=== PATIENT | female | born 1935 | race Caucasian/White ===

== ENCOUNTER → 2016-06-12 | Outpatient (CLI) | payer BC ==
[~2016-06-12] MED LIST: ACET-1311 PO; ALBU18002 INH; AMB5 PO; ASCO500T3 PO; ATEN50TA8 PO; CALC150C PO; CALCIUM CITRATE PO; CHOL1TAB46 PO; CLC100 PO; CYAN100020 PO; DLCS PR; DYZ PO; ENOX30IN4 SQ; FRRS300 PO; GABA-113 PO; LACTULOSE PO; MAGNESIUM HYDROXIDE PO; MRLP17 PO; MULT-190 PO; MULT-506 PO; OXYC-57 PO; POTA10CA28 PO; SENN-65 PO; SOD PR; SODIUM PHOS PR; SPIR25TA PO; VANC1INJ10 IV; VENL1CAP92 PO
[2016-06-12 12:25] LABS: BASO % 0.6 %; BASO ABS # 0.04 K/uL (0-0.2); COMPLETE YES; EOS % 4.8 %; HEMATOCRIT 37.2 % (37-47); IG% 0.4 %; LYMPH % 25.2 %; LYMPH ABS # 1.78 K/uL (1.2-3.4); MEAN CELL VOLUME 87.1 fL (80-100); MEAN CORPUSCULAR HEMOGLOBIN 27.2 pg (25-34); MEAN CORPUSCULAR HGB CONC 31.2 g/dl (32-36); MONO % 12.4 %; NEUT % 56.6 %; PLATELET COUNT 306 K/uL (130-400); RED BLOOD COUNT 4.27 M/uL (4.2-5.4); WHITE BLOOD COUNT 7.07 K/uL (4.8-10.8)
[2016-06-12 13:09] LABS: ALB/GLOB RATIO 0.8 (0.9-2); ALKALINE PHOSPHATASE 113 U/L (45-117); ALT/SGPT 18 U/L (12-78); AST/SGOT 20 U/L (15-37); BLOOD UREA NITROGEN 17 mg/dl (7-18); BUN/CREATININE RATIO 19.2 (10-20); CALCIUM 9.1 mg/dl (8.5-10.1); CARBON DIOXIDE 31 mmol/L (21-32); CHLORIDE 105 mmol/L (98-107); CREATININE 0.91 mg/dl (0.60-1.20); GLUCOSE 118 mg/dl (70-99); SODIUM 142 mmol/L (136-145)
== END | disposition home or self-care (01) ==
LOC: C.LABPBG 09:51
PROVIDERS: ATTEND Internal Medicine Geriatric Medicine
DX: M19.90 Unspecified osteoarthritis, unspecified site (principal); M81.0 Age-related osteoporosis without current pathological fracture; R73.9 Hyperglycemia, unspecified

== ENCOUNTER → 2016-07-16 | Outpatient (CLI) | payer BC ==
[2016-07-16 17:28] LABS: BASO % 0.9 %; BASO ABS # 0.07 K/uL (0-0.2); COMPLETE YES; EOS % 4.4 %; HEMATOCRIT 40.4 % (37-47); IG% 0.1 %; LYMPH % 27.7 %; LYMPH ABS # 2.15 K/uL (1.2-3.4); MEAN CELL VOLUME 89.4 fL (80-100); MEAN CORPUSCULAR HEMOGLOBIN 26.3 pg (25-34); MEAN CORPUSCULAR HGB CONC 29.5 g/dl (32-36); MONO % 13.5 %; NEUT % 53.4 %; PLATELET COUNT 326 K/uL (130-400); RED BLOOD COUNT 4.52 M/uL (4.2-5.4); WHITE BLOOD COUNT 7.77 K/uL (4.8-10.8)
[2016-07-16 17:34] LABS: BLOOD UREA NITROGEN 16 mg/dl (7-18); BUN/CREATININE RATIO 17.8 (10-20); CALCIUM 9.3 mg/dl (8.5-10.1); CARBON DIOXIDE 33 mmol/L (21-32); CHLORIDE 105 mmol/L (98-107); CREATININE 0.92 mg/dl (0.60-1.20); GLUCOSE 99 mg/dl (70-99); POTASSIUM 4.3 mmol/L (3.5-5.1); SODIUM 142 mmol/L (136-145)
[2016-07-16 17:39] LABS: TOTAL IRON BINDING CAPACITY 430 mcg/dl (250-450)
--- NOTE | 2016-07-22 11:43 | CODING QUERY MEDICAL NECESSITY ---
SUPPORTING DIAGNOSIS NEEDED Dr. Agustin, A supporting diagnosis is required for the test/procedure performed on this patient in order for us to be reimbursed by the patient's insurance. Please provide a supporting diagnosis for the following test/procedure listed below next to the test name along with your signature. *If there is no additional diagnosis for this patient that would support the following test/procedure please document that below next to the test/procedure. Test(s)/Procedure(s) that require a supporting diagnosis: * ([id number]) B12 VITAMIN LEVEL DIAGNOSIS: DATE OF SERVICE: 07/16/16 Provider Signature: Date: Thank you Parrish Zurita [facility] Information Management Once completed, please kindly fax back to [phone] For questions please call [phone]
== END | disposition home or self-care (01) ==
LOC: C.LABPBG 13:05
PROVIDERS: ATTEND Internal Medicine Geriatric Medicine
DX: I10 Essential (primary) hypertension (principal); D64.9 Anemia, unspecified; E53.8 Deficiency of other specified B group vitamins

== ENCOUNTER → 2016-08-22 | Day surgery (SDC) | payer BC ==
[2016-08-16 14:01] VITALS: BMI 51.0
[~2016-08-22] VITALS: Ht 154.9 cm; Wt 122.7 kg
[~2016-08-22] MED LIST changes: -ACET-1311 PO; -AMB5 PO; -CALCIUM CITRATE PO; -CLC100 PO; -DLCS PR; -DYZ PO; -ENOX30IN4 SQ; +FENTANYL CITRATE INJ 50 MCG/1 ML 2 ML VIAL ONE; -FRRS300 PO; -LACTULOSE PO; +LIDOCAINE HCL 2% 2 ML VIAL (20MG/ML) ONE; -MAGNESIUM HYDROXIDE PO; -MRLP17 PO; -OXYC-57 PO; -POTA10CA28 PO; +PROPOFOL IV EMULSION 10 MG/ML 20 ML VIAL IV ONE; -SENN-65 PO; -SOD PR; +SODIUM CHLORIDE 0.9% 500ML 500 ML IV ONE; -SODIUM PHOS PR; -VANC1INJ10 IV
[2016-08-22 13:28] VITALS: Ht 154.9 cm; Wt 122.7 kg
--- NOTE | 2016-08-22 14:20 | Endo History and Physical ---
History & Physical Date of Service: Aug 22, 2016. Chief Complaint: HEME POSITIVE STOOL Referring Physician: DR Rosa OLIVER History of Present Illness heme positive stool /anemia Past Surgical History Hx Cardiac Surgery: No Hx Internal Defibrillator: No Hx Pacemaker: No Hx Abdominal Surgery: Yes (ALEX, GARRETT, APPY) Hx of Implantable Prosthesis: No Hx Post-Op Nausea and Vomiting: No Hx Cancer Surgery: No Hx Thoracic Surgery: No Hx Orthopedic: Yes (L/RT JALEESA, RT/LEFT TKA (RT KNEE X 2), RT/LEFT RCR, RT CTR) Hx Urinary Tract Surgery: No Family History None Social History Smoking Status: Never Smoker Hx Substance Use: No Hx Alcohol Use: No Allergies Coded Allergies: Promethazine (Verified Allergy, Severe, RESP. ARREST, 08/22/16) Sulfa Antibiotics (Verified Allergy, Intermediate, WELTS, 08/22/16) Propoxyphene (Verified Adverse Reaction, Intermediate, SEVERE HEADACHE, ) SEVERE HEADACHE Aspirin (Verified Adverse Reaction, Mild, headaches, 08/22/16) Current Medications Reported Home Medications Medications Dose Route/Sig Max Daily Dose Days Date Category Effexor Xr (Venlafaxine Hcl) 37.5 Mg Cap 1 Cap PO QAM 30 08/16/16 Reported Aldactone (Spironolactone) 25 Mg Tab 25 Mg PO QAM 08/16/16 Reported Proair Respiclick (Albuterol Sulfate) 108 Mcg/Act Aer 2 Puff INH Q4H PRN 08/16/16 Reported Ocuvite Preservision (Multivitamins/Minerals) 1 Tab Tab 1 Tab PO QAM 08/16/16 Reported Vitamin B12 (Cyanocobalamin) 1,000 Mcg Tab 1 Tab PO QAM 08/16/16 Reported Neurontin (Gabapentin) 300 Mg Cap 4 Cap PO HS 08/16/16 Reported Tenormin (Atenolol) 50 Mg Tab 50 Mg PO QAM 05/30/06 Reported Vital Signs Weight (Kilograms): 122.73 Height (Feet): 5 Height (Inches): 1 Date Time Temp Pulse Resp B/P (MAP) Pulse Ox O2 Delivery O2 Flow Rate FiO2 08/22/16 13:49 37.3 82 20 150/44 (79) 94 Room Air Physical Exam AAOx3 Nl s1s2 Lungs CTA Abd soft NT/ND + BS - CCe Assessment and Plan colonoscopy
--- NOTE | 2016-08-22 15:07 | Discharge Instructions ---
Endoscopy Patient Instructions Date / Procedure(s) Performed Aug 22, 2016. Colonoscopy Allergy Information Coded Allergies: Promethazine (Verified Allergy, Severe, RESP. ARREST, 08/22/16) Sulfa Antibiotics (Verified Allergy, Intermediate, WELTS, 08/22/16) Propoxyphene (Verified Adverse Reaction, Intermediate, SEVERE HEADACHE, ) SEVERE HEADACHE Aspirin (Verified Adverse Reaction, Mild, headaches, 08/22/16) Discharge Date / Findings Aug 22, 2016. polyps removed Medication Instructions Stopped Medication(s): NO FISH OIL OR IRON Restart Stopped Medication(s): Reported Home Medications Medications Dose Route/Sig Max Daily Dose Days Date Category Effexor Xr (Venlafaxine Hcl) 37.5 Mg Cap 1 Cap PO QAM 30 08/16/16 Reported Aldactone (Spironolactone) 25 Mg Tab 25 Mg PO QAM 08/16/16 Reported Proair Respiclick (Albuterol Sulfate) 108 Mcg/Act Aer 2 Puff INH Q4H PRN 08/16/16 Reported Ocuvite Preservision (Multivitamins/Minerals) 1 Tab Tab 1 Tab PO QAM 08/16/16 Reported Vitamin B12 (Cyanocobalamin) 1,000 Mcg Tab 1 Tab PO QAM 08/16/16 Reported Neurontin (Gabapentin) 300 Mg Cap 4 Cap PO HS 08/16/16 Reported Tenormin (Atenolol) 50 Mg Tab 50 Mg PO QAM 05/30/06 Reported Reported Home Medications Medications Dose Route/Sig Max Daily Dose Days Date Category Effexor Xr (Venlafaxine Hcl) 37.5 Mg Cap 1 Cap PO QAM 30 08/16/16 Reported Aldactone (Spironolactone) 25 Mg Tab 25 Mg PO QAM 08/16/16 Reported Proair Respiclick (Albuterol Sulfate) 108 Mcg/Act Aer 2 Puff INH Q4H PRN 08/16/16 Reported Ocuvite Preservision (Multivitamins/Minerals) 1 Tab Tab 1 Tab PO QAM 08/16/16 Reported Vitamin B12 (Cyanocobalamin) 1,000 Mcg Tab 1 Tab PO QAM 08/16/16 Reported Neurontin (Gabapentin) 300 Mg Cap 4 Cap PO HS 08/16/16 Reported Tenormin (Atenolol) 50 Mg Tab 50 Mg PO QAM 05/30/06 Reported Reported Home Medications Medications Dose Route/Sig Max Daily Dose Days Date Category Effexor Xr (Venlafaxine Hcl) 37.5 Mg Cap 1 Cap PO QAM 30 08/16/16 Reported Aldactone (Spironolactone) 25 Mg Tab 25 Mg PO QAM 08/16/16 Reported Proair Respiclick (Albuterol Sulfate) 108 Mcg/Act Aer 2 Puff INH Q4H PRN 08/16/16 Reported Ocuvite Preservision (Multivitamins/Minerals) 1 Tab Tab 1 Tab PO QAM 08/16/16 Reported Vitamin B12 (Cyanocobalamin) 1,000 Mcg Tab 1 Tab PO QAM 08/16/16 Reported Neurontin (Gabapentin) 300 Mg Cap 4 Cap PO HS 08/16/16 Reported Tenormin (Atenolol) 50 Mg Tab 50 Mg PO QAM 05/30/06 Reported Provider Instructions Activity Restrictions - No exercising or heavy lifting for 24 hours. - Do not drink alcohol the day of the procedure. - Do not drive a car or operate machinery until the day after the procedure. - Do not make any important decisions or sign important papers in 24 hours after the procedure. Following Day: - Return to full activity which may include returning to work/school. Diet Start your diet with liquids and light foods (jello, soup, juice, toast). Then eat your usual diet if not nauseated. Treatment For Common After Affects For mild abdominal pain, bloating, or excessive gas: - Rest - Eat lightly - Lie on right side Follow-Up Information Follow-up with DR Rosa OLIVER as scheduled Anesthesia Information What You Should Know You have had a procedure that required some medicine to reduce anxiety and discomfort. This treatment is called moderate sedation. After receiving the treatment, you may be sleepy, but you will be able to breathe on your own. The effects of the treatment may last for several hours. Follow these instructions along with Activity/Diet recommendations noted above: * Do NOT do anything where dizziness or clumsiness would be dangerous. * Rest quietly at home today, then you can be up and about tomorrow. * Have a responsible person stay with you the rest of today. * You may have had an I.V. today. If so, you may take the dressing off later today. Recommendations Call your doctor if: * Trouble breathing * Continuous vomiting for more than 24 hours * Temperature above 101 degrees * Severe abdominal pain or bloating * Pain not relieved by pain medicine ordered * There is increased drainage or redness from any incision * A large amount of rectal bleeding greater than 2-3 tablespoons. (If you had a polyp/s removed or have hemorrhoids, a small amount of blood - from the rectum is to be expected.) * You have any unanswered questions or concerns. IN THE EVENT OF A SERIOUS EMERGENCY, GO TO THE NEAREST EMERGENCY ROOM Your discharge instructions were prepared by provider Christiano Thibodeaux. Patient Instructions Signature Page Tata Lin Patient (or Guardian) Signature/Date: I have read and understand the instructions given to me by my caregivers. Caregiver/RN/Doctor Signature/Date: The above-named patient and/or guardian has received patient instructions on this date. + Original Patient Signature Page (only) stays with chart. Please make copy for patient.
--- NOTE | 2016-08-22 15:12 | Anesthesiology Progress Note ---
Anesthesia Post Op Note Date & Time Aug 22, 2016 at 15:12 Vital Signs Pain Intensity: 0 Vital Signs Past 12 Hours Date Time Temp Pulse Resp B/P (MAP) Pulse Ox O2 Delivery O2 Flow Rate FiO2 08/22/16 13:49 37.3 82 20 150/44 (79) 94 Room Air Notes Mental Status: alert / awake / arousable, participated in evaluation Pt Amnestic to Procedure: Yes Nausea / Vomiting: adequately controlled Pain: adequately controlled Airway Patency, RR, SpO2: stable & adequate BP & HR: stable & adequate Hydration State: stable & adequate Anesthetic Complications: no major complications apparent
--- NOTE | 2016-08-22 15:25 | GI REPORT ---
Procedure Date: 08/22/2016 2:14 PM Procedure: Colonoscopy Indications: Iron deficiency anemia secondary to chronic blood loss, Iron deficiency anemia Medicines: Propofol per Anesthesia Complications: No immediate complications. Estimated blood loss: None. Estimated Blood Loss: Estimated blood loss: none. Procedure: Pre-Anesthesia Assessment: - Prior to the procedure, a History and Physical was performed, and patient medications and allergies were reviewed. The patient's tolerance of previous anesthesia was also reviewed. The risks and benefits of the procedure and the sedation options and risks were discussed with the patient. All questions were answered, and informed consent was obtained. Prior Anticoagulants: The patient has taken no previous anticoagulant or antiplatelet agents. ASA Grade Assessment: III - A patient with severe systemic disease. After reviewing the risks and benefits, the patient was deemed in satisfactory condition to undergo the procedure. After I obtained informed consent, the scope was passed under direct vision. Throughout the procedure, the patient's blood pressure, pulse, and oxygen saturations were monitored continuously. The Scope was introduced through the anus and advanced to the terminal ileum, with identification of the appendiceal orifice and IC valve. The colonoscopy was performed without difficulty. The patient tolerated the procedure well. The quality of the bowel preparation was good. Findings: The perianal and digital rectal examinations were normal. Pertinent negatives include normal sphincter tone, no palpable rectal lesions and no anal lesion or abnormality was detected. Two sessile polyps were found in the cecum. The polyps were 7 to 12 mm in size. These polyps were removed with a hot snare. Resection and retrieval were complete. Fulguration to ablate the lesion remnants by snare was successful. To prevent bleeding after the polypectomy, three hemostatic clips were successfully placed (MR conditional). There was no bleeding during, and at the end, of the procedure. A 6 mm polyp was found in the ascending colon. The polyp was sessile. The polyp was removed with a cold snare. Resection and retrieval were complete. Estimated blood loss was minimal. Verification of patient identification for the specimen was done by the physician and equipment technician using the patient's name and medical record number. A 6 mm polyp was found at 30 cm proximal to the anus. The polyp was sessile. The polyp was removed with a cold snare. Resection and retrieval were complete. Estimated blood loss was minimal. Verification of patient identification for the specimen was done by the physician and equipment technician using the patient's name and medical record number. The retroflexed view of the distal rectum and anal verge was normal and showed no anal or rectal abnormalities. The terminal ileum appeared normal. Impression: - Two 7 to 12 mm polyps in the cecum, removed with a hot snare. Resected and retrieved. Treated with a hot snare. Clips (MR conditional) were placed. - One 6 mm polyp in the ascending colon, removed with a cold snare. Resected and retrieved. - One 6 mm polyp at 30 cm proximal to the anus, removed with a cold snare. Resected and retrieved. - The distal rectum and anal verge are normal on retroflexion view. - The examined portion of the ileum was normal. Recommendation: - Discharge patient to home (ambulatory). - Advance diet as tolerated. - Continue present medications. - Await pathology results. - Return to referring physician as previously scheduled. MD Christiano Birmingham MD 08/22/2016 3:24:52 PM This report has been signed electronically. Note Initiated On: 08/22/2016 2:14 PM I attest to the content of the Intraoperative Record and orders documented therein, exceptions below
[2016-08-22 15:37] VITALS: BP 150/50; PULSE 64; O2SAT 96
== END | disposition home or self-care (01) ==
LOC: C.GI 13:17
PROVIDERS: ATTEND Internal Medicine Gastroenterology
DX: R19.5 Other fecal abnormalities (principal); D50.0 Iron deficiency anemia secondary to blood loss (chronic); D12.0 Benign neoplasm of cecum; D12.2 Benign neoplasm of ascending colon; K63.5 Polyp of colon; I10 Essential (primary) hypertension; Z86.718 Personal history of other venous thrombosis and embolism; M19.90 Unspecified osteoarthritis, unspecified site; Z88.2 Allergy status to sulfonamides; Z90.89 Acquired absence of other organs; Z96.643 Presence of artificial hip joint, bilateral; Z96.653 Presence of artificial knee joint, bilateral; Z98.890 Other specified postprocedural states

== ENCOUNTER → 2016-12-03 | Outpatient (CLI) | payer BC ==
[~2016-12-03] MED LIST changes: -ASCO500T3 PO; -CALC150C PO; -CHOL1TAB46 PO; -FENTANYL CITRATE INJ 50 MCG/1 ML 2 ML VIAL ONE; -LIDOCAINE HCL 2% 2 ML VIAL (20MG/ML) ONE; -MULT-506 PO; -PROPOFOL IV EMULSION 10 MG/ML 20 ML VIAL IV ONE; -SODIUM CHLORIDE 0.9% 500ML 500 ML IV ONE
[2016-12-03 17:44] LABS: BASO % 0.6 %; BASO ABS # 0.05 K/uL (0-0.2); COMPLETE YES; EOS % 4.7 %; HEMATOCRIT 38.9 % (37-47); IG% 0.4 %; LYMPH % 21.8 %; LYMPH ABS # 1.98 K/uL (1.2-3.4); MEAN CELL VOLUME 87.6 fL (80-100); MEAN CORPUSCULAR HEMOGLOBIN 25.9 pg (25-34); MEAN CORPUSCULAR HGB CONC 29.6 g/dl (32-36); MEAN PLATELET VOLUME 9.9 fL (7.4-10.4); MONO % 13.6 %; NEUT % 58.9 %; PLATELET COUNT 362 K/uL (130-400); RED BLOOD COUNT 4.44 M/uL (4.2-5.4); WHITE BLOOD COUNT 9.07 K/uL (4.8-10.8)
[2016-12-03 17:54] LABS: BLOOD UREA NITROGEN 12 mg/dl (7-18); BUN/CREATININE RATIO 13.7 (10-20); CALCIUM 9.3 mg/dl (8.5-10.1); CARBON DIOXIDE 30 mmol/L (21-32); CHLORIDE 102 mmol/L (98-107); CREATININE 0.89 mg/dl (0.60-1.20); GLUCOSE 124 mg/dl (70-99); POTASSIUM 4.2 mmol/L (3.5-5.1); SODIUM 139 mmol/L (136-145)
== END | disposition home or self-care (01) ==
LOC: C.LABPBG 14:02
PROVIDERS: ATTEND Internal Medicine Geriatric Medicine
DX: E53.8 Deficiency of other specified B group vitamins (principal); F32.9 Major depressive disorder, single episode, unspecified; I10 Essential (primary) hypertension; M81.0 Age-related osteoporosis without current pathological fracture; R73.9 Hyperglycemia, unspecified; E78.5 Hyperlipidemia, unspecified; D64.9 Anemia, unspecified

== ENCOUNTER → 2016-12-27 | Day surgery (SDC) | payer BC ==
[2016-12-23 10:50] VITALS: Ht 154.9 cm; Wt 122.7 kg
[~2016-12-27] VITALS: Ht 154.9 cm; Wt 122.7 kg
[~2016-12-27] MED LIST changes: -ALBU18002 INH; +ASCO500T3 PO; +CALC150C PO; +CHOL1TAB46 PO; +LIDOCAINE HCL 2% 2 ML VIAL (20MG/ML) ONE; +MULT-506 PO; +PROPOFOL IV EMULSION 10 MG/ML 20 ML VIAL IV ONE
--- NOTE | 2016-12-27 15:06 | Endo History and Physical ---
History & Physical Date of Service: Dec 27, 2016. Chief Complaint: ANEMIA, HEM POSITIVE STOOL Referring Physician: DR. Francisco Javier OLIVER History of Present Illness For EGD Past Surgical History Hx Cardiac Surgery: No Hx Internal Defibrillator: No Hx Pacemaker: No Hx Abdominal Surgery: Yes (ALEX, GARRETT, APPY) Hx of Implantable Prosthesis: No Hx Post-Op Nausea and Vomiting: No Hx Cancer Surgery: No Hx Thoracic Surgery: No Hx Orthopedic: Yes (L/RT JALEESA, RT/LEFT TKA (RT KNEE X 2), RT/LEFT RCR, RT CTR) Hx Urinary Tract Surgery: No Family History None Social History Smoking Status: Never Smoker Hx Substance Use: No Hx Alcohol Use: No Allergies Coded Allergies: Promethazine (Verified Allergy, Severe, RESP. ARREST, 08/22/16) Sulfa Antibiotics (Verified Allergy, Intermediate, WELTS, 08/22/16) Propoxyphene (Verified Adverse Reaction, Intermediate, SEVERE HEADACHE, ) SEVERE HEADACHE Aspirin (Verified Adverse Reaction, Mild, headaches, 08/22/16) Current Medications Reported Home Medications Medications Dose Route/Sig Max Daily Dose Days Date Category Vitamin D3 (Cholecalciferol) 5,000 Unit Tab 1 Tab PO QAM 12/23/16 Reported Vitamin C (Ascorbic Acid) 500 Mg Tab 1 Tab PO QAM 12/23/16 Reported Multivitamin (Multivitamins) Tab 1 Tab PO QAM 12/23/16 Reported Torsten-Citrate (Calcium Citrate) 150 Mg Cap 1 Cap PO QAM 12/23/16 Reported Effexor Xr (Venlafaxine Hcl) 37.5 Mg Cap 1 Cap PO QAM 30 08/16/16 Reported Aldactone (Spironolactone) 25 Mg Tab 25 Mg PO QAM 08/16/16 Reported Ocuvite Preservision (Multivitamins/Minerals) 1 Tab Tab 1 Tab PO QAM 08/16/16 Reported Vitamin B12 (Cyanocobalamin) 1,000 Mcg Tab 1 Tab PO QAM 08/16/16 Reported Neurontin (Gabapentin) 300 Mg Cap 4 Cap PO HS 08/16/16 Reported Tenormin (Atenolol) 50 Mg Tab 50 Mg PO QAM 05/30/06 Reported Vital Signs Weight (Kilograms): 122.73 Height (Feet): 5 Height (Inches): 1 Date Time Temp Pulse Resp B/P (MAP) Pulse Ox O2 Delivery O2 Flow Rate FiO2 12/27/16 14:47 36.8 73 16 181/69 (106) 94 Room Air Physical Exam General Appearance: + obese Respiratory/Chest: Respiratory effort: no dyspnea Cardiovascular: Heart Auscultation: RRR Abdomen: Inspection & Palpation: soft Assessment and Plan Anemia, heme positive stool for EGD
--- NOTE | 2016-12-27 15:42 | Discharge Instructions ---
Endoscopy Patient Instructions Date / Procedure(s) Performed Dec 27, 2016. EGD Allergy Information Coded Allergies: Promethazine (Verified Allergy, Severe, RESP. ARREST, 08/22/16) Sulfa Antibiotics (Verified Allergy, Intermediate, WELTS, 08/22/16) Propoxyphene (Verified Adverse Reaction, Intermediate, SEVERE HEADACHE, ) SEVERE HEADACHE Aspirin (Verified Adverse Reaction, Mild, headaches, 08/22/16) Discharge Date / Findings Dec 27, 2016. Gastric polyp Medication Instructions Restart Stopped Medication(s): resume meds Reported Home Medications Medications Dose Route/Sig Max Daily Dose Days Date Category Vitamin D3 (Cholecalciferol) 5,000 Unit Tab 1 Tab PO QAM 12/23/16 Reported Vitamin C (Ascorbic Acid) 500 Mg Tab 1 Tab PO QAM 12/23/16 Reported Multivitamin (Multivitamins) Tab 1 Tab PO QAM 12/23/16 Reported Torsten-Citrate (Calcium Citrate) 150 Mg Cap 1 Cap PO QAM 12/23/16 Reported Effexor Xr (Venlafaxine Hcl) 37.5 Mg Cap 1 Cap PO QAM 30 08/16/16 Reported Aldactone (Spironolactone) 25 Mg Tab 25 Mg PO QAM 08/16/16 Reported Ocuvite Preservision (Multivitamins/Minerals) 1 Tab Tab 1 Tab PO QAM 08/16/16 Reported Vitamin B12 (Cyanocobalamin) 1,000 Mcg Tab 1 Tab PO QAM 08/16/16 Reported Neurontin (Gabapentin) 300 Mg Cap 4 Cap PO HS 08/16/16 Reported Tenormin (Atenolol) 50 Mg Tab 50 Mg PO QAM 05/30/06 Reported Provider Instructions Activity Restrictions - No exercising or heavy lifting for 24 hours. - Do not drink alcohol the day of the procedure. - Do not drive a car or operate machinery until the day after the procedure. - Do not make any important decisions or sign important papers in 24 hours after the procedure. Following Day: - Return to full activity which may include returning to work/school. Diet Start your diet with liquids and light foods (jello, soup, juice, toast). Then eat your usual diet if not nauseated. Treatment For Common After Affects For mild abdominal pain, bloating, or excessive gas: - Rest - Eat lightly - Lie on right side Follow-Up Information Follow-up with DR. Francisco Javier OLIVER as scheduled Anesthesia Information What You Should Know You have had a procedure that required some medicine to reduce anxiety and discomfort. This treatment is called moderate sedation. After receiving the treatment, you may be sleepy, but you will be able to breathe on your own. The effects of the treatment may last for several hours. Follow these instructions along with Activity/Diet recommendations noted above: * Do NOT do anything where dizziness or clumsiness would be dangerous. * Rest quietly at home today, then you can be up and about tomorrow. * Have a responsible person stay with you the rest of today. * You may have had an I.V. today. If so, you may take the dressing off later today. Recommendations Call your doctor if: * Trouble breathing * Continuous vomiting for more than 24 hours * Temperature above 101 degrees * Severe abdominal pain or bloating * Pain not relieved by pain medicine ordered * There is increased drainage or redness from any incision * A large amount of rectal bleeding greater than 2-3 tablespoons. (If you had a polyp/s removed or have hemorrhoids, a small amount of blood - from the rectum is to be expected.) * You have any unanswered questions or concerns. IN THE EVENT OF A SERIOUS EMERGENCY, GO TO THE NEAREST EMERGENCY ROOM Your discharge instructions were prepared by provider Doni Cannon. Patient Instructions Signature Page Tata Lin Patient (or Guardian) Signature/Date: I have read and understand the instructions given to me by my caregivers. Caregiver/RN/Doctor Signature/Date: The above-named patient and/or guardian has received patient instructions on this date. + Original Patient Signature Page (only) stays with chart. Please make copy for patient.
--- NOTE | 2016-12-27 15:45 | GI REPORT ---
Procedure Date: 12/27/2016 3:08 PM Procedure: Upper GI endoscopy Indications: Iron deficiency anemia, Heme positive stool Medicines: Propofol total dose 150 mg IV, Lidocaine 60 mg IV Complications: No immediate complications. Estimated Blood Loss: Estimated blood loss was minimal. Procedure: Pre-Anesthesia Assessment: - Prior to the procedure, a History and Physical was performed, and patient medications, allergies and sensitivities were reviewed. The patient's tolerance of previous anesthesia was reviewed. - The risks and benefits of the procedure and the sedation options and risks were discussed with the patient. All questions were answered and informed consent was obtained. After obtaining informed consent, the endoscope was passed under direct vision. Throughout the procedure, the patient's blood pressure, pulse, and oxygen saturations were monitored continuously. The scope was introduced through the mouth, and advanced to the second part of duodenum. The upper GI endoscopy was accomplished without difficulty. The patient tolerated the procedure fairly well. Findings: The examined esophagus was normal. A single 10 mm semi-sessile polyp with no bleeding and no stigmata of recent bleeding was found in the prepyloric region of the stomach. Biopsies were taken with a cold forceps for histology. Estimated blood loss was minimal. The examined duodenum was normal. Impression: - Normal esophagus. - A single gastric polyp. Biopsied. - Normal examined duodenum. Recommendation: - Discharge patient to home (ambulatory). - Continue present medications. - Await pathology results. - Return to primary care physician SOULEYMANEN. Doni Cannon M.D. Doni Cannon MD 12/27/2016 3:45:24 PM This report has been signed electronically. Note Initiated On: 12/27/2016 3:08 PM I attest to the content of the Intraoperative Record and orders documented therein, exceptions below
--- NOTE | 2016-12-27 15:55 | Anesthesiology Progress Note ---
Anesthesia Post Op Note Date & Time Dec 27, 2016 at 15:54 Vital Signs Pain Intensity: 0 Vital Signs Past 12 Hours Date Time Temp Pulse Resp B/P (MAP) Pulse Ox O2 Delivery O2 Flow Rate FiO2 12/27/16 14:47 36.8 73 16 181/69 (106) 94 Room Air Notes Mental Status: alert / awake / arousable, participated in evaluation Pt Amnestic to Procedure: Yes Nausea / Vomiting: adequately controlled Pain: adequately controlled Airway Patency, RR, SpO2: stable & adequate BP & HR: stable & adequate Hydration State: stable & adequate Anesthetic Complications: no major complications apparent
[2016-12-27 16:15] VITALS: BP 154/70; PULSE 78; O2SAT 93
== END | disposition home or self-care (01) ==
LOC: C.GI 14:06
PROVIDERS: ATTEND Internal Medicine Gastroenterology
DX: K31.7 Polyp of stomach and duodenum (principal); D50.9 Iron deficiency anemia, unspecified; K92.1 Melena

== ENCOUNTER → 2017-02-11 | Outpatient (CLI) | payer BC ==
[~2017-02-11] MED LIST changes: -LIDOCAINE HCL 2% 2 ML VIAL (20MG/ML) ONE; -PROPOFOL IV EMULSION 10 MG/ML 20 ML VIAL IV ONE
--- NOTE | 2017-02-12 06:13 | PAP/PSG TECHNICIAN REPORT ---
[facility] Detacker Polysomnogram Report Study name: None Report date: 02/12/2017 Study date: 02/11/2017 Referring Physician: BINDU OLIVER M.D. Name: EPIFANIO RUSSO Interpreting Physician: Demian Tran M.D. Date of : 1935 Detacker: Mary Ann Gonzalez RPSGT. Sex: Female Age: 81 StudyType: PSG Weight: Height: 81 years, Height Neck Circum:17.5inches BMI: Medications: Venlafaxine 37.5 mg, Atenolol 50 mg, Spironolactone 25 mg, Gabapentin 300 mg, Pro Air HFA 108 ( 90 Base), Hydrocodone-Acetaminophen 10-325 mg, Calcium Citrate, Centrum Silver, Vitamin B-12 1000 MCG, Vitamin C 500 mg, Vitamin D-3 5000 units Patient History Study started on room air with no ETCO2 monitoring in room #6. 81 yr old female here tonight for a possible split psg. She has multiple medical problems. She has had 3 recent falls. She feels weak and tired. She has trouble sleeping but falls asleep while sitting in a chair during the day. She has HTN and depression. Her ESS=12/24. neck circ=17.5inches Parameters Monitored NPSG: E1-M2, E2-M1, Fp1-M2, Fp2-M1, F3-M2, F4-M2, F4-M1, C3-M2, C4-M2, C4-M1, O1-M2, O2-M2, O2-M1, T3-M2, T4-M1, P3-M2, P4-M1, CHIN1, CHIN2, HR, EKG, Legs, PFLOW, SNOR, FLOW, CFLOW, Tidal Volume, THOR, ABDO, SpO2, PLTH, CPRESS, ETCO2 Wave, ETCO2, pH Sleep Architecture Sleep Stages Time at Lights Off 10:23:56 PM STAGES Time (min.) TST (%) Time at Lights On 5:26:26 AM Wake 126.0 -- Total Recording Time (TRT) 422.50 min. N1 8.5 3 Total Sleep Period (TSP) 395.5 min. N2 195.5 66 Total Sleep Time (TST) 296.5min. N3 92.5 31 Awake Time 126.0 min. REM 0.0 0 Wake after Sleep Onset 99.0 min. Sleep Efficiency (SE) 70 % Sleep Onset Latency (CORRY) 27.0 min. Number of Stage 1 Shifts None Awakenings 17 Stage Changes 72 Number of REM periods N/A REM 0.0 0 REM Latency NONE min. NREM 296.5 100 Body Position Analysis Supine Right Left Side Prone Vertical Total Sleep Time (min.) 422.5 0.0 0.0 0.00 0.0 0.0 Total Sleep Time (%) 100% 0% 0% 0 0% N/A% Total Sleep Time REM (min.) 0.0 0.0 0.0 None 0.0 0.0 Total Sleep Time NREM (min.) 296.5 0.0 0.0 None 0.0 0.0 Intermittent Wake (min.) 126.0 0.0 0.0 None 0.0 0.0 Total Sleep Period (%) 100% None None None None None Arousals Myoclonus (PLM) * Events Count Index Events Count Index Spontaneous 10 2 Events Awake (PLMW) 152 72.4 Respiratory 1 0.4 Events Asleep w/ Arousal (PLMA) 24 4.9 PLM 23 5 Events Asleep w/o Arousal (PLMS) 610 123.4 Snoring 2 0 Total Asleep 634 128.3 Total 36 7 Total 786 112 Respiratory Analysis * CA OA MA CH H RERA Total Count 0 5 0 0 68 0 73 Index 0.0 1.0 0.0 0 13.8 0 14.8 Mean Duration 0.0 14.2 0.0 0.00 16.4 0.0 16.3 Longest Duration 0.0 14.6 0.0 0.00 0.0 0.0 40.9 Respiratory Event Summary Total Supine ~Supine Right Left Prone REM NREM Apneas Count 5 5 N/A N/A N/A N/A N/A 5 Index 1.0 1 N/A N/A N/A N/A N/A 1 Hypopneas (4% Desat) Count 68 68 N/A N/A N/A N/A N/A 68 Index 13.8 13.8 N/A N/A N/A N/A N/A 13.8 Apneas & All Hypopneas Count 73 73 N/A N/A N/A N/A N/A 73 Index 14.8 15 N/A N/A N/A N/A N/A 14.8 Respiratory Events (Medication Reconciliation Technician+All Hyp+RERA) Count 73 73 N/A N/A N/A N/A N/A 73 Index 14.8 15 N/A N/A N/A N/A N/A 14.8 Respiratory Related Arousal Count 1 73 N/A N/A N/A N/A N/A 2 Index 0.4 0 N/A N/A N/A N/A N/A 0 Snoring Analysis Supine Right Left Prone REM NREM Total Snore duration 1.1 min Snores count 42 N/A N/A N/A N/A 42 42 Snore mean duration 1.6 Sec Snores index 8 N/A N/A N/A N/A 8.5 8.5 TST with snoring (%) 0.4% Desaturation Event Summary: Minimum %SpO2 Event Count Mean/Min/Max Duration(sec.) Desaturation Index % Time In Bed > 90 27 14.3 / 7.8 / 32.3 379.7 1.0 86 - 90 164 13.8 / 5.3 / 49.3 30.4 79.3 81 - 85 21 11.0 / 5.3 / 19.8 15.7 19.6 76 - 80 0 N/A 0.0 0.0 71 - 75 0 N/A 0.0 0.0 66 - 70 0 N/A 0.0 0.0 61 - 65 0 N/A 0.0 0.0 56 - 60 0 N/A 0.0 0.0 51 - 55 0 N/A 0.0 0.0 < 50 0 N/A 0.0 0.0 Total REM NREM Awake <50% 0.0 min. 0.0 min. 0.0 min. 0.0 min. 51 - 60% 0.0 min. 0.0 min. 0.0 min. 0.0 min. 61 - 70% 0.0 min. 0.0 min. 0.0 min. 0.0 min. 71 - 80% 0.0 min. 0.0 min. 0.0 min. 0.0 min. 81 - 90% 403.9 min. 0.0 min. 291.4 min. 112.5 min. 91 - 100% 4.3 min. 0.0 min. 3.7 min. 0.6 min. Average 87 0 87 87 Minimum SpO2 81 N/A 81 81 Desaturation Event Index 24.0 0.0 31.2 7.1 # Desat. Events below 89% 169 N/A 154 15 Time(%) with Saturation below 89% 84.3 0.0 59.5 24.9 Time(min.) with Saturation below 89% 344.2 0.0 242.8 101.4 Time (mins) REM (mins) NREM (mins) % of TST SpO2 Below 90% 154 N/A N154 93.8 SpO2 Below 88% 35 0 0 65 Heart Rate Analysis Min (bpm) Max (bpm) Average (bpm) Awake 55 150 81 NREM 39 127 76 REM N/A N/A N/A Overall 39 127 76 Supplemental O2 Values Minimum O2 level: None Value Start Time End Time Detacker Comments Mrs. Russo slept in the supine position with the head of the bed slightly elevated. No cardiac arrhythmia noted. Some leg movements were noted. No bruxism noted. Snoring was noted and scored as a 1 on a scale of 1 through 5. (0=no snoring, 5=snoring loud enough to be heard through a closed door or down the coffey way) She awoke to use the restroom 1 time during the night. She stated that she slept about the same as when at home. The final report will be interpreted and signed by a sleep physician. The completed physician report will then be placed in the patient medical record. Therapy (cm H2O) 0 TIB (min.) 422.5 TST (min.) 296.5 Sleep Onset (min.) 27.0 REM Onset From Sleep (min.) NONE Sleep Efficiency % 70 Wakefulness (%) 30 Wakefulness (min.) 126.0 NREM 1 (%) 3 NREM 1 (min.) 8.5 NREM 2 (%) 66 NREM 2 (min.) 195.5 NREM 3 (%) 31 NREM 3 (min.) 92.5 REM (%) 0 REM (min.) 0.0 # Arousals 36 Arousal Index 7 # Snore 42 Snore Index 8.5 AHI 14.8 AHI Supine 15 AHI Non-Supine N/A NREM AHI 14.8 REM AHI N/A RDI 14.8 # Obstructive Apnea 5 # Central Apnea 0 # Mixed Apnea 0 # Hypopneas 68 RERAs 0 Total Respiratory Events 74 Time Below SpO2 89% (min.) 242.8 Mean NREM SpO2 (%) 87 Mean REM SpO2 (%) N/A Mean Sleep SpO2 (%) 87 Min NREM SpO2 (%) 81 Min REM SpO2 (%) N/A Position Supine (min.) 422.5 Position Non-supine (min.) 0.0 LM Index Sleep 128.3 LM Index NREM 128.3 LM Index REM N/A Mean Heart Rate (bpm) 76 Min Heart Rate (bpm) 39
--- NOTE | 2017-02-13 00:31 | POLYSOMNOGRAPH REPORT ---
CLINICAL DATA: An 81-year-old female referred by Dr. Adi Agustin for a possible split night study. She has had 3 recent falls and is weak and tired. She has trouble sleeping, but falls asleep while sitting in a chair during the day. Her Deport sleepiness score is 12/24. SLEEP ARCHITECTURE: Total sleep period was 395.5 minutes. Total sleep time was 296.5 minutes, all non-REM sleep. Sleep onset latency was 27 minutes. Sleep efficiency was 70%. Wake after sleep onset was 99 minutes. Sleep consisted of stage N1 3%, stage N2 66%, and stage N3 31%. AROUSAL DATA: 36 arousals were recorded for an index of 7 per hour. 23 were due to PLMs events. PLM DATA: Severe PLMD was noted. There were 634 limb movements during the sleep noted for an index of 128 per hour with arousal index of 5 per hour. RESPIRATORY DATA: Mild sleep apnea was documented. The AHI was 14.8. There were 5 obstructive apneic episodes. The longest apneic episode was 14.6 seconds. There were 68 hypopneic episodes with the mean duration of 16.4 seconds. OXIMETRY DATA: Nocturnal hypoxemia was seen. Oxygen segun was 81%. Mean saturation was 87%. Time below 88% was 35 minutes. EKG: Heart rates ranged from 39-127 beats per minute. No arrhythmias were noted. STRADDLE TRUCK OPERATOR'S COMMENTS: The patient slept supine with the head of the bed elevated. Leg movements were noted throughout the night. Snoring was mild, rated 1 on a scale of 1-5. The patient did not meet split night criteria early enough in the study to warrant CPAP use. IMPRESSION: 1. Mild sleep apnea/hypopnea with an AHI of 14.8 with nocturnal hypoxemia. 2. Severe periodic limb movement disorder. RECOMMENDATIONS: The patient may benefit from a repeat sleep study with CPAP and/or evaluation for RLS/PLMD. Clinical correlation is needed. LINA
== END | disposition home or self-care (01) ==
LOC: C.NEUR 21:00
PROVIDERS: ATTEND Internal Medicine Geriatric Medicine
DX: R40.0 Somnolence (principal); G47.61 Periodic limb movement disorder

== ENCOUNTER → 2017-06-24 | Outpatient (CLI) | payer BC ==
[2017-06-24 13:21] LABS: MEAN CORPUSCULAR HGB CONC 31.2 g/dl (32-36); MEAN PLATELET VOLUME 10.2 fL (7.4-10.4); PLATELET COUNT 255 K/uL (130-400)
[2017-06-24 14:05] LABS: BLOOD UREA NITROGEN 19 mg/dl (7-18); CALCIUM 9.3 mg/dl (8.5-10.1); CARBON DIOXIDE 33 mmol/L (21-32); CREATININE 0.96 mg/dl (0.60-1.20); GLUCOSE 136 mg/dl (70-99); POTASSIUM 3.9 mmol/L (3.5-5.1); SODIUM 138 mmol/L (136-145)
[2017-06-24 14:13] LABS: HEMOGLOBIN 13.1 g/dL (12.0-16.0); MEAN CELL VOLUME 95.5 fL (80-100); MEAN CORPUSCULAR HEMOGLOBIN 29.8 pg (25-34); RED CELL DISTRIBUTION WIDTH CV 15.3 % (11.5-14.5); RED CELL DISTRIBUTION WIDTH SD 54.1 fL (36.4-46.3); WHITE BLOOD COUNT 6.42 K/uL (4.8-10.8)
[2017-06-24 14:14] LABS: BASO % 0.6 %; BASO ABS # 0.04 K/uL (0-0.2); EOS % 5.5 %; EOS ABS # 0.35 K/uL (0-0.5); IG# 0.02 K/uL (0.00-0.02); LYMPH % 26.3 %; LYMPH ABS # 1.69 K/uL (1.2-3.4); MONO % 20.4 %; MONO ABS # 1.31 K/uL (0.11-0.59); NEUT % 46.9 %; NEUT ABS # 3.01 K/uL (1.4-6.5)
== END | disposition home or self-care (01) ==
LOC: C.LABPBG 10:51
PROVIDERS: ATTEND Internal Medicine Geriatric Medicine
DX: M19.90 Unspecified osteoarthritis, unspecified site (principal); I10 Essential (primary) hypertension; M81.0 Age-related osteoporosis without current pathological fracture; D64.9 Anemia, unspecified; I87.2 Venous insufficiency (chronic) (peripheral); R06.02 Shortness of breath

== ENCOUNTER → 2017-09-18 | Outpatient (CLI) | payer BC ==
[~2017-09-18] MED LIST changes: -VENL1CAP92 PO; +VENL37.52 PO
[2017-09-18 17:09] LABS: BLOOD UREA NITROGEN 19 mg/dl (7-18); CALCIUM 9.5 mg/dl (8.5-10.1); CARBON DIOXIDE 31 mmol/L (21-32); CREATININE 1.16 mg/dl (0.60-1.20); GLUCOSE 135 mg/dl (70-99); POTASSIUM 4.2 mmol/L (3.5-5.1); SODIUM 139 mmol/L (136-145)
== END | disposition home or self-care (01) ==
LOC: C.LABPBG 15:23
PROVIDERS: ATTEND Physician Assistant Medical
DX: I10 Essential (primary) hypertension (principal)

== ENCOUNTER 2020-10-02 12:43 | Inpatient (IN) ==
[2020-10-02] MEDS ORDERED: SODIUM CHLORIDE 0.9% 500 ML IV STA (12:49)
--- NOTE | 2020-10-02 13:02 | Emergency Department Note ---
Impression & Plan Femoral distal fracture ED Provider Note NAME: EPIFANIO RUSSO AGE: 85 SEX: F : 1935 ARRIVES VIA: Ambulance INFORMANT: Patient, ED PROVIDER(S): Skip Polo DO CHIEF COMPLAINT: Leg pain HPI: The patient is an 85-year-old female who presented to the emergency department for an evaluation of leg pain. The patient was walking with her walker over the weekend when she tripped and fell. She fell onto her right side. She has been having significant difficulty ambulating ever since. She does have a walker because of ambulatory dysfunction but also has been having problems with diplopia recently. She was seen by her primary care physician. She states that the diplopia is getting worse and she thinks this is why she fell. She denies having any headache or neck pain. She denies having any back pain or abdominal pain. Patient has severe pain in her right lower extremity. She was unable to ambulate today so 911 was called. The patient arrived via ambulance. The patient was having severe difficulty moving her right leg and according to the prehospital personnel the leg appeared to be very unstable. They were able to wrap both legs together and this gave the patient significant relief with her pain. She denies having any nausea or vomiting. The patient does her history of knee replacement in the past. The patient has no numbness in the leg. She states she is otherwise been compliant with all of her outpatient medications. ROS: See above HPI for pertinent positives & negatives. A total of 10 systems reviewed and were otherwise negative. PAST MEDICAL HISTORY: See Below PAST SURGICAL HISTORY: See Below FAMILY HISTORY: See Below SOCIAL HISTORY: See Below HOME MEDICATIONS: See Below ALLERGIES: See Below VITALS: See Below PHYSICAL EXAMINATION: GENERAL: The patient is awake and alert. She is very anxious appearing and appears to be uncomfortable. EYES: The conjunctivae are clear. The pupils are round and reactive. EARS, NOSE, MOUTH AND THROAT: The nose is without any evidence of any deformity. NECK: The neck is nontender and supple. RESPIRATORY: Normal respiratory effort is noted there is no evidence of wheezing rhonchi or rales CARDIOVASCULAR: Regular rate and rhythm noted there no murmurs rubs or gallops normal S1 normal S2. GASTROINTESTINAL: The abdomen is soft. Abdomen is nontender. MUSCULOSKELETAL/EXTREMITIES: There is significant pain with palpation over the right distal femur. There was pain with rotation of the right hip. There is no pain to palpation over the right leg or the right ankle or the right foot. The right leg was shortened. SKIN: Skin is warm and dry. Venous stasis changes were noted in both lower extremities. NEUROLOGIC: Patient is awake alert and oriented x 3. MEDICAL DECISION MAKING: The patient is an 85-year-old female who presented to the emergency department for an evaluation of leg pain. The patient had a fall over the weekend. She sustained significant injury to her right leg. The patient did not come to the emergency department initially but because of worsening difficulty ambulating she presented to the emergency department. The patient came via ambulance. Her right leg was shortened. X-rays revealed a periprosthetic right distal femur fracture which was associated with a knee replacement that was previously done. The patient was treated with IV pain medication. I ordered a knee immobilizer. The patient was reevaluated multiple times. She also had other studies to ensure there was no other trauma. I discussed the patient's laboratory and radiographic studies with her. I also discussed this case with the on-call [facility]. They have agreed to evaluate the patient in the emergency department for further management and disposition. I also discussed this case with Dr. Leong who is on-call for orthopedics. He is taking care of this patient in the past and agreed to see her once again. Triage Nursing notes reviewed. Prior medical records reviewed Vital Signs: reviewed and remarkable for no significant abnormalities Differential diagnosis: Fracture, dislocation, contusion, intra-abdominal, pneumothorax, intrathoracic, intracranial, neurologic, compartment syndrome, rhabdomyolysis, as well as other pathologies. ER treatment provided: See below Diagnostics interpreted by me: ECG: EKG was obtained in the emergency department. My interpretation is normal sinus rhythm at 67 bpm. There is no ectopy. There is no acute ST segment abnormalities noted. This was compared to a tracing from October 042010. No significant changes were noted. Cardiac Monitoring: An order was placed for continuous cardiac monitoring. The monitor shows a rate of 67 bpm with sinus rhythm. Laboratory studies: As stated above and show below. Imaging studies: See below Consultation(s): 1330: I discussed this case with Dr. Pitts who is on-call for [facility]. 1440: I discussed this case with Dr. Leong who is on-call for his orthopedic group. He is agreed to see the patient for orthopedic consultation. 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) Anemia Chronic kidney disease, stage 3 (moderate) Chronic venous insufficiency Depression Dyslipidemia Fracture of femur Hypertension Lymphedema Mild sleep apnea Osteoarthritis Osteoporosis (09/22/10) Peripheral neuropathy PLMD (periodic limb movement disorder) Rosacea Tubular adenoma of colon Type 2 diabetes mellitus with diabetic chronic kidney disease Urinary incontinence Venous stasis ulcers of both lower extremities Vitamin B12 deficiency Vitamin D deficiency Surgical History H/O colonoscopy H/O shoulder surgery History of knee replacement History of varicose vein ligation and stripping No history of previous surgery FEMUR REPAIR Status post ablation of incompetent vein using laser Status post appendectomy Status post cholecystectomy Status post foot surgery Status post hip replacement Status post hysterectomy Family History Father , 45 Stroke Mother , 85 No problems noted. Denies family history of Ovarian cancer Prostate cancer Myocardial infarction Breast cancer Colorectal cancer Social History Smoking Status: Never smoker Second Hand Exposure: No; Do You Dip or Chew Tobacco: No; Hx Alcohol Use: No Hx Substance Use: No Preferred Language: Greenlandic Communication Ability: Effective Visual Impairment: Limited Hearing Ability: Use of Hearing Aid Director Of Speech Pathology Required: No Beliefs That Will Affect Care: None Current Living Situation: Family Current Living Situation Comment: Lives w/ son Other Information That Helps Us Care for You: No Feels Safe at Home: Yes Safety Concerns: Feels Safe At This Time Diet Comment: regular caffeine: Yes during the past year weight has: remained stable Dental Care, Regularly: No Physical Activity Frequency: Does not Exercise Seatbelt Use: always Sunscreen Use: No Assistive Devices: Denture - Upper, Denture - Lower and Glasses Allergies Allergies Allergy/AdvReac Type Severity Reaction Status Date / Time promethazine Allergy Severe RESP. Verified 09/22/20 09:47 ARREST Sulfa (Sulfonamide Allergy Intermediate WELTS Verified 09/22/20 09:47 Antibiotics) duloxetine Allergy Unknown Unknown Verified 09/22/20 09:47 nefazodone Allergy Unknown Unknown Verified 09/22/20 09:47 trazodone Allergy Unknown Unknown Verified 09/22/20 09:47 propoxyphene AdvReac Intermediate SEVERE Verified 09/22/20 09:47 HEADACHE aspirin AdvReac Mild headaches Verified 09/22/20 09:47 amitriptyline AdvReac Unknown Unknown Verified 09/22/20 09:47 blue dye AdvReac Unknown CI Pigment Verified 10/02/20 18:50 blue 63 Home Meds Home Medications Medication Instructions Recorded Confirmed cyanocobalamin (vitamin B-12) 1,000 mcg PO DAILY 10/28/17 10/02/20 1,000 mcg/mL oral drops (Vitamin B-12) vitamins A,C,C-[id number]-tdxiwl 7,160 1 cap PO DAILY 03/20/18 10/02/20 unit-113 mg-100 unit tablet (PreserVision AREDS) calcium citrate 150 mg capsule 150 mg PO DAILY cap 01/13/19 10/02/20 cholecalciferol (vitamin D3) 125 5,000 units PO DAILY cap 01/13/19 10/02/20 mcg (5,000 unit) capsule ropinirole 0.5 mg tablet 0.5 mg PO HS tab 01/13/19 10/02/20 cyclosporine 0.05 % eye drops in a 1 drp OPHTHALMIC (EYE) Q12H 09/22/20 10/02/20 dropperette (Restasis) Previous Rx's Medication Instructions Recorded gabapentin 300 mg capsule 1,200 mg PO HS #360 cap 04/07/20 venlafaxine 37.5 mg 37.5 mg PO DAILY #90 cap 04/25/20 capsule,extended release 24 hr (Effexor XR) atenolol 50 mg tablet 50 mg PO DAILY #90 tab 06/14/20 spironolactone 25 mg tablet 50 mg PO DAILY #180 tab 06/14/20 ferrous sulfate 325 mg (65 mg 325 mg PO BID #60 tab 08/28/20 iron) tablet triamcinolone acetonide 0.5 % 1 applic TOPICAL DAILY #15 g 09/22/20 topical cream Results & Data (ED) Vital Signs Vital Signs - 24 hr 10/02/20 12:45 10/02/20 12:58 10/02/20 14:41 Temperature 36.8 C Temperature Source Oral Pulse Rate 69 65 69 Pulse Rate from SpO2 Sensor 65 69 Pulse Rhythm Regular Pulse Strength Normal Respiratory Rate 14 16 19 Respiratory Effort / Characteristics Non-Labored Spontaneous Respiratory Depth Normal Respiratory Pattern Regular Blood Pressure 149/45 H 149/45 H 142/58 H Blood Pressure Mean 79 79 86 Pulse Oximetry 91 93 98 Oxygen Delivery Method Room Air Sepsis Recent Fever Within 48 Hours No Sepsis New/Unexplained Change in Mental Status No Sepsis Action Taken by Nursing No Action Required Home Medications Current Medication List: was personally reviewed by me Laboratory Data Attestation: I reviewed the patient's lab results. Result diagrams: 10/02/20 14:34 10/02/20 14:34 Lab Results 10/02/20 10/02/20 10/02/20 Range/Units 13:30 13:30 14:34 WBC (4.8-10.8) K/uL RBC (4.2-5.4) M/uL Hgb (12.0-16.0) g/dL Hct (37-47) % MCV (80-100) fL MCH (25-34) pg MCHC (32-36) g/dL RDW Std Deviation (36.4-46.3) fL RDW Coeff of Yane (11.5-14.5) % Plt Count (130-400) K/uL MPV (7.4-10.4) fL Immature Gran % (Auto) % Neut % (Auto) % Lymph % (Auto) % [place] % (Auto) % Eos % (Auto) % Baso % (Auto) % Neut # (Auto) (1.4-6.5) K/uL Lymph # (Auto) (1.2-3.4) K/uL [place] # (Auto) (0.11-0.59) K/uL Eos # (Auto) (0-0.5) K/uL Baso # (Auto) (0-0.2) K/uL Immature Gran # (Auto) (0.00-0.02) K/uL PT 10.9 (9.0-12.0) Seconds INR 1.1 (0.9-1.1) APTT 26.5 (21.0-31.0) Seconds PTT Ratio 1.0 Sodium (136-145) mmol/L Potassium (3.5-5.1) mmol/L Chloride (98-107) mmol/L Carbon Dioxide (21-32) mmol/L Anion Gap (3-11) BUN (7-18) mg/dl Creatinine (0.6-1.2) mg/dl Est Cr Clr Drug Dosing ml/min Est GFR ( Amer) ml/min Est GFR (Non-Af Amer) ml/min BUN/Creatinine Ratio (10-20) Glucose (70-99) mg/dl Calcium (8.5-10.1) mg/dl Total Bilirubin (0.2-1) mg/dl AST (15-37) U/L ALT (12-78) U/L Alkaline Phosphatase (45-117) U/L Troponin I (0-0.045) ng/ml Total Protein (6.4-8.2) gm/dl Albumin (3.4-5.0) gm/dl Globulin (2.5-4.0) gm/dl Albumin/Globulin Ratio (0.9-2) Lipase (73-393) U/L COVID-19 Eval Order Covid19 at [facility] SARS-CoV-2 (PCR) NEGATIVE (Negative) 10/02/20 10/02/20 Range/Units 14:34 14:34 WBC 9.39 (4.8-10.8) K/uL RBC 4.34 (4.2-5.4) M/uL Hgb 13.0 (12.0-16.0) g/dL Hct 40.8 (37-47) % MCV 94.0 (80-100) fL MCH 30.0 (25-34) pg MCHC 31.9 L (32-36) g/dL RDW Std Deviation 49.2 H (36.4-46.3) fL RDW Coeff of Yane 14.2 (11.5-14.5) % Plt Count 234 (130-400) K/uL MPV 10.0 (7.4-10.4) fL Immature Gran % (Auto) 0.2 % Neut % (Auto) 67.6 % Lymph % (Auto) 16.5 % [place] % (Auto) 12.5 % Eos % (Auto) 3.0 % Baso % (Auto) 0.2 % Neut # (Auto) 6.35 (1.4-6.5) K/uL Lymph # (Auto) 1.55 (1.2-3.4) K/uL [place] # (Auto) 1.17 H (0.11-0.59) K/uL Eos # (Auto) 0.28 (0-0.5) K/uL Baso # (Auto) 0.02 (0-0.2) K/uL Immature Gran # (Auto) 0.02 (0.00-0.02) K/uL PT (9.0-12.0) Seconds INR (0.9-1.1) APTT (21.0-31.0) Seconds PTT Ratio Sodium 138 (136-145) mmol/L Potassium 4.3 (3.5-5.1) mmol/L Chloride 103 (98-107) mmol/L Carbon Dioxide 32 (21-32) mmol/L Anion Gap 3.0 (3-11) BUN 27 H (7-18) mg/dl Creatinine 1.30 H (0.6-1.2) mg/dl Est Cr Clr Drug Dosing 35.3 ml/min Est GFR ( Amer) 43.0 ml/min Est GFR (Non-Af Amer) 37.1 ml/min BUN/Creatinine Ratio 20.4 H (10-20) Glucose 104 H (70-99) mg/dl Calcium 8.8 (8.5-10.1) mg/dl Total Bilirubin 0.9 (0.2-1) mg/dl AST 22 (15-37) U/L ALT 19 (12-78) U/L Alkaline Phosphatase 111 (45-117) U/L Troponin I < 0.015 (0-0.045) ng/ml Total Protein 7.4 (6.4-8.2) gm/dl Albumin 3.0 L (3.4-5.0) gm/dl Globulin 4.4 H (2.5-4.0) gm/dl Albumin/Globulin Ratio 0.7 L (0.9-2) Lipase 36 L (73-393) U/L COVID-19 Eval Order SARS-CoV-2 (PCR) (Negative) Administered Medications Insulin Aspart (Insulin Aspart 100 Units/Ml 3 Ml Pen) 0 units SC ACHS ALEX Stop: 11/01/20 16:29 Last Admin: 10/02/20 18:18 Dose: Not Given Documented by: [id number] Discontinued Medications Sodium Chloride (Nss) 500 mls @ 999 mls/hr IV .Q31M STA Stop: 10/02/20 13:19 Last Infusion: 10/02/20 17:59 Dose: 0 mls/hr Documented by: [id number] Admin: 10/02/20 15:39 Dose: 999 mls/hr Documented by: [id number] Morphine Sulfate (Morphine Sulfate 4 Mg/Ml 1 Ml Carp\Vial) 4 mg IV Q30M PRN PRN Reason: Pain Stop: 10/16/20 12:48 Last Admin: 10/02/20 15:39 Dose: 4 mg Documented by: [id number] Admin: 10/02/20 14:30 Dose: 4 mg Documented by: [id number] Admin: 10/02/20 13:29 Dose: 4 mg Documented by: [id number] Imaging Data Radiologist's Impression: Cervical Spine CT 10/02/20 12:49 CT OF THE CERVICAL SPINE WITHOUT CONTRAST CLINICAL HISTORY: fall COMPARISON STUDY: No previous studies for comparison. TECHNIQUE: Helical axial images of the cervical spine were obtained without IV contrast. Sagittal and coronal reconstructions were viewed. Automated exposure control was utilized for the study. A dose lowering technique was utilized adhering to the principles of ALARA. FINDINGS: Alignment of the cervical spine is anatomic. Vertebral body heights are maintained. No acute cervical spine fracture or subluxation is present. There is no prevertebral edema. Facet joints are intact. Note is made of moderate to severe multilevel disc space narrowing, osteophytosis and facet arthrosis within the cervical spine. IMPRESSION: No acute cervical spine fracture or subluxation. ACT 112: Negative or not required by law. Electronically signed by: Toi Simmons M.D. 10/02/2020 2:44 PM Femur X-Ray 10/02/20 12:49 SINGLE VIEW PELVIS; 2 VIEWS RIGHT FEMUR CLINICAL HISTORY: Fall with right leg injury. FINDINGS: An AP view of the pelvis with AP and crosstable lateral views of the right femur are obtained. No prior studies are available for comparison at the time of dictation. The skeletal structures are osteopenic. There is no radiographic evidence of acute fracture involving the left hip or the bony pelvis. Intertrochanteric and intramedullary nails are noted in the left proximal femur. A right hip arthroplasty is in near-anatomic alignment. No definite periprosthetic lucency is identified. A hinged right knee arthroplasty is in place. There is a comminuted periprosthetic spiral fracture of the distal femoral shaft. The fragments are angulated, and there is at least 5 cm of overriding of the fragments. Overlying soft tissue edema is noted. Small phleboliths are seen in the pelvis. Moderate degenerative joint space narrowing is noted in the left hip. IMPRESSION: 1. No acute fracture is identified involving the left proximal femur or the bony pelvis. 2. There is a comminuted periprosthetic spiral fracture of the distal femoral shaft as detailed above. Electronically signed by: Carlos Goss M.D. 10/02/2020 1:[address] 10/02/20 12:49 CT SCAN OF THE BRAIN WITHOUT IV CONTRAST CLINICAL HISTORY: Fall. COMPARISON STUDY: MRI of the brain dated 04/17/2006 TECHNIQUE: Unenhanced axial CT scan of the brain is performed from the vertex to the skull base. A dose lowering technique was utilized adhering to the principles of ALARA. CT DOSE: 906.34 mGycm FINDINGS: Brain parenchyma: There are age-related involutional changes noting mild subcortical and periventricular microangiopathic change. There is no hemorrhage, mass effect, or evidence of acute territorial ischemia by CT criteria. La- white matter differentiation is preserved. No extra-axial fluid collection is seen. Ventricles, sulci, cisterns: Prominent secondary to involutional change. Intracranial vasculature: There is atherosclerotic calcification of the c avernous carotid and vertebral arteries. Calvarium: The skeletal structures are osteopenic. There is no depressed calvarial fracture. Sinuses and mastoids: The visualized paranasal sinuses are clear. The mastoid air cells are well pneumatized. Orbits: The bony orbits are grossly intact. There are bilateral ocular lens im plants. IMPRESSION: There is no hemorrhage, mass effect, or evidence of acute territorial ischemia by CT criteria. ACT 112: Negative or not required by law. Electronically signed by: Carlos Goss M.D. 10/02/2020 2:42 PM Knee X-Ray 10/02/20 12:49 XR knee RT 1 or 2V routine HISTORY: 85 years-old Female fall acute right knee pain status post fall COMPARISON: Right femur radiographs of same day TECHNIQUE: 2 views of the right knee FINDINGS: Demineralized appearance of the bones. Right knee total joint arthroplasty. There is an acute comminuted periprosthetic fracture involving the distal femoral diaphysis which demonstrates apex dorsal angulation with approximately 3 cm anterior displacement of the distal fracture fragment. Moderate soft tissue swelling with moderate joint effusion. Limited exam secondary to positioning. IMPRESSION: Right knee total joint arthroplasty with acute comminuted displaced and angulated distal femoral diaphyseal/periprosthetic fracture. ACT 112: Negative or not required by law. The above report was generated using voice recognition software. It may contain grammatical, syntax or spelling errors. Electronically signed by: Augustin Kasper M.D. 10/02/2020 1:51 PM Pelvis X-Ray 10/02/20 12:49 SINGLE VIEW PELVIS; 2 VIEWS RIGHT FEMUR CLINICAL HISTORY: Fall with right leg injury. FINDINGS: An AP view of the pelvis with AP and crosstable lateral views of the right femur are obtained. No prior studies are available for comparison at the time of dictation. The skeletal structures are osteopenic. There is no radiographic evidence of acute fracture involving the left hip or the bony pelvis. Intertrochanteric and intramedullary nails are noted in the left proximal femur. A right hip arthroplasty is in near-anatomic alignment. No definite periprosthetic lucency is identified. A hinged right knee arthroplasty is in place. There is a comminuted periprosthetic spiral fracture of the distal femoral shaft. The fragments are angulated, and there is at least 5 cm of o verriding of the fragments. Overlying soft tissue edema is noted. Small phleboliths are seen in the pelvis. Moderate degenerative joint space narrowing is noted in the left hip. IMPRESSION: 1. No acute fracture is identified involving the left proximal femur or the bony pelvis. 2. There is a comminuted periprosthetic spiral fracture of the distal femoral shaft as detailed above. Electronically signed by: Carlos Goss M.D. 10/02/2020 1:32 PM Chest X-Ray 10/02/20 12:50 XR chest 1V portable CLINICAL HISTORY: Chest Pain COMPARISON STUDY: October 04, 2010 FINDINGS: No pneumothorax. No pleural effusion. Diffuse prominence of pulmonary interstitium is seen bilaterally. Small atelectasis is seen in bilateral bases. Mild peribronchial cuffing are seen bilaterally. Cardiomediastinal silhouette is within upper limits of normal and appear stable since prior. Pulmonary vasculature is indistinct.. Osseous structures: Multilevel degenerative changes of the spine. Redemonstration of prosthetic shoulder joints bilaterally. IMPRESSION: 1. Cardiac silhouette is within upper limits of normal, possible pulmonary edema. 2. Atelectasis at bilateral bases. ACT 112: Negative or not required by law. The above report was generated using voice recognition software. It may contain grammatical, syntax or spelling errors. Electronically signed by: Terri Dale DO 10/02/2020 1:39 PM Discharge Plan Visit Data Chief Complaint: Leg Injury/Pain ED Provider: Skip Polo Discharge Problem: Femoral distal fracture Patient Disposition: Admitted As Inpatient Condition: Good Discharge Instructions Interventions: ED Discharge Assessment Last Done: 10/02/20 16:22 Discharge Problem: Femoral distal fracture Qualifiers: Encounter type: initial encounter Fracture type: closed Fracture morphology: unspecified fracture morphology Laterality: right Qualified Code(s): S72.401A - Unspecified fracture of lower end of right femur, initial encounter for closed fracture
[2020-10-02] MEDS: MoRPHine SULFATE 4 MG/ML 1 ML CARP\\VIAL IV PRN ×3 (13:29→15:39)
--- NOTE | 2020-10-02 13:34 | XRay Report ---
SINGLE VIEW PELVIS; 2 VIEWS RIGHT FEMUR CLINICAL HISTORY: Fall with right leg injury. FINDINGS: An AP view of the pelvis with AP and crosstable lateral views of the right femur are obtain ed. No prior studies are available for comparison at the time of dictation. The skeletal structures a re osteopenic. There is no radiographic evidence of acute fracture involving the left hip or the bony pelvis. Intertrochanteric and intramedullary nails are noted in the left proximal femur. A right hip arthroplasty is in near-anatomic alignment. No definite periprosthetic lucency is identified. A [facility] ed right knee arthroplasty is in place. There is a comminuted periprosthetic spiral fracture of the d istal femoral shaft. The fragments are angulated, and there is at least 5 cm of overriding of the fra gments. Overlying soft tissue edema is noted. Small phleboliths are seen in the pelvis. Moderate dege nerative joint space narrowing is noted in the left hip. IMPRESSION: 1. No acute fracture is identified involving the left proximal femur or the bony pelvis. 2. There is a comminuted periprosthetic spiral fracture of the distal femoral shaft as detailed above . Electronically signed by: Carlos Goss M.D. 10/02/2020 1:32 PM
--- NOTE | 2020-10-02 13:34 | XRay Report ---
SINGLE VIEW PELVIS; 2 VIEWS RIGHT FEMUR CLINICAL HISTORY: Fall with right leg injury. FINDINGS: An AP view of the pelvis with AP and crosstable lateral views of the right femur are obtain ed. No prior studies are available for comparison at the time of dictation. The skeletal structures a re osteopenic. There is no radiographic evidence of acute fracture involving the left hip or the bony pelvis. Intertrochanteric and intramedullary nails are noted in the left proximal femur. A right hip arthroplasty is in near-anatomic alignment. No definite periprosthetic lucency is identified. A [facility] ed right knee arthroplasty is in place. There is a comminuted periprosthetic spiral fracture of the d istal femoral shaft. The fragments are angulated, and there is at least 5 cm of overriding of the fra gments. Overlying soft tissue edema is noted. Small phleboliths are seen in the pelvis. Moderate dege nerative joint space narrowing is noted in the left hip. IMPRESSION: 1. No acute fracture is identified involving the left proximal femur or the bony pelvis. 2. There is a comminuted periprosthetic spiral fracture of the distal femoral shaft as detailed above . Electronically signed by: Carlos Goss M.D. 10/02/2020 1:32 PM
--- NOTE | 2020-10-02 13:41 | XRay Report ---
XR chest 1V portable CLINICAL HISTORY: Chest Pain COMPARISON STUDY: October 04, 2010 FINDINGS: No pneumothorax. No pleural effusion. Diffuse prominence of pulmonary interstitium is seen bilaterally. Small atelectasis is seen in bilate ral bases. Mild peribronchial cuffing are seen bilaterally. Cardiomediastinal silhouette is within upper limits of normal and appear stable since prior. Pulmonary vasculature is indistinct.. Osseous structures: Multilevel degenerative changes of the spine. Redemonstration of prosthetic shou lder joints bilaterally. IMPRESSION: 1. Cardiac silhouette is within upper limits of normal, possible pulmonary edema. 2. Atelectasis at bilateral bases. ACT 112: Negative or not required by law. The above report was generated using voice recognition software. It may contain grammatical, syntax o r spelling errors. Electronically signed by: Terri Dale DO 10/02/2020 1:39 PM
--- NOTE | 2020-10-02 13:52 | XRay Report ---
XR knee RT 1 or 2V routine HISTORY: 85 years-old Female fall acute right knee pain status post fall COMPARISON: Right femur radiographs of same day TECHNIQUE: 2 views of the right knee FINDINGS: Demineralized appearance of the bones. Right knee total joint arthroplasty. There is an acute comminu padmaja periprosthetic fracture involving the distal femoral diaphysis which demonstrates apex dorsal ang ulation with approximately 3 cm anterior displacement of the distal fracture fragment. Moderate soft tissue swelling with moderate joint effusion. Limited exam secondary to positioning. IMPRESSION: Right knee total joint arthroplasty with acute comminuted displaced and angulated distal femoral diaphyseal/periprosthetic fracture. ACT 112: Negative or not required by law. The above report was generated using voice recognition software. It may contain grammatical, syntax o r spelling errors. Electronically signed by: Augustin Kasper M.D. 10/02/2020 1:51 PM
--- NOTE | 2020-10-02 14:43 | History & Physical Report ---
Date of Service October 02, 2020 Assessment & Plan (1) Femur fracture, right: Plan: Patient has a comminuted periprosthetic spiral fracture of the distal femur shaft seen on x-ray Admit to a general medical bed ER physician discussed with orthopedics regarding possible surgical intervention For now, can use a low-dose morphine for pain as needed Bedrest DVT prophylaxis with heparin (2) Type 2 diabetes mellitus with diabetic chronic kidney disease: Plan: I do see diabetic medication on her prescription list We will check hemoglobin A1c, order mealtime sliding scale only for now (3) Hypertension: Plan: Mild blood pressure elevation is likely secondary to pain Continue outpatient medications including atenolol 50 mg daily (4) Dyslipidemia: Plan: No lipid-lowering medication noted on outpatient medication list Check fasting lipid panel (5) Lymphedema: Plan: Stable (6) Peripheral neuropathy: Plan: Patient is on ropinirole and gabapentin, will continue both of these for now Continue ferrous sulfate as ordered History of Present Illness Chief Complaint: Right leg pain Primary Care Provider: Luzmaria Campbell, This is a an 85-year-old female with past medical history of CKD, dyslipidemia, previous left femur fracture, bilateral total knee arthroplasty, status post right hip arthroplasty that presents today status post fall with leg pain. Patient is accompanied by her son who is her primary caregiver and both are pleasant and good historians. Patient tells me that on 09/30, she was ambulating around her kitchen. She typically uses a walker but when she went to reach for it she fell, landing on her right side. Since then she has been unable to bear any weight on her right leg. Her son was trying his best to help her transfer from walker to chair but she was unable to do this. Earlier today, the son felt he was unable to help any further brought the patient to the emergency room for further evaluation. Work-up in the emergency room revealed a periprosthetic fracture of the distal femur on the right. Patient is now being admitted for further treatment of this. Patient tells me she only has minimal pain, as long she keeps the leg still. She denies any other symptoms at this time. She denied any head trauma or syncope with her fall. Allergies Allergy/AdvReac Type Severity Reaction Status Date / Time promethazine Allergy Severe RESP. Verified 09/22/20 09:47 ARREST Sulfa (Sulfonamide Allergy Intermediate WELTS Verified 09/22/20 09:47 Antibiotics) duloxetine Allergy Unknown Unknown Verified 09/22/20 09:47 nefazodone Allergy Unknown Unknown Verified 09/22/20 09:47 trazodone Allergy Unknown Unknown Verified 09/22/20 09:47 propoxyphene AdvReac Intermediate SEVERE Verified 09/22/20 09:47 HEADACHE aspirin AdvReac Mild headaches Verified 09/22/20 09:47 amitriptyline AdvReac Unknown Unknown Verified 09/22/20 09:47 CI pigment blue 63 AdvReac Unknown Unknown Uncoded 09/22/20 09:47 Home Medications Medication Instructions Recorded Confirmed Type cyanocobalamin (vitamin B-12) 1,000 mcg PO DAILY 10/28/17 09/22/20 History 1,000 mcg/mL oral drops (Vitamin B-12) vitamins A,C,N-zqje-yboiqc 7,160 1 cap PO DAILY 03/20/18 09/22/20 History unit-113 mg-100 unit tablet (PreserVision AREDS) calcium citrate 150 mg capsule 150 mg PO DAILY cap 01/13/19 09/22/20 History cholecalciferol (vitamin D3) 125 5,000 units PO DAILY cap 01/13/19 09/22/20 History mcg (5,000 unit) capsule ropinirole 0.5 mg tablet 0.5 mg PO HS tab 01/13/19 09/22/20 History lancets 33 gauge (Shekhar Farfan #100 ea 01/19/19 09/22/20 Rx Lancets) diclofenac sodium 1 % topical gel 2 gm TOP QID PRN #100 gm 07/20/19 09/22/20 Rx (Voltaren) wheeled walker #1 ea 07/20/19 09/22/20 Rx gabapentin 300 mg capsule 1,200 mg PO HS #360 cap 04/07/20 09/22/20 Rx blood sugar diagnostic (Local.comTouch #100 ea 04/10/20 09/22/20 Rx Verio test strips) venlafaxine 37.5 mg 37.5 mg PO DAILY #90 cap 04/25/20 09/22/20 Rx capsule,extended release 24 hr (Effexor XR) atenolol 50 mg tablet 50 mg PO DAILY #90 tab 06/14/20 09/22/20 Rx spironolactone 25 mg tablet 50 mg PO DAILY #180 tab 06/14/20 09/22/20 Rx ferrous sulfate 325 mg (65 mg 325 mg PO BID #60 tab 08/28/20 09/22/20 Rx iron) tablet cyclosporine 0.05 % eye drops in a 1 drp OPHTHALMIC (EYE) Q12H 09/22/20 09/22/20 History dropperette (Restasis) triamcinolone acetonide 0.5 % 1 applic TOPICAL DAILY #15 g 09/22/20 09/22/20 Rx topical cream 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) Anemia Chronic kidney disease, stage 3 (moderate) Chronic venous insufficiency Depression Dyslipidemia Fracture of femur Hypertension Lymphedema Mild sleep apnea Osteoarthritis Osteoporosis (09/22/10) Peripheral neuropathy PLMD (periodic limb movement disorder) Rosacea Tubular adenoma of colon Type 2 diabetes mellitus with diabetic chronic kidney disease Urinary incontinence Venous stasis ulcers of both lower extremities Vitamin B12 deficiency Vitamin D deficiency Surgical History H/O colonoscopy H/O shoulder surgery History of knee replacement History of varicose vein ligation and stripping No history of previous surgery FEMUR REPAIR Status post ablation of incompetent vein using laser Status post appendectomy Status post cholecystectomy Status post foot surgery Status post hip replacement Status post hysterectomy Family History Father , 45 Stroke Mother , 85 No problems noted. Denies family history of Ovarian cancer Prostate cancer Myocardial infarction Breast cancer Colorectal cancer Social History Smoking Status: Never smoker Second Hand Exposure: No; Hx Alcohol Use: No Hx Substance Use: No Preferred Language: Japanese Communication Ability: Effective Visual Impairment: Limited Hearing Ability: Use of Hearing Aid Associate Software Application Engineer Required: Yes Beliefs That Will Affect Care: None Current Living Situation: Family Current Living Situation Comment: Lives w/ son Feels Safe at Home: Yes Diet Comment: regular caffeine: Yes during the past year weight has: remained stable Dental Care, Regularly: No Physical Activity Frequency: Does not Exercise Seatbelt Use: always Sunscreen Use: No Review of Systems Constitutional: no fever, no chills, no weakness, no weight loss and no weight gain Eyes: as per Subjective / HPI Respiratory: no cough, no chest congestion, no dyspnea and no dyspnea on exertion Cardiovascular: no chest pain, no orthopnea, no palpitations, no lightheadedne ss and no edema Gastrointestinal: no abdominal pain, no nausea, no vomiting, no constipation and no diarrhea/loose stools Genitourinary: no dysuria, no difficulty urinating, no urinary frequency, no urinary hesitancy, no urinary urgency and no flank pain Musculoskeletal: + problem reported; no back pain, no neck pain, no joint pain and no stiffness Integumentary: no rash Neurologic: no gait abnormality, no unsteadiness, no falls and no generalized weakness Physical Exam Constitutional: cooperative; no acute distress Neck: trachea midline, no thyromegaly Respiratory: normal respiratory effort Auscultation: lungs clear to auscultation bilaterally; no crackles, no rales, no rhonchi and no wheezes Cardiovascular: Rate/Rhythm: regular rate and regular rhythm Heart Sounds: normal S1 and normal S2 Gastrointestinal (Abdomen): Inspection/Auscultation: abdomen normal to inspection Percussion/Palpation: abdomen soft; abdomen nontender, no guarding, abdomen not rigid and no hepatosplenomegaly Musculoskeletal: Extremities: + leg foreshortened Skin: no rashes, warm and dry Results & Data Results & Data ([facility]) Laboratory Results Laboratory Results COVID-19 Eval Order Covid19 at [facility] 10/02/20 13:30 Impressions Femur X-Ray 10/02/20 12:49 SINGLE VIEW PELVIS; 2 VIEWS RIGHT FEMUR CLINICAL HISTORY: Fall with right leg injury. FINDINGS: An AP view of the pelvis with AP and crosstable lateral views of the right femur are obtained. No prior studies are available for comparison at the time of dictation. The skeletal structures are osteopenic. There is no radiographic evidence of acute fracture involving the left hip or the bony pelvis. Intertrochanteric and intramedullary nails are noted in the left pro ximal femur. A right hip arthroplasty is in near-anatomic alignment. No definite periprosthetic lucency is identified. A hinged right knee arthroplasty is in place. There is a comminuted periprosthetic spiral fracture of the distal femoral shaft. The fragments are angulated, and there is at least 5 cm of overriding of the fragments. Overlying soft tissue edema is noted. Small phleboliths are seen in the pelvis. Moderate degenerative joint space narrowing is noted in the left hip. IMPRESSION: 1. No acute fracture is identified involving the left proximal femur or the bony pelvis. 2. There is a comminuted periprosthetic spiral fracture of the distal femoral shaft as detailed above. Electronically signed by: Carlos Goss M.D. 10/02/2020 1:32 PM Knee X-Ray 10/02/20 12:49 XR knee RT 1 or 2V routine HISTORY: 85 years-old Female fall acute right knee pain status post fall COMPARISON: Right femur radiographs of same day TECHNIQUE: 2 views of the right knee FINDINGS: Demineralized appearance of the bones. Right knee total joint arthroplasty. There is an acute comminuted periprosthetic fracture involving the distal femoral diaphysis which demonstrates apex dorsal angulation with approximately 3 cm anterior displacement of the distal fracture fragment. Moderate soft tissue swelling with moderate joint effusion. Limited exam secondary to positioning. IMPRESSION: Right knee total joint arthroplasty with acute comminuted displaced and angulated distal femoral diaphyseal/periprosthetic fracture. ACT 112: Negative or not required by law. The above report was generated using voice recognition software. It may contain grammatical, syntax or spelling errors. Electronically signed by: Augustin Kasper M.D. 10/02/2020 1:51 PM Pelvis X-Ray 10/02/20 12:49 SINGLE VIEW PELVIS; 2 VIEWS RIGHT FEMUR CLINICAL HISTORY: Fall with right leg injury. FINDINGS: An AP view of the pelvis with AP and crosstable lateral views of the right femur are obtained. No prior studies are available for comparison at the time of dictation. The skeletal structures are osteopenic. There is no radiographic evidence of acute fracture involving the left hip or the bony pelvis. Intertrochanteric and intramedullary nails are noted in the left proximal femur. A right hip arthroplasty is in near-anatomic alignment. No definite periprosthetic lucency is identified. A hinged right knee arthroplasty is in place. There is a comminuted periprosthetic spiral fracture of the distal femoral shaft. The fragments are angulated, and there is at least 5 cm of overriding of the fragments. Overlying soft tissue edema is noted. Small phleboliths are seen in the pelvis. Moderate degenerative joint space narrowing is noted in the left hip. IMPRESSION: 1. No acute fracture is identified involving the left proximal femur or the bony pelvis. 2. There is a comminuted periprosthetic spiral fracture of the distal femoral shaft as detailed above. Electronically signed by: Carlos Goss M.D. 10/02/2020 1:32 PM Chest X-Ray 10/02/20 12:50 XR chest 1V portable CLINICAL HISTORY: Chest Pain COMPARISON STUDY: October 04, 2010 FINDINGS: No pneumothorax. No pleural effusion. Diffuse prominence of pulmonary interstitium is seen bilaterally. Small atelectasis is seen in bilateral bases. Mild peribronchial cuffing are seen bilaterally. Cardiomediastinal silhouette is within upper limits of normal and appear stable since prior. Pulmonary vasculature is indistinct.. Osseous structures: Multilevel degenerative changes of the spine. Redemonstration of prosthetic shoulder joints bilaterally. IMPRESSION: 1. Cardiac silhouette is within upper limits of normal, possible pulmonary edema. 2. Atelectasis at bilateral bases. ACT 112: Negative or not required by law. The above report was generated using voice recognition software. It may contain grammatical, syntax or spelling errors. Electronically signed by: Terri Dale DO 10/02/2020 1:39 PM PG Care Time/CCT Total # of Minutes Spent Total Time Spent with Patient: Total time spent is greater than 50% in coordination of care (as documented) at patient's floor/unit and/or counseling patient: Coding Level of Care Code 81626 Initial Inpt Care Lvl 3 Diagnoses Type 2 diabetes mellitus with diabetic chronic kidney disease E11.22 Hypertension I10 Dyslipidemia E78.5 Lymphedema I89.0 Peripheral neuropathy G62.9 Femur fracture, right S72.91XA
[2020-10-02 14:44] LABS: Basophils # (auto) 0.02 K/uL (0-0.2); Basophils % (auto) 0.2 %; Eosinophils # (auto) 0.28 K/uL (0-0.5); Hematocrit (blood only) 40.8 % (37-47); Immature Granulocytes # (auto) 0.02 K/uL (0.00-0.02); Immature Granulocytes % (auto) 0.2 %; Lymphocytes # (auto) 1.55 K/uL (1.2-3.4); Lymphocytes % (auto) 16.5 %; Mean Corpuscular Hgb Conc 31.9 g/dL (32-36); Monocytes # (auto) 1.17 K/uL (0.11-0.59); Monocytes % (auto) 12.5 %; Neutrophils # (auto) 6.35 K/uL (1.4-6.5); Neutrophils % (auto) 67.6 %; Platelet Count 234 K/uL (130-400); RDW Coefficient of Variation 14.2 % (11.5-14.5); RDW Standard Deviation 49.2 fL (36.4-46.3); Red Blood Count 4.34 M/uL (4.2-5.4); White Blood Count 9.39 K/uL (4.8-10.8)
--- NOTE | 2020-10-02 14:44 | CT Scan Report ---
CT SCAN OF THE BRAIN WITHOUT IV CONTRAST CLINICAL HISTORY: Fall. COMPARISON STUDY: MRI of the brain dated 04/17/2006 TECHNIQUE: Unenhanced axial CT scan of the brain is performed from the vertex to the skull base. A do se lowering technique was utilized adhering to the principles of ALARA. CT DOSE: 906.34 mGycm FINDINGS: Brain parenchyma: There are age-related involutional changes noting mild subcortical and periventric ular microangiopathic change. There is no hemorrhage, mass effect, or evidence of acute territorial i schemia by CT criteria. La-white matter differentiation is preserved. No extra-axial fluid collecti on is seen. Ventricles, sulci, cisterns: Prominent secondary to involutional change. Intracranial vasculature: There is atherosclerotic calcification of the cavernous carotid and vertebr al arteries. Calvarium: The skeletal structures are osteopenic. There is no depressed calvarial fracture. Sinuses and mastoids: The visualized paranasal sinuses are clear. The mastoid air cells are well pneu matized. Orbits: The bony orbits are grossly intact. There are bilateral ocular lens implants. IMPRESSION: There is no hemorrhage, mass effect, or evidence of acute territorial ischemia by CT crit mary. ACT 112: Negative or not required by law. Electronically signed by: Carlos Goss M.D. 10/02/2020 2:42 PM
--- NOTE | 2020-10-02 14:45 | CT Scan Report ---
CT OF THE CERVICAL SPINE WITHOUT CONTRAST CLINICAL HISTORY: fall COMPARISON STUDY: No previous studies for comparison. TECHNIQUE: Helical axial images of the cervical spine were obtained without IV contrast. Sagittal a nd coronal reconstructions were viewed. Automated exposure control was utilized for the study. A do se lowering technique was utilized adhering to the principles of ALARA. FINDINGS: Alignment of the cervical spine is anatomic. Vertebral body heights are maintained. No acut e cervical spine fracture or subluxation is present. There is no prevertebral edema. Facet joints are intact. Note is made of moderate to severe multilevel disc space narrowing, osteophytosis and facet arthrosis within the cervical spine. IMPRESSION: No acute cervical spine fracture or subluxation. ACT 112: Negative or not required by law. Electronically signed by: Toi Simmons M.D. 10/02/2020 2:44 PM
[2020-10-02 14:57] LABS: INR 1.1 (0.9-1.1); Partial Thromboplastin Time 26.5 Seconds (21.0-31.0); Prothrombin Time 10.9 Seconds (9.0-12.0)
[2020-10-02 15:02] LABS: Aspartate Aminotransferase 22 U/L (15-37); BUN Creatinine Ratio 20.4 (10-20); Blood Urea Nitrogen 27 mg/dl (7-18); Calcium 8.8 mg/dl (8.5-10.1); Carbon Dioxide 32 mmol/L (21-32); Chloride 103 mmol/L (98-107); Creatinine Clr Calc Pharmacy 35.3 ml/min; Est GFR (Non-African American) 37.1 ml/min; Glucose 104 mg/dl (70-99); Lipase 36 U/L (73-393); Potassium 4.3 mmol/L (3.5-5.1); Sodium 138 mmol/L (136-145)
[2020-10-02 15:06] LABS: Alanine Aminotransferase 19 U/L (12-78); Albumin Globulin Ratio 0.7 (0.9-2); Alkaline Phosphatase 111 U/L (45-117); Bilirubin,Total 0.9 mg/dl (0.2-1); Globulin 4.4 gm/dl (2.5-4.0); Total Protein 7.4 gm/dl (6.4-8.2); Troponin I < 0.015 ng/ml (0-0.045)
[2020-10-02] MEDS ORDERED: GLUCAGON FOR INJ 1 MG VIAL SQ PRN (16:29)
[2020-10-02] MEDS ORDERED: DEXTROSE 50% 50 ML SYRINGE IV PRN (16:29)
[2020-10-02] MEDS ORDERED: GLUCOSE 10 TABS/TUBE PO PRN (16:29)
[2020-10-02] MEDS ORDERED: CARBOHYDRATES FOR HYPOGLYCEMIA PO PRN (16:29)
[2020-10-02] MEDS ORDERED: GLUCOSE 40% GEL 15 GM TUBE PO PRN (16:29)
[2020-10-02] MEDS ORDERED: ACETAMINOPHEN 325 MG TAB PO PRN (16:29)
[2020-10-02] MEDS ORDERED: ONDANSETRON INJ 2 MG/ML 2 ML VIAL IV PRN (16:29)
--- NOTE | 2020-10-02 17:13 | Orthopedic Consultation ---
Date of Service October 02, 2020 Assessment & Plan (1) Femur fracture, right: We discussed diagnosis and treatment options with her at bedside. Our recommendation was to proceed with an open reduction internal fixation of the right distal femur. She understands the risk, benefits, and alternatives to procedure elected to proceed. Questions were answered at bedside. She was put on the operating room schedule for tomorrow. She was made n.p.o. past midnight tonight. Dr. Leong is aware and will perform the surgery likely tomorrow. History of Present Illness Reason for Consultation: Right periprosthetic femur fracture. Requesting Physician: . Attending Physician: Aramis PittsDO Payton is a pleasant 85-year-old female whose had multiple orthopedic procedures in the past. She has had her knee operated on her 3 times. The last one being by Dr. Boyce about 15 to 20 years ago. She also has a history of a right hip fracture that was fixed by Dr. Boyce in 2004. She lives in her house with her son. She normally ambulates with a walker. Earlier today she was getting up from a chair to walk to her bedroom when she fell. She twisted her right knee. She had severe right leg pain and came to the emergency room. Radiographs demonstrated a periprosthetic right distal femur fracture. She was admitted to the medicine service. Orthopedics was consulted to evaluate and treat. Allergies Allergy/AdvReac Type Severity Reaction Status Date / Time promethazine Allergy Severe RESP. Verified 09/22/20 09:47 ARREST Sulfa (Sulfonamide Allergy Intermediate WELTS Verified 09/22/20 09:47 Antibiotics) duloxetine Allergy Unknown Unknown Verified 09/22/20 09:47 nefazodone Allergy Unknown Unknown Verified 09/22/20 09:47 trazodone Allergy Unknown Unknown Verified 09/22/20 09:47 propoxyphene AdvReac Intermediate SEVERE Verified 09/22/20 09:47 HEADACHE aspirin AdvReac Mild headaches Verified 09/22/20 09:47 amitriptyline AdvReac Unknown Unknown Verified 09/22/20 09:47 CI pigment blue 63 AdvReac Unknown Unknown Uncoded 09/22/20 09:47 Home Medications Medication Instructions Recorded Confirmed Type cyanocobalamin (vitamin B-12) 1,000 mcg PO DAILY 10/28/17 10/02/20 History 1,000 mcg/mL oral drops (Vitamin B-12) vitamins A,C,B-uqhp-bvgael 7,160 1 cap PO DAILY 03/20/18 10/02/20 History unit-113 mg-100 unit tablet (PreserVision AREDS) calcium citrate 150 mg capsule 150 mg PO DAILY cap 01/13/19 10/02/20 History cholecalciferol (vitamin D3) 125 5,000 units PO DAILY cap 01/13/19 10/02/20 History mcg (5,000 unit) capsule ropinirole 0.5 mg tablet 0.5 mg PO HS tab 01/13/19 10/02/20 History gabapentin 300 mg capsule 1,200 mg PO HS #360 cap 04/07/20 10/02/20 Rx venlafaxine 37.5 mg 37.5 mg PO DAILY #90 cap 04/25/20 10/02/20 Rx capsule,extended release 24 hr (Effexor XR) atenolol 50 mg tablet 50 mg PO DAILY #90 tab 06/14/20 10/02/20 Rx spironolactone 25 mg tablet 50 mg PO DAILY #180 tab 06/14/20 10/02/20 Rx ferrous sulfate 325 mg (65 mg 325 mg PO BID #60 tab 08/28/20 10/02/20 Rx iron) tablet cyclosporine 0.05 % eye drops in a 1 drp OPHTHALMIC (EYE) Q12H 09/22/20 10/02/20 History dropperette (Restasis) triamcinolone acetonide 0.5 % 1 applic TOPICAL DAILY #15 g 09/22/20 10/02/20 Rx topical cream 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) Anemia Chronic kidney disease, stage 3 (moderate) Chronic venous insufficiency Depression Dyslipidemia Fracture of femur Hypertension Lymphedema Mild sleep apnea Osteoarthritis Osteoporosis (09/22/10) Peripheral neuropathy PLMD (periodic limb movement disorder) Rosacea Tubular adenoma of colon Type 2 diabetes mellitus with diabetic chronic kidney disease Urinary incontinence Venous stasis ulcers of both lower extremities Vitamin B12 deficiency Vitamin D deficiency Surgical History H/O colonoscopy H/O shoulder surgery History of knee replacement History of varicose vein ligation and stripping No history of previous surgery FEMUR REPAIR Status post ablation of incompetent vein using laser Status post appendectomy Status post cholecystectomy Status post foot surgery Status post hip replacement Status post hysterectomy Family History Father , 45 Stroke Mother , 85 No problems noted. Denies family history of Ovarian cancer Prostate cancer Myocardial infarction Breast cancer Colorectal cancer Social History Smoking Status: Never smoker Second Hand Exposure: No; Hx Alcohol Use: No Hx Substance Use: No Preferred Language: Bengali Communication Ability: Effective Visual Impairment: Limited Hearing Ability: Use of Hearing Aid Buckle Coverer Required: Yes Beliefs That Will Affect Care: None Current Living Situation: Family Current Living Situation Comment: Lives w/ son Feels Safe at Home: Yes Diet Comment: regular caffeine: Yes during the past year weight has: remained stable Dental Care, Regularly: No Physical Activity Frequency: Does not Exercise Seatbelt Use: always Sunscreen Use: No Review of Systems All systems reviewed & are unremarkable except as noted in HPI & below. Physical Exam On physical examination of the right leg, she has a knee immobilizer in place. She has very dry skin and some lymphedema just distal to her knee. She has active motion of her toes. She is neurovascular intact.. Constitutional WD/WN, vitals as above Eyes PERRL, conjunctivae normal, anicteric sclerae ENMT external ear and nose normal, oropharynx normal Neck trachea midline, no thyromegaly Respiratory normal respiratory effort Cardiovascular RRR, no murmur, no edema Gastrointestinal (Abdomen) normal bowel sounds, soft, nontender, no hepatosplenomegaly Psychiatric A+Ox3, euthymic affect Results & Data Results & Data Laboratory Results . Diagnostic Findings X-rays of the right distal femur show a comminuted periprosthetic distal femur fracture.. PG Care Time/CCT Total # of Minutes Spent Total Time Spent with Patient: Total time spent is greater than 50% in coordination of care (as documented) at patient's floor/unit and/or counseling patient: Coding Level of Care Code 60042 Inpt Consult Level 4 (57 - DECISION FOR SURGERY) Diagnoses Femur fracture, right S72.91XA
[2020-10-02] MEDS: INSULIN ASPART 100 UNITS/ML 3 ML PEN SC SCH ×2 (18:18→21:21)
[2020-10-02] MEDS ORDERED: MICONAZOLE NITRATE POWDER 43 GM EXT PRN (19:30)
--- NOTE | 2020-10-02 20:03 | Anesthesiology Consultation ---
Date of Service October 02, 2020 Assessment & Plan (1) Encounter for pre-operative examination: Chart Review Chart Review: Acceptable Risk for Surgery and Patient NOT seen in Pre Admission Testing covid neg 10/02/20 Consults Requested none History Surgery Operation Date: 10/03/20 07:00 Proposed Procedures p Right Periprosthetic Femur Fracture Open Reduction Internal Fixation - Gonzalez Leong MD Height/Weight Height: 5 ft Weight: 111.5 kg Allergies Allergy/AdvReac Type Severity Reaction Status Date / Time promethazine Allergy Severe RESP. Verified 09/22/20 09:47 ARREST Sulfa (Sulfonamide Allergy Intermediate WELTS Verified 09/22/20 09:47 Antibiotics) duloxetine Allergy Unknown Unknown Verified 09/22/20 09:47 nefazodone Allergy Unknown Unknown Verified 09/22/20 09:47 trazodone Allergy Unknown Unknown Verified 09/22/20 09:47 propoxyphene AdvReac Intermediate SEVERE Verified 09/22/20 09:47 HEADACHE aspirin AdvReac Mild headaches Verified 09/22/20 09:47 amitriptyline AdvReac Unknown Unknown Verified 09/22/20 09:47 blue dye AdvReac Unknown CI Pigment Verified 10/02/20 18:50 blue 63 Medications Home Medications Medication Instructions Recorded Confirmed Last Taken cyanocobalamin (vitamin B-12) 1,000 mcg PO DAILY 10/28/17 10/02/20 Unknown 1,000 mcg/mL oral drops (Vitamin B-12) vitamins A,C,E-xqax-olrmde 7,160 1 cap PO DAILY 03/20/18 10/02/20 Unknown unit-113 mg-100 unit tablet (PreserVision AREDS) calcium citrate 150 mg capsule 150 mg PO DAILY cap 01/13/19 10/02/20 Unknown cholecalciferol (vitamin D3) 125 5,000 units PO DAILY cap 01/13/19 10/02/20 Unknown mcg (5,000 unit) capsule ropinirole 0.5 mg tablet 0.5 mg PO HS tab 01/13/19 10/02/20 Unknown gabapentin 300 mg capsule 1,200 mg PO HS #360 cap 04/07/20 10/02/20 Unknown venlafaxine 37.5 mg 37.5 mg PO DAILY #90 cap 04/25/20 10/02/20 Unknown capsule,extended release 24 hr (Effexor XR) atenolol 50 mg tablet 50 mg PO DAILY #90 tab 06/14/20 10/02/20 Unknown spironolactone 25 mg tablet 50 mg PO DAILY #180 tab 06/14/20 10/02/20 Unknown ferrous sulfate 325 mg (65 mg 325 mg PO BID #60 tab 08/28/20 10/02/20 Unknown iron) tablet cyclosporine 0.05 % eye drops in a 1 drp OPHTHALMIC (EYE) Q12H 09/22/20 10/02/20 Unknown dropperette (Restasis) triamcinolone acetonide 0.5 % 1 applic TOPICAL DAILY #15 g 09/22/20 10/02/20 Unknown topical cream Active Medications Generic Name Dose Route Start Last Admin Trade Name Freq PRN Reason Stop Dose Admin Insulin Aspart 0 units 10/02/20 16:30 10/02/20 18:18 Insulin Aspart 100 Units/Ml 3 Ml Pen SC 11/01/20 16:29 Not Given ACHS ALEX Past Medical History Medical History (Updated 10/02/20 @ 20:02 by Gage Nance MD) 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 Denies family history of Ovarian cancer Prostate cancer Myocardial infarction Breast cancer Colorectal cancer Past Surgical History Surgical History (Updated 10/02/20 @ 20:00 by Gage Nance MD) H/O colonoscopy H/O shoulder surgery History of knee replacement History of varicose vein ligation and stripping Status post ablation of incompetent vein using laser Status post appendectomy Status post cholecystectomy Status post foot surgery Status post hip replacement Status post hysterectomy Social History Smoking Status: Never smoker Do You Dip or Chew Tobacco: No Hx Alcohol Use: No Hx Substance Use: No Physical Exam Vital Signs Last Vital Signs Temp 36.6 C 10/02/20 16:44 Pulse 67 10/02/20 16:44 Resp 13 10/02/20 15:30 BP 126/67 10/02/20 16:44 Pulse Ox 99 10/02/20 16:44 Testing Laboratory Results 10/02/20 14:34 10/02/20 14:34 PT 10.9 Seconds (9.0-12.0) 10/02/20 14:34 INR 1.1 (0.9-1.1) 10/02/20 14:34 APTT 26.5 Seconds (21.0-31.0) 10/02/20 14:34 10/02/20 17:27 POC Glucose 96 Electrocardiogram Date: 10/02/20 Findings: + NSR @ (HR 67) Normal ECG. Chest X-Ray Date: 10/02/20 IMPRESSION: 1. Cardiac silhouette is within upper limits of normal, possible pulmonary edema. 2. Atelectasis at bilateral bases.
[2020-10-02] MEDS: HEPARIN SOD 5,000 UNIT/0.5 ML VIAL SQ SCH (21:28)
[2020-10-03] MEDS: HEPARIN SOD 5,000 UNIT/0.5 ML VIAL SQ SCH ×3 (05:08→23:26)
[2020-10-03] MEDS ORDERED: ceFAZolin 2000MG 2,000 MG/15 ML SYR IV ONE (06:00)
[2020-10-03] MEDS: MoRPHine SULFATE 2 MG/ML CARP IV PRN (08:22)
[2020-10-03 08:31] LABS: Hematocrit (blood only) 37.8 % (37-47); Mean Corpuscular Hemoglobin 30.1 pg (25-34); Mean Corpuscular Hgb Conc 31.7 g/dL (32-36); Mean Corpuscular Volume 94.7 fL (80-100); RDW Coefficient of Variation 14.2 % (11.5-14.5); RDW Standard Deviation 49.7 fL (36.4-46.3); Red Blood Count 3.99 M/uL (4.2-5.4)
[2020-10-03 08:32] LABS: Basophils # (auto) 0.01 K/uL (0-0.2); Basophils % (auto) 0.1 %; Eosinophils # (auto) 0.28 K/uL (0-0.5); Eosinophils % (auto) 3.6 %; Immature Granulocytes # (auto) 0.02 K/uL (0.00-0.02); Immature Granulocytes % (auto) 0.3 %; Lymphocytes # (auto) 1.49 K/uL (1.2-3.4); Lymphocytes % (auto) 19.4 %; Mean Platelet Volume 9.8 fL (7.4-10.4); Monocytes # (auto) 1.09 K/uL (0.11-0.59); Monocytes % (auto) 14.2 %; Neutrophils # (auto) 4.81 K/uL (1.4-6.5); Neutrophils % (auto) 62.4 %; Platelet Count 229 K/uL (130-400)
[2020-10-03 08:59] LABS: BUN Creatinine Ratio 24.1 (10-20); Calcium 8.4 mg/dl (8.5-10.1); Creatinine Clr Calc Pharmacy 48.8 ml/min; Est GFR (African American) 63.7 ml/min; Est GFR (Non-African American) 54.9 ml/min; Potassium 3.9 mmol/L (3.5-5.1)
[2020-10-03 09:20] LABS: Estimated Average Glucose 117 mg/dl; Hemoglobin A1C 5.7 % (4.5-5.6)
[2020-10-03] MEDS: INSULIN ASPART 100 UNITS/ML 3 ML PEN SC SCH ×4 (09:55→22:37)
[2020-10-03] MEDS: CHOLECALCIFEROL 1,000 UNITS 25 MCG TAB PO SCH (10:25)
[2020-10-03] MEDS: VENLAFAXINE HCL XR 37.5 MG CAPXR PO SCH (10:25)
[2020-10-03] MEDS: CEROVITE ADV FORMULA TAB PO SCH (10:25)
[2020-10-03] MEDS: FERROUS SULFATE 325 MG TAB PO SCH (10:25)
[2020-10-03] MEDS: CYANOCOBALAMIN 500 MCG TABLET (VITAMIN B-12) PO SCH (10:25)
[2020-10-03] MEDS: FOLIC ACID 1 MG TAB PO SCH (10:25)
[2020-10-03] MEDS ORDERED: PROPOFOL IV EMULSION 10 MG/ML 20 ML VIAL IV ONE ×4 (12:04→15:28)
[2020-10-03] MEDS ORDERED: fentaNYL citrate 100 MCG/2 ML VIAL ONE ×2 (12:04→18:10)
[2020-10-03] MEDS ORDERED: KETAMINE 50 MG/5 ML SYRINGE ONE (12:05)
--- NOTE | 2020-10-03 12:08 | Orthopedic Progress Note ---
Date of Service October 03, 2020 Assessment & Plan (1) Femoral distal fracture: She is npo. We will take her shortly to the OR for ORIF of the right femur fx. Subjective .Pt very upset today. She said she has been left alone, people laughing at her. She said she has had a horrible day. She is having right leg pain. Review of Systems All systems reviewed & are unremarkable except as noted in HPI & below. Physical Exam .She is very upset and crying. Right leg: brace is on. I did not do any motion of her leg. Results & Data Results & Data Laboratory Results . Diagnostic Findings . PG Care Time/CCT Total # of Minutes Spent Total Time Spent with Patient: Total time spent is greater than 50% in coordination of care (as documented) at patient's floor/unit and/or counseling patient: Coding Level of Care Code 22797 Post Operative Follow-Up Diagnoses Femoral distal fracture S72.401A Encounter type: initial encounter Fracture morphology: unspecified fracture morphology Fracture type: closed Laterality: right (1) Femoral distal fracture Encounter type: initial encounter Fracture morphology: unspecified fracture morphology Fracture type: closed Laterality: right Qualified Code(s): S72.401A - Unspecified fracture of lower end of right femur, initial encounter for closed fracture
[2020-10-03] MEDS ORDERED: BUPIVACAINE 0.5 % 5 MG/1 ML PF 10ML VIAL ONE (13:23)
[2020-10-03] MEDS ORDERED: SODIUM CHLORIDE 0.9% PF 50 ML VIAL ONE (14:01)
[2020-10-03] MEDS ORDERED: BUPIVACAINE 0.25% 30 ML VIAL ONE (14:01)
[2020-10-03] MEDS ORDERED: EPINEPHrine INJ 1 MG/ML AMP ONE (14:01)
[2020-10-03] MEDS ORDERED: BUPIVACAINE LIPOSOME 1.3% 266 MG/20 ML VIAL ONE (14:01)
[2020-10-03] MEDS ORDERED: ceFAZolin 2,000 MG/15 ML IV PUSH IV ONE (14:05)
[2020-10-03] MEDS ORDERED: MIDAZOLAM HCL 1 MG/ML 2ML VIAL ONE (14:16)
[2020-10-03] MEDS ORDERED: fentaNYL citrate 100 MCG/2 ML VIAL IV PRN (14:27)
[2020-10-03] MEDS ORDERED: ePHEDrine sulfate 50 MG/ML AMP IV PRN (14:27)
[2020-10-03] MEDS ORDERED: ONDANSETRON INJ 2 MG/ML 2 ML VIAL IV PRN ×2 (14:27→22:13)
[2020-10-03] MEDS ORDERED: ATROPINE SULFATE 0.1 MG/ML 10ML SYR IV PRN (14:27)
[2020-10-03] MEDS ORDERED: SODIUM CHLORIDE 0.9% 250 ML IV PRN (14:52)
[2020-10-03] MEDS ORDERED: VANCOMYCIN HCL 1000MG/20ML VIAL ONE (16:55)
[2020-10-03] MEDS ORDERED: GELATIN SPONGE SZ 100 ONE (17:08)
[2020-10-03] MEDS ORDERED: THROMBIN FOR SOLN 20000 UNIT KIT ONE (17:09)
[2020-10-03] MEDS ORDERED: GELATIN SPONGE SZ 100 EXT ONE (17:14)
[2020-10-03] MEDS ORDERED: THROMBIN 5000 UNITS KIT TOP ONE (17:15)
--- NOTE | 2020-10-03 17:50 | Fluoroscopy Report ---
FL femur RT 2V CLINICAL HISTORY: RT PERIPROSTHETIC FEMUR FX W/ PLATE AND CABLES COMPARISON STUDY: Right femur radiographs October 02, 2020. FLUOROSCOPY TIME: 41 seconds. FLUOROSCOPIC IMAGES: 6 FINDINGS: Fluoroscopy was provided during plate and screw fixation of the distal right femoral peripr osthetic fracture. Cerclage wires are noted. Fracture alignment has markedly improved and appears philip r anatomic. IMPRESSION: Fluoroscopy provided during plate and screw fixation of the distal right femoral peripro sthetic fracture. ACT 112: Negative or not required by law. Electronically signed by: Toi Simmons M.D. 10/03/2020 5:49 PM
--- NOTE | 2020-10-03 18:28 | Post Operative Brief Note ---
PG Immediate Post Op with CF Date of Surgery October 03, 2020 Pre & Post Diagnosis Operation Date: 10/03/20 07:00 Pre-Op Diagnosis: Right Periprosthetic Femur Fracture Post-Op Diagnosis: Right Periprosthetic Femur Fracture I identified the patient and participated in the time-out.: Yes Procedure Operation Date: 10/03/20 07:00 Actual Procedures p Right Periprosthetic Femur Fracture Open Reduction Internal Fixation(Right) - Gonzalez Leong MD Surgeon Gonzalez Leong MD Fourth Officer Britton, PAC Estimated Blood Loss 950 Findings Consistent with Post-Op Diagnosis Fluids 2000 cc + 2 units pRBC Specimens Specimen Description: No specimens per surgeon Drains Molina Catheter (Molina in place prior to OR. Urine clear yllow. Output measured by anesthesia throughout case. ) Complications none Disposition Accompanied Patient To Recovery: Yes
[2020-10-03] MEDS ORDERED: PHENYLEPHRINE 100MCG/ML 5ML SYR ONE (18:52)
--- NOTE | 2020-10-03 19:06 | Hospitalist Progress Note ---
Date of Service October 03, 2020 Assessment & Plan (1) Femur fracture, right: Plan: Patient has a comminuted periprosthetic spiral fracture of the distal femur shaft seen on x-ray Almost certainly osteoporoticfor her osteoporosis we will supplement vitamin D more aggressively (most recent level was about 20), and as an outpatient she would likely benefit from an evaluation for something along the lines of Forteo or Prolia, given that she has had an adequate course of bisphosphonate therapy. for OR later today Pain control, PT/OT eval and treat, anticipate need for rehab (2) Type 2 diabetes mellitus with diabetic chronic kidney disease: Plan: A1c only 5.7, supplemental insulin will likely suffice, even if she needs this at all. Glucose is acceptable thus far. (3) Hypertension: Plan: Mild blood pressure elevation is likely secondary to pain Follow, adjust meds as needed (4) Dyslipidemia: Plan: No lipid-lowering medication noted on outpatient medication list Suspect this is a diagnosis now resolved, given that her lipids are quite low. (5) Lymphedema: Plan: Stable (6) Peripheral neuropathy: Plan: Patient is on ropinirole and gabapentin, will continue both of these for now Continue ferrous sulfate as ordered Plan: Deliriumuncertain baseline mentation. Follow. Reassurance/reorientation. Supportive care. PT/OT eval and treat Anticipate need for acute or subacute rehab DVT prophylaxisSCDs for now Admission and Anticipated Discharge Date Admission Date: October 02, 2020 Subjective Calling out when I enter the roomnot because of pain, but because she wants to get out of bed or go to the hallway. Seems to be pleasantly confused. Uncertain baseline. On directed questioning does note some pain in her leg, but does not spontaneously complain of this. Wonders when her surgery will be. Review of Systems Review of Systems: All systems reviewed & are unremarkable except as noted in HPI & below Physical Exam Physical Exam: In general she is awake and alert but somewhat confused, anxious more than in distress. HEENT normocephalic atraumatic mucous membranes moist. Breathing unlabored no accessory muscle use good effort. Skin shows no rashes no pallor or icterus. Neuro without focal deficits. Results & Data Results & Data ([facility]) Vital Signs (Past 12 Hours) Vital Signs Temp Pulse Resp BP Pulse Ox 10/03/20 14:01 97.9 F 78 18 162/55 H 92 PG Care Time/CCT Total # of Minutes Spent Total Time Spent with Patient: Total time spent is greater than 50% in coordination of care (as documented) at patient's floor/unit and/or counseling patient: Coding Level of Care Code 27671 Subseq Hosp Care Lvl 3 Diagnoses Femur fracture, right S72.91XA Type 2 diabetes mellitus with diabetic chronic kidney disease E11.22 Hypertension I10 Dyslipidemia E78.5 Lymphedema I89.0 Peripheral neuropathy G62.9
[2020-10-03 19:32] LABS: Hematocrit (blood only) 41.7 % (37-47); Hemoglobin 13.4 g/dL (12.0-16.0)
--- NOTE | 2020-10-03 21:54 | Anesthesiology Progress Note ---
Date of Service October 03, 2020 Anesthesia Post Procedure Vital Signs Vital Signs: Temp Pulse Pulse Resp BP Pulse Ox 10/03/20 21:19 82 18 134/71 95 10/03/20 20:57 36.7 C 77 18 141/55 H 96 10/03/20 20:15 72 18 120/54 L 99 10/03/20 19:45 37.0 C 77 15 148/72 H 99 10/03/20 19:35 75 15 152/64 H 98 10/03/20 19:25 73 14 139/76 95 10/03/20 19:15 73 18 133/88 95 10/03/20 19:05 73 15 112/52 L 98 10/03/20 18:55 73 21 143/70 H 97 10/03/20 18:45 73 18 110/59 L 95 10/03/20 18:35 70 78 18 148/87 H 97 10/03/20 18:29 69 78 20 124/79 95 10/03/20 14:01 36.6 C 78 18 162/55 H 92 10/03/20 06:43 36.8 C 71 18 146/75 H 91 10/02/20 22:23 36.5 C 77 18 167/83 H 92 Pain Intensity Right Leg: Pain Intensity: 10 Transfer of Care Handoff Completed per policy Notes Mental Status: alert / awake / arousable and participated in evaluation Patient Amnestic to Procedure: Yes Nausea / Vomiting: adequately controlled Pain: adequately controlled Airway Patency, RR, SpO2: stable & adequate BP & HR: stable & adequate Hydration State: stable & adequate Anesthetic Complications: no major complications apparent
[2020-10-03] MEDS ORDERED: ALUMINUM/MAGNESIUM SUSP 30 ML UDC PO PRN (22:13)
[2020-10-03] MEDS ORDERED: SODIUM CHLORIDE 0.9% 1000ML 1,000 ML IV SCH (22:13)
[2020-10-03] MEDS ORDERED: MAGNESIUM HYDROXIDE SUSP 30 ML UDC PO PRN (22:13)
[2020-10-03] MEDS ORDERED: METOCLOPRAMIDE HCL INJ 5 MG/ML 2 ML VIAL IV PRN (22:13)
[2020-10-03] MEDS ORDERED: bisacodyL 10 MG SUPP PR PRN (22:13)
[2020-10-03] MEDS ORDERED: NALOXONE HCL 0.4 MG/1 ML VIAL/CARP IV PRN (22:13)
--- NOTE | 2020-10-03 22:35 | Communication Note ---
Date of Service: October 03, 2020 Night MD was notified due to concerns that patient's RLE was cool, blue, and pulseless. Came to bedside. Patient was drowsy and confused 2/2 anesthesia but was in no acute distress, distal R foot was blue and cold to the touch with no palpable dorsalis pedis pulse. Was unable to detect any flow with doppler probe. Transferred patient to PCU telemetry d/t uncertainty if RLE duplex was able to be performed on a med/surg floor. After transfer, was notified by ultrasound that duplex could not be completed due to RLE surgical dressing/cast, and that RN was notified by PACU staff that surgical dressing/cast was not to be removed. Contacted Dr. Leong to ask for further instruction. At this time I reexamined the patient and noted patient's distal foot was pink, temperature upon palpation had improved, and cap refill was present though prolonged (about 3s). Updated Dr. Leong who then reported that nothing further needed to be done. Ensured neurovascular checks were ordered. Resident Activity Tracking Resident Involvement: Resident Care Provided Care Provided: Adult [facility] Medicine
[2020-10-03] MEDS: SODIUM CHLORIDE 0.9% 1000ML 1,000 ML IV SCH (22:53)
[2020-10-03] MEDS: ACETAMINOPHEN 500 MG TAB PO SCH (22:54)
[2020-10-03] MEDS: DOCUSATE SODIUM 100 MG CAP PO SCH (22:54)
[2020-10-03] MEDS: SENNA 8.6 MG TAB PO SCH (22:55)
[2020-10-03] MEDS: ceFAZolin 2000MG 2,000 MG/15 ML SYR IV SCH (22:55)
[2020-10-04] MEDS: traMADol HCL 50 MG TABLET PO PRN ×2 (00:02→22:28)
[2020-10-04] MEDS: FERROUS SULFATE 325 MG TAB PO SCH (00:03)
[2020-10-04] MEDS: GABAPENTIN 400 MG CAP PO SCH ×2 (00:03→22:32)
[2020-10-04] MEDS: rOPINIRole HCL 0.25 MG TABLET PO SCH ×2 (00:03→22:32)
[2020-10-04] MEDS ORDERED: TRANEXAMIC ACID / 0.7% NACL 1,000 MG/100 ML BAG IV SCH (00:30)
[2020-10-04] MEDS: MoRPHine SULFATE 2 MG/ML CARP IV PRN (00:56)
[2020-10-04] MEDS: ceFAZolin 2000MG 2,000 MG/15 ML SYR IV SCH (06:01)
[2020-10-04] MEDS: ACETAMINOPHEN 500 MG TAB PO SCH ×3 (06:01→22:32)
[2020-10-04 06:45] LABS: Basophils # (auto) 0.02 K/uL (0-0.2); Basophils % (auto) 0.1 %; Eosinophils # (auto) 0.19 K/uL (0-0.5); Eosinophils % (auto) 1.4 %; Hematocrit (blood only) 33.1 % (37-47); Hemoglobin 10.8 g/dL (12.0-16.0); Immature Granulocytes # (auto) 0.05 K/uL (0.00-0.02); Immature Granulocytes % (auto) 0.4 %; Lymphocytes # (auto) 1.55 K/uL (1.2-3.4); Lymphocytes % (auto) 11.4 %; Mean Corpuscular Hemoglobin 30.3 pg (25-34); Mean Corpuscular Hgb Conc 32.6 g/dL (32-36); Mean Corpuscular Volume 92.7 fL (80-100); Mean Platelet Volume 10.2 fL (7.4-10.4); Monocytes # (auto) 1.61 K/uL (0.11-0.59); Monocytes % (auto) 11.9 %; Neutrophils # (auto) 10.13 K/uL (1.4-6.5); Neutrophils % (auto) 74.8 %; Platelet Count 231 K/uL (130-400); RDW Coefficient of Variation 14.9 % (11.5-14.5); RDW Standard Deviation 50.9 fL (36.4-46.3); Red Blood Count 3.57 M/uL (4.2-5.4); White Blood Count 13.55 K/uL (4.8-10.8)
[2020-10-04] MEDS: SODIUM CHLORIDE 0.9% 1000ML 1,000 ML IV SCH ×2 (07:13→15:38)
[2020-10-04] MEDS: FERROUS GLUCONATE 324 MG TAB PO SCH ×2 (07:20→16:56)
[2020-10-04 07:22] LABS: BUN Creatinine Ratio 23.4 (10-20); Calcium 7.9 mg/dl (8.5-10.1); Creatinine Clr Calc Pharmacy 53.3 ml/min; Est GFR (African American) 70.9 ml/min; Est GFR (Non-African American) 61.2 ml/min; Potassium 4.4 mmol/L (3.5-5.1)
[2020-10-04] MEDS: INSULIN ASPART 100 UNITS/ML 3 ML PEN SC SCH ×4 (08:34→22:32)
[2020-10-04] MEDS: SPIRONOLACTONE 25 MG TAB PO SCH (08:35)
[2020-10-04] MEDS: DOCUSATE SODIUM 100 MG CAP PO SCH ×2 (08:35→22:32)
[2020-10-04] MEDS: MULTIVITAMIN TAB PO SCH (08:35)
[2020-10-04] MEDS: CALCIUM CITRATE 950 MG TAB PO SCH (08:36)
[2020-10-04] MEDS: ATENOLOL 50 MG TABLET PO SCH (08:36)
[2020-10-04] MEDS: TRIAMCINOLONE ACET 0.5% CR 15 GM TUBE TOP SCH (08:41)
[2020-10-04] MEDS ORDERED: ERGOCALCIFEROL 50,000 UNITS 1250 MCG CAP PO SCH (09:00)
--- NOTE | 2020-10-04 09:19 | Operative Report ---
Post Operative Report Pre & Post Diagnosis Operation Date: 10/03/20 07:00 Pre-Op Diagnosis: Right Periprosthetic Femur Fracture Post-Op Diagnosis: Right Periprosthetic Femur Fracture I identified the patient and participated in the time-out.: Yes Procedure Operation Date: 10/03/20 07:00 Actual Procedures p Right Periprosthetic Femur Fracture Open Reduction Internal Fixation(Right) - Gonzalez Leong MD Surgeon Gonzalez Leong MD Intelligence Operations Specialist Britton, PAC Estimated Blood Loss 950 Findings Consistent with Post-Op Diagnosis Operative findings revealed severely comminuted displaced periprosthetic right femur fracture. Fluids 2000 cc of crystalloid fluid replacement with 2 units of packed red blood cells. Specimens None Drains None Anesthesia Type Spinal MAC Complications none Disposition Accompanied Patient To Recovery: No Indications Patient is an 85-year-old female with multiple medical comorbidities who has had multiple joint replacements in the past. She sustained a fall several days ago. She is unable to ambulate afterwards. She was eventually brought to the emergency room where x-ray of the right distal periprosthetic femur fracture around a revision type knee prosthesis. She also has a right hip bipolar prosthesis proximally. Patient was medically admitted, medically optimized and indicated for surgical repair. It was made clear to her that this is a fairly high risk procedure in someone of her age. However, without intervention she would have chronic pain and unable to ambulate. Description of Procedure Operative implants consist of: 1. Synthes right 12 hole distal femoral condylar locking plate. 2. 4.5 mm fully threaded cortical screws x2. 3. 5.0 locking screws x7. 4. 5.0 cannulated screw locking screws x3. 5. 7.3 cannulated locking screw x1 which was the shortened to 1/5 the desired length. The patient was taken to the operating, identified, placed on the operating table supine position but all contact areas were properly padded. IV antibiotics tried by anesthesia team. Spinal anesthetic had been implemented ho ing area. Her right leg was fairly dirty so we did scrub it extensively with Hibiclens. It was then prepped with ChloraPrep and draped in usual sterile fashion. A direct lateral approach to the distal femur was then performed through a longitudinal incision over the lateral femur. Sharp dissection was carried through subcutaneous this down to the IT band. There are several large venous vessels which were cauterized. The IT band was then opened. The vastus lateralis was retracted anteriorly. There was significant comminution of the fracture. We spent some time piecing this back together and holding with reduction clamps and then fixed the fracture with 2 cerclage cable to hold it temporarily. I then fashioned a 12 hole distal femoral locking plate to the lateral aspect of femur. It was temporarily fixed distally with some wires and then some screws were placed distally. The screws were initially cortical screws the fixed the distal plate down to the bone and then these were exchanged for locking screws. In the 7.3 hold, due to the nature of the implant, we had to a shortness screw is the longest depth was about 25 mm. We did take his screw and used a carbide tip to cut it to about 25 mm then placed at that to maximize fixation. I fixed the plate proximally with several cortical screws initially and then some locking screws. I did place one cable around the plate proximally and then 2 cables distally in order to try and optimize the purchase of the distal fragment. However, on placed in the very last cable we did run into some bleeding on the medial side of the knee after I passed the cable of unclear in nature. He spent some time cauterizing and then a tightly cable and all the bleeding stopped. I did have the vascular surgeon, Dr. Martinez, coming in just make sure everything was appropriate and. There was no was significant further bleeding. We could palpate a good pulse in the femoral artery distal tibia cerclage cable so we elected to just proceed with the closure. I irrigated the wound extensively. Hemostasis was well-maintained. I did inject locally with 100 cc of combination of 20 cc of Exparel, 30 cc into normal saline 50 cc of half percent Marcaine with epinephrine. I did place some Gelfoam with thrombin over the posterior aspect of the femur. We then did sprinkled about a gram of vancomycin deep in the incision site. The IT band was then closed with #1 Vicryl suture in a running fashion. The subcutaneous tissues were closed with 2 layers with a deep layer of #2 Vicryl suture in a buried fashion followed by 2-0 Vicryl suture and in a subcuticular fashion. The skin was closed with skin pallavi. The leg was then cleaned dried a sterile dressing was Xeroform, 4 x 4's, sterile cast padding, Nino bandage and knee im mobilizer applied. The patient then transferred to the recovery room in stable condition. Patient tolerated procedure well and there were no complications. Near the end of the procedure we did run into some of bleeding. We made sure we got excellent hemostasis before closure of the wound. I did have Dr. Martinez our vascular surgeon come in and just take a look and make sure everything was a ppropriate. She had a palpable pulse distal to the cerclage cable and it was felt most likely just got a branch of the femoral artery or passing the cable. She did require some blood during this procedure which is not uncommon with this type of fracture and exposure. There were no other complications. Sammy Jarquin, my physician children's nursery assistant, was present for the entire procedure. His assistance was required for proper patient positioning, prepping and draping, surgical exposure, retraction, reduction of the fracture, placement of the hardware, closure of the wound, placement of sterile bandage. I attest to the content of the Intraoperative Record and any orders documented therein. Any exceptions are noted below.
[2020-10-04] MEDS: CYANOCOBALAMIN 500 MCG TABLET (VITAMIN B-12) PO SCH (09:36)
[2020-10-04] MEDS: CHOLECALCIFEROL 1,000 UNITS 25 MCG TAB PO SCH (09:37)
[2020-10-04] MEDS: FOLIC ACID 1 MG TAB PO SCH (09:38)
[2020-10-04] MEDS: VENLAFAXINE HCL XR 37.5 MG CAPXR PO SCH (10:17)
[2020-10-04] MEDS: CEROVITE ADV FORMULA TAB PO SCH (12:29)
--- NOTE | 2020-10-04 16:21 | Progress Notes ---
DATE OF NOTE: 10/04/2020. SUBJECTIVE: An 85-year-old white female postoperative day 1 from ORIF of right periprosthetic femur fracture. She is lying in bed today just kind of moaning. She seemed a little bit confused and some what sedated. She does not really respond to any certain questions. Any response is a bit unpredict able. She is moaning like she is having some pain. OBJECTIVE: VITAL SIGNS: Temperature 37.1. Vital signs are stable. PHYSICAL EXAM: GENERAL: Elderly female. Lying in bed. Just kind of moaning. Difficult to get her to follow comma nds. EXTREMITIES: Examination of the right leg reveals a knee immobilizer to be in place. Dressing is cl kenroy, dry and intact. She does move her foot on command slightly. It is difficult to get her to do t hat to her. Her toes are pink. They have a brisk refill. LABORATORY DATA: Hemoglobin is 10.8. Hematocrit 33.1. White cell count slightly elevated. Electro lytes are stable. ASSESSMENT: An 85-year-old female with multiple medical comorbidities postoperative day 1 from ORIF of a very complex periprosthetic femur fracture. Seems to be doing okay. Her leg is well aligned. She has got brisk refill. A little difficult to get a good neuro exam due to her poor response. She does seem to move her foot up and down. PLAN: 1. DVT prophylaxis include thigh-high TEDs, SCDs and we would recommend aspirin twice a day. 2. PT/OT. She is nonweightbearing on this right leg for at least the next 6 weeks. She is going to be in a knee immobilizer for the next 2 weeks. We will likely need to get a knee immobilizer custom for her. 3. Pain control, difficult to assess pain control as she is somewhat confused, seems a little bit se dated as well. Recommend limit pain medicines for now to avoid confusion. 4. Medical meds per medicine service. 5. Disposition: She will likely need rehab stay. She is going to be limited weightbearing on this leg with no motion for at least the first 2 weeks. Any orthopedic questions can be directed to me 57 . Job ID: [id number]
[2020-10-04] MEDS: HYDROmorphone INJ 0.5 MG/0.5 ML SYR IV PRN (16:28)
[2020-10-04] MEDS ORDERED: OPTIRAY 320 125ml IV ONE (18:03)
--- NOTE | 2020-10-04 18:59 | CT Scan Report ---
CT angio LE RT w inc wo if don HISTORY: 85 years-old Female poor pulse post femur fracture acute periprosthetic fracture of the dis lorne right femur. Status post ORIF. COMPARISON: Fluoroscopic images of the right femur 10/03/2020, right femur radiographs 10/02/2020 TECHNIQUE: CTA of the right lower extremity was obtained following the intravenous ministration of 11 6 mL Optiray 320. 3-D coronal and sagittal MIPS were obtained from the axial data set and were submit padmaja for review. All measurements were obtained according to NASCET criteria. FINDINGS: CTA: Diffuse atherosclerosis. The imaged distal abdominal aorta and common iliac arteries are patent. The right external iliac, common femoral, superficial and profunda femoris arteries are patent. The dista l aspect of the right superficial femoral and the popliteal arteries are obscured from the arthroplas ty and hardware artifact. Moderate narrowing of the tibioperoneal trunk with no appreciable flow seen within the mid to distal aspects of the anterior tibial artery. Flow within the calf arteries is dif ficult to evaluate secondary to extensive atherosclerosis. CT: No acute abnormality identified within the pelvis. Skin pallavi with expected postoperative soft tiss ue swelling and deep tissue air. The lateral right thigh. Right hip and knee total joint arthroplasti es with ORIF changes and cerclage wires. Subcutaneous edema of the lower leg. No drainable fluid varun ection. IMPRESSION: 1. Limited exam secondary to artifact from the total joint arthroplasties and ORIF hardware and also secondary to the atherosclerotic calcifications. Correlation with lower extremity arterial Doppler re commended. 2. No appreciable flow identified within the mid and distal aspects of the anterior tibial artery sug gestive of arterial occlusion. 3. The distal abdominal aorta and iliac arteries appear normal. ACT 112: Negative or not required by law. The above report was generated using voice recognition software. It may contain grammatical, syntax o r spelling errors. Electronically signed by: Augustin Kasper M.D. 10/04/2020 6:57 PM
--- NOTE | 2020-10-04 20:21 | Hospitalist Progress Note ---
Date of Service October 04, 2020 Assessment & Plan (1) Femur fracture, right: Plan: Patient has a comminuted periprosthetic spiral fracture of the distal femur shaft seen on x-ray Almost certainly osteoporoticfor her osteoporosis we will supplement vitamin D more aggressively (most recent level was about 20), and as an outpatient she would likely benefit from an evaluation for something along the lines of Forteo or Prolia, given that she has had an adequate course of bisphosphonate therapy. Now postop and overall stable. Strongly suspect her lack of pulses relates to chronic peripheral arterial diseaseCT angio obtained due to high concern from much of the care team and the inability to find a pulse. It did show diffuse disease, but seems to fit with more of a chronic picturein discussion with her son, he notes whenever he helps her put on her compression stockings frequently her toes are pale and cool, which would corroborate this. In discussion with orthopedic surgery, he also very astutely points out that the patient would be a terrible surgical candidate for revascularizationthat if she had any occlusion she would really be more amputation, but we both agree clinically this seems to be more chronic, and we should be guided by cap refill far more than anything else. Pain control, PT/OT eval and treat, anticipate need for rehab (2) Type 2 diabetes mellitus with diabetic chronic kidney disease: Plan: A1c only 5.7, supplemental insulin will likely suffice, even if she needs this at all. Glucose continues to be acceptable (3) Hypertension: Plan: Follow blood pressure, reasonable ranges overall. (4) Dyslipidemia: Plan: No lipid-lowering medication noted on outpatient medication list Suspect this is a diagnosis now resolved, given that her lipids are quite low. (5) Lymphedema: Plan: Stable (6) Peripheral neuropathy: Plan: Patient is on ropinirole and gabapentin, will continue both of these for now Continue ferrous sulfate as ordered Plan: Deliriumuncertain baseline mentation. Follow. Reassurance/reorientation. Supportive care. PT/OT eval and treat Anticipate need for acute or subacute rehab DVT prophylaxisSCDs for now given degree of blood loss in OR. Admission and Anticipated Discharge Date Admission Date: October 02, 2020 Subjective Not much meaningful HPI or ROS. Earlier had a little bit of leg pain but none on revisits. Called son and updated/answered all questions the best my ability. Review of Systems Review of Systems: Unobtainable due to cognitive status Physical Exam Physical Exam: In general she is awake and alert but very confused. Appears in no distress. On revisit she is sleeping with no distress, and on third visit she is awake slightly more coherent almost talking in ways that makes sense but still fairly disoriented. No distress. HEENT normocephalic atraumatic mucous membranes moist. Breathing unlabored no accessory muscle use good effort. Skin shows no rashes no pallor or icterus. Cardio regular without notable rubs murmurs gallops. Lungs clear to auscultation bilaterally no respiratory wheezes good effort. Abdomen is soft nondistended nontender no masses organomegaly. Extremities right lower extremity is dressed and wrapped, she does not have a palpable pulse although it is somewhat difficult to feel given the dressing, but fortunately on all 3 checks today, she has cap refill with varying degrees of briskness, but all less than 3 seconds. Results & Data Results & Data ([facility]) Vital Signs (Past 12 Hours) Vital Signs Temp Pulse Pulse Resp BP Pulse Ox 10/04/20 20:11 98.4 F 70 15 140/35 L 98 10/04/20 16:43 97.9 F 74 18 165/62 H 92 10/04/20 11:24 98.8 F 66 18 113/51 L 95 10/04/20 11:01 66 PG Care Time/CCT Total # of Minutes Spent Total Time Spent with Patient: Total time spent is greater than 50% in coordination of care (as documented) at patient's floor/unit and/or counseling patient: Coding Level of Care Code 94413 Subseq Hosp Care Lvl 3 Diagnoses Femur fracture, right S72.91XA Type 2 diabetes mellitus with diabetic chronic kidney disease E11.22 Hypertension I10 Dyslipidemia E78.5 Lymphedema I89.0 Peripheral neuropathy G62.9
[2020-10-04] MEDS: SENNA 8.6 MG TAB PO SCH (22:32)
[2020-10-05] MEDS: HYDROmorphone INJ 0.5 MG/0.5 ML SYR IV PRN ×3 (00:22→17:33)
--- NOTE | 2020-10-05 05:36 | Electrocardiogram Report ---
Test Reason : Blood Pressure : / mmHG Vent. Rate : 067 BPM Atrial Rate : 067 BPM P-R Int : 206 ms QRS Dur : 082 ms QT Int : 424 ms P-R-T Axes : 066 008 027 degrees QTc Int : 448 ms Normal sinus rhythm Normal ECG When compared with ECG of 04-OCT-2010 02:37, No significant change was found Confirmed by Troy Rodriges ([id number]) on 10/05/2020 5:35:42 AM Referred By: SELF Confirmed By:Troy Rodriges
[2020-10-05] MEDS: ACETAMINOPHEN 500 MG TAB PO SCH ×3 (05:49→22:12)
[2020-10-05] MEDS: CALCIUM CITRATE 950 MG TAB PO SCH (08:06)
[2020-10-05] MEDS: CEROVITE ADV FORMULA TAB PO SCH (08:07)
[2020-10-05] MEDS: TRIAMCINOLONE ACET 0.5% CR 15 GM TUBE TOP SCH (08:08)
[2020-10-05] MEDS: VENLAFAXINE HCL XR 37.5 MG CAPXR PO SCH (08:08)
[2020-10-05] MEDS: CHOLECALCIFEROL 1,000 UNITS 25 MCG TAB PO SCH (08:08)
[2020-10-05] MEDS: FOLIC ACID 1 MG TAB PO SCH (08:09)
[2020-10-05] MEDS: CYANOCOBALAMIN 500 MCG TABLET (VITAMIN B-12) PO SCH (08:09)
[2020-10-05] MEDS: ATENOLOL 50 MG TABLET PO SCH (08:09)
[2020-10-05] MEDS: SPIRONOLACTONE 25 MG TAB PO SCH (08:10)
[2020-10-05] MEDS: MULTIVITAMIN TAB PO SCH (08:10)
[2020-10-05] MEDS: FERROUS GLUCONATE 324 MG TAB PO SCH ×2 (08:11→16:31)
[2020-10-05] MEDS: DOCUSATE SODIUM 100 MG CAP PO SCH ×2 (08:11→22:13)
[2020-10-05] MEDS: INSULIN ASPART 100 UNITS/ML 3 ML PEN SC SCH ×4 (08:12→22:04)
[2020-10-05 08:23] LABS: Hematocrit (blood only) 28.6 % (37-47); Hemoglobin 9.2 g/dL (12.0-16.0); Mean Corpuscular Hemoglobin 30.7 pg (25-34); Mean Corpuscular Hgb Conc 32.2 g/dL (32-36); Mean Corpuscular Volume 95.3 fL (80-100); Mean Platelet Volume 9.6 fL (7.4-10.4); Platelet Count 242 K/uL (130-400); RDW Standard Deviation 51.9 fL (36.4-46.3); White Blood Count 9.94 K/uL (4.8-10.8)
--- NOTE | 2020-10-05 08:56 | Progress Notes ---
DATE OF NOTE: 10/05/2020 SUBJECTIVE: An 85-year-old white female postop day 2 from ORIF of a right periprosthetic femur fract ure. She seems a little bit more awake today, but still somewhat confused. Not really moaning today of pain. She is asking for more medicine. OBJECTIVE: VITAL SIGNS: Temperature 36.6. Vital signs are stable. GENERAL: Exam shows a pleasant, elderly female. Lying in bed, somewhat confused and just asking for more medicine. It is not clear what kind of medicine she is asking for. EXTREMITIES: Examination of the right leg reveals a knee immobilizer to be in place. Her dressing i s clean, dry and intact. She does move her foot on command. Her toes show have brisk refill. NEUROLOGIC: As best I can tell neurologically she is intact. LABORATORY DATA: Labs are pending. ASSESSMENT: An 85-year-old white female with multiple medical comorbidities 2 days out from ORIF of a complex periprosthetic femur fracture, doing okay orthopedically. Still somewhat confused and seem s to be overmedicated. PLAN: 1. DVT prophylaxis include thigh-high TEDs, SCDs, and I would recommend aspirin twice a day. I thin k she has got a fall risk and bleeding risk with anything more aggressive. 2. PT/OT. We are going to let her toe-touch weightbearing on this right leg as long as she is in a knee immobilizer. No knee range of motion at this time. 3. Pain control, seems to be okay with current pain regimen. I am concerned that she has been overm edicated pain mixon. 4. Medical management as per the medicine service. 5. Disposition: She will likely need a rehab stay of some sort. She is okay orthopedically for dis charge any time medically stable. Any orthopedic questions can be directed at [phone]. Job ID: [id number]
[2020-10-05 09:03] LABS: BUN Creatinine Ratio 26.2 (10-20); Calcium 8.4 mg/dl (8.5-10.1); Creatinine Clr Calc Pharmacy 62.6 ml/min; Est GFR (African American) 79.8 ml/min; Est GFR (Non-African American) 68.8 ml/min; Potassium 4.1 mmol/L (3.5-5.1)
--- NOTE | 2020-10-05 10:00 | Hospitalist Progress Note ---
Date of Service October 05, 2020 Assessment & Plan (1) Femur fracture, right: Plan: -Comminuted periprosthetic spiral fracture of the distal femur shaft seen on x- ray, POD2 from ORIF complicated by nicking of femoral artery -Likely due to osteoporosis- continue vitamin D supplementation while inpatient (most recent level- 20). Will benefit from outpatient evaluation for bone loss prevention therapy- possibly Forteo/Prolia given previous use of bisphosphonates -Currently stable, pain responding well to PRNs, tolerating PO -Pt's lack of distal pulses from previous exam/CT Angiogram of extremities not acutely concerning for occlusion, more likely secondary to vasculopathy given her extensive medical history including DM2, HLD that resulted in peripheral arterial disease, with symptoms occurring at baseline per collateral from son. No need for vascular or orthopedic surgical intervention at this time, though patient is nonetheless poor candidate for revascularization surgery given age and medical comorbidities. Expected to improve with regain of function of extremity -PT/OT ongoing though patient reportedly struggling, pt awaiting acute rehab placement (2) Type 2 diabetes mellitus with diabetic chronic kidney disease: Plan: -A1c 5.7%, glucose has been consistently low 100s, well-controlled -No basal insulin, only Novolog ISS (3) Hypertension: Plan: Follow blood pressure, reasonable ranges overall. (4) Dyslipidemia: Plan: -No lipid-lowering medication noted on outpatient medication list -Suspect this is a diagnosis now resolved, given that her lipids are quite low. (5) Lymphedema: Plan: -Stable (6) Peripheral neuropathy: Plan: -Continue ropinirole and gabapentin -Continue ferrous sulfate as ordered Plan: Delirium -Uncertain baseline mentation but largely coherent today. Reassurance/reorientation. Supportive care. DVT prophylaxisSCDs for now given degree of blood loss in OR. Admission and Anticipated Discharge Date Admission Date: October 02, 2020 Supervising Physician Co-Signing Physician Notes I personally examined the patient and verified all english points of history and exam, discussed case, and agree with decision making with Dr Abad. No new complaints. Was more lucid for Dr. Abad earlier. A bit more confused for me now. Does complain of some leg pain. Vitals noted, in general she is awake and alert but more confused. No distress. HEENT normocephalic atraumatic mucous membranes moist. Breathing unlabored no accessory muscle use good effort. Foot with 3 to 4-second cap refill no tenderness. Osteoporotic femur fracturestatus post operative repair. PT/OT, anticipate need for rehab. Peripheral arterial diseasesee yesterday's discussion, strongly suspect her lack of pulses highly chronic, she has reasonable cap refill that waxes and wanes between normal and slightly slow, but this never appeared truly cyanotic to my review. Further in discussion with surgery, she would not be a very vascular surgery candidate anyway. Serial exams, supportive care. Delirium/multifactorial metabolic encephalopathysupportive care and reorientation. Fortunately it sounds like she was actually much more lucid for Dr. Abad earlier today, just more confused later in the . Acute blood loss anemianot unexpected given the fracture and surgery required. No indication for transfusion. Continue to follow. DVT prophylaxis SCDs Subjective Pt was largely coherent, endorsed dull right leg pain but denied any radiation to the back or jolting sensations. States her feet feel numb though no different than usual. Denies chest pain or dyspnea. Review of Systems Review of Systems: All systems reviewed & are unremarkable except as noted in Subjective Constitutional: no fever, no chills, no weakness, no weight loss and no weight gain Respiratory: no cough, no chest congestion, no dyspnea and no dyspnea on exertion Cardiovascular: no chest pain, no orthopnea, no palpitations, no lightheadedness and no edema Gastrointestinal: no abdominal pain, no nausea, no vomiting, no constipation and no diarrhea/loose stools Genitourinary: no dysuria, no difficulty urinating, no urinary frequency, no urinary hesitancy, no urinary urgency and no flank pain Musculoskeletal: no back pain, no neck pain, no joint pain and no stiffness +R leg pain Integumentary: no rash Neurologic: no gait abnormality, no unsteadiness, no falls and no generalized weakness Physical Exam Physical Exam: In general she is awake and alert but very confused. Appears in no distress. On revisit she is sleeping with no distress, and on third visit she is awake slightly more coherent almost talking in ways that makes sense but still fairly disoriented. No distress. HEENT normocephalic atraumatic mucous membranes moist. Breathing unlabored no accessory muscle use good effort. Skin shows no rashes no pallor or icterus. Cardio regular without notable rubs murmurs gallops. Lungs clear to auscultation bilaterally no respiratory wheezes good effort. Abdomen is soft nondistended nontender no masses organomegaly. Extremities right lower extremity is dressed and wrapped, she does not have a palpable pulse although it is somewhat difficult to feel given the dressing, but fortunately on all 3 checks today, she has cap refill with varying degrees of briskness, but all less than 3 seconds. Constitutional: WD/WN, vitals as above + morbidly obese and cooperative; no acute distress Eyes: PERRL, conjunctivae normal, anicteric sclerae ENMT: Mouth: no dentition abnormality Neck: trachea midline, no thyromegaly normal visual inspection Respiratory: normal respiratory effort Auscultation: lungs clear to auscultation bilaterally; no crackles, no rales, no rhonchi and no wheezes Cardiovascular: Rate/Rhythm: regular rate and regular rhythm Heart Sounds: normal S1 and normal S2 Extremities: + edema and + varicosities Unable to palpate b/l dorsalis pedis and tibial pulses, capillary refill of toes approximately 3 seconds b/l Gastrointestinal (Abdomen): normal bowel sounds, soft, nontender, no hepatosplenomegaly Inspection/Auscultation: abdomen normal to inspection Percussion/Palpation: abdomen soft; abdomen nontender, no guarding, abdomen not rigid and no hepatosplenomegaly Musculoskeletal: R leg immobilized in brace, pain on palpation along femoral shaft, unable to assess strength of b/l LE Skin: no rashes, warm and dry B/l LE venous statis dermatitis Neurologic: AOx3, sensory deficits to light and deep touch in b/l feet Psychiatric: A+Ox3, euthymic affect Results & Data Results & Data ([facility]) Vital Signs (Past 12 Hours) Vital Signs Temp Pulse Resp BP Pulse Ox 10/05/20 07:19 36.6 C 69 15 136/52 L 99 10/05/20 03:53 36.6 C 68 20 119/47 L 98 10/05/20 00:24 36.5 C 68 20 113/34 L 99 Resident Activity Tracking Resident Involvement: Resident Care Provided Care Provided: Adult Hospital Medicine
[2020-10-05] MEDS: traMADol HCL 50 MG TABLET PO PRN (16:31)
--- NOTE | 2020-10-05 16:55 | Billing Data ---
Date of Service October 05, 2020 Coding Level of Care Code 60510 Subseq Hosp Care Lvl 3
[2020-10-05] MEDS: GABAPENTIN 400 MG CAP PO SCH (22:12)
[2020-10-05] MEDS: rOPINIRole HCL 0.25 MG TABLET PO SCH (22:13)
[2020-10-05] MEDS: SENNA 8.6 MG TAB PO SCH (22:13)
[2020-10-06] MEDS: ACETAMINOPHEN 500 MG TAB PO SCH ×3 (06:06→21:03)
[2020-10-06 06:46] LABS: BUN Creatinine Ratio 28.7 (10-20); Calcium 8.6 mg/dl (8.5-10.1); Creatinine Clr Calc Pharmacy 62.3 ml/min; Est GFR (Non-African American) 69.9 ml/min; Potassium 4.8 mmol/L (3.5-5.1)
[2020-10-06 07:18] LABS: Hemoglobin 8.8 g/dL (12.0-16.0); Mean Corpuscular Hemoglobin 29.7 pg (25-34); Mean Corpuscular Volume 94.6 fL (80-100); Mean Platelet Volume 9.9 fL (7.4-10.4); Platelet Count 230 K/uL (130-400); RDW Standard Deviation 51.3 fL (36.4-46.3); Red Blood Count 2.96 M/uL (4.2-5.4); White Blood Count 10.06 K/uL (4.8-10.8)
[2020-10-06 07:25] LABS: Mean Corpuscular Hgb Conc 31.4 g/dL (32-36)
[2020-10-06] MEDS: FOLIC ACID 1 MG TAB PO SCH (08:00)
[2020-10-06] MEDS: CEROVITE ADV FORMULA TAB PO SCH (08:01)
[2020-10-06] MEDS: CHOLECALCIFEROL 1,000 UNITS 25 MCG TAB PO SCH (08:01)
[2020-10-06] MEDS: SPIRONOLACTONE 25 MG TAB PO SCH (08:01)
[2020-10-06] MEDS: VENLAFAXINE HCL XR 37.5 MG CAPXR PO SCH (08:02)
[2020-10-06] MEDS: CALCIUM CITRATE 950 MG TAB PO SCH (08:02)
[2020-10-06] MEDS: FERROUS GLUCONATE 324 MG TAB PO SCH ×2 (08:02→18:39)
[2020-10-06] MEDS: ATENOLOL 50 MG TABLET PO SCH (08:03)
[2020-10-06] MEDS: CYANOCOBALAMIN 500 MCG TABLET (VITAMIN B-12) PO SCH (08:03)
[2020-10-06] MEDS: TRIAMCINOLONE ACET 0.5% CR 15 GM TUBE TOP SCH (08:04)
[2020-10-06] MEDS: MULTIVITAMIN TAB PO SCH (08:04)
[2020-10-06] MEDS: INSULIN ASPART 100 UNITS/ML 3 ML PEN SC SCH ×4 (08:04→21:03)
[2020-10-06] MEDS: DOCUSATE SODIUM 100 MG CAP PO SCH ×2 (08:08→20:20)
[2020-10-06] MEDS: traMADol HCL 50 MG TABLET PO PRN ×2 (08:08→20:14)
--- NOTE | 2020-10-06 11:14 | Hospitalist Progress Note ---
Date of Service October 06, 2020 Assessment & Plan (1) Femur fracture, right: Plan: -Comminuted periprosthetic spiral fracture of the distal femur shaft seen on x- ray, POD 3 from ORIF complicated by nicking of R femoral artery -Likely due to osteoporosis- continue vitamin D supplementation while inpatient (most recent level- 20). Will benefit from outpatient evaluation for bone loss prevention therapy- possibly Forteo/Prolia given previous use of bisphosphonates -Currently stable, pain responding well to PRNs, tolerating PO -Pt's lack of distal pulses from previous exam/CT Angiogram of extremities not acutely concerning for occlusion, more likely secondary to vasculopathy given her extensive medical history including DM2, HLD that resulted in peripheral arterial disease, with symptoms occurring at baseline per collateral from son. No need for vascular or orthopedic surgical intervention at this time, though patient is nonetheless poor candidate for revascularization surgery given age and medical comorbidities. Expected to improve with regain of function of extremity -PT/OT ongoing though patient reportedly struggling, recommended SNF placement -Pt medically stable, awaiting SNF placement (2) Type 2 diabetes mellitus with diabetic chronic kidney disease: Plan: -A1c 5.7%, glucose has been consistently low 100s, well-controlled -No basal insulin, only Novolog ISS (3) Hypertension: Plan: Follow blood pressure, reasonable ranges overall. (4) Dyslipidemia: Plan: -No lipid-lowering medication noted on outpatient medication list -Suspect this is a diagnosis now resolved, given that her lipids are quite low. (5) Lymphedema: Plan: -Stable (6) Peripheral neuropathy: Plan: -Continue ropinirole and gabapentin -Continue ferrous sulfate as ordered Plan: Delirium -Uncertain baseline mentation, continuing to wax and wane- minor delirium. -Reassurance/reorientation. Supportive care. DVT ppx- SCDs due to blood loss in OR Disposition: Awaiting SNF placement Admission and Anticipated Discharge Date Admission Date: October 02, 2020 Supervising Physician Co-Signing Physician Notes I personally examined the patient and verified all english points of history and exam, discussed case, and agree with decision making with Dr Abad. Asks me to take her shoes off. Her right foot is better her left has a sock. Clearly more confused again today. Vitals noted, in general she is awake and alert but more confused. No distress. HEENT normocephalic atraumatic mucous membranes moist. Breathing unlabored no accessory muscle use good effort. Foot with 3 to 4-second cap refill no tenderness. Osteoporotic femur fracturestatus post operative repair. PT/OT, anticipate need for rehab/SNF with rehab emphasis. Peripheral arterial diseasestrongly suspect her lack of pulses highly chronic, she has reasonable cap refill that waxes and wanes between normal and slightly slow, but this never appeared truly cyanotic to my review. Further in discussion with surgery, she would not be a very vascular surgery candidate anyway. Serial exams, supportive care. Appears to be a chronic issue, but no acute instability. Delirium/multifactorial metabolic encephalopathysupportive care and reorientation. Mental status waxing and waning as is the case with delirium's Acute blood loss anemianot unexpected given the fracture and surgery required. No indication for transfusion. Continue to follow. DVT prophylaxis SCDs Stable for medical, stable for SNF/subacute rehab once arrangements have been made. Subjective Pt was similarly coherent to day prior, endorsed dull right leg pain but denied any radiation to the back or jolting sensations. States her feet feel numb though no different than usual. Denies chest pain or dyspnea. On later interview with different member of provider team, pt was significantly less coherent. Consistent with waning and waxing cognition during stay. Review of Systems Review of Systems: All systems reviewed & are unremarkable except as noted in HPI & below. Constitutional: no fever, no chills, no weakness, no weight loss and no weight gain Eyes: as per Subjective / HPI Respiratory: no cough, no chest congestion, no dyspnea and no dyspnea on exertion Cardiovascular: no chest pain, no orthopnea, no palpitations, no lightheadedness and no edema Gastrointestinal: no abdominal pain, no nausea, no vomiting, no constipation and no diarrhea/loose stools Genitourinary: no dysuria, no difficulty urinating, no urinary frequency, no urinary hesitancy, no urinary urgency and no flank pain Musculoskeletal: no back pain, no neck pain, no joint pain and no stiffness +R leg pain, improved from yesterday Integumentary: no rash Neurologic: no gait abnormality, no unsteadiness, no falls and no generalized weakness Baseline sensory deficit in b/l feet Physical Exam Constitutional: WD/WN, vitals as above + morbidly obese and cooperative; no acute distress Eyes: PERRL, conjunctivae normal, anicteric sclerae ENMT: Mallampati Class: II Neck: trachea midline, no thyromegaly normal visual inspection Respiratory: normal respiratory effort Auscultation: lungs clear to auscultation bilaterally; no crackles, no rales, no rhonchi and no wheezes Cardiovascular: RRR, no murmur, no edema Rate/Rhythm: regular rate and regular rhythm Heart Sounds: normal S1 and normal S2 Extremities: + edema and + varicosities Unable to palpate b/l dorsalis pedis and tibial pulses, capillary refill of toes approximately 3 seconds b/l Gastrointestinal (Abdomen): normal bowel sounds, soft, nontender, no hepatosplenomegaly Inspection/Auscultation: abdomen normal to inspection Percussion/Palpation: abdomen soft; abdomen nontender, no guarding, abdomen not rigid and no hepatosplenomegaly Musculoskeletal: R leg immobilized in brace, pain on palpation along femoral shaft, unable to assess strength of b/l LE Skin: no rashes, warm and dry B/l LE venous stasis dermatitis Neurologic: AOx3, sensory deficits to light and deep touch in b/l feet Psychiatric: A+Ox3, euthymic affect Results & Data Results & Data ([facility]) Vital Signs (Past 12 Hours) Vital Signs Temp Pulse Pulse Resp BP Pulse Ox 10/06/20 10:03 67 10/06/20 07:28 36.7 C 64 19 138/42 L 99 10/06/20 04:07 36.8 C 63 16 106/65 99 10/05/20 23:23 36.8 C 62 16 114/47 L 100 Resident Activity Tracking Resident Involvement: Resident Care Provided Care Provided: Adult Hospital Medicine
--- NOTE | 2020-10-06 13:59 | Progress Notes ---
DATE OF SERVICE: 10/06/2020 SUBJECTIVE: An 85-year-old white female now postop day 3 from ORIF of a right periprosthetic femur f racture. She has been transferred to the floor. She is complaining mostly just of a foot pain today . Denies any significant thigh pain. Still seems a bit confused. OBJECTIVE: VITAL SIGNS: Temperature 36.7. Vital signs are stable. PHYSICAL EXAMINATION: GENERAL: Shows a pleasant, elderly female. She is lying in bed, looks reasonably comfortable. EXTREMITIES: Examination of the right leg reveals the dressing to be in place and a knee immobilizer in place. She does dorsiflex and plantarflex her foot slightly on command. Her toes are pink. LABORATORY DATA: Hemoglobin is 8.8. Hematocrit 28.0. Electrolytes are stable. ASSESSMENT: An 85-year-old white female postoperative day 3 from open reduction and internal fixatio n of a periprosthetic femur fracture, doing okay. Pain seems to be okay currently. Medically, she a ppears fairly stable. PLAN: 1. DVT prophylaxis includes thigh-high TEDs, SCDs and we would recommend aspirin twice a day for the next 6 weeks. 2. PT/OT. She is getting therapy. Really not a whole lot they can do other mobilization. She need s to have her knee immobilizer on pretty much all the time. She can touch weightbear on the right le g in the knee immobilizer. 3. Pain control, seems to be okay with current pain medicine. I am a little concerned she might be overmedicated causing her confusion. 4. Medical management by the medicine service. 5. Disposition: She is orthopedically okay for discharge any time medically stable. I need to see her back in 2-3 weeks out from her surgery date. Any questions can be directed to me at [phone]. Job ID: [id number]
--- NOTE | 2020-10-06 18:31 | Billing Data ---
Date of Service October 06, 2020 Coding Level of Care Code 67368 Subseq Hosp Care Lvl 2
[2020-10-06] MEDS: rOPINIRole HCL 0.25 MG TABLET PO SCH (20:20)
[2020-10-06] MEDS: SENNA 8.6 MG TAB PO SCH (20:20)
[2020-10-06] MEDS: GABAPENTIN 400 MG CAP PO SCH (20:20)
[2020-10-07 06:08] LABS: Hematocrit (blood only) 27.9 % (37-47); Hemoglobin 8.9 g/dL (12.0-16.0); Mean Corpuscular Hemoglobin 30.3 pg (25-34); Mean Corpuscular Hgb Conc 31.9 g/dL (32-36); Mean Corpuscular Volume 94.9 fL (80-100); Mean Platelet Volume 9.4 fL (7.4-10.4); Platelet Count 271 K/uL (130-400); RDW Standard Deviation 51.6 fL (36.4-46.3); Red Blood Count 2.94 M/uL (4.2-5.4); White Blood Count 9.06 K/uL (4.8-10.8)
[2020-10-07] MEDS: ACETAMINOPHEN 500 MG TAB PO SCH ×3 (06:20→21:11)
[2020-10-07 06:35] LABS: BUN Creatinine Ratio 31.6 (10-20); Calcium 8.8 mg/dl (8.5-10.1); Est GFR (African American) 93.6 ml/min; Est GFR (Non-African American) 80.8 ml/min; Potassium 4.5 mmol/L (3.5-5.1)
[2020-10-07] MEDS: FERROUS GLUCONATE 324 MG TAB PO SCH ×2 (09:03→17:56)
[2020-10-07] MEDS: CALCIUM CITRATE 950 MG TAB PO SCH (09:04)
[2020-10-07] MEDS: CYANOCOBALAMIN 500 MCG TABLET (VITAMIN B-12) PO SCH (09:05)
[2020-10-07] MEDS: CHOLECALCIFEROL 1,000 UNITS 25 MCG TAB PO SCH (09:05)
[2020-10-07] MEDS: FOLIC ACID 1 MG TAB PO SCH (09:06)
[2020-10-07] MEDS: MULTIVITAMIN TAB PO SCH (09:06)
[2020-10-07] MEDS: CEROVITE ADV FORMULA TAB PO SCH (09:07)
[2020-10-07] MEDS: SPIRONOLACTONE 25 MG TAB PO SCH (09:07)
[2020-10-07] MEDS: VENLAFAXINE HCL XR 37.5 MG CAPXR PO SCH (09:08)
[2020-10-07] MEDS: TRIAMCINOLONE ACET 0.5% CR 15 GM TUBE TOP SCH (09:09)
[2020-10-07] MEDS: ATENOLOL 50 MG TABLET PO SCH (09:15)
[2020-10-07] MEDS: DOCUSATE SODIUM 100 MG CAP PO SCH ×2 (09:16→20:18)
[2020-10-07] MEDS: INSULIN ASPART 100 UNITS/ML 3 ML PEN SC SCH ×4 (09:18→21:08)
--- NOTE | 2020-10-07 09:53 | Progress Notes ---
DATE: 10/07/2020. SUBJECTIVE: An 85-year-old white female now postop day #4 from ORIF of a right periprosthetic femur fracture. She appears stable. No new complaints. Denies much in the way of pain today. She still seems confused. OBJECTIVE: VITAL SIGNS: Temperature is 36.8. Vital signs are stable. EXTREMITIES: Examination of the right leg reveals incision to be well approximated. Just a little b loody drainage superiorly. Her thigh is soft and supple. Not a lot of swelling. Leg is well aligne d. She is slightly flexed and extends her toes on command. She got pink toes with brisk refill. LABORATORY DATA: Hemoglobin 8.9. Hematocrit 27.9. Electrolytes are stable. ASSESSMENT: An 85-year-old white female postop day #4 from ORIF of right periprosthetic femur fractu re, doing okay orthopedically. She still seems confused. She does not appear to be in much pain. S he is neurologically stable. Neuro exam is just very difficult. PLAN: 1. DVT prophylaxis including thigh-high TEDs, SCDs, and we did recommend an aspirin twice a day for 6 weeks. 2. PT/OT. She can touch weightbear in the right leg in the knee immobilizer. We are going to do no knee range of motion. 3. Medical management as per the medicine service. 4. Pain control. I would recommend tapering off some of her medicines as she seems a bit overmedica padmaja to me. 5. Disposition: She is orthopedically okay for discharge any time. From a wound standpoint, she ju st needs a dressing change once a day on this right leg. It is fine for her to shower daily. Any or thopedic questions can be directed to me at [phone]. Job ID: [id number]
--- NOTE | 2020-10-07 10:21 | Hospitalist Progress Note ---
Date of Service October 07, 2020 Assessment & Plan (1) Femur fracture, right: Plan: -Comminuted periprosthetic spiral fracture of the distal femur shaft seen on x- ray, POD 3 from ORIF complicated by nicking of R femoral artery -Likely due to osteoporosis- continue vitamin D supplementation while inpatient (most recent level- 20). Will benefit from outpatient evaluation for bone loss prevention therapy- possibly Forteo/Prolia given previous use of bisphosphonates -Currently stable, pain responding well to PRNs, tolerating PO -Pt's lack of distal pulses from previous exam/CT Angiogram of extremities not acutely concerning for occlusion, more likely secondary to vasculopathy given her extensive medical history including DM2, HLD that resulted in peripheral arterial disease, with symptoms occurring at baseline per collateral from son. No need for vascular or orthopedic surgical intervention at this time, though patient is nonetheless poor candidate for revascularization surgery given age and medical comorbidities. Expected to improve with regain of function of extremity -PT/OT ongoing though patient reportedly struggling, recommended SNF placement -Pt medically stable, awaiting SNF placement (2) Type 2 diabetes mellitus with diabetic chronic kidney disease: Plan: -A1c 5.7%, glucose has been consistently low 100s, well-controlled -Novolog ISS only (3) Hypertension: Plan: Blood pressure continues to rest within reasonable ranges. (4) Dyslipidemia: Plan: -No lipid-lowering medication noted on outpatient medication list -Suspect this is a diagnosis now resolved, given that her lipids are quite low. (5) Lymphedema: Plan: -Stable (6) Peripheral neuropathy: Plan: -Continue ropinirole and gabapentin -Continue ferrous sulfate as ordered Plan: Delirium -Uncertain baseline mentation, continuing to wax and wane- minor delirium. -Reassurance/reorientation. Supportive care. DVT ppx- SCDs due to blood loss in OR Disposition: Awaiting SNF placement Admission and Anticipated Discharge Date Admission Date: October 02, 2020 Supervising Physician Co-Signing Physician Notes I personally examined the patient and verified all english points of history and exam, discussed case, and agree with decision making with Dr Klein. Sleeping comfortably.. Vitals noted, resting comfortably, no distress. HEENT normocephalic atraumatic mucous membranes moist. Breathing unlabored no accessory muscle use good effort. Skin without rashes, pallor, icterus. Osteoporotic femur fracturestatus post operative repair. PT/OT, anticipate need for rehab/SNF with rehab emphasis. Peripheral arterial diseasestrongly suspect her lack of pulses highly chronic, she has reasonable cap refill that waxes and wanes between normal and slightly slow, but this never appeared truly cyanotic to my review. Further in discussion with surgery, she would not be a very vascular surgery candidate anyway. Serial exams, supportive care. Appears to be a chronic issue, but no acute instability. Delirium/multifactorial metabolic encephalopathysupportive care and reorientation. Mental status waxing and waning as is the case with deliriums, SNF environment would likely help. Nursing has been doing a good job weaning down the intensity of her pain medicine to wear she has not had hydromorphone in a day or 2, and is only getting tramadol. It is certainly a multifactorial delirium not just side effect of pain medicine, but minimizing delirium genic meds would be helpful. Acute blood loss anemianot unexpected given the fracture and surgery required. No indication for transfusion. Continue to follow periodically. DVT prophylaxis SCDs Stable on medical, stable for SNF/subacute rehab once arrangements have been made. Subjective Pt was resting comfortably upon entry. She appeared coherent, but with limited attention and drifted off several times during conversation. She denied any chest pain, palpitations, coughing, SOB, headaches, or abdominal pain but did complain of pain at her right ankle. Review of Systems Review of Systems: See HPI Physical Exam Constitutional: WD/WN, vitals as above Respiratory: normal respiratory effort, lungs clear to auscultation nasal cannula Cardiovascular: RRR, no murmur, no edema Musculoskeletal: Right leg in cast Skin: + dry skin and + nails discolored Psychiatric: Apperance: appropriately dressed and appeared stated age Speech: normal rate/rhythm/volume of speech Results & Data Results & Data ([facility]) Vital Signs (Past 12 Hours) Vital Signs Temp Pulse Pulse Resp BP BP Pulse Ox 10/07/20 09:14 70 134/75 10/07/20 08:00 36.5 C 68 18 138/62 100 10/06/20 23:40 36.8 C 69 16 107/64 93 Resident Activity Tracking Resident Involvement: Resident Care Provided Care Provided: Adult [facility] Medicine
[2020-10-07] MEDS: traMADol HCL 50 MG TABLET PO PRN (15:10)
--- NOTE | 2020-10-07 19:38 | Billing Data ---
Date of Service October 07, 2020 Coding Level of Care Code 41179 Subseq Hosp Care Lvl 1
[2020-10-07] MEDS: rOPINIRole HCL 0.25 MG TABLET PO SCH (20:15)
[2020-10-07] MEDS: GABAPENTIN 400 MG CAP PO SCH (20:16)
[2020-10-07] MEDS: SENNA 8.6 MG TAB PO SCH (20:17)
[2020-10-08] MEDS: ACETAMINOPHEN 500 MG TAB PO SCH ×3 (05:34→21:02)
[2020-10-08] MEDS: FERROUS GLUCONATE 324 MG TAB PO SCH ×2 (08:48→17:51)
[2020-10-08] MEDS: ATENOLOL 50 MG TABLET PO SCH (08:49)
[2020-10-08] MEDS: CALCIUM CITRATE 950 MG TAB PO SCH (08:49)
[2020-10-08] MEDS: CHOLECALCIFEROL 1,000 UNITS 25 MCG TAB PO SCH (08:50)
[2020-10-08] MEDS: CYANOCOBALAMIN 500 MCG TABLET (VITAMIN B-12) PO SCH (08:50)
[2020-10-08] MEDS: FOLIC ACID 1 MG TAB PO SCH (08:51)
[2020-10-08] MEDS: MULTIVITAMIN TAB PO SCH (08:51)
[2020-10-08] MEDS: CEROVITE ADV FORMULA TAB PO SCH (08:51)
[2020-10-08] MEDS: VENLAFAXINE HCL XR 37.5 MG CAPXR PO SCH (08:52)
[2020-10-08] MEDS: SPIRONOLACTONE 25 MG TAB PO SCH (08:52)
[2020-10-08] MEDS: DOCUSATE SODIUM 100 MG CAP PO SCH ×2 (08:53→21:06)
[2020-10-08] MEDS: TRIAMCINOLONE ACET 0.5% CR 15 GM TUBE TOP SCH (08:59)
[2020-10-08] MEDS: INSULIN ASPART 100 UNITS/ML 3 ML PEN SC SCH ×4 (09:01→21:18)
--- NOTE | 2020-10-08 11:16 | Hospitalist Progress Note ---
Date of Service October 08, 2020 Assessment & Plan (1) Femur fracture, right: Plan: s/p ORIF POD 5 from complicated by nicking of R femoral artery -stable, pain responding well to PRNs, tolerating PO -vitamin D supplementation -f/u outpatient for osteoporosis management -PT/OT ongoing though patient improving, recommended SNF placement -Pt medically stable, awaiting SNF placement (2) Type 2 diabetes mellitus with diabetic chronic kidney disease: Plan: -A1c 5.7%, glucose has been consistently low 100s, well-controlled -Novolog ISS only (3) Hypertension: Plan: Blood pressure continues to rest within reasonable ranges. (4) Dyslipidemia: Plan: -No lipid-lowering medication noted on outpatient medication list -Suspect this is a diagnosis now resolved, given that her lipids are quite low. (5) Lymphedema: Plan: -Stable (6) Peripheral neuropathy: Plan: -Continue ropinirole and gabapentin -Continue ferrous sulfate as ordered Plan: Delirium -more disoriented than yesterday, will reassess after breakfast, for a more even comparison. DVT ppx- SCDs due to blood loss in OR Disposition: Awaiting SNF placement Admission and Anticipated Discharge Date Admission Date: October 02, 2020 Supervising Physician Co-Signing Physician Notes I personally examined the patient and verified all english points of history and exam, discussed case, and agree with decision making with Dr Klein. Awake and talking on the phone. Far more lucid. Does not remember me, unsurprisingly. No new/acute complaints. Vitals noted, awake and talking on the phone, seems fairly coherent, no distress. HEENT normocephalic atraumatic mucous membranes moist. Breathing unlabored no accessory muscle use good effort. Skin without rashes, pallor, icterus. Osteoporotic femur fracturestatus post operative repair. PT/OT, anticipate need for rehab/SNF with rehab emphasis. Stable to go whenever bed is available. Peripheral arterial diseasestrongly suspect her lack of pulses highly chronic, she has reasonable cap refill that waxes and wanes between normal and slightly slow, but this never appeared truly cyanotic to my review. Further in discussion with surgery, she would not be a very vascular surgery candidate anyway. Serial exams, supportive care. Appears to be a chronic issue, but no acute instability. Stable for outpatient follow-up. Delirium/multifactorial metabolic encephalopathysupportive care and reorientation. Mental status waxing and waning as is the case with deliriums, SNF environment would likely help. Continue to wean down pain medicine, given that her pain seems to be under better control, but obviously this is not the only factor driving the delirium. Likely multifactorial/metabolic/environme ntal/toxic encephalopathy. Acute blood loss anemianot unexpected given the fracture and surgery required. No indication for transfusion. Continue to follow periodically. DVT prophylaxis SCDs Stable on medical, stable for SNF/subacute rehab once arrangements have been made. Subjective Pt was resting comfortably upon entry. She appeared more disoriented this morning compared to yesterday. She did not recall our encounter yesterday. She was not oriented to time or place. Though she cooperated with direct commands, her attention in executing said commands was diminished compared to yesterday. Review of Systems Review of Systems: See HPI Physical Exam Constitutional: WD/WN, vitals as above Respiratory: normal respiratory effort, lungs clear to auscultation Cardiovascular: RRR, no murmur, no edema Musculoskeletal: right leg remains fixed in brace Skin: + dry skin and + nails discolored Psychiatric: Orientation: cooperative Apperance: appropriately dressed and appeared stated age Results & Data Results & Data ([facility]) Vital Signs (Past 12 Hours) Vital Signs Temp Pulse Pulse Resp BP Pulse Ox 10/08/20 08:46 75 124/78 10/08/20 07:55 36.9 C 64 18 112/62 98 Resident Activity Tracking Resident Involvement: Resident Care Provided Care Provided: Adult Hospital Medicine
[2020-10-08] MEDS: traMADol HCL 50 MG TABLET PO PRN ×3 (12:24→19:07)
--- NOTE | 2020-10-08 20:24 | Billing Data ---
Date of Service October 08, 2020 Coding Level of Care Code 40642 Subseq Hosp Care Lvl 1
[2020-10-08] MEDS: GABAPENTIN 400 MG CAP PO SCH (21:04)
[2020-10-08] MEDS: rOPINIRole HCL 0.25 MG TABLET PO SCH (21:04)
[2020-10-08] MEDS: SENNA 8.6 MG TAB PO SCH (21:04)
[2020-10-09] MEDS: traMADol HCL 50 MG TABLET PO PRN ×2 (01:22→11:11)
[2020-10-09] MEDS: ACETAMINOPHEN 500 MG TAB PO SCH ×3 (06:12→21:32)
[2020-10-09] MEDS: FERROUS GLUCONATE 324 MG TAB PO SCH ×2 (08:47→18:06)
[2020-10-09] MEDS: ATENOLOL 50 MG TABLET PO SCH (08:47)
[2020-10-09] MEDS: CHOLECALCIFEROL 1,000 UNITS 25 MCG TAB PO SCH (08:48)
[2020-10-09] MEDS: CALCIUM CITRATE 950 MG TAB PO SCH (08:48)
[2020-10-09] MEDS: CYANOCOBALAMIN 500 MCG TABLET (VITAMIN B-12) PO SCH (08:49)
[2020-10-09] MEDS: MULTIVITAMIN TAB PO SCH (08:49)
[2020-10-09] MEDS: CEROVITE ADV FORMULA TAB PO SCH (08:49)
[2020-10-09] MEDS: FOLIC ACID 1 MG TAB PO SCH (08:49)
[2020-10-09] MEDS: SPIRONOLACTONE 25 MG TAB PO SCH (08:50)
[2020-10-09] MEDS: TRIAMCINOLONE ACET 0.5% CR 15 GM TUBE TOP SCH (08:50)
[2020-10-09] MEDS: VENLAFAXINE HCL XR 37.5 MG CAPXR PO SCH (08:50)
[2020-10-09] MEDS: DOCUSATE SODIUM 100 MG CAP PO SCH ×2 (08:52→20:30)
[2020-10-09] MEDS: INSULIN ASPART 100 UNITS/ML 3 ML PEN SC SCH ×4 (10:11→20:30)
--- NOTE | 2020-10-09 16:45 | Hospitalist Progress Note ---
Date of Service October 09, 2020 Assessment & Plan (1) Femur fracture, right: Plan: s/p ORIF POD 6 from complicated by nicking of R femoral artery -stable, pain responding well to PRNs, tolerating PO -Vit D and ferritin levels will be checked in the am --> consider inc Vit D and iron supplementation -PT/OT ongoing though patient improving; new brace put on today; awaiting SN[facility] placement [facility] so case management will work on finding another placement -f/u outpatient for osteoporosis management; consider dexa scan (2) Type 2 diabetes mellitus with diabetic chronic kidney disease: Plan: -A1c 5.7%, glucose has been consistently low 100s, well-controlled -Novolog ISS only (3) Hypertension: Plan: Blood pressure continues to rest within reasonable ranges. (4) Dyslipidemia: Plan: -No lipid-lowering medication noted on outpatient medication list -Suspect this is a diagnosis now resolved, given that her lipids are quite low. (5) Lymphedema: Plan: -Stable (6) Peripheral neuropathy: Plan: -Continue ropinirole and gabapentin -Continue ferrous gluconate as ordered Plan: Delirium -Much more alert and oriented today compared to the weekend even on tramadol 100mg PRN. DVT ppx- SCDs due to blood loss in OR Disposition: Awaiting SNF placement Admission and Anticipated Discharge Date Admission Date: October 02, 2020 Supervising Physician Co-Signing Physician Notes Patient seen and examined with PGY-1 Dr. Ward. Agree with history, exam findings, assessment and plan of care as outlined. In brief, Ms Lin is an 85 year old female with hx of HTN, HLD, DM, CKD admitted to medicine with a right femur fracture, now s/p ORIF. Today, she is having significant pain in the right leg following PT. Worried about not being able to find her glasses. Pain got worse after getting up out of bed and working with physical therapy. Vital signs and nursing notes reviewed. In distress and crying due to right leg pain. Neurovascularly in tact in the distal lower extremities. 1. Right femur fracture. s/p ORIF. Procedure complicated by nicking the right femoral artery. Needs follow up outpatient DEXA and can discuss starting antifracture medication with PCP. Vitamin D level in August was 19. Continue with weekly high dose vitamin D. 2. DM2. Sliding scale only. 3. HTN. Stable. 4. Peripheral neuropathy and restless leg. Continue home ropinirole and gabapentin. Continue ferrous sulfate. Goal ferritin is ~75, last ferritin in the system is 20 (May 2020). If her ferritin is not increasing, can consider switching to iron polysaccharide which does not require an acidic environment for absorption. Also consider spacing out iron from her calcium supplement and other calcium containing foods. Dispo: pending SNF placement. [facility] did not have availability so CM is contacting other facilities. Subjective She was in minimal pain to no pain. However, later in the afternoon just after receiving her pain medication, was very sleepy. Review of Systems Review of Systems: All systems reviewed & are unremarkable except as noted in HPI & below Physical Exam Physical Exam: Constitutional: In general in the morning she was awake and alert with no confusion. Appears in no distress. On revisit she was in extreme pain after switching braces but still oriented; pain medication was just administered at that time. HEENT: normocephalic atraumatic mucous membranes moist. Breathing unlabored no accessory muscle use good effort. Skin shows no rashes no pallor or icterus. Cardiac: regular without notable rubs murmurs gallops. Lungs: clear to auscultation bilaterally no respiratory wheezes good effort. Abdomen: is soft nondistended nontender no masses organomegaly. Extremities: right lower extremity in new orthotic brace. Able to feel touch on palpation and can wiggle toes. Cap refill present but brisk. Results & Data Results & Data ([facility]) Vital Signs (Past 12 Hours) Vital Signs Temp Pulse Resp BP Pulse Ox 10/09/20 15:37 36.7 C 62 20 104/64 98 10/09/20 08:46 88 107/58 L 10/09/20 07:34 36.9 C 68 18 103/59 L 98 Resident Activity Tracking Resident Involvement: Resident Care Provided Care Provided: Adult Hospital Medicine
[2020-10-09] MEDS: GABAPENTIN 400 MG CAP PO SCH (20:30)
[2020-10-09] MEDS: SENNA 8.6 MG TAB PO SCH (20:30)
[2020-10-09] MEDS: rOPINIRole HCL 0.25 MG TABLET PO SCH (20:30)
[2020-10-10] MEDS: ACETAMINOPHEN 500 MG TAB PO SCH ×3 (05:30→21:09)
[2020-10-10] MEDS: FERROUS GLUCONATE 324 MG TAB PO SCH ×2 (09:00→18:03)
[2020-10-10] MEDS: ATENOLOL 50 MG TABLET PO SCH (09:01)
[2020-10-10] MEDS: CALCIUM CITRATE 950 MG TAB PO SCH (09:03)
[2020-10-10] MEDS: CHOLECALCIFEROL 1,000 UNITS 25 MCG TAB PO SCH (09:04)
[2020-10-10] MEDS: CYANOCOBALAMIN 500 MCG TABLET (VITAMIN B-12) PO SCH (09:07)
[2020-10-10] MEDS: DOCUSATE SODIUM 100 MG CAP PO SCH ×2 (09:09→21:09)
[2020-10-10] MEDS: FOLIC ACID 1 MG TAB PO SCH (09:09)
[2020-10-10] MEDS: SPIRONOLACTONE 25 MG TAB PO SCH (09:11)
[2020-10-10] MEDS: CEROVITE ADV FORMULA TAB PO SCH (09:11)
[2020-10-10] MEDS: VENLAFAXINE HCL XR 37.5 MG CAPXR PO SCH (09:13)
[2020-10-10] MEDS: TRIAMCINOLONE ACET 0.5% CR 15 GM TUBE TOP SCH (09:18)
[2020-10-10] MEDS: INSULIN ASPART 100 UNITS/ML 3 ML PEN SC SCH ×4 (09:34→22:02)
[2020-10-10] MEDS: traMADol HCL 50 MG TABLET PO PRN ×2 (10:13→19:20)
[2020-10-10 10:46] LABS: Hematocrit (blood only) 29.6 % (37-47); Hemoglobin 9.2 g/dL (12.0-16.0); Mean Corpuscular Hgb Conc 31.1 g/dL (32-36); Mean Corpuscular Volume 96.4 fL (80-100); Mean Platelet Volume 9.3 fL (7.4-10.4); Platelet Count 410 K/uL (130-400); RDW Coefficient of Variation 15.7 % (11.5-14.5); RDW Standard Deviation 54.7 fL (36.4-46.3); Red Blood Count 3.07 M/uL (4.2-5.4); White Blood Count 11.05 K/uL (4.8-10.8)
--- NOTE | 2020-10-10 10:55 | Progress Notes ---
DATE OF SERVICE: 10/10/2020 SUBJECTIVE: An 85-year-old white female now 1 week out from ORIF of a right periprosthetic femur fra cture. She seems to be doing much better today. Much more awake, alert, and oriented and appears ba ck to baseline. She complains of pain, but looks pretty comfortable. She says her both legs hurt ab out equally. PHYSICAL EXAMINATION: GENERAL: Shows a pleasant, elderly female. She is lying in bed, looks pretty comfortable. EXTREMITIES: Examination of the right leg reveals a brace to be in place. Her dressing is clean, dr y and intact. No significant drainage. Thigh is soft and supple. She moves her foot slightly with flexion and extension on command. She has got pink toes with brisk refill. LABORATORIES: No new labs today. IMPRESSION: An 85-year-old white female now 1 week out from open reduction and internal fixation of right periprosthetic femur fracture, doing better. She seems to be getting a little better daily. S he seems to be mentally back to about her baseline. Neurovascularly, she appears stable. PLAN: 1. DVT prophylaxis includes thigh-high TEDs, SCDs and would recommend an aspirin twice a day. 2. PT/OT. She can touch weightbearing on this right leg for transfers, do not want to any knee blair on. Brace should be on all the time while out of bed. Does not need to be on while just lying in be d and not moving. 3. Decubitus and heel precautions. We will need to be very careful to mobilize her and avoid ulcers. 4. Medical management per medicine service. 5. Disposition: She can be discharged any time medically stable. I need to see her back somewhere between 2 and 3 weeks postop. Any orthopedic questions can be directed to me at [phone]. Job ID: [id number]
--- NOTE | 2020-10-10 15:25 | Hospitalist Progress Note ---
Date of Service October 10, 2020 Assessment & Plan (1) Femur fracture, right: Plan: s/p ORIF POD 7 from complicated by nicking of R femoral artery -stable, pain responding well to PRNs, tolerating PO -Vit D level at 23 --> Patient is already getting 5000 iu daily. Stopped her 50,000 iu weekly dose. -Ferritin levels WNL --> continue iron supplement -PT/OT ongoing; new brace put on today; awaiting SNF placement [facility] so case management will work on finding another placement -f/u outpatient for osteoporosis management; consider dexa scan (2) Type 2 diabetes mellitus with diabetic chronic kidney disease: Plan: -A1c 5.7%, glucose has been consistently low 100s, well-controlled -Novolog ISS only (3) Hypertension: Plan: Blood pressure continues to rest within reasonable ranges. (4) Dyslipidemia: Plan: -No lipid-lowering medication noted on outpatient medication list -Suspect this is a diagnosis now resolved, given that her lipids are quite low. (5) Lymphedema: Plan: -Stable (6) Peripheral neuropathy: Plan: -Continue ropinirole and gabapentin -Continue ferrous gluconate as ordered Plan: Delirium -Much more alert and oriented today compared to the weekend and yesterday afternoon. Tolerating pain medication dose. DVT ppx- SCDs due to blood loss in OR Disposition: Awaiting SNF placement Admission and Anticipated Discharge Date Admission Date: October 02, 2020 Supervising Physician Co-Signing Physician Notes Patient seen and examined independently of PGY-1 Dr. Ward. Agree with history, exam findings, assessment and plan of care as outlined. In brief, Ms Lin is an 85 year old female with hx of HTN, HLD, DM, CKD admitted to medicine with a right femur fracture, now s/p ORIF. Feels well today. Eating breakfast Feels that the new brace is more comfortable compared to the older, bulkier brace. Vital signs and nursing notes reviewed. Well appearing, pleasant. No acute distress. Heart with regular rate and rhythm. Neurovascularly in tact in the distal lower extremities. 1. Right femur fracture (periprostetic fracture). s/p ORIF. Procedure complicated by nicking the right femoral artery. Doing well. Continue with WB per ortho. Brace is locked in extension. Appreciate continued ortho recommendations. 2. DM2. Sliding scale only. 3. HTN. Stable. 4. Peripheral neuropathy and restless leg. Continue home ropinirole and gabapentin. Continue ferrous sulfate. Goal ferritin is ~75. Dispo: She is medically stable for discharge, awaiting placement. Appreciate case management assistance with finding an accepting facility. Subjective Patient states she slept very well last night and is in minimal pain. Pleasant to talk to and very alert and oriented today. Her brace was changed yesterday by PT and seems to be much more comfortable. Review of Systems Review of Systems: All systems reviewed & are unremarkable except as noted in HPI & below Physical Exam Physical Exam: Constitutional: In general she was awake and alert with no confusion. Appears in no distress. HEENT: normocephalic atraumatic mucous membranes moist. Breathing unlabored no accessory muscle use good effort. Skin shows no rashes no pallor or icterus. Cardiac: regular without notable rubs murmurs gallops. Lungs: clear to auscultation bilaterally no respiratory wheezes good effort. Abdomen: is soft nondistended nontender no masses organomegaly. Extremities: right lower extremity in a new orthotic brace. Able to feel touch on palpation and can wiggle toes. Results & Data Results & Data ([facility]) Vital Signs (Past 12 Hours) Vital Signs Temp Pulse Resp BP Pulse Ox 10/10/20 07:41 36.8 C 66 18 106/66 98 Resident Activity Tracking Resident Involvement: Resident Care Provided Care Provided: Adult Hospital Medicine
[2020-10-10] MEDS: GABAPENTIN 400 MG CAP PO SCH (21:08)
[2020-10-10] MEDS: rOPINIRole HCL 0.25 MG TABLET PO SCH (21:08)
[2020-10-10] MEDS: SENNA 8.6 MG TAB PO SCH (21:09)
[2020-10-10] MEDS: HYDROmorphone INJ 0.5 MG/0.5 ML SYR IV PRN (21:10)
[2020-10-11] MEDS: ACETAMINOPHEN 500 MG TAB PO SCH ×3 (05:56→21:22)
[2020-10-11] MEDS: traMADol HCL 50 MG TABLET PO PRN ×3 (05:57→20:17)
[2020-10-11] MEDS: FERROUS GLUCONATE 324 MG TAB PO SCH ×2 (08:45→18:29)
[2020-10-11] MEDS: ATENOLOL 50 MG TABLET PO SCH (08:46)
[2020-10-11] MEDS: CALCIUM CITRATE 950 MG TAB PO SCH (08:49)
[2020-10-11] MEDS: CHOLECALCIFEROL 1,000 UNITS 25 MCG TAB PO SCH (08:50)
[2020-10-11] MEDS: CYANOCOBALAMIN 500 MCG TABLET (VITAMIN B-12) PO SCH (08:53)
[2020-10-11] MEDS: FOLIC ACID 1 MG TAB PO SCH (08:54)
[2020-10-11] MEDS: SPIRONOLACTONE 25 MG TAB PO SCH (08:54)
[2020-10-11] MEDS: TRIAMCINOLONE ACET 0.5% CR 15 GM TUBE TOP SCH (08:56)
[2020-10-11] MEDS: VENLAFAXINE HCL XR 37.5 MG CAPXR PO SCH (08:56)
[2020-10-11] MEDS: DOCUSATE SODIUM 100 MG CAP PO SCH ×2 (09:09→20:16)
[2020-10-11] MEDS: INSULIN ASPART 100 UNITS/ML 3 ML PEN SC SCH ×4 (09:17→22:26)
--- NOTE | 2020-10-11 10:32 | Hospitalist Progress Note ---
Date of Service October 11, 2020 Assessment & Plan (1) Femur fracture, right: Plan: s/p ORIF POD 7 from complicated by nicking of R femoral artery -stable, pain responding well to PRNs, tolerating PO -Vit D level at 23 --> Patient is already getting 5000 iu daily. 50,000 iu weekly dose stopped. -Ferritin levels WNL --> continue iron supplement -OOB to chair ordered -PT/OT ongoing; awaiting SNF placement; place found and discharge scheduled for tomorrow -f/u outpatient for osteoporosis management; consider dexa scan (2) Hypoxia: Plan: -Trial of taking patient off oxygen 2L nasal cannula --> O2 sat was 80 on room air --> jumped back to 95 when put back on 2L nasal cannula --> chest xray ordered and performed showing possible mild bilateral atelectasis and pulmonary edema --> patient given incentive spirometer for treatment (3) Type 2 diabetes mellitus with diabetic chronic kidney disease: Plan: -A1c 5.7%, glucose has been consistently low 100s, well-controlled -Novolog ISS only (4) Hypertension: Plan: Blood pressure continues to rest within reasonable ranges. (5) Dyslipidemia: Plan: -No lipid-lowering medication noted on outpatient medication list -Suspect this is a diagnosis now resolved, given that her lipids are quite low. (6) Lymphedema: Plan: -Stable (7) Peripheral neuropathy: Plan: -Continue ropinirole and gabapentin -Continue ferrous gluconate as ordered Plan: Delirium -Very alert and oriented today. Tolerating pain medication dose. DVT ppx- SCDs due to blood loss in OR Disposition: SNF placement set; discharge tomorrow Admission and Anticipated Discharge Date Admission Date: October 02, 2020 Supervising Physician Co-Signing Physician Notes Patient seen and examined independently of PGY-1 Dr. Ward. Agree with history, exam findings, assessment and plan of care as outlined. In brief, Ms Lin is an 85 year old female with hx of HTN, HLD, DM, CKD admitted to medicine with a right femur fracture, now s/p ORIF. Feels well today. Eating breakfast. She is willing to work with PT and feels positive about going to a rehab facility for a short term stay. Vital signs and nursing notes reviewed. Well appearing, pleasant. No acute distress. Heart with regular rate and rhythm. Neurovascularly in tact in the distal lower extremities. 1. Right femur fracture. s/p ORIF. Procedure complicated by nicking the right femoral artery. Doing well. Continue with WB per ortho. Brace is locked in extension. Appreciate continued ortho recommendations. 2. DM2. Sliding scale only. 3. HTN. Stable. 4. Peripheral neuropathy and restless leg. Continue home ropinirole and gabapentin. Continue ferrous sulfate. Goal ferritin is ~75. Dispo: She is medically stable for discharge, awaiting placement. Appreciate case management assistance with finding an accepting facility. Will need COVID test prior to transfer. Subjective Patient states she slept well last night. Not in much pain when laying in her bed. Not happy when doing PT. Alert and pleasant. Denies SOB. No acute changes. Review of Systems Review of Systems: All systems reviewed & are unremarkable except as noted in HPI & below Genitourinary: no difficulty urinating Physical Exam Physical Exam: Constitutional: In general she was awake and alert with no confusion. Appears in no distress. HEENT: normocephalic atraumatic mucous membranes moist. Breathing unlabored no accessory muscle use good effort. Skin shows no rashes no pallor or icterus. Cardiac: regular without notable rubs murmurs gallops. Lungs: clear to auscultation bilaterally no respiratory wheezes good effort. Abdomen: is soft nondistended nontender no masses organomegaly. Extremities: right lower extremity in a orthotic brace. Able to feel touch on palpation and can wiggle toes bilaterally. Results & Data Results & Data ([facility]) Vital Signs (Past 12 Hours) Vital Signs Temp Pulse Pulse Resp BP BP Pulse Ox 10/11/20 08:00 36.6 C 71 16 136/67 96 10/10/20 22:36 36.6 C 66 16 112/56 L 99 Resident Activity Tracking Resident Involvement: Resident Care Provided Care Provided: Adult [facility] Medicine
--- NOTE | 2020-10-11 10:43 | XRay Report ---
XR chest 1V portable CLINICAL HISTORY: hypoxia COMPARISON STUDY: October 02, 2020 FINDINGS: No evidence of pneumothorax however evaluation is limited because right lung apex is obscured by madeline ent's chin.. No pleural effusion. Evaluation of the left hemidiaphragm. Diffuse prominence of pulmonary interstitium is again seen. Linear densities are seen within bilateral mid to lower lung region which could represent atelectasis . Cardiomediastinal silhouette is within normal limits in size. Pulmonary vasculature is indistinct.. Aorta is calcified. Osseous structures: Osteopenia. Degenerative changes of the spine. Bilateral prosthetic shoulder natasha nts. IMPRESSION: 1. No large infiltrates or consolidative lesions. Possible linear atelectasis which is seen bilatera lly. Possible pulmonary edema ACT 112: Negative or not required by law. The above report was generated using voice recognition software. It may contain grammatical, syntax o r spelling errors. Electronically signed by: Terri Dale DO 10/11/2020 10:42 AM
[2020-10-11] MEDS: CEROVITE ADV FORMULA TAB PO SCH (12:08)
[2020-10-11] MEDS: GABAPENTIN 400 MG CAP PO SCH (20:16)
[2020-10-11] MEDS: SENNA 8.6 MG TAB PO SCH (20:17)
[2020-10-11] MEDS: rOPINIRole HCL 0.25 MG TABLET PO SCH (20:17)
[2020-10-11] MEDS: HYDROmorphone INJ 0.5 MG/0.5 ML SYR IV PRN (21:21)
[2020-10-12] MEDS: ACETAMINOPHEN 500 MG TAB PO SCH (05:21)
[2020-10-12] MEDS: traMADol HCL 50 MG TABLET PO PRN (07:40)
[2020-10-12] MEDS: HYDROmorphone INJ 0.5 MG/0.5 ML SYR IV PRN (07:41)
[2020-10-12] MEDS: FERROUS GLUCONATE 324 MG TAB PO SCH (07:42)
--- NOTE | 2020-10-12 08:24 | Discharge Summary ---
Date of Service October 12, 2020 Admission HPI Per Admitting Provider This is a an 85-year-old female with past medical history of CKD, dyslipidemia, previous left femur fracture, bilateral total knee arthroplasty, status post right hip arthroplasty that presents today status post fall with leg pain. Patient is accompanied by her son who is her primary caregiver and both are pleasant and good historians. Patient tells me that on 09/30, she was ambulating around her kitchen. She typ ically uses a walker but when she went to reach for it she fell, landing on her right side. Since then she has been unable to bear any weight on her right leg. Her son was trying his best to help her transfer from walker to chair but she was unable to do this. Earlier today, the son felt he was unable to help any further brought the patient to the emergency room for further evaluation. Work-up in the emergency room revealed a periprosthetic fracture of the distal femur on the right. Patient is now being admitted for further treatment of this. Patient tells me she only has minimal pain, as long she keeps the leg still. She denies any other symptoms at this time. She denied any head trauma or syncope with her fall. Admission Exam Per Admitting Provider Constitutional: cooperative; no acute distress Neck: trachea midline, no thyromegaly Respiratory: normal respiratory effort Auscultation: lungs clear to auscultation bilaterally; no crackles, no rales, no rhonchi and no wheezes Cardiovascular: Rate/Rhythm: regular rate and regular rhythm Heart Sounds: normal S1 and normal S2 Gastrointestinal (Abdomen): Inspection/Auscultation: abdomen normal to inspection Percussion/Palpation: abdomen soft; abdomen nontender, no guarding, abdomen not rigid and no hepatosplenomegaly Musculoskeletal: Extremities: + leg foreshortened Skin: no rashes, warm and dry Principal Diagnosis s/p Right Periprosthetic Femur Fracture Discharge Exam Constitutional: awake and alert with no confusion. Appears in no distress. HEENT: normocephalic atraumatic mucous membranes moist. Breathing unlabored no accessory muscle use good effort. Skin shows no rashes no pallor or icterus. Cardiac: regular without notable rubs murmurs gallops. Lungs: clear to auscultation bilaterally no respiratory wheezes good effort. Abdomen: soft nondistended nontender no masses organomegaly. Extremities: right lower extremity in an orthotic brace (knee immobilizer). Able to feel touch on palpation (normal sensation) and can wiggle toes bilaterally. Discharge Data Allergies Allergy/AdvReac Type Severity Reaction Status Date / Time promethazine Allergy Severe RESP. Verified 09/22/20 09:47 ARREST Sulfa (Sulfonamide Allergy Intermediate WELTS Verified 09/22/20 09:47 Antibiotics) duloxetine Allergy Unknown Unknown Verified 09/22/20 09:47 nefazodone Allergy Unknown Unknown Verified 09/22/20 09:47 trazodone Allergy Unknown Unknown Verified 09/22/20 09:47 propoxyphene AdvReac Intermediate SEVERE Verified 09/22/20 09:47 HEADACHE aspirin AdvReac Mild headaches Verified 09/22/20 09:47 amitriptyline AdvReac Unknown Unknown Verified 09/22/20 09:47 blue dye AdvReac Unknown CI Pigment Verified 10/02/20 18:50 blue 63 Consultations 10/02/20 13:31 ED Decision to Admit Stat 10/02/20 14:40 Consult Orthopedic Surgery Stat Procedures Performed Operation Date: 10/03/20 07:00 Actual Procedures p Right Periprosthetic Femur Fracture Open Reduction Internal Fixation(Right) - Gonzalez Leong MD Ordered Studies 10/02/20 12:49 CT cervical spine wo con Stat CT head/brain wo con Stat 10/03/20 14:30 FL femur RT 2V Routine 10/04/20 17:19 CT angio LE RT w inc wo if don Urgent Laboratory Results WBC 11.05 K/uL (4.8-10.8) H 10/10/20 10:11 RBC 3.07 M/uL (4.2-5.4) L 10/10/20 10:11 Hgb 9.2 g/dL (12.0-16.0) L 10/10/20 10:11 Hct 29.6 % (37-47) L 10/10/20 10:11 MCV 96.4 fL (80-100) 10/10/20 10:11 MCH 30.0 pg (25-34) 10/10/20 10:11 MCHC 31.1 g/dL (32-36) L 10/10/20 10:11 RDW Std Deviation 54.7 fL (36.4-46.3) H 10/10/20 10:11 RDW Coeff of Yane 15.7 % (11.5-14.5) H 10/10/20 10:11 Plt Count 410 K/uL (130-400) H 10/10/20 10:11 MPV 9.3 fL (7.4-10.4) 10/10/20 10:11 Immature Gran % (Auto) 0.4 % 10/04/20 06:08 Neut % (Auto) 74.8 % 10/04/20 06:08 Lymph % (Auto) 11.4 % 10/04/20 06:08 Crosby % (Auto) 11.9 % 10/04/20 06:08 Eos % (Auto) 1.4 % 10/04/20 06:08 Baso % (Auto) 0.1 % 10/04/20 06:08 Neut # (Auto) 10.13 K/uL (1.4-6.5) H 10/04/20 06:08 Lymph # (Auto) 1.55 K/uL (1.2-3.4) 10/04/20 06:08 Crosby # (Auto) 1.61 K/uL (0.11-0.59) H 10/04/20 06:08 Eos # (Auto) 0.19 K/uL (0-0.5) 10/04/20 06:08 Baso # (Auto) 0.02 K/uL (0-0.2) 10/04/20 06:08 Immature Gran # (Auto) 0.05 K/uL (0.00-0.02) H 10/04/20 06:08 Absolute Nucleated RBC Cancelled 10/06/20 06:07 Nucleated RBC % (auto) Cancelled 10/06/20 06:07 Platelet Estimate Cancelled 10/06/20 06:07 PT 10.9 Seconds (9.0-12.0) 10/02/20 14:34 INR 1.1 (0.9-1.1) 10/02/20 14:34 APTT 26.5 Seconds (21.0-31.0) 10/02/20 14:34 PTT Ratio 1.0 10/02/20 14:34 Sodium 139 mmol/L (136-145) 10/07/20 05:56 Potassium 4.5 mmol/L (3.5-5.1) 10/07/20 05:56 Chloride 103 mmol/L (98-107) 10/07/20 05:56 Carbon Dioxide 35 mmol/L (21-32) H 10/07/20 05:56 Anion Gap 1.0 (3-11) L 10/07/20 05:56 BUN 20 mg/dl (7-18) H 10/07/20 05:56 Creatinine 0.64 mg/dl (0.6-1.2) 10/07/20 05:56 Est Cr Clr Drug Dosing 75.0 ml/min 10/07/20 05:56 Est GFR ( Amer) 93.6 ml/min 10/07/20 05:56 Est GFR (Non-Af Amer) 80.8 ml/min 10/07/20 05:56 BUN/Creatinine Ratio 31.6 (10-20) H 10/07/20 05:56 Glucose 89 mg/dl (70-99) 10/07/20 05:56 POC Glucose 115 mg/dl (70-99) H 10/11/20 20:30 Estimat Average Glucose 117 mg/dl 10/03/20 08:11 Hemoglobin A1c 5.7 % (4.5-5.6) H 10/03/20 08:11 Calcium 8.8 mg/dl (8.5-10.1) 10/07/20 05:56 Ferritin 106.9 ng/ml (8-388) 10/10/20 10:11 Total Bilirubin 0.9 mg/dl (0.2-1) 10/02/20 14:34 AST 22 U/L (15-37) 10/02/20 14:34 ALT 19 U/L (12-78) 10/02/20 14:34 Alkaline Phosphatase 111 U/L (45-117) 10/02/20 14:34 Troponin I < 0.015 ng/ml (0-0.045) 10/02/20 14:34 Total Protein 7.4 gm/dl (6.4-8.2) 10/02/20 14:34 Albumin 3.0 gm/dl (3.4-5.0) L 10/02/20 14:34 Globulin 4.4 gm/dl (2.5-4.0) H 10/02/20 14:34 Albumin/Globulin Ratio 0.7 (0.9-2) L 10/02/20 14:34 Triglycerides 102 mg/dl (0-150) 10/03/20 08:11 Cholesterol 111 mg/dl (0-200) 10/03/20 08:11 LDL Cholesterol, Calc 61 mg/dl 10/03/20 08:11 VLDL Cholesterol, Calc 20 mg/dl 10/03/20 08:11 HDL Cholesterol 30 mg/dl 10/03/20 08:11 Cholesterol/HDL Ratio 4 10/03/20 08:11 Lipase 36 U/L (73-393) L 10/02/20 14:34 25-OH Vitamin D Total 23.6 ng/ml (30-100) L 10/10/20 10:11 COVID-19 Eval Order Covid19 at [facility] 10/02/20 13:30 SARS-CoV-2 (PCR) NEGATIVE (Negative) 10/02/20 13:30 Blood Type O Positive 10/02/20 19:09 Antibody Screen POSITIVE A 10/02/20 19:09 Antibody Identification Anti-Fya 10/02/20 19:09 Antibody ID Comment 10/02/20 19:09 Antigen Identification Fya Antigen - NEGATIVE 10/02/20 19:09 Crossmatch See Detail 10/02/20 19:[address] 10/02/20 12:49 CT OF THE CERVICAL SPINE WITHOUT CONTRAST CLINICAL HISTORY: fall COMPARISON STUDY: No previous studies for comparison. TECHNIQUE: Helical axial images of the cervical spine were obtained without IV contrast. Sagittal and coronal reconstructions were viewed. Automated exposure control was utilized for the study. A dose lowering technique was utilized adhering to the principles of ALARA. FINDINGS: Alignment of the cervical spine is anatomic. Vertebral body heights are maintained. No acute cervical spine fracture or subluxation is present. There is no prevertebral edema. Facet joints are intact. Note is made of moderate to severe multilevel disc space narrowing, osteophytosis and facet arthrosis within the cervical spine. IMPRESSION: No acute cervical spine fracture or subluxation. ACT 112: Negative or not required by law. Electronically signed by: Toi Simmons M.D. 10/02/2020 2:[address] 10/02/20 12:49 CT SCAN OF THE BRAIN WITHOUT IV CONTRAST CLINICAL HISTORY: Fall. COMPARISON STUDY: MRI of the brain dated 04/17/2006 TECHNIQUE: Unenhanced axial CT scan of the brain is performed from the vertex to the skull base. A dose lowering technique was utilized adhering to the principles of ALARA. CT DOSE: 906.34 mGycm FINDINGS: Brain parenchyma: There are age-related involutional changes noting mild subcortical and periventricular microangiopathic change. There is no hemorrhage, mass effect, or evidence of acute territorial ischemia by CT criteria. La- white matter differentiation is preserved. No extra-axial fluid collection is seen. Ventricles, sulci, cisterns: Prominent secondary to involutional change. Intracranial vasculature: There is atherosclerotic calcification of the cavernous carotid and vertebral arteries. Calvarium: The skeletal structures are osteopenic. There is no depressed calvarial fracture. Sinuses and mastoids: The visualized paranasal sinuses are clear. The mastoid air cells are well pneumatized. Orbits: The bony orbits are grossly intact. There are bilateral ocular lens implants. IMPRESSION: There is no hemorrhage, mass effect, or evidence of acute territorial ischemia by CT criteria. ACT 112: Negative or not required by law. Electronically signed by: Carlos Goss M.D. 10/02/2020 2:42 PM Knee X-Ray 10/02/20 12:49 XR knee RT 1 or 2V routine HISTORY: 85 years-old Female fall acute right knee pain status post fall COMPARISON: Right femur radiographs of same day TECHNIQUE: 2 views of the right knee FINDINGS: Demineralized appearance of the bones. Right knee total joint arthroplasty. There is an acute comminuted periprosthetic fracture involving the distal femoral diaphysis which demonstrates apex dorsal angulation with approximately 3 cm anterior displacement of the distal fracture fragment. Moderate soft tissue swelling with moderate joint effusion. Limited exam secondary to positioning. IMPRESSION: Right knee total joint arthroplasty with acute comminuted displaced and angulated distal femoral diaphyseal/periprosthetic fracture. ACT 112: Negative or not required by law. The above report was generated using voice recognition software. It may contain grammatical, syntax or spelling errors. Electronically signed by: Augustin Kasper M.D. 10/02/2020 1:51 PM Pelvis X-Ray 10/02/20 12:49 SINGLE VIEW PELVIS; 2 VIEWS RIGHT FEMUR CLINICAL HISTORY: Fall with right leg injury. FINDINGS: An AP view of the pelvis with AP and crosstable lateral views of the right femur are obtained. No prior studies are available for comparison at the time of dictation. The skeletal structures are osteopenic. There is no radiographic evidence of acute fracture involving the left hip or the bony pelvis. Intertrochanteric and intramedullary nails are noted in the left proxima l femur. A right hip arthroplasty is in near-anatomic alignment. No definite periprosthetic lucency is identified. A hinged right knee arthroplasty is in place. There is a comminuted periprosthetic spiral fracture of the distal femoral shaft. The fragments are angulated, and there is at least 5 cm of overriding of the fragments. Overlying soft tissue edema is noted. Small phleboliths are seen in the pelvis. Moderate degenerative joint space narrowing is noted in the left hip. IMPRESSION: 1. No acute fracture is identified involving the left proximal femur or the bony pelvis. 2. There is a comminuted periprosthetic spiral fracture of the distal femoral shaft as detailed above. Electronically signed by: Carlos Goss M.D. 10/02/2020 1:32 PM Femur X-Ray 10/03/20 14:30 FL femur RT 2V CLINICAL HISTORY: RT PERIPROSTHETIC FEMUR FX W/ PLATE AND CABLES COMPARISON STUDY: Right femur radiographs October 02, 2020. FLUOROSCOPY TIME: 41 seconds. FLUOROSCOPIC IMAGES: 6 FINDINGS: Fluoroscopy was provided during plate and screw fixation of the distal right femoral periprosthetic fracture. Cerclage wires are noted. Fracture alignment has markedly improved and appears near anatomic. IMPRESSION: Fluoroscopy provided during plate and screw fixation of the distal right femoral periprosthetic fracture. ACT 112: Negative or not required by law. Electronically signed by: Toi Simmons M.D. 10/03/2020 5:49 PM Lower Extremity CTA 10/04/20 17:19 CT angio LE RT w inc wo if don HISTORY: 85 years-old Female poor pulse post femur fracture acute periprosthetic fracture of the distal right femur. Status post ORIF. COMPARISON: Fluoroscopic images of the right femur 10/03/2020, right femur radiographs 10/02/2020 TECHNIQUE: CTA of the right lower extremity was obtained following the intravenous ministration of 116 mL Optiray 320. 3-D coronal and sagittal MIPS were obtained from the axial data set and were submitted for review. All measurements were obtained according to NASCET criteria. FINDINGS: CTA: Diffuse atherosclerosis. The imaged distal abdominal aorta and common iliac arteries are patent. The right external iliac, common femoral, superficial and profunda femoris arteries are patent. The distal aspect of the right superficial femoral and the popliteal arteries are obscured from the arthroplasty and hardware artifact. Moderate narrowing of the tibioperoneal trunk with no appreciable flow seen within the mid to distal aspects of the anterior tibial artery. Flow within the calf arteries is difficult to evaluate secondary to extensive atherosclerosis. CT: No acute abnormality identified within the pelvis. Skin pallavi with expected postoperative soft tissue swelling and deep tissue air. The lateral right thigh. Right hip and knee total joint arthroplasties with ORIF changes and cerclage wires. Subcutaneous edema of the lower leg. No drainable fluid collection. IMPRESSION: 1. Limited exam secondary to artifact from the total joint arthroplasties and ORIF hardware and also secondary to the atherosclerotic calcifications. Correlation with lower extremity arterial Doppler recommended. 2. No appreciable flow identified within the mid and distal aspects of the anterior tibial artery suggestive of arterial occlusion. 3. The distal abdominal aorta and iliac arteries appear normal. ACT 112: Negative or not required by law. The above report was generated using voice recognition software. It may contain grammatical, syntax or spelling errors. Electronically signed by: Augustin Kasper M.D. 10/04/2020 6:57 PM Chest X-Ray 10/11/20 09:17 XR chest 1V portable CLINICAL HISTORY: hypoxia COMPARISON STUDY: October 02, 2020 FINDINGS: No evidence of pneumothorax however evaluation is limited because right lung apex is obscured by patient's chin.. No pleural effusion. Evaluation of the left hemidiaphragm. Diffuse prominence of pulmonary interstitium is again seen. Linear densities are seen within bilateral mid to lower lung region which could represent atelectasis. Cardiomediastinal silhouette is within normal limits in size. Pulmonary vasculature is indistinct.. Aorta is calcified. Osseous structures: Osteopenia. Degenerative changes of the spine. Bilateral prosthetic shoulder joints. IMPRESSION: 1. No large infiltrates or consolidative lesions. Possible linear atelectasis which is seen bilaterally. Possible pulmonary edema ACT 112: Negative or not required by law. The above report was generated using voice recognition software. It may contain grammatical, syntax or spelling errors. Electronically signed by: Terri Dale DO 10/11/2020 10:42 AM Hospital Course (1) Femur fracture, right: s/p ORIF right femur fracture complicated by nicking of R femoral artery -Patient has been following with orthopedics as well as the medicine throughout her hospital stay. -Overall, she has remained stable and responded well to pain medications, tolerating PO. -Her Vit D levels remain low, however, that has been her baseline. Ferritin levels in check. -She has been seeing PT/OT who have been working with her to rehab her femur. She progressed to toe touch weight bearing in knee immobilizer and will continue rehabilitation in [facility]. (2) Hypoxia: -Patient has been on oxygen 2L nasal cannula during her hospital stay which kept her O2 sat above 94. Trials of taking patient off nasal cannula and breathing room air resulted in O2 sat to ~80s. We ordered a chest xray showing possible mild bilateral atelectasis and pulmonary edema. Patient was given an incentive spirometer for treatment. Condition remains the same so we will discharge the patient on oxygen. However, I urge the patient to continue using an incentive spirometer after discharge. Total Time Total Time Spent Total Time Spent (In Minutes): 45 Discharge Plan Discharge Items Patient Disposition: Transfer Alf [facility] Reason For Visit: FEMUR FX Discharge Diagnosis: s/p Right Periprosthetic Femur Fracture Condition on Discharge: Good Activity: Per Instructions section Activity Comment: Knee Immobilizer at all times when out of bed. TTWB right leg Weightbearing: Right toe touch Weightbearing Comment: Toe touch WB right leg in knee immobilizer. Non-emergency contact: Primary Care Provider Call non-emergency contact if: you have any medication questions, your symptoms worsen and your pain is not controlled Follow-up/Referrals: Luzmaria Campbell DO [Primary Care Provider] - Gonzalez Leong MD [Physician] - (Orthopedic follow-up 2-3 weeks from surgery date.) Diet: Carb Consistent or DM2 Addtl Attending Provider Instructions: You had a fall at home and presented to the emergency room where it was found you fractured your right femur. You underwent orthopedic surgery for repair. The surgery was successful but complicated by excess bleeding due to an injury to an artery during the surgery. You were stabilized and monitored in the hospital while receiving daily rehabilitation with our physical therapists. From here, you will be moved to [facility] for continuous care. You should have daily dry dressing changes to the right leg/thigh. Physical therapy at the nursing facility will work with you daily for further rehabilitation. You were also discharged on oxygen via nasal cannula. This is to help get oxygen into your body as your lungs were struggling to do so otherwise. We believe this was due to a condition called atelectasis. In order to relieve this problem, you should use an incentive spirometer (the tube like device you breathed through) daily and correctly like we showed you in the hospital. Pain relief: Tata can take Tylenol every 8 hours scheduled. She can also have 1-2 tabs of tramadol as needed when she is in extreme pain or around having physical therapy. Pending Studies at Discharge: No Stand-Alone Forms: My [facility] Skilled Items Patient informed of condition?: Yes DNR: No Discharge Level of Care: Skilled Communicable Disease: No Discharge Prognosis: Improving Lines: None Urinary Catheter: No Medications and DC Order Prescriptions: New tramadol 50 mg Tablet 50 - 100 mg PO Q6H PRN (Reason: pain) 7 Days Qty: 14 RF: 0 acetaminophen [Tylenol Extra Strength] 500 mg Tablet 1,000 mg PO Q8 Qty: 10 RF: 0 tramadol 50 mg tablet 50 mg PO Q6H PRN (Reason: pain) Qty: 20 RF: 0 Continued cyanocobalamin (vitamin B-12) [Vitamin B-12] 1,000 mcg/mL drops 1,000 mcg PO DAILY RF: 0 calcium citrate 150 mg capsule 150 mg PO DAILY RF: 0 cholecalciferol (vitamin D3) 5,000 unit capsule 5,000 units PO DAILY RF: 0 ropinirole 0.5 mg tablet 0.5 mg PO HS RF: 0 venlafaxine [Effexor XR] 37.5 mg capsule,extended release 24hr 37.5 mg PO DAILY Qty: 90 RF: 1 spironolactone 25 mg tablet 50 mg PO DAILY Qty: 180 RF: 1 atenolol 50 mg tablet 50 mg PO DAILY Qty: 90 RF: 1 ferrous sulfate 325 mg (65 mg iron) tablet 325 mg PO BID Qty: 60 RF: 3 gabapentin 300 mg capsule 1,200 mg PO HS Qty: 360 RF: 1 Restasis 0.05 % dropperette 1 drp ophthalmic (eye) Q12H RF: 0 triamcinolone acetonide 0.5 % cream 1 applic topical DAILY Qty: 15 RF: 1 PreserVision AREDS [id number] [id number] Tablet 1 cap PO DAILY RF: 0 Discharge Orders: Discharge Order (Routine); Ordered 10/12/20 Ordered By: Afshin Telles/Other Patient Handouts: DVT Post Op Prevention Admission Data Admit Date/Time: 10/02/20 14:44 Attending Provider: Warren Márquez Admit Provider: Aramis Pitts Primary Care Provider: Luzmaria Campbell Other Providers: Aramis Pitts ; Gonzalez Leong ; [facility] ; [facility] ; [facility] Other Interventions: Discharge Summary Assessment (RN) Last Done: 10/12/20 11:55 Supervising Physician Co-Signing Physician Notes Patient seen and examined independently of PGY-1 Dr. Ward. Agree with history, exam findings, assessment and plan of care as outlined. In brief, Ms Lin is an 85 year old female with hx of HTN, HLD, DM, CKD admitted to medicine with a right femur fracture, now s/p ORIF. Feels well today. Feels ready to go to rehab facility. No chest pain. No abdominal pain. Vital signs and nursing notes reviewed. Well appearing, pleasant. No acute distress. Heart with regular rate and rhythm. Neurovascularly in tact in the distal lower extremities. 1. Right femur fracture. s/p ORIF. Procedure complicated by nicking the right femoral artery. Doing well. Continue with WB per ortho. Brace is locked in extension. Appreciate continued ortho recommendations. Continue PT/OT. 2. DM2. Sliding scale only. 3. HTN. Stable. 4. Peripheral neuropathy and restless leg. Continue home ropinirole and gabapentin. Continue ferrous sulfate. Goal ferritin is ~75. Dispo: She is medically stable for discharge. COVID test obtained. I personally spent 35 minutes discharge planning for this patient. Resident Activity Tracking Resident Involvement: Resident Care Provided Care Provided: Adult [facility]
[2020-10-12] MEDS: CALCIUM CITRATE 950 MG TAB PO SCH (08:39)
[2020-10-12] MEDS: CEROVITE ADV FORMULA TAB PO SCH (08:39)
[2020-10-12] MEDS: ATENOLOL 50 MG TABLET PO SCH (08:39)
[2020-10-12] MEDS: CYANOCOBALAMIN 500 MCG TABLET (VITAMIN B-12) PO SCH (08:39)
[2020-10-12] MEDS: SPIRONOLACTONE 25 MG TAB PO SCH (08:39)
[2020-10-12] MEDS: VENLAFAXINE HCL XR 37.5 MG CAPXR PO SCH (08:39)
[2020-10-12] MEDS: TRIAMCINOLONE ACET 0.5% CR 15 GM TUBE TOP SCH (08:40)
[2020-10-12] MEDS: CHOLECALCIFEROL 1,000 UNITS 25 MCG TAB PO SCH (08:40)
[2020-10-12] MEDS: FOLIC ACID 1 MG TAB PO SCH (08:40)
[2020-10-12] MEDS: DOCUSATE SODIUM 100 MG CAP PO SCH (08:43)
[2020-10-12] MEDS: INSULIN ASPART 100 UNITS/ML 3 ML PEN SC SCH ×2 (09:04→12:51)
--- NOTE | 2020-10-12 09:31 | Progress Notes ---
DATE OF SERVICE: 10/12/2020. SUBJECTIVE: An 85-year-old white female now about 9 days out from ORIF of a right periprosthetic fem ur fracture. She is doing pretty well. Denies any real significant thigh pain. She has got her bra ce. No new complaints. OBJECTIVE: VITAL SIGNS: Temperature 36.8. Vital signs are stable. GENERAL: Shows a pleasant, elderly female, lying in bed, looks comfortable. She has her brace in pl kenna. EXTREMITIES: Dressings clean, dry and intact. No significant drainage. Thigh is soft and supple. She has got brisk refill and pink toes. ASSESSMENT: An 85-year-old white female, now a week and a half out from ORIF of right periprosthetic femur fracture, doing okay. Pain is controlled. Just waiting for placement, I believe. PLAN: We would recommend DVT prophylaxis including thigh-high TEDs, SCDs, and aspirin. In multiple reports it says we nicked the femoral artery. There is no evidence that we nicked the femoral artery . We did run into some bleeding at one point that lasted just a few minutes and resolved with closin g and tightening of a cerclage cable, which was passed around the femur. It is certainly possible we may have torn a branch of the femoral artery, but there are no signs that we nicked the femoral rocio ry at all. Her hemoglobin and hematocrit have been stable. She only required 2 units of blood, whic h is pretty standard for an operation like this and oftentimes more. There has not been any excessiv e swelling postoperatively and she has had pink toes, suggestive of good peripheral blood flow. She does need to continue touch weightbearing only for the first 6 weeks probably after this. She is in a knee immobilizer. She does not necessarily need the knee immobilizer in bed, but should have it an y time that she is out of bed or during transfers. I need to see her back in about 2-3 weeks out fro m surgery date. Any orthopedic questions can be directed to me at [phone]. Job ID: [id number]
--- NOTE | 2020-11-03 14:09 | Coding Query ---
CODING QUERY To promote full compliance with coding requirements relating to patient care, provider participation is requested in all cases of information coder uncertainty. Please assist us with the question(s) below: Coding Question(s): There is documentation in the record and on the Discharge Summary of, "Right femur fracture. s/p ORIF. Procedure complicated by nicking the right femoral artery", and, "You underwent orthopedic surgery for repair. The surgery was successful but complicated by excess bleeding due to an injury to an artery during the surgery", and you have documented on Progress Note 10/12, "In multiple reports it says we nicked the femoral artery. There is no evidence that we nicked the femoral artery. We did run into some bleeding at one point that lasted just a few minutes and resolved with closing and tightening of a cerclage cable, which was passed around the femur. It is certainly possible we may have torn a branch of the femoral artery, but there are no signs that we nicked the femoral artery at all. Her hemoglobin and hematocrit have been stable. She only required 2 units of blood, which is pretty standard for an operation like this and oftentimes more. There has not been any excessive swelling postoperatively and she has had pink toes, suggestive of good peripheral blood flow.". Please specify below, in your clinical opinion. ( x ) There were No Complications related to the procedure during or after the procedure ( ) Intraoperative Complication of hemorrhage ( ) Intraoperative Complication of accidental puncture/laceration of a branch of femoral artery possible ( ) Other Complication related to the procedure. Please Specify Physician's Response(s): Thank you Sowmya Hernández Principal Diagnosis: "that condition established after study, to be chiefly responsible for occasioning the admission of the patient to the hospital for care." Co-Existing Principal Diagnosis: "when two or more diagnoses equally meet the criteria for principal diagnosis as determined by the circumstances of admission, diagnostic work up, and/or therapy provided, and the Alphabetic Index, Tabular List, or another coding guideline does not provide sequencing direction, any one of the diagnoses may be sequenced first." "When the physician has documented what appears to be a current diagnosis in the body of the record, but has not included the diagnosis in the final diagnostic statement, the physician should be asked whether the diagnosis should be added." (Source Coding Clinic 2 QTR90. p3-4) LINA
== END 2020-10-12 13:45 | DRG 480 ==
LOC: ED 12:43 → SUATTDRO 14:44 → 3N 14:44 → 2E 10-03 21:36 → 3N 10-06 09:57

== ENCOUNTER 2020-10-22 19:45 | Inpatient (IN) ==
[2020-10-22 21:23] LABS: Basophils # (auto) 0.03 K/uL (0-0.2); Basophils % (auto) 0.1 %; Eosinophils # (auto) 0.12 K/uL (0-0.5); Eosinophils % (auto) 0.5 %; Hematocrit (blood only) 28.4 % (37-47); Hemoglobin 8.7 g/dL (12.0-16.0); Immature Granulocytes # (auto) 0.19 K/uL (0.00-0.02); Immature Granulocytes % (auto) 0.9 %; Lymphocytes # (auto) 1.45 K/uL (1.2-3.4); Lymphocytes % (auto) 6.6 %; Mean Corpuscular Hemoglobin 29.9 pg (25-34); Mean Corpuscular Hgb Conc 30.6 g/dL (32-36); Mean Corpuscular Volume 97.6 fL (80-100); Mean Platelet Volume 8.8 fL (7.4-10.4); Monocytes # (auto) 2.38 K/uL (0.11-0.59); Monocytes % (auto) 10.9 %; Neutrophils # (auto) 17.67 K/uL (1.4-6.5); Platelet Count 867 K/uL (130-400); RDW Coefficient of Variation 15.8 % (11.5-14.5); RDW Standard Deviation 56.9 fL (36.4-46.3); Red Blood Count 2.91 M/uL (4.2-5.4); White Blood Count 21.84 K/uL (4.8-10.8)
[2020-10-22 21:30] LABS: Albumin Level 1.5 gm/dl (3.4-5.0); Calcium 9.2 mg/dl (8.5-10.1); Creatinine Clr Calc Pharmacy 58.3 ml/min; Est GFR (African American) 82.3 ml/min; Potassium 4.3 mmol/L (3.5-5.1)
[2020-10-22 21:33] LABS: Albumin Globulin Ratio 0.3 (0.9-2); Bilirubin,Total 0.4 mg/dl (0.2-1); Globulin 5.8 gm/dl (2.5-4.0); Total Protein 7.3 gm/dl (6.4-8.2)
[2020-10-22] MEDS ORDERED: CEFEPIME 2,000 MG/20 ML VIAL IV STA (21:33)
[2020-10-22] MEDS ORDERED: VANCOMYCIN CONSULT ACTIVE PRN (21:33)
[2020-10-22] MEDS ORDERED: VANCOMYCIN HCL 2,000 MG in SODIUM CHLORIDE 0.9% 500 ML IV ONE (21:33)
[2020-10-22 21:37] LABS: INR 1.1 (0.9-1.1); Partial Thromboplastin Ratio 1.1; Partial Thromboplastin Time 29.3 Seconds (21.0-31.0); Prothrombin Time 11.5 Seconds (9.0-12.0)
[2020-10-22 22:14] LABS: Appearance Urine Turbid (Clear); Bacteria Urine Automated 2+ (Negative); Bilirubin Urine Negative (Negative); Blood Urine 2+ (Negative); Color Urine Dark Yellow; Epithelial Cell Urine Auto >30 /lpf (0-5); Glucose Urine UA Negative (Negative); Ketones Urine Trace (Negative); Leukocyte Esterase Urine 3+ (Negative); Nitrite Urine Negative (Negative); Protein Urine 1+ (Negative); Specific Gravity Urine 1.024 (1.000-1.030); Urobilinogen Urine Positive (Negative); WBC Urine Automated >30 /hpf (0-5)
[2020-10-22] MEDS ORDERED: OPTIRAY 320 100ml IV ONE (22:17)
--- NOTE | 2020-10-22 22:33 | Emergency Department Note ---
History of Present Illness General Chief complaint: Infection, Wound Stated complaint: RT. LOWER LEG WOUNDS Time Seen by Provider: 10/22/20 20:40 Source: patient Mode of arrival: EMS Limitations: no limitations History of Present Illness Provider complaint: RLE wounds Onset (ago): unknown Maximum Pain Intensity: 7 Treatments prior to arrival: none This is an 85-year-old female brought in from [facility] due to concern for right lower extremity wounds patient states she was transferred there following discharge from the hospital after surgery by orthopedics. Patient denies fevers or chills. States they have been trying to do physical therapy with her. Patient states she has been on oxygen since she was discharged from the hospital. EMS reported they were called due to fever. Pt seen during a time of high acuity and national emergency pandemic while wearing PPE. Home Medications Medication Instructions Recorded Confirmed Type cyanocobalamin (vitamin B-12) 1,000 mcg PO DAILY 10/28/17 10/22/20 History 1,000 mcg/mL oral drops (Vitamin B-12) vitamins A,C,[id number]-dxqa-hxxaml 7,160 1 cap PO DAILY 03/20/18 10/22/20 History unit-113 mg-100 unit tablet (PreserVision AREDS) cholecalciferol (vitamin D3) 125 5,000 units PO DAILY cap 01/13/19 10/22/20 History mcg (5,000 unit) capsule ropinirole 0.5 mg tablet 0.5 mg PO HS tab 01/13/19 10/22/20 History venlafaxine 37.5 mg 37.5 mg PO DAILY #90 cap 04/25/20 10/22/20 Rx capsule,extended release 24 hr (Effexor XR) atenolol 50 mg tablet 50 mg PO DAILY #90 tab 06/14/20 10/22/20 Rx spironolactone 25 mg tablet 50 mg PO DAILY #180 tab 06/14/20 10/22/20 Rx ferrous sulfate 325 mg (65 mg 325 mg PO BID #60 tab 08/28/20 10/22/20 Rx iron) tablet cyclosporine 0.05 % eye drops in a 1 drp OPHTHALMIC (EYE) Q12H 09/22/20 10/22/20 History dropperette (Restasis) triamcinolone acetonide 0.5 % 1 applic TOPICAL DAILY #15 g 09/22/20 10/22/20 Rx topical cream gabapentin 300 mg capsule 1,200 mg PO HS #360 cap 10/10/20 10/22/20 Rx acetaminophen 500 mg tablet 1,000 mg PO Q8 #10 tab 10/12/20 10/22/20 Rx (Tylenol Extra Strength) tramadol 50 mg tablet 50 mg PO Q6H PRN #20 tab 10/12/20 10/22/20 Rx calcium citrate 250 mg PO DAILY 10/22/20 10/22/20 History calcium citrate 150 mg capsule 150 mg PO DAILY 10/22/20 10/22/20 History cephalexin 500 mg capsule 500 mg PO TID 10/22/20 10/22/20 History nitrofurantoin 100 mg PO BID 10/22/20 10/22/20 History monohydrate/macrocrystals 100 mg capsule (Macrobid) sennosides 8.6 mg tablet (senna) 8.6 mg PO DAILY 10/22/20 10/22/20 History Allergies Allergy/AdvReac Type Severity Reaction Status Date / Time promethazine Allergy Severe RESP. 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) Anemia Chronic kidney disease, stage 3 (moderate) Chronic venous insufficiency Depression Dyslipidemia Fracture of femur Hypertension Lymphedema Mild sleep apnea Osteoarthritis Osteoporosis (09/22/10) Peripheral neuropathy PLMD (periodic limb movement disorder) Rosacea Tubular adenoma of colon Type 2 diabetes mellitus with diabetic chronic kidney disease Urinary incontinence Venous stasis ulcers of both lower extremities Vitamin B12 deficiency Vitamin D deficiency Surgical History H/O colonoscopy H/O shoulder surgery History of knee replacement History of varicose vein ligation and stripping Status post ablation of incompetent vein using laser Status post appendectomy Status post cholecystectomy Status post foot surgery Status post hip replacement Status post hysterectomy Family History Father , 45 Stroke Mother , 85 No problems noted. Denies family history of Ovarian cancer Prostate cancer Myocardial infarction Breast cancer Colorectal cancer Social History Smoking Status: Never smoker Second Hand Exposure: No; Hx Alcohol Use: No Hx Substance Use: No Preferred Language: Vincentian Communication Ability: Effective Visual Impairment: Limited Hearing Ability: Use of Hearing Aid Director Of Infection Control Required: No Beliefs That Will Affect Care: None Current Living Situation: Assisted Current Living Situation Comment: Lives w/ son Feels Safe at Home: Yes Diet Comment: regular caffeine: Yes during the past year weight has: remained stable Dental Care, Regularly: No Physical Activity Frequency: Does not Exercise Seatbelt Use: always Sunscreen Use: No Assistive Devices: Oxygen - Continuous Review of Systems A total of 10 systems reviewed and were otherwise negative All systems reviewed & are unremarkable except as noted in HPI & below Physical Exam Vital Signs Vital Signs - 24 hr 10/22/20 19:54 10/22/20 19:55 10/22/20 20:00 Temperature 37.0 C Temperature Source Oral Pulse Rate 82 80 80 Pulse Rate [Apical] Pulse Rate from SpO2 Sensor 79 80 Pulse Rhythm [Apical] Respiratory Rate 24 23 22 Respiratory Effort / Characteristics Respiratory Depth Normal Blood Pressure 127/68 127/68 151/55 H Blood Pressure [Left Arm] Blood Pressure Mean 87 87 87 Blood Pressure Mean [Left Arm] Pulse Oximetry 98 97 98 Oxygen Delivery Method Room Air Nasal Cannula Room Air Oxygen Flow Rate 2 Sepsis Recent Fever Within 48 Hours Yes Sepsis New/Unexplained Change in Mental Status N/A Sepsis Action Taken by Nursing No Action Required 10/22/20 20:03 10/22/20 20:04 10/22/20 20:30 Temperature Temperature Source Pulse Rate 76 Pulse Rate [Apical] 78 Pulse Rate from SpO2 Sensor 76 Pulse Rhythm [Apical] Regular Respiratory Rate 22 21 Respiratory Effort / Characteristics Non-Labored Respiratory Depth Normal Blood Pressure 125/72 Blood Pressure [Left Arm] 151/55 H Blood Pressure Mean 89 Blood Pressure Mean [Left Arm] 87 Pulse Oximetry 93 96 97 Oxygen Delivery Method Nasal Cannula Nasal Cannula Room Air Oxygen Flow Rate 2 Sepsis Recent Fever Within 48 Hours Sepsis New/Unexplained Change in Mental Status Sepsis Action Taken by Nursing 10/22/20 21:10 10/22/20 21:20 10/22/20 21:30 Temperature Temperature Source Pulse Rate 75 74 72 Pulse Rate [Apical] Pulse Rate from SpO2 Sensor 75 73 72 Pulse Rhythm [Apical] Respiratory Rate 16 15 21 Respiratory Effort / Characteristics Respiratory Depth Blood Pressure 127/59 L Blood Pressure [Left Arm] Blood Pressure Mean 81 Blood Pressure Mean [Left Arm] Pulse Oximetry 98 97 97 Oxygen Delivery Method Room Air Oxygen Flow Rate Sepsis Recent Fever Within 48 Hours Sepsis New/Unexplained Change in Mental Status Sepsis Action Taken by Nursing 10/22/20 22:11 10/22/20 22:31 10/22/20 23:00 Temperature Temperature Source Pulse Rate 78 79 75 Pulse Rate [Apical] Pulse Rate from SpO2 Sensor 77 74 Pulse Rhythm [Apical] Respiratory Rate 16 21 19 Respiratory Effort / Characteristics Respiratory Depth Blood Pressure 125/58 L 135/59 L Blood Pressure [Left Arm] Blood Pressure Mean 80 84 Blood Pressure Mean [Left Arm] Pulse Oximetry 94 100 Oxygen Delivery Method Oxygen Flow Rate Sepsis Recent Fever Within 48 Hours Sepsis New/Unexplained Change in Mental Status Sepsis Action Taken by Nursing 10/22/20 23:31 10/23/20 00:00 10/23/20 00:09 Temperature Temperature Source Pulse Rate 73 72 Pulse Rate [Apical] Pulse Rate from SpO2 Sensor 73 72 Pulse Rhythm [Apical] Respiratory Rate 18 17 18 Respiratory Effort / Characteristics Non-Labored Respiratory Depth Blood Pressure 123/73 127/59 L Blood Pressure [Left Arm] Blood Pressure Mean 89 81 Blood Pressure Mean [Left Arm] Pulse Oximetry 100 98 99 Oxygen Delivery Method Room Air Oxygen Flow Rate Sepsis Recent Fever Within 48 Hours Sepsis New/Unexplained Change in Mental Status Sepsis Action Taken by Nursing GENERAL: alert, well appearing, well nourished, no distress, non-toxic, BMI>45, nasal cannula in place EYE EXAM: normal conjunctiva, PERRL and EOM's grossly intact OROPHARYNX: no exudate, no erythema, lips, buccal mucosa, and tongue normal and mucous membranes are moist NECK: supple, no nuchal rigidity, no adenopathy, non-tender LUNGS: Clear to auscultation. Normal chest wall mechanics, no w/r/r HEART: no murmurs, S1 normal and S2 normal ABDOMEN: abdomen soft, non-tender, normo-active bowel sounds, no masses, no rebound or guarding. BACK: Back is symmetrical on inspection and there is no deformity, no midline tenderness, no CVA tenderness. SKIN: no rashes and no bruising UPPER EXTREMITIES: upper extremities are grossly normal. FROM, nml pulses b/l. LOWER EXTREMITIES: Obvious right lower extremity lateral incision proximally extending down to just superior to the lateral knee with pallavi intact, slight serosanguineous drainage noted along the inferior aspect of the incision, no dehiscence, no surrounding erythema, distal to that the leg has multiple open wounds and is discolored, there is weeping/drainage from several of the wounds, pulses were not palpable however are detected with Doppler, patient states she does have continued pain in that leg and does not feel it has been worsening, however has decreased sensation from the level of the inferior calf down through the ankle and foot, several small areas of hardened scab vs evolving necrosis noted also; left lower extremity without any obvious wounds or injury. No joint effusions. No crepitus. Compartments soft. NEURO EXAM: Normal sensorium, cranial nerves II-XII grossly intact, normal speec h, no gross weakness of arms, no gross weakness of legs. Gross sensation intact. Course Administered Medications Acetaminophen (Acetaminophen 325 Mg Tab) 650 mg PO Q4H PRN PRN Reason: pain/fever Stop: 11/22/20 03:53 Last Admin: 10/24/20 16:47 Dose: 650 mg Documented by: [id number] Admin: 10/23/20 18:31 Dose: 650 mg Documented by: [id number] Atenolol (Atenolol 50 Mg Tablet) 50 mg PO DAILY [facility] Stop: 11/22/20 08:59 Last Admin: 10/24/20 09:33 Dose: 50 mg Documented by: [id number] Admin: 10/23/20 09:32 Dose: 50 mg Documented by: [id number] Calcium Citrate (Calcium Citrate 950 Mg Tab) 950 mg PO DAILY [facility] Stop: 11/22/20 08:59 Last Admin: 10/24/20 09:33 Dose: 950 mg Documented by: [id number] Admin: 10/23/20 09:33 Dose: 950 mg Documented by: [id number] Cyanocobalamin (Cyanocobalamin 500 Mcg Tablet (Vitamin B-12)) 1,000 mcg PO DAILY [facility] Stop: 11/22/20 08:59 Last Admin: 10/24/20 09:33 Dose: 1,000 mcg Documented by: [id number] Admin: 10/23/20 09:32 Dose: 1,000 mcg Documented by: [id number] Ferrous Sulfate (Ferrous Sulfate 325 Mg Tab) 325 mg PO [id number] [facility] Stop: 11/22/20 08:59 Last Admin: 10/24/20 18:04 Dose: 325 mg Documented by: [id number] Admin: 10/24/20 09:34 Dose: 325 mg Documented by: [id number] Admin: 10/23/20 17:30 Dose: 325 mg Documented by: [id number] Admin: 10/23/20 09:33 Dose: 325 mg Documented by: [id number] Gabapentin (Gabapentin 400 Mg Cap) 1,200 mg PO HS [facility] Stop: 11/22/20 20:59 Last Admin: 10/24/20 20:18 Dose: 1,200 mg Documented by: [id number] Admin: 10/23/20 19:33 Dose: 1,200 mg Documented by: [id number] Heparin Sodium (Porcine) (Heparin Sod 5,000 Unit/0.5 Ml Vial) 7,500 units SQ Q8 [facility] Stop: 11/22/20 05:59 Last Admin: 10/25/20 06:06 Dose: 7,500 units Documented by: [id number] Admin: 10/24/20 23:26 Dose: 7,500 units Documented by: [id number] Admin: 10/24/20 14:14 Dose: 7,500 units Documented by: [id number] Admin: 10/24/20 06:10 Dose: 7,500 units Documented by: [id number] Admin: 10/23/20 21:23 Dose: 7,500 units Documented by: [id number] Admin: 10/23/20 14:47 Dose: 7,500 units Documented by: [id number] Admin: 10/23/20 05:48 Dose: 7,500 units Documented by: [id number] Vancomycin HCl 1,000 mg/ (Sodium Chloride) 270 mls @ 200 mls/hr IV Q24H [facility] Stop: 10/30/20 11:59 Last Infusion: 10/24/20 16:02 Dose: 0 mls/hr Documented by: [id number] Admin: 10/24/20 12:17 Dose: 200 mls/hr Documented by: [id number] Infusion: 10/23/20 14:18 Dose: 0 mls/hr Documented by: [id number] Admin: 10/23/20 12:31 Dose: 200 mls/hr Documented by: [id number] Cefepime HCl 2,000 mg/ Syringe 20 mls @ 5 mls/min IV Q8H [facility]LEX; Protocol Stop: 10/31/20 08:59 Last Admin: 10/25/20 01:52 Dose: 5 mls/min Documented by: [id number] Admin: 10/24/20 18:03 Dose: 5 mls/min Documented by: [id number] Admin: 10/24/20 09:46 Dose: 5 mls/min Documented by: [id number] Miscellaneous (Restasis~Order Awaiting Action) 1 ea N/A QS [facility] Stop: 11/22/20 07:59 Last Admin: 10/25/20 01:03 Dose: Not Given Documented by: [id number] Admin: 10/24/20 16:00 Dose: Not Given Documented by: [id number] Admin: 10/24/20 09:32 Dose: Not Given Documented by: [id number] Admin: 10/23/20 21:34 Dose: Not Given Documented by: [id number] Admin: 10/23/20 15:19 Dose: Not Given Documented by: [id number] Admin: 10/23/20 08:10 Dose: Not Given Documented by: [id number] Multivitamins/Minerals (Cerovite Adv Formula Tab) 1 tab PO DAILY [facility] Stop: 11/22/20 08:59 Last Admin: 10/24/20 09:34 Dose: 1 tab Documented by: [id number] Admin: 10/23/20 09:33 Dose: 1 tab Documented by: [id number] Ropinirole HCl (Ropinirole Hcl 0.25 Mg Tablet) 0.5 mg PO HS [facility] Stop: 11/22/20 20:59 Last Admin: 10/24/20 20:18 Dose: 0.5 mg Documented by: [id number] Admin: 10/23/20 19:35 Dose: 0.5 mg Documented by: [id number] Sennosides (Senna 8.6 Mg Tab) 8.6 mg PO DAILY [facility] Stop: 11/22/20 08:59 Last Admin: 10/24/20 09:33 Dose: 8.6 mg Documented by: [id number] Admin: 10/23/20 09:32 Dose: 8.6 mg Documented by: [id number] Tramadol HCl (Tramadol Hcl 50 Mg Tablet) 100 mg PO Q6H PRN PRN Reason: Moderate Pain Stop: 11/22/20 03:53 Last Admin: 10/25/20 06:06 Dose: 100 mg Documented by: [id number] Admin: 10/24/20 19:44 Dose: 100 mg Documented by: [id number] Admin: 10/24/20 12:16 Dose: 100 mg Documented by: [id number] Admin: 10/24/20 03:50 Dose: 100 mg Documented by: [id number] Admin: 10/23/20 14:46 Dose: 100 mg Documented by: [id number] Triamcinolone Acetonide (Triamcinolone Acet 0.5% Cr 15 Gm Tube) 1 appln TOP DAILY [facility] Stop: 11/22/20 08:59 Last Admin: 10/24/20 09:33 Dose: 1 appln Documented by: [id number] Admin: 10/23/20 09:33 Dose: 1 appln Documented by: [id number] Venlafaxine HCl (Venlafaxine Hcl Xr 37.5 Mg Capxr) 37.5 mg PO DAILY [facility] Stop: 11/22/20 08:59 Last Admin: 10/24/20 09:33 Dose: 37.5 mg Documented by: [id number] Admin: 10/23/20 09:33 Dose: 37.5 mg Documented by: [id number] Vitamin D (Cholecalciferol 1,000 Units 25 Mcg Tab) 5,000 units PO DAILY [facility] Stop: 11/22/20 08:59 Last Admin: 10/24/20 09:33 Dose: 5,000 units Documented by: [id number] Admin: 10/23/20 09:33 Dose: 5,000 units Documented by: [id number] Discontinued Medications Vancomycin HCl 2,000 mg/ (Sodium Chloride) 540 mls @ 200 mls/hr IV NOW ONE Stop: 10/23/20 00:14 Last Infusion: 10/23/20 00:48 Dose: 0 mls/hr Documented by: [id number] Admin: 10/22/20 22:06 Dose: 200 mls/hr Documented by: [id number] Cefepime HCl (Maxipime) 2,000 mg in 20 mls @ 5 mls/min IV NOW STA; Protocol Stop: 10/22/20 21:36 Last Admin: 10/22/20 22:06 Dose: 5 mls/min Documented by: [id number] Sodium Chloride (Nss 1000ml) 1,000 mls @ 500 mls/hr IV .Q2H [facility] Stop: 11/21/20 22:29 Last Admin: 10/23/20 04:33 Dose: Not Given Documented by: [id number] Admin: 10/23/20 04:33 Dose: Not Given Documented by: [id number] Infusion: 10/23/20 03:29 Dose: 0 mls/hr Documented by: [id number] Admin: 10/23/20 01:09 Dose: 500 mls/hr Documented by: [id number] Cefepime HCl 2,000 mg/ Syringe 20 mls @ 5 mls/min IV Q12H [facility]LEX; Protocol Stop: 10/30/20 09:59 Last Admin: 10/23/20 21:25 Dose: 5 mls/min Documented by: [id number] Admin: 10/23/20 09:34 Dose: 5 mls/min Documented by: [id number] Ioversol (Optiray 320 100ml) 94 ml IV ONCE ONE Stop: 10/22/20 22:18 Last Admin: 10/22/20 22:17 Dose: 1 ml Documented by: [id number] Tramadol HCl (Tramadol Hcl 50 Mg Tablet) 50 mg PO Q6H PRN PRN Reason: Moderate Pain Stop: 11/22/20 03:53 Last Admin: 10/23/20 07:35 Dose: 50 mg Documented by: [id number] Tramadol HCl (Tramadol Hcl 50 Mg Tablet) 50 mg PO NOW STA Stop: 10/23/20 08:17 Last Admin: 10/23/20 08:47 Dose: 50 mg Documented by: [id number] Tramadol HCl (Tramadol Hcl 50 Mg Tablet) 50 mg PO NOW STA Stop: 10/23/20 18:47 Last Admin: 10/23/20 19:35 Dose: 50 mg Documented by: [id number] Medical Decision Making Differential Diagnosis Foreign body, fracture, dislocation, joint compromise, infection, soft tissue injury, tendon injury, vascular compromise, compartment syndrome, as well as other pathologies. Medical Records Attestation: I reviewed the patient's medical records. Home Medications Current Medication List: was personally reviewed by me Laboratory Data Attestation: I reviewed the patient's lab results. Result diagrams: 10/24/20 06:31 10/24/20 06:31 Lab Results 10/22/20 10/22/20 10/22/20 Range/Units 20:07 20:07 20:07 WBC 21.84 H (4.8-10.8) K/uL RBC 2.91 L (4.2-5.4) M/uL Hgb 8.7 L (12.0-16.0) g/dL Hct 28.4 L (37-47) % MCV 97.6 (80-100) fL MCH 29.9 (25-34) pg MCHC 30.6 L (32-36) g/dL RDW Std Deviation 56.9 H (36.4-46.3) fL RDW Coeff of Yane 15.8 H (11.5-14.5) % Plt Count 867 H (130-400) K/uL MPV 8.8 (7.4-10.4) fL Immature Gran % (Auto) 0.9 % Neut % (Auto) 81.0 % Lymph % (Auto) 6.6 % [place] % (Auto) 10.9 % Eos % (Auto) 0.5 % Baso % (Auto) 0.1 % Neut # (Auto) 17.67 H (1.4-6.5) K/uL Lymph # (Auto) 1.45 (1.2-3.4) K/uL [place] # (Auto) 2.38 H (0.11-0.59) K/uL Eos # (Auto) 0.12 (0-0.5) K/uL Baso # (Auto) 0.03 (0-0.2) K/uL Immature Gran # (Auto) 0.19 H (0.00-0.02) K/uL Absolute Nucleated RBC 0.00 (0-0) K/uL Nucleated RBC % (auto) 0.0 % Peripher Smr Path Cons Cancelled PT 11.5 (9.0-12.0) Seconds INR 1.1 (0.9-1.1) APTT 29.3 (21.0-31.0) Seconds PTT Ratio 1.1 Sodium 138 (136-145) mmol/L Potassium 4.3 (3.5-5.1) mmol/L Chloride 100 (98-107) mmol/L Carbon Dioxide 32 (21-32) mmol/L Anion Gap 6.0 (3-11) BUN 22 H (7-18) mg/dl Creatinine 0.76 (0.6-1.2) mg/dl Est Cr Clr Drug Dosing 58.3 ml/min Est GFR ( Amer) 82.3 ml/min Est GFR (Non-Af Amer) 71.0 ml/min BUN/Creatinine Ratio 29.0 H (10-20) Glucose 146 H (70-99) mg/dl Lactate (0.4-2.0) mmol/L Calcium 9.2 (8.5-10.1) mg/dl Magnesium 2.0 (1.8-2.4) mg/dl Total Bilirubin 0.4 (0.2-1) mg/dl AST 91 H (15-37) U/L ALT 49 (12-78) U/L Alkaline Phosphatase 205 H (45-117) U/L Total Protein 7.3 (6.4-8.2) gm/dl Albumin 1.5 L (3.4-5.0) gm/dl Globulin 5.8 H (2.5-4.0) gm/dl Albumin/Globulin Ratio 0.3 L (0.9-2) Urine Color Urine Appearance (Clear) Urine pH (4.5-7.5) Ur Specific [place] (1.000-1.030) Urine Protein (Negative) Urine Glucose (UA) (Negative) Urine Ketones (Negative) Urine Blood (Negative) Urine Nitrite (Negative) Urine Bilirubin (Negative) Urine Urobilinogen (Negative) Ur Leukocyte Esterase (Negative) Urine WBC (Auto) (0-5) /hpf Urine RBC (Auto) (0-4) /hpf U Hyaline Cast (Auto) (0-5) /lpf U Epithel Cells (Auto) (0-5) /lpf Urine Bacteria (Auto) (Negative) Urine Yeast COVID-19 Eval Order SARS-CoV-2 (PCR) (Negative) 10/22/20 10/22/20 10/22/20 Range/Units 20:08 20:08 21:17 WBC (4.8-10.8) K/uL RBC (4.2-5.4) M/uL Hgb (12.0-16.0) g/dL Hct (37-47) % MCV (80-100) fL MCH (25-34) pg MCHC (32-36) g/dL RDW Std Deviation (36.4-46.3) fL RDW Coeff of Yane (11.5-14.5) % Plt Count (130-400) K/uL MPV (7.4-10.4) fL Immature Gran % (Auto) % Neut % (Auto) % Lymph % (Auto) % [place] % (Auto) % Eos % (Auto) % Baso % (Auto) % Neut # (Auto) (1.4-6.5) K/uL Lymph # (Auto) (1.2-3.4) K/uL [place] # (Auto) (0.11-0.59) K/uL Eos # (Auto) (0-0.5) K/uL Baso # (Auto) (0-0.2) K/uL Immature Gran # (Auto) (0.00-0.02) K/uL Absolute Nucleated RBC (0-0) K/uL Nucleated RBC % (auto) % Peripher Smr Path Cons PT (9.0-12.0) Seconds INR (0.9-1.1) APTT (21.0-31.0) Seconds PTT Ratio Sodium (136-145) mmol/L Potassium (3.5-5.1) mmol/L Chloride (98-107) mmol/L Carbon Dioxide (21-32) mmol/L Anion Gap (3-11) BUN (7-18) mg/dl Creatinine (0.6-1.2) mg/dl Est Cr Clr Drug Dosing ml/min Est GFR ( Amer) ml/min Est GFR (Non-Af Amer) ml/min BUN/Creatinine Ratio (10-20) Glucose (70-99) mg/dl Lactate 1.7 (0.4-2.0) mmol/L Calcium (8.5-10.1) mg/dl Magnesium (1.8-2.4) mg/dl Total Bilirubin (0.2-1) mg/dl AST (15-37) U/L ALT (12-78) U/L Alkaline Phosphatase (45-117) U/L Total Protein (6.4-8.2) gm/dl Albumin (3.4-5.0) gm/dl Globulin (2.5-4.0) gm/dl Albumin/Globulin Ratio (0.9-2) Urine Color Urine Appearance (Clear) Urine pH (4.5-7.5) Ur Specific [place] (1.000-1.030) Urine Protein (Negative) Urine Glucose (UA) (Negative) Urine Ketones (Negative) Urine Blood (Negative) Urine Nitrite (Negative) Urine Bilirubin (Negative) Urine Urobilinogen (Negative) Ur Leukocyte Esterase (Negative) Urine WBC (Auto) (0-5) /hpf Urine RBC (Auto) (0-4) /hpf U Hyaline Cast (Auto) (0-5) /lpf U Epithel Cells (Auto) (0-5) /lpf Urine Bacteria (Auto) (Negative) Urine Yeast COVID-19 Eval Order Covid19 at [facility] SARS-CoV-2 (PCR) NEGATIVE (Negative) 10/22/20 Range/Units 21:30 WBC (4.8-10.8) K/uL RBC (4.2-5.4) M/uL Hgb (12.0-16.0) g/dL Hct (37-47) % MCV (80-100) fL MCH (25-34) pg MCHC (32-36) g/dL RDW Std Deviation (36.4-46.3) fL RDW Coeff of Yane (11.5-14.5) % Plt Count (130-400) K/uL MPV (7.4-10.4) fL Immature Gran % (Auto) % Neut % (Auto) % Lymph % (Auto) % [place] % (Auto) % Eos % (Auto) % Baso % (Auto) % Neut # (Auto) (1.4-6.5) K/uL Lymph # (Auto) (1.2-3.4) K/uL [place] # (Auto) (0.11-0.59) K/uL Eos # (Auto) (0-0.5) K/uL Baso # (Auto) (0-0.2) K/uL Immature Gran # (Auto) (0.00-0.02) K/uL Absolute Nucleated RBC (0-0) K/uL Nucleated RBC % (auto) % Peripher Smr Path Cons PT (9.0-12.0) Seconds INR (0.9-1.1) APTT (21.0-31.0) Seconds PTT Ratio Sodium (136-145) mmol/L Potassium (3.5-5.1) mmol/L Chloride (98-107) mmol/L Carbon Dioxide (21-32) mmol/L Anion Gap (3-11) BUN (7-18) mg/dl Creatinine (0.6-1.2) mg/dl Est Cr Clr Drug Dosing ml/min Est GFR ( Amer) ml/min Est GFR (Non-Af Amer) ml/min BUN/Creatinine Ratio (10-20) Glucose (70-99) mg/dl Lactate (0.4-2.0) mmol/L Calcium (8.5-10.1) mg/dl Magnesium (1.8-2.4) mg/dl Total Bilirubin (0.2-1) mg/dl AST (15-37) U/L ALT (12-78) U/L Alkaline Phosphatase (45-117) U/L Total Protein (6.4-8.2) gm/dl Albumin (3.4-5.0) gm/dl Globulin (2.5-4.0) gm/dl Albumin/Globulin Ratio (0.9-2) Urine Color Dark Yellow Urine Appearance Turbid A (Clear) Urine pH 7.0 (4.5-7.5) Ur Specific [place] 1.024 (1.000-1.030) Urine Protein 1+ H (Negative) Urine Glucose (UA) Negative (Negative) Urine Ketones Trace H (Negative) Urine Blood 2+ H (Negative) Urine Nitrite Negative (Negative) Urine Bilirubin Negative (Negative) Urine Urobilinogen Positive H (Negative) Ur Leukocyte Esterase 3+ H (Negative) Urine WBC (Auto) >30 H (0-5) /hpf Urine RBC (Auto) 5-10 H (0-4) /hpf U Hyaline Cast (Auto) 10-30 H (0-5) /lpf U Epithel Cells (Auto) >30 H (0-5) /lpf Urine Bacteria (Auto) 2+ H (Negative) Urine Yeast Not Reportable COVID-19 Eval Order SARS-CoV-2 (PCR) (Negative) Imaging Data Radiologist's Impression: CT extremity right lower: Postsurgical changes with associated artifact. Soft tissue thickening/edema. Radiologist: Violeta Castle MD ECG Data Attestation: I personally reviewed and interpreted this ECG as follows: Indication: + weakness Rate (beats per minute): 80 Rhythm: + normal sinus ECG Intervals/blocks: + Normal QRS and + Normal QT ECG [place]: + Normal ECG ST segments: + Normal ST segments MDM Narrative THis is an 85 yo female brought in from a [facility] where she has been doing rehab since an operative repair of a femur fracture several weeks ago. VS stable. patient was febrile per the MD staff. Sepsis evaluation was started after exam revealed significant wound infection to the RLE. Labs suggest evolving sepsis. Cultures sent, pt started on broad spectrum IV antibiotics. NSS started. Patient received 30ml/kg based on ideal body weight. VS stable throughout. Case discussed with hospitalist. No evidence of nec fasc, drainable abscess, or septic arthritis at this time. Patient with dopplerable pulses, difficult to find on exam with palpation. An order was placed for continuous cardiac monitoring. The monitor shows a rate of _78__ with __normal sinus_ rhythm. Impression & Plan Complicated wound infection, Chronic venous insufficiency, Lymphedema, Type 2 diabetes mellitus with diabetic chronic kidney disease, Elevated platelet count Discharge Plan Visit Data Chief Complaint: Infection, Wound Stated Complaint: RT. LOWER LEG WOUNDS ED Provider: Mariam Luciano Discharge Problem: Complicated wound infection, Chronic venous insufficiency, Lymphedema, Type 2 diabetes mellitus with diabetic chronic kidney disease, Elevated platelet count Patient Disposition: Admitted As Inpatient Discharge Instructions Interventions: ED Discharge Assessment Last Done: 10/23/20 03:41 Discharge Problem: Type 2 diabetes mellitus with diabetic chronic kidney disease Qualifiers: Diabetes mellitus half-way insulin use: with termite helper use Chronic kidney disease stage: unspecified stage Qualified Code(s): E11.22 - Type 2 diabetes mellitus with diabetic chronic kidney disease
[2020-10-23] MEDS: SODIUM CHLORIDE 0.9% 1000ML 1,000 ML IV SCH ×2 (01:09→04:33)
--- NOTE | 2020-10-23 02:05 | History & Physical Report ---
Date of Service October 23, 2020 Assessment & Plan (1) Traumatic ulcer of right lower extremity with infection: Plan: Continue vancomycin IV and cefepime IV per pharmacokinetic monitoring begun in the ED Consult wound care Local wound care Stop oral Keflex and nitrofurantoin Continue tramadol 50 mg p.o. every 6 hours as needed (2) Type 2 diabetes mellitus with diabetic chronic kidney disease: Plan: No specific treatment noted. Glucose was 146 upon admission. If elevated in a.m., will place on Accu-Cheks (3) Elevated platelet count: Plan: Platelets have gradually increased from 271, to 410, to 741, and today is 867. Likely reactive. Patient has not noted to be on any antiplatelet agents or anticoagulation We will be placing on heparin 7500 units subcu every 8 hours Check a peripheral smear (4) Chronic kidney disease, stage 3 (moderate): Plan: Creatinine stable at 0.76, with creatinine clearance 58.3 Follow serially (5) Peripheral neuropathy: Plan: Continue gabapentin (6) Hypertension: Plan: Continue atenolol with hold parameters (7) Depression: Plan: Continue venlafaxine (8) Chronic venous insufficiency: Plan: Hold spironolactone for now History of Present Illness Chief Complaint: The patient is brought to the emergency department from [facility] for assessment of worsening right lower extremity wounds Primary Care Provider: [facility] The patient is an 85-year-old female with a past medical history including diabetes mellitus type 2, CKD stage III, vitamin D deficiency, urinary incontinence, vitamin B12 deficiency, venous stasis ulcers of both lower extremities, rosacea, PLMD, peripheral neuropathy, mild sleep apnea, lymphedema, hypertension, dyslipidemia, depression, anemia and age-related macular degeneration. She was discharged to [facility] on 10/12/2020 after surgical repair of a right comminuted periprosthetic spiral fracture of the distal femur shaft during hospitalization at [facility]. Allergies Allergy/AdvReac Type Severity Reaction Status Date / Time promethazine Allergy Severe RESP. Verified 10/22/20 20:42 ARREST Sulfa (Sulfonamide Allergy Intermediate WELTS Verified 10/22/20 20:42 Antibiotics) duloxetine Allergy Unknown Unknown Verified 10/22/20 20:42 nefazodone Allergy Unknown Unknown Verified 10/22/20 20:42 trazodone Allergy Unknown Unknown Verified 10/22/20 20:42 propoxyphene AdvReac Intermediate SEVERE Verified 10/22/20 20:42 HEADACHE aspirin AdvReac Mild headaches Verified 10/22/20 20:42 amitriptyline AdvReac Unknown Unknown Verified 10/22/20 20:42 blue dye AdvReac Unknown CI Pigment Verified 10/22/20 20:42 blue 63 Home Medications Medication Instructions Recorded Confirmed Type cyanocobalamin (vitamin B-12) 1,000 mcg PO DAILY 10/28/17 10/22/20 History 1,000 mcg/mL oral drops (Vitamin B-12) vitamins A,C,[id number] 7,160 1 cap PO DAILY 03/20/18 10/22/20 History unit-113 mg-100 unit tablet (PreserVision AREDS) cholecalciferol (vitamin D3) 125 5,000 units PO DAILY cap 01/13/19 10/22/20 History mcg (5,000 unit) capsule ropinirole 0.5 mg tablet 0.5 mg PO HS tab 01/13/19 10/22/20 History venlafaxine 37.5 mg 37.5 mg PO DAILY #90 cap 04/25/20 10/22/20 Rx capsule,extended release 24 hr (Effexor XR) atenolol 50 mg tablet 50 mg PO DAILY #90 tab 06/14/20 10/22/20 Rx spironolactone 25 mg tablet 50 mg PO DAILY #180 tab 06/14/20 10/22/20 Rx ferrous sulfate 325 mg (65 mg 325 mg PO BID #60 tab 08/28/20 10/22/20 Rx iron) tablet cyclosporine 0.05 % eye drops in a 1 drp OPHTHALMIC (EYE) Q12H 09/22/20 10/22/20 History dropperette (Restasis) triamcinolone acetonide 0.5 % 1 applic TOPICAL DAILY #15 g 09/22/20 10/22/20 Rx topical cream gabapentin 300 mg capsule 1,200 mg PO HS #360 cap 10/10/20 10/22/20 Rx acetaminophen 500 mg tablet 1,000 mg PO Q8 #10 tab 10/12/20 10/22/20 Rx (Tylenol Extra Strength) tramadol 50 mg tablet 50 mg PO Q6H PRN #20 tab 10/12/20 10/22/20 Rx calcium citrate 250 mg PO DAILY 10/22/20 10/22/20 History calcium citrate 150 mg capsule 150 mg PO DAILY 10/22/20 10/22/20 History cephalexin 500 mg capsule 500 mg PO TID 10/22/20 10/22/20 History nitrofurantoin 100 mg PO BID 10/22/20 10/22/20 History monohydrate/macrocrystals 100 mg capsule (Macrobid) sennosides 8.6 mg tablet (senna) 8.6 mg PO DAILY 10/22/20 10/22/20 History 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) Anemia Chronic kidney disease, stage 3 (moderate) Chronic venous insufficiency Depression Dyslipidemia Fracture of femur Hypertension Lymphedema Mild sleep apnea Osteoarthritis Osteoporosis (09/22/10) Peripheral neuropathy PLMD (periodic limb movement disorder) Rosacea Tubular adenoma of colon Type 2 diabetes mellitus with diabetic chronic kidney disease Urinary incontinence Venous stasis ulcers of both lower extremities Vitamin B12 deficiency Vitamin D deficiency Surgical History H/O colonoscopy H/O shoulder surgery History of knee replacement History of varicose vein ligation and stripping Status post ablation of incompetent vein using laser Status post appendectomy Status post cholecystectomy Status post foot surgery Status post hip replacement Status post hysterectomy Family History Father , 45 Stroke Mother , 85 No problems noted. Denies family history of Ovarian cancer Prostate cancer Myocardial infarction Breast cancer Colorectal cancer Social History Smoking Status: Never smoker Second Hand Exposure: No; Hx Alcohol Use: No Hx Substance Use: No Preferred Language: Montserratian Communication Ability: Effective Visual Impairment: Limited Hearing Ability: Use of Hearing Aid Uniform Designer Required: No Beliefs That Will Affect Care: None Current Living Situation: Family Current Living Situation Comment: Lives w/ son Feels Safe at Home: Yes Diet Comment: regular caffeine: Yes during the past year weight has: remained stable Dental Care, Regularly: No Physical Activity Frequency: Does not Exercise Seatbelt Use: always Sunscreen Use: No Assistive Devices: Denture - Upper, Denture - Lower, Glasses and Walker Review of Systems Review of Systems: The patient denies chest pain, palpitations, shortness of breath, dyspnea on exertion, cough, sore throat, fevers, chills, sweats, fatigue, nausea, vomiting, diarrhea , constipation, abdominal pain, pelvic pain, blood in urine or stool, dysuria, urinary frequency or urgency, lightheadedness, dizziness, headache, memory loss, loss of consciousness, imbalance, focal or generalized weakness, generalized arthralgias or myalgias, back or neck pain, or night sweats. The review of systems is otherwise negative other than for that already noted above, and at least 10 systems have been reviewed. Physical Exam Physical Exam: The patient is awake, alert and oriented 3, well developed and well nourished, normocephalic and atraumatic, lying in bed and in no acute distress. HEENT--PERRL, EOMI, mucous membranes and oropharynx normal. Neck--supple. No JVD. No bruits. Thyroid normal, trachea midline, no adenopathy. Heart--normal S1 and S2. No murmurs, rubs or gallops. Lungs--clear bilaterally, no respiratory distress, no accessory muscle use. Abdomen--normal bowel sounds and soft. Nontender. Nondistended. Morbidly obese Extremities--1+ bilateral pretibial pitting edema. Right lower extremity with large area of eroded skin along anterior tibial shaft, with erythema and warmth from ankle to just below the knee Dermatologic--see above Neurologic--cranial nerves II through XII grossly intact. Rheumatologic--limited range of motion due to body habitus and wounds Psychiatric--normal affect. Results & Data Results & Data ([facility]) Vital Signs (Past 12 Hours) Vital Signs Temp Pulse Pulse Resp BP BP Pulse Ox 10/23/20 00:09 18 99 10/23/20 00:00 72 17 127/59 L 98 10/22/20 23:31 73 18 123/73 100 10/22/20 23:00 75 19 135/59 L 100 10/22/20 22:31 79 21 125/58 L 94 10/22/20 22:11 78 16 10/22/20 21:30 72 21 127/59 L 97 10/22/20 21:20 74 15 97 10/22/20 21:10 75 16 98 10/22/20 20:30 76 21 125/72 97 10/22/20 20:04 96 10/22/20 20:03 78 22 151/55 H 93 10/22/20 20:00 80 22 151/55 H 98 10/22/20 19:55 98.6 F 80 23 127/68 97 10/22/20 19:54 82 24 127/68 98 Laboratory Results Laboratory Results WBC 21.84 K/uL (4.8-10.8) H 10/22/20 20:07 RBC 2.91 M/uL (4.2-5.4) L 10/22/20 20:07 Hgb 8.7 g/dL (12.0-16.0) L 10/22/20 20:07 Hct 28.4 % (37-47) L 10/22/20 20:07 MCV 97.6 fL (80-100) 10/22/20 20:07 MCH 29.9 pg (25-34) 10/22/20 20:07 MCHC 30.6 g/dL (32-36) L 10/22/20 20:07 RDW Std Deviation 56.9 fL (36.4-46.3) H 10/22/20 20:07 RDW Coeff of Yane 15.8 % (11.5-14.5) H 10/22/20 20:07 Plt Count 867 K/uL (130-400) H 10/22/20 20:07 MPV 8.8 fL (7.4-10.4) 10/22/20 20:07 Immature Gran % (Auto) 0.9 % 10/22/20 20:07 Neut % (Auto) 81.0 % 10/22/20 20:07 Lymph % (Auto) 6.6 % 10/22/20 20:07 [place] % (Auto) 10.9 % 10/22/20 20:07 Eos % (Auto) 0.5 % 10/22/20 20:07 Baso % (Auto) 0.1 % 10/22/20 20:07 Neut # (Auto) 17.67 K/uL (1.4-6.5) H 10/22/20 20:07 Lymph # (Auto) 1.45 K/uL (1.2-3.4) 10/22/20 20:07 [place] # (Auto) 2.38 K/uL (0.11-0.59) H 10/22/20 20:07 Eos # (Auto) 0.12 K/uL (0-0.5) 10/22/20 20:07 Baso # (Auto) 0.03 K/uL (0-0.2) 10/22/20 20:07 Immature Gran # (Auto) 0.19 K/uL (0.00-0.02) H 10/22/20 20:07 PT 11.5 Seconds (9.0-12.0) 10/22/20 20:07 INR 1.1 (0.9-1.1) 10/22/20 20:07 APTT 29.3 Seconds (21.0-31.0) 10/22/20 20:07 PTT Ratio 1.1 10/22/20 20:07 Sodium 138 mmol/L (136-145) 10/22/20 20:07 Potassium 4.3 mmol/L (3.5-5.1) 10/22/20 20:07 Chloride 100 mmol/L (98-107) 10/22/20 20:07 Carbon Dioxide 32 mmol/L (21-32) 10/22/20 20:07 Anion Gap 6.0 (3-11) 10/22/20 20:07 BUN 22 mg/dl (7-18) H 10/22/20 20:07 Creatinine 0.76 mg/dl (0.6-1.2) 10/22/20 20:07 Est Cr Clr Drug Dosing 58.3 ml/min 10/22/20 20:07 Est GFR ( Amer) 82.3 ml/min 10/22/20 20:07 Est GFR (Non-Af Amer) 71.0 ml/min 10/22/20 20:07 BUN/Creatinine Ratio 29.0 (10-20) H 10/22/20 20:07 Glucose 146 mg/dl (70-99) H 10/22/20 20:07 Lactate 1.7 mmol/L (0.4-2.0) 10/22/20 21:17 Calcium 9.2 mg/dl (8.5-10.1) 10/22/20 20:07 Magnesium 2.0 mg/dl (1.8-2.4) 10/22/20 20:07 Total Bilirubin 0.4 mg/dl (0.2-1) 10/22/20 20:07 AST 91 U/L (15-37) H 10/22/20 20:07 ALT 49 U/L (12-78) 10/22/20 20:07 Alkaline Phosphatase 205 U/L (45-117) H 10/22/20 20:07 Total Protein 7.3 gm/dl (6.4-8.2) 10/22/20 20:07 Albumin 1.5 gm/dl (3.4-5.0) L 10/22/20 20:07 Globulin 5.8 gm/dl (2.5-4.0) H 10/22/20 20:07 Albumin/Globulin Ratio 0.3 (0.9-2) L 10/22/20 20:07 Urine Color Dark Yellow 10/22/20 21:30 Urine Appearance Turbid (Clear) A 10/22/20 21:30 Urine pH 7.0 (4.5-7.5) 10/22/20 21:30 Ur Specific [place] 1.024 (1.000-1.030) 10/22/20 21:30 Urine Protein 1+ (Negative) H 10/22/20 21:30 Urine Glucose (UA) Negative (Negative) 10/22/20 21:30 Urine Ketones Trace (Negative) H 10/22/20 21:30 Urine Blood 2+ (Negative) H 10/22/20 21:30 Urine Nitrite Negative (Negative) 10/22/20 21:30 Urine Bilirubin Negative (Negative) 10/22/20 21:30 Urine Urobilinogen Positive (Negative) H 10/22/20 21:30 Ur Leukocyte Esterase 3+ (Negative) H 10/22/20 21:30 Urine WBC (Auto) >30 /hpf (0-5) H 10/22/20 21:30 Urine RBC (Auto) 5-10 /hpf (0-4) H 10/22/20 21:30 U Hyaline Cast (Auto) 10-30 /lpf (0-5) H 10/22/20 21:30 U Epithel Cells (Auto) >30 /lpf (0-5) H 10/22/20 21:30 Urine Bacteria (Auto) 2+ (Negative) H 10/22/20 21:30 Urine Yeast Not Reportable 10/22/20 21:30 COVID-19 Eval Order Covid19 at [facility] 10/22/20 20:08 SARS-CoV-2 (PCR) NEGATIVE (Negative) 10/22/20 20:08 Diagnostic Findings [facility] Patient: EPIFANIO RUSSO (Female) : 33 Status: ER Date: 10/22/20 22:13 Room #: History: rt low leg infection Slices: [id number] Priors: Tech: Loi Marvin @ [phone] Exams: CT EXTREMITY RIGHT LOWER Contrast: IV Amt: 93 ml optiray Accession Numbers: [id number] Referring Physician: [facility] Preliminary Findings Only See Final Report For Complete Findings CT EXTREMITY RIGHT LOWER: Postsurgical changes with associated artifact. Soft tissue thickening/edema. Radiologist: Violeta Castle M.D. Study ready at 22:27 and initial results transmitted at 00:52 *This report constitutes a preliminary interpretation only. Non-acute findings felt to be unrelated to the clinical presentation may not be discussed in this report. The study will be interpreted and a final report will be generated by the local Radiologist the following shift. To reach the hospital radiology department call [phone]. If a discrepancy is found between the preliminary and final interpretations of this study, please notify us via our Client Portal at [email or web address], under QA Exams.You can also fax this report with a description of the discrepancy, or include the final report, to our daytime fax number [phone].If faxing, please indicate the severity of discrepancy using one of the following categories: [ ] 1 - Agree/Informational [ ] 2 - Unlikely to Affect Management [ ] 3 - Possible Eventual Change of Management [ ] 4 - Probable Immediate Change of Management For all other patient related information, please fax us at [phone]. [id number] Code Status & VTE Plan Code Status Full code VTE Prophylaxis Plan VTE Prophylaxis will be ordered: Yes PG Care Time/CCT Total # of Minutes Spent Total Time Spent with Patient: Total time spent is greater than 50% in coordination of care (as documented) at patient's floor/unit and/or counseling patient: Coding Level of Care Code 24885 Initial Inpt Care Lvl 3 Diagnoses Traumatic ulcer of right lower extremity with infection L97.919; L08.9 Type 2 diabetes mellitus with diabetic chronic kidney disease E11.22 Chronic kidney disease, stage 3 (moderate) N18.3 Peripheral neuropathy G62.9 Hypertension I10 Depression F32.9 Chronic venous insufficiency I87.2 Elevated platelet count R79.89
[2020-10-23] MEDS ORDERED: traMADol HCL 50 MG TABLET PO PRN (03:54)
[2020-10-23] MEDS ORDERED: VANCOMYCIN CONSULT ACTIVE PRN (03:54)
[2020-10-23] MEDS ORDERED: ONDANSETRON INJ 2 MG/ML 2 ML VIAL IV PRN (03:54)
[2020-10-23] MEDS: HEPARIN SOD 5,000 UNIT/0.5 ML VIAL SQ SCH ×3 (05:48→21:23)
--- NOTE | 2020-10-23 06:55 | XRay Report ---
XR chest 1V portable HISTORY: 85 years-old Female SEPSIS acute sepsis COMPARISON: Chest radiograph 10/11/2020 TECHNIQUE: Portable AP view of the chest FINDINGS: Cardiac silhouette is enlarged. Linear left midlung and bibasilar opacities with chronic appearing in terstitial coarsening. No pneumothorax or large pleural effusion. Degenerative changes of the spine. Healed chronic appearing bilateral rib fractures. Bilateral shoulder arthroplasties. IMPRESSION: 1. Linear bibasilar and left midlung opacities are redemonstrated suggestive of atelectasis/scarring. 2. Cardiomegaly without overt pulmonary edema. ACT 112: Negative or not required by law. The above report was generated using voice recognition software. It may contain grammatical, syntax o r spelling errors. Electronically signed by: Augustin Kasper M.D. 10/23/2020 6:53 AM
--- NOTE | 2020-10-23 07:34 | CT Scan Report ---
CT tib/fib RT w con HISTORY: 85 years-old Female infection patient presents with reported soft tissue infection of the r ight lower leg COMPARISON: CTA 10/04/2020 TECHNIQUE: Multiple axial CT images of the right tibia and fibula were obtained following the intrave nous administration of 93 mL Optiray 320. A dose lowering technique was used consistent with the prin cipals of MARIAN. FINDINGS: Streak artifact from ORIF hardware of the distal femur with right knee total joint arthroplasty limit s the study. Demineralized appearance of the bones with arthritis of the foot and ankle. No acute fra cture, dislocation or osseous erosion. Lateral skin pallavi are present. Lower extremity varicosities with mild to moderate diffuse subcutaneous edema, most pronounced at the level of the lower leg and ankle. No drainable fluid collection. Extensive arterial calcifications. Diffuse muscular atrophy. Te ndons and ligaments are not well evaluated by CT technique.. IMPRESSION: 1. Right knee total joint arthroplasty with ORIF changes of the distal femur. Artifact from the hardw are limits the study. 2. No acute fracture. 3. Mild to moderate subcutaneous edema. No drainable fluid collection. ACT 112: Negative or not required by law. The above report was generated using voice recognition software. It may contain grammatical, syntax o r spelling errors. Electronically signed by: Augustin Kasper M.D. 10/23/2020 7:33 AM
[2020-10-23] MEDS: RESTASIS~ORDER AWAITING ACTION SCH ×3 (08:10→21:34)
[2020-10-23] MEDS ORDERED: traMADol HCL 50 MG TABLET PO STA ×2 (08:16→18:46)
[2020-10-23] MEDS: SENNA 8.6 MG TAB PO SCH (09:32)
[2020-10-23] MEDS: ATENOLOL 50 MG TABLET PO SCH (09:32)
[2020-10-23] MEDS: CYANOCOBALAMIN 500 MCG TABLET (VITAMIN B-12) PO SCH (09:32)
[2020-10-23] MEDS: VENLAFAXINE HCL XR 37.5 MG CAPXR PO SCH (09:33)
[2020-10-23] MEDS: TRIAMCINOLONE ACET 0.5% CR 15 GM TUBE TOP SCH (09:33)
[2020-10-23] MEDS: FERROUS SULFATE 325 MG TAB PO SCH ×2 (09:33→17:30)
[2020-10-23] MEDS: CALCIUM CITRATE 950 MG TAB PO SCH (09:33)
[2020-10-23] MEDS: CHOLECALCIFEROL 1,000 UNITS 25 MCG TAB PO SCH (09:33)
[2020-10-23] MEDS: CEROVITE ADV FORMULA TAB PO SCH (09:33)
[2020-10-23] MEDS: CEFEPIME 2,000 MG in SYRINGE 0 ML IV SCH ×2 (09:34→21:25)
--- NOTE | 2020-10-23 09:38 | Pharmacy Report ---
Pharmacy Abx Dose Short Note - Date of Service October 23, 2020 - Assessment & Plan Assessment 85 yo F admitted from [facility] last evening secondary to worsening right lower extremity wound * PMHx significant for T2DM, CKD stage III, venous stasis ulcers of both lower extremities, lymphedema and peripheral neuropathy. * She was recently discharged to [facility] on 10/12/20 following a right comminuted fracture of the distal femur. * Afebrile with a leukocytosis of 22,000. Renal function appears better than baseline. * MRSA nasal swab was negative but given recent surgery, MRSA coverage is warranted. Previous culture data from 2018 & 2019 show MSSA in LLE and P. aeruginosa/Group B Beta Strep in RLE. * Imaging is negative for fluid collection. She has been started on Vancomycin and Cefepime. Plan Vancomycin * AUC/HERMINIA is the preferred PK/PD target for vancomycin * AUC guided dosing is effective and associated with decreased risk of nephrotoxicity compared to traditional trough targets * Loading Dose: 2000 mg (19 mg/kg) IV x 1 * Maintenance Dose: 1000 mg (9.5 mg/kg) IV every 24 hours * Goal AUC/HERMINIA = 400-600 mg/L.hr * Current dose is predicted to achieve a steady state AUC/HERMINIA and trough of 454 mg/L.hr and 12.4 mcg/mL, respectively. There is only an 8% risk of nephrotoxicity with this regimen * Will order a random with AM labs tomorrow morning to assess current regimen. Cefepime - Pharmacy not consulted * 2000 mg IV every 12 hours * Given history of Pseudomonas, target dose is 2000 mg IV every 8 hours. This was adjusted to every 12 hours for CrCl 30 to 60 mL/min. Pharmacy will continue to follow and will adjust dose/frequency as necessary. Thank you.
[2020-10-23] MEDS: VANCOMYCIN HCL 1,000 MG in SODIUM CHLORIDE 0.9% 250 ML IV SCH (12:31)
[2020-10-23] MEDS: traMADol HCL 50 MG TABLET PO PRN (14:46)
--- NOTE | 2020-10-23 14:47 | XRay Report ---
RIGHT FEMUR 2 VIEWS CLINICAL HISTORY: Postoperative examination. FINDINGS: AP and crosstable lateral views of the right femur are compared to study dated 10/02/2020. Th e skeletal structures are osteopenic. Right hip and knee arthroplasties are in near-anatomic alignmen t. There is postoperative change from buttress plate fixation along the lateral cortex of the mid to distal femoral shaft. This transfixes a spiral periprosthetic fracture of the distal femur. Near-ricardo omic alignment has been restored. Numerous cortical lag screws transfix the buttress plate and severa l cerclage wires are in place. The most superior cortical screw transfixing the buttress plate is zoila rter than the remaining screws, and extends approximately 7 mm into the cortex. The superior aspect o f the buttress plate does not approximate the cortex and is by approximately 8 mm. The orth opedic hardware appears intact. No new fracture is seen. Skin clips, soft tissue swelling, and soft t issue gas overlying the right femur are expected postoperative changes. IMPRESSION: 1. Postoperative findings status post open reduction and internal fixation of a right femoral fractur e as detailed above. 2. The superior aspect of the buttress plate does not approximate the cortex. See above. Electronically signed by: Carlos Goss M.D. 10/23/2020 2:46 PM
[2020-10-23] MEDS: ACETAMINOPHEN 325 MG TAB PO PRN (18:31)
[2020-10-23] MEDS: GABAPENTIN 400 MG CAP PO SCH (19:33)
[2020-10-23] MEDS: rOPINIRole HCL 0.25 MG TABLET PO SCH (19:35)
--- NOTE | 2020-10-23 21:07 | Hospitalist Progress Note ---
Date of Service October 23, 2020 Assessment & Plan (1) Traumatic ulcer of right lower extremity with infection: Plan: Continue vancomycin IV and cefepime IV per pharmacokinetic monitoring begun in the ED Consult wound care Local wound care Stop oral Keflex and nitrofurantoin Continue tramadol 50 mg p.o. every 6 hours as needed (2) Type 2 diabetes mellitus with diabetic chronic kidney disease: Plan: No specific treatment noted. Glucose was 146 upon admission. If elevated in a.m., will place on Accu-Cheks (3) Elevated platelet count: Plan: Platelets have gradually increased from 271, to 410, to 741, and today is 867. Likely reactive. Patient has not noted to be on any antiplatelet agents or anticoagulation We will be placing on heparin 7500 units subcu every 8 hours Check a peripheral smear (4) Chronic kidney disease, stage 3 (moderate): Plan: Creatinine stable at 0.76, with creatinine clearance 58.3 Follow serially (5) Peripheral neuropathy: Plan: Continue gabapentin (6) Hypertension: Plan: Continue atenolol with hold parameters (7) Depression: Plan: Continue venlafaxine (8) Chronic venous insufficiency: Plan: Hold spironolactone for now Admission and Anticipated Discharge Date Admission Date: October 23, 2020 Results & Data Results & Data ([facility]) Vital Signs (Past 12 Hours) Vital Signs Temp Pulse Resp BP Pulse Ox 10/23/20 15:11 37 C 86 18 159/75 H 97 10/23/20 09:32 81 144/77 H PG Care Time/CCT Total # of Minutes Spent Total Time Spent with Patient: Total time spent is greater than 50% in coordination of care (as documented) at patient's floor/unit and/or counseling patient: Coding Diagnoses Traumatic ulcer of right lower extremity with infection L97.919; L08.9 Type 2 diabetes mellitus with diabetic chronic kidney disease E11.22 Elevated platelet count R79.89 Chronic kidney disease, stage 3 (moderate) N18.3 Peripheral neuropathy G62.9 Hypertension I10 Depression F32.9 Chronic venous insufficiency I87.2
--- NOTE | 2020-10-23 21:08 | Communication Note ---
Date of Service: October 23, 2020 will consult ortho due to large wound that will likely require debridement.
[2020-10-24] MEDS: traMADol HCL 50 MG TABLET PO PRN ×3 (03:50→19:44)
[2020-10-24] MEDS: HEPARIN SOD 5,000 UNIT/0.5 ML VIAL SQ SCH ×3 (06:10→23:26)
[2020-10-24 07:40] LABS: Basophils # (auto) 0.04 K/uL (0-0.2); Basophils % (auto) 0.3 %; Eosinophils % (auto) 4.7 %; Hematocrit (blood only) 27.2 % (37-47); Hemoglobin 8.1 g/dL (12.0-16.0); Immature Granulocytes # (auto) 0.14 K/uL (0.00-0.02); Immature Granulocytes % (auto) 0.9 %; Lymphocytes # (auto) 1.63 K/uL (1.2-3.4); Lymphocytes % (auto) 10.8 %; Mean Corpuscular Hemoglobin 28.8 pg (25-34); Mean Corpuscular Hgb Conc 29.8 g/dL (32-36); Mean Corpuscular Volume 96.8 fL (80-100); Mean Platelet Volume 8.8 fL (7.4-10.4); Monocytes # (auto) 2.07 K/uL (0.11-0.59); Monocytes % (auto) 13.8 %; Neutrophils # (auto) 10.46 K/uL (1.4-6.5); Neutrophils % (auto) 69.5 %; Platelet Count 742 K/uL (130-400); RDW Coefficient of Variation 16.1 % (11.5-14.5); RDW Standard Deviation 56.4 fL (36.4-46.3); Red Blood Count 2.81 M/uL (4.2-5.4); White Blood Count 15.04 K/uL (4.8-10.8)
[2020-10-24 08:12] LABS: Albumin Level 1.3 gm/dl (3.4-5.0); BUN Creatinine Ratio 30.2 (10-20); Calcium 8.9 mg/dl (8.5-10.1); Creatinine Clr Calc Pharmacy 71.5 ml/min; Est GFR (African American) 94.6 ml/min; Est GFR (Non-African American) 81.6 ml/min; Potassium 4.3 mmol/L (3.5-5.1)
[2020-10-24 08:15] LABS: Albumin Globulin Ratio 0.2 (0.9-2); Bilirubin,Total 0.6 mg/dl (0.2-1); Globulin 5.7 gm/dl (2.5-4.0)
[2020-10-24] MEDS ORDERED: CEFEPIME 2,000 MG in SYRINGE 0 ML IV SCH (09:00)
--- NOTE | 2020-10-24 09:16 | Pharmacy Report ---
Pharmacy Abx Dose Short Note - Date of Service October 24, 2020 - Assessment & Plan Assessment 85 yo F admitted from [place] on 10/22/20 secondary to worsening right lower extremity wound * PMHx significant for T2DM, CKD stage III, venous stasis ulcers of both lower extremities, lymphedema and peripheral neuropathy. * She was recently discharged to [facility] on 10/12/20 following a right comminuted fracture of the distal femur. * Remains afebrile and leukocytosis improved to 15k today. Renal fxn improved as well. * Urine cx grew P. aeruginosa that is pansensitive. May be colonization. Cefepime dosing for cellulitis will cover organism regardless. * Ortho consulted today for possible I&D. Plan Vancomycin * Random level of 23.3 mcg/mL this AM was ~ 18 hours following previous dose. * Expect current dosing interval of every 24 hours to be adequate for this patient. * Continue dose of 1000 mg IV every 24 hours * Goal AUC/HERMINIA of 400-600 mg/L.hr * Trough level ordered for 10/26/20 prior to the 1200 dose Cefepime * CrCl improved to greater than 60 mL/min * Increased Cefepime to 2000 mg IV every 8 hours Pharmacy will continue to follow and will adjust dose/frequency as necessary. Thank you.
[2020-10-24] MEDS: RESTASIS~ORDER AWAITING ACTION SCH ×2 (09:32→16:00)
[2020-10-24] MEDS: SENNA 8.6 MG TAB PO SCH (09:33)
[2020-10-24] MEDS: TRIAMCINOLONE ACET 0.5% CR 15 GM TUBE TOP SCH (09:33)
[2020-10-24] MEDS: CHOLECALCIFEROL 1,000 UNITS 25 MCG TAB PO SCH (09:33)
[2020-10-24] MEDS: ATENOLOL 50 MG TABLET PO SCH (09:33)
[2020-10-24] MEDS: VENLAFAXINE HCL XR 37.5 MG CAPXR PO SCH (09:33)
[2020-10-24] MEDS: CYANOCOBALAMIN 500 MCG TABLET (VITAMIN B-12) PO SCH (09:33)
[2020-10-24] MEDS: CALCIUM CITRATE 950 MG TAB PO SCH (09:33)
[2020-10-24] MEDS: CEROVITE ADV FORMULA TAB PO SCH (09:34)
[2020-10-24] MEDS: FERROUS SULFATE 325 MG TAB PO SCH ×2 (09:34→18:04)
[2020-10-24] MEDS: CEFEPIME 2,000 MG in SYRINGE 0 ML IV SCH ×2 (09:46→18:03)
[2020-10-24] MEDS: VANCOMYCIN HCL 1,000 MG in SODIUM CHLORIDE 0.9% 250 ML IV SCH (12:17)
[2020-10-24] MEDS: ACETAMINOPHEN 325 MG TAB PO PRN (16:47)
--- NOTE | 2020-10-24 17:02 | Orthopedic Consultation ---
Date of Service October 24, 2020 Assessment & Plan (1) Traumatic ulcer of right lower extremity with infection: (2) S/P ORIF (open reduction internal fixation) fracture: She is approximately 3 weeks s/p ORIF of a periprosthetic femur fracture. She has extensive wounds involving her lower leg. These are unlikely to ever heal. She was seen and examined by Dr. Leong today and he discussed this with the patient and her son. He did recommend above knee amputation. She said she doesn't really want to proceed with this. Her and her family can take some time to discuss this and think about the options. In the meantime she can continue with the antibioitics and wound care. We will continue to follow. History of Present Illness Reason for Consultation: . Requesting Physician: . Attending Physician: Yoandy Abdul Ronny Payton is a 85 year old female who is now approx 3 weeks s/p ORIF of a right periprosthetic femur fracture. She is having some wound issues on the right lower leg. She has been receiving IV antibiotics and wound care. She states that she is tired. Allergies Allergy/AdvReac Type Severity Reaction Status Date / Time promethazine Allergy Severe RESP. Verified 10/22/20 20:42 ARREST Sulfa (Sulfonamide Allergy Intermediate WELTS Verified 10/22/20 20:42 Antibiotics) duloxetine Allergy Unknown Unknown Verified 10/22/20 20:42 nefazodone Allergy Unknown Unknown Verified 10/22/20 20:42 trazodone Allergy Unknown Unknown Verified 10/22/20 20:42 propoxyphene AdvReac Intermediate SEVERE Verified 10/22/20 20:42 HEADACHE aspirin AdvReac Mild headaches Verified 10/22/20 20:42 amitriptyline AdvReac Unknown Unknown Verified 10/22/20 20:42 blue dye AdvReac Unknown CI Pigment Verified 10/22/20 20:42 blue 63 Home Medications Medication Instructions Recorded Confirmed Type cyanocobalamin (vitamin B-12) 1,000 mcg PO DAILY 10/28/17 10/22/20 History 1,000 mcg/mL oral drops (Vitamin B-12) vitamins A,C,P-rfcl-rqdzpt 7,160 1 cap PO DAILY 03/20/18 10/22/20 History unit-113 mg-100 unit tablet (PreserVision AREDS) cholecalciferol (vitamin D3) 125 5,000 units PO DAILY cap 01/13/19 10/22/20 History mcg (5,000 unit) capsule ropinirole 0.5 mg tablet 0.5 mg PO HS tab 01/13/19 10/22/20 History venlafaxine 37.5 mg 37.5 mg PO DAILY #90 cap 04/25/20 10/22/20 Rx capsule,extended release 24 hr (Effexor XR) atenolol 50 mg tablet 50 mg PO DAILY #90 tab 06/14/20 10/22/20 Rx spironolactone 25 mg tablet 50 mg PO DAILY #180 tab 06/14/20 10/22/20 Rx ferrous sulfate 325 mg (65 mg 325 mg PO BID #60 tab 08/28/20 10/22/20 Rx iron) tablet cyclosporine 0.05 % eye drops in a 1 drp OPHTHALMIC (EYE) Q12H 09/22/20 10/22/20 History dropperette (Restasis) triamcinolone acetonide 0.5 % 1 applic TOPICAL DAILY #15 g 09/22/20 10/22/20 Rx topical cream gabapentin 300 mg capsule 1,200 mg PO HS #360 cap 10/10/20 10/22/20 Rx acetaminophen 500 mg tablet 1,000 mg PO Q8 #10 tab 10/12/20 10/22/20 Rx (Tylenol Extra Strength) tramadol 50 mg tablet 50 mg PO Q6H PRN #20 tab 10/12/20 10/22/20 Rx calcium citrate 250 mg PO DAILY 10/22/20 10/22/20 History calcium citrate 150 mg capsule 150 mg PO DAILY 10/22/20 10/22/20 History cephalexin 500 mg capsule 500 mg PO TID 10/22/20 10/22/20 History nitrofurantoin 100 mg PO BID 10/22/20 10/22/20 History monohydrate/macrocrystals 100 mg capsule (Macrobid) sennosides 8.6 mg tablet (senna) 8.6 mg PO DAILY 10/22/20 10/22/20 History 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) Anemia Chronic kidney disease, stage 3 (moderate) Chronic venous insufficiency Depression Dyslipidemia Fracture of femur Hypertension Lymphedema Mild sleep apnea Osteoarthritis Osteoporosis (09/22/10) Peripheral neuropathy PLMD (periodic limb movement disorder) Rosacea Tubular adenoma of colon Type 2 diabetes mellitus with diabetic chronic kidney disease Urinary incontinence Venous stasis ulcers of both lower extremities Vitamin B12 deficiency Vitamin D deficiency Surgical History H/O colonoscopy H/O shoulder surgery History of knee replacement History of varicose vein ligation and stripping Status post ablation of incompetent vein using laser Status post appendectomy Status post cholecystectomy Status post foot surgery Status post hip replacement Status post hysterectomy Family History Father , 45 Stroke Mother , 85 No problems noted. Denies family history of Ovarian cancer Prostate cancer Myocardial infarction Breast cancer Colorectal cancer Social History Smoking Status: Never smoker Second Hand Exposure: No; Hx Alcohol Use: No Hx Substance Use: No Preferred Language: Maori Communication Ability: Effective Visual Impairment: Limited Hearing Ability: Use of Hearing Aid Transport Conductor Required: No Beliefs That Will Affect Care: None Current Living Situation: Skilled Nursing Current Living Situation Comment: Lives w/ son Feels Safe at Home: Yes Diet Comment: regular caffeine: Yes during the past year weight has: remained stable Dental Care, Regularly: No Physical Activity Frequency: Does not Exercise Seatbelt Use: always Sunscreen Use: No Assistive Devices: Oxygen - Continuous Review of Systems All systems reviewed & are unremarkable except as noted in HPI & below. Physical Exam . She is alert. NAD Right leg: Dressings removed. She has full thickness necrosis of large areas of the lower leg, almost circumferentially. There is also a wound on the proximal lower lateral leg. Results & Data Results & Data Laboratory Results . Diagnostic Findings . PG Care Time/CCT Total # of Minutes Spent Total Time Spent with Patient: Total time spent is greater than 50% in coordination of care (as documented) at patient's floor/unit and/or counseling p atient: Coding Level of Care Code 75644 Inpt Consult Level 4 Diagnoses Traumatic ulcer of right lower extremity with infection L97.919; L08.9 S/P ORIF (open reduction internal fixation) fracture Z98.890; Z87.81
[2020-10-24] MEDS: GABAPENTIN 400 MG CAP PO SCH (20:18)
[2020-10-24] MEDS: rOPINIRole HCL 0.25 MG TABLET PO SCH (20:18)
--- NOTE | 2020-10-24 20:56 | Hospitalist Progress Note ---
Date of Service October 24, 2020 Assessment & Plan (1) Traumatic ulcer of right lower extremity with infection: Plan: Continue vancomycin IV and cefepime IV per pharmacokinetic monitoring begun in the ED Consult wound care Local wound care Stop oral Keflex and nitrofurantoin Continue tramadol 50 mg p.o. every 6 hours as needed will likely benefit from amputation. (2) Type 2 diabetes mellitus with diabetic chronic kidney disease: Plan: No specific treatment noted. Glucose was 146 upon admission. If elevated in a.m., will place on Accu-Cheks (3) Elevated platelet count: Plan: Platelets have gradually increased from 271, to 410, to 741, and today is 867. Likely reactive. Patient has not noted to be on any antiplatelet agents or anticoagulation We will be placing on heparin 7500 units subcu every 8 hours Check a peripheral smear (4) Chronic kidney disease, stage 3 (moderate): Plan: Creatinine stable at 0.76, with creatinine clearance 58.3 Follow serially (5) Peripheral neuropathy: Plan: Continue gabapentin (6) Hypertension: Plan: Continue atenolol with hold parameters (7) Depression: Plan: Continue venlafaxine (8) Chronic venous insufficiency: Plan: Hold spironolactone for now (9) Sepsis with metabolic encephalopathy: Plan: Patient having criteria for SIRS with source of infection being her infected leg wound as stated above. Patient is now confused. Patient is not responding to antibiotics and will benefit from amputation. Given that patient is not as active, thos procedure may improve quality of life as her pain may improve. Son who discussed this with Dr. Leong is unsure. Admission and Anticipated Discharge Date Admission Date: October 23, 2020 Subjective Patient is confused, she is talking about a baby doll which has a goldent ticket. Review of Systems Review of Systems: Unobtainable due to cognitive status Physical Exam Physical Exam: The patient is confused, well developed and well nourished, normocephalic and atraumatic, lying in bed and in no acute distress. HEENT--PERRL, EOMI, mucous membranes and oropharynx normal. Neck--supple. No JVD. No bruits. Thyroid normal, trachea midline, no adenopathy. Heart--normal S1 and S2. No murmurs, rubs or gallops. Lungs--clear bilaterally, no respiratory distress, no accessory muscle use. Abdomen--normal bowel sounds and soft. Nontender. Nondistended. Morbidly obese Extremities--1+ bilateral pretibial pitting edema. Right lower extremity with large area of eroded skin along anterior tibial shaft, with erythema and warmth from ankle to just below the knee Dermatologic--see above Neurologic--cranial nerves II through XII grossly intact. Rheumatologic--limited range of motion due to body habitus and wounds Results & Data Results & Data ([facility]) Vital Signs (Past 12 Hours) Vital Signs Temp Pulse Resp BP Pulse Ox 10/24/20 18:17 36.7 C 10/24/20 17:41 37.4 C 10/24/20 16:28 38.0 C H 10/24/20 15:00 37.9 C H 80 20 150/65 H 94 PG Care Time/CCT Total # of Minutes Spent Total Time Spent with Patient: Total time spent is greater than 50% in coordination of care (as documented) at patient's floor/unit and/or counseling patient: Coding Level of Care Code 65182 Subseq Hosp Care Lvl 2 Diagnoses Traumatic ulcer of right lower extremity with infection L97.919; L08.9 Type 2 diabetes mellitus with diabetic chronic kidney disease E11.22; Z79.4 Chronic kidney disease stage: unspecified stage Diabetes mellitus director long term care insulin use: with director long term care use Elevated platelet count R79.89 Chronic kidney disease, stage 3 (moderate) N18.3 Peripheral neuropathy G62.9 Hypertension I10 Depression F32.9 Chronic venous insufficiency I87.2 Sepsis with metabolic encephalopathy A41.9; R65.20; G93.41 Time Spent (min) 25 (1) Type 2 diabetes mellitus with diabetic chronic kidney disease Chronic kidney disease stage: unspecified stage Diabetes mellitus usp insulin use: with director long term care use Qualified Code(s): E11.22 - Type 2 diabetes mellitus with diabetic chronic kidney disease; Z79.4 - director long term care (current) use of insulin
[2020-10-25] MEDS: RESTASIS~ORDER AWAITING ACTION SCH ×4 (01:03→22:47)
[2020-10-25] MEDS: CEFEPIME 2,000 MG in SYRINGE 0 ML IV SCH ×3 (01:52→16:12)
[2020-10-25] MEDS: traMADol HCL 50 MG TABLET PO PRN ×3 (06:06→17:59)
[2020-10-25] MEDS: HEPARIN SOD 5,000 UNIT/0.5 ML VIAL SQ SCH ×2 (06:06→13:20)
[2020-10-25 08:26] LABS: Basophils # (auto) 0.05 K/uL (0-0.2); Basophils % (auto) 0.4 %; Eosinophils # (auto) 0.49 K/uL (0-0.5); Eosinophils % (auto) 3.8 %; Hematocrit (blood only) 25.6 % (37-47); Hemoglobin 7.8 g/dL (12.0-16.0); Immature Granulocytes # (auto) 0.18 K/uL (0.00-0.02); Immature Granulocytes % (auto) 1.4 %; Lymphocytes % (auto) 10.8 %; Mean Corpuscular Hemoglobin 29.4 pg (25-34); Mean Corpuscular Hgb Conc 30.5 g/dL (32-36); Mean Corpuscular Volume 96.6 fL (80-100); Mean Platelet Volume 8.4 fL (7.4-10.4); Monocytes # (auto) 1.98 K/uL (0.11-0.59); Monocytes % (auto) 15.3 %; Neutrophils # (auto) 8.88 K/uL (1.4-6.5); Neutrophils % (auto) 68.3 %; Platelet Count 619 K/uL (130-400); RDW Coefficient of Variation 15.8 % (11.5-14.5); Red Blood Count 2.65 M/uL (4.2-5.4); White Blood Count 12.98 K/uL (4.8-10.8)
[2020-10-25] MEDS: FERROUS SULFATE 325 MG TAB PO SCH ×2 (08:33→16:12)
[2020-10-25] MEDS: CEROVITE ADV FORMULA TAB PO SCH (08:33)
[2020-10-25] MEDS: CYANOCOBALAMIN 500 MCG TABLET (VITAMIN B-12) PO SCH (08:33)
[2020-10-25] MEDS: CALCIUM CITRATE 950 MG TAB PO SCH (08:33)
[2020-10-25] MEDS: VENLAFAXINE HCL XR 37.5 MG CAPXR PO SCH (08:33)
[2020-10-25] MEDS: ATENOLOL 50 MG TABLET PO SCH (08:33)
[2020-10-25] MEDS: CHOLECALCIFEROL 1,000 UNITS 25 MCG TAB PO SCH (08:34)
[2020-10-25] MEDS: SENNA 8.6 MG TAB PO SCH (08:34)
[2020-10-25] MEDS: TRIAMCINOLONE ACET 0.5% CR 15 GM TUBE TOP SCH (08:34)
[2020-10-25 08:48] LABS: RBC Morphology Unremarkable
[2020-10-25 09:03] LABS: Albumin Level 1.3 gm/dl (3.4-5.0); BUN Creatinine Ratio 28.2 (10-20); Calcium 8.9 mg/dl (8.5-10.1); Creatinine Clr Calc Pharmacy 71.5 ml/min; Est GFR (African American) 94.6 ml/min; Est GFR (Non-African American) 81.6 ml/min; Potassium 4.5 mmol/L (3.5-5.1)
[2020-10-25 09:06] LABS: Albumin Globulin Ratio 0.2 (0.9-2); Bilirubin,Total 0.5 mg/dl (0.2-1); Globulin 5.4 gm/dl (2.5-4.0); Total Protein 6.7 gm/dl (6.4-8.2)
[2020-10-25] MEDS: ACETAMINOPHEN 325 MG TAB PO PRN ×2 (09:55→17:58)
--- NOTE | 2020-10-25 10:15 | Electrocardiogram Report ---
Test Reason : Blood Pressure : / mmHG Vent. Rate : 080 BPM Atrial Rate : 080 BPM P-R Int : 182 ms QRS Dur : 082 ms QT Int : 370 ms P-R-T Axes : 070 004 036 degrees QTc Int : 426 ms Poor data quality, interpretation may be adversely affected Normal sinus rhythm Normal ECG When compared with ECG of 02-OCT-2020 13:30, No significant change was found Confirmed by Clint iLno ([id number]) on 10/25/2020 10:15:06 AM Referred By: [facility] Confirmed By:Clint Lino
[2020-10-25] MEDS: VANCOMYCIN HCL 1,000 MG in SODIUM CHLORIDE 0.9% 250 ML IV SCH (11:58)
[2020-10-25] MEDS ORDERED: SODIUM CHLORIDE 0.9% 250 ML IV PRN (16:51)
--- NOTE | 2020-10-25 18:07 | Progress Notes ---
DATE OF NOTE: 10/25/2020. SUBJECTIVE: An 85-year-old white female now a little over 3 weeks out from ORIF of a very complex right periprosthetic femur fracture. She was readmitted for necrosis of her lower leg. She continues having persistent pain. She also seems to kind of come in and out of delirium. No other real complaints. OBJECTIVE: VITAL SIGNS: Temperature is 36.5. Vital signs are stable. GENERAL: Shows a pleasant, elderly female. She is kind of seems to come in and out of delirium and confusion. EXTREMITIES: Examination of the right leg reveals a healing lateral wound, secured with pallavi. There is no drainage. She does have a very large areas of full-thickness skin necrosis around her ankle just proximal both anteriorly and posteriorly. She has got brisk refill of her toes. No palpable pulse. X-RAYS: I did review her x-rays. It shows a periprosthetic femur fracture, fixed with a lateral plate. There has been a little bit of pulling off of the plate proximally. LABORATORY DATA: Hemoglobin today is 7.8. Hematocrit 25.6. White cell count 12.98. ASSESSMENT: An 85-year-old female now a little over 3 weeks out from ORIF of a right periprosthetic femur fracture complicated by distal leg and necrosis. I do think this is probably all somewhat related to brace wear afterwards. She certainly had a dysvascular limb to start out, but her foot is well perfused without signs of problems. In any case, she has full thickness necrosis anterior and posterior of her lower leg and this is unlikely to ever heal in this dysvascular patient. PLAN: We discussed treatment options with the patient and her son. I discussed this yesterday and they have now decided to proceed with above-knee amputation. The risks and benefits of above-knee amputation were explained to the patient's son and include but not limited to DVT, PE, , infection, neurological injury, vascular injury, bleeding problem, pain, limited range of motion, stiffness, persistent pain, persistent wound healing problems and . I did explain the risks of this surgery with her age. She is at significant risk. I do not have any doubt that without the surgery, she will from a progressive infection in her leg. She is wanting to proceed. We will plan on optimizing her medically and proceed with this tomorrow. Job ID: [id number] [facility]
[2020-10-25] MEDS: rOPINIRole HCL 0.25 MG TABLET PO SCH (20:13)
[2020-10-25] MEDS: GABAPENTIN 400 MG CAP PO SCH (20:13)
--- NOTE | 2020-10-25 20:44 | Hospitalist Progress Note ---
Date of Service October 25, 2020 Assessment & Plan (1) Traumatic ulcer of right lower extremity with infection: Plan: Continue vancomycin IV and cefepime IV per pharmacokinetic monitoring begun in the ED Consult wound care Local wound care Stop oral Keflex and nitrofurantoin Continue tramadol 50 mg p.o. every 6 hours as needed Sylvia preoperative risk: 2.5 % Risk of myocardial infarction or cardiac arrest, intraoperatively or up to 30 days post-op Recommend amputation scheduled for tomorrow. Given sepsis, patient needs to obtain this procedure Due to anemia, ordered 1 unit of PRBC. No further testing is required prior to surgery. (2) Type 2 diabetes mellitus with diabetic chronic kidney disease: Plan: No specific treatment noted. Glucose was [address] on Accu-Cheks (3) Elevated platelet count: Plan: Platelets have gradually increased from 271, to 410, to 741, and today is 867. Likely reactive. Patient has not noted to be on any antiplatelet agents or anticoagulation We will be placing on heparin 7500 units subcu every 8 hours Check a peripheral smear (4) Chronic kidney disease, stage 3 (moderate): Plan: Creatinine stable at 0.76, with creatinine clearance 58.3 Follow serially (5) Peripheral neuropathy: Plan: Continue gabapentin (6) Hypertension: Plan: Continue atenolol with hold parameters (7) Depression: Plan: Continue venlafaxine (8) Chronic venous insufficiency: Plan: Hold spironolactone for now (9) Sepsis with metabolic encephalopathy: Plan: Patient having criteria for SIRS with source of infection being her infected leg wound as stated above. Patient is now confused. Patient is not responding to antibiotics and will benefit from amputation. Given that patient is not as active, thos procedure may improve quality of life as her pain may improve. Son who discussed this with Dr. Leong is unsure. Admission and Anticipated Discharge Date Admission Date: October 23, 2020 Subjective Patient remains confused. Had discussion with patient's son, he is the POA, and is agreeable to get leg amupatetd. He also gave consent for blood transfusion. Review of Systems Review of Systems: All systems reviewed & are unremarkable except as noted in HPI & below Physical Exam Physical Exam: The patient is confused, well developed and well nourished, normocephalic and atraumatic, lying in bed and in no acute distress. HEENT--PERRL, EOMI, mucous membranes and oropharynx normal. Neck--supple. No JVD. No bruits. Thyroid normal, trachea midline, no adenopathy. Heart--normal S1 and S2. No murmurs, rubs or gallops. Lungs--clear bilaterally, no respiratory distress, no accessory muscle use. Abdomen--normal bowel sounds and soft. Nontender. Nondistended. Morbidly obese Extremities--1+ bilateral pretibial pitting edema. Right lower extremity with large area of eroded skin along anterior tibial shaft, with erythema and warmth from ankle to just below the knee Dermatologic--see above Neurologic--cranial nerves II through XII grossly intact. Rheumatologic--limited range of motion due to body habitus and wounds Results & Data Results & Data ([facility]) Vital Signs (Past 12 Hours) Vital Signs Temp Pulse Pulse Resp BP BP Pulse Ox 10/25/20 20:09 37 C 79 20 156/60 H 98 10/25/20 19:40 36.9 C 80 16 136/80 98 10/25/20 19:24 36.6 C 80 18 134/71 96 10/25/20 19:04 37.1 C 84 18 138/73 97 10/25/20 14:57 36.5 C 73 18 126/70 99 PG Care Time/CCT Total # of Minutes Spent Total Time Spent with Patient: Total time spent is greater than 50% in coordination of care (as documented) at patient's floor/unit and/or counseling patient: Coding Level of Care Code 48124 Subseq Hosp Care Lvl 3 Diagnoses Traumatic ulcer of right lower extremity with infection L97.919; L08.9 Type 2 diabetes mellitus with diabetic chronic kidney disease E11.22; Z79.4 Chronic kidney disease stage: unspecified stage Diabetes mellitus nursing home insulin use: with longwall headgate operator use Elevated platelet count R79.89 Chronic kidney disease, stage 3 (moderate) N18.3 Peripheral neuropathy G62.9 Hypertension I10 Depression F32.9 Chronic venous insufficiency I87.2 Sepsis with metabolic encephalopathy A41.9; R65.20; G93.41 Time Spent (min) 35 (1) Type 2 diabetes mellitus with diabetic chronic kidney disease Chronic kidney disease stage: unspecified stage Diabetes mellitus longwall headgate operator insulin use: with nursing home use Qualified Code(s): E11.22 - Type 2 diabetes mellitus with diabetic chronic kidney disease; Z79.4 - long term acute care registered nurse (current) use of insulin
[2020-10-26] MEDS: CEFEPIME 2,000 MG in SYRINGE 0 ML IV SCH ×3 (00:34→17:25)
[2020-10-26] MEDS: traMADol HCL 50 MG TABLET PO PRN ×2 (04:05→20:42)
[2020-10-26 06:14] LABS: Hematocrit (blood only) 28.3 % (37-47); Hemoglobin 8.6 g/dL (12.0-16.0); Mean Corpuscular Hemoglobin 28.8 pg (25-34); Mean Corpuscular Hgb Conc 30.4 g/dL (32-36); Mean Corpuscular Volume 94.6 fL (80-100); Mean Platelet Volume 8.5 fL (7.4-10.4); Platelet Count 685 K/uL (130-400); RDW Coefficient of Variation 17.2 % (11.5-14.5); RDW Standard Deviation 59.5 fL (36.4-46.3); Red Blood Count 2.99 M/uL (4.2-5.4); White Blood Count 15.72 K/uL (4.8-10.8)
[2020-10-26] MEDS ORDERED: BUPIVACAINE 0.5 % 5 MG/1 ML MPF 30ML VIAL ONE (06:20)
[2020-10-26] MEDS ORDERED: fentaNYL citrate 100 MCG/2 ML VIAL ONE ×3 (06:46→10:03)
[2020-10-26] MEDS ORDERED: ONDANSETRON INJ 2 MG/ML 2 ML VIAL ONE (06:47)
[2020-10-26] MEDS ORDERED: LIDOCAINE 2% 2 ML VIAL/AMP(20MG/ML) INFIL ONE (06:47)
[2020-10-26] MEDS ORDERED: PROPOFOL IV EMULSION 10 MG/ML 20 ML VIAL IV ONE (06:47)
[2020-10-26 06:49] LABS: BUN Creatinine Ratio 26.6 (10-20); Calcium 9.1 mg/dl (8.5-10.1); Creatinine Clr Calc Pharmacy 63.3 ml/min; Est GFR (African American) 90.9 ml/min; Est GFR (Non-African American) 78.5 ml/min; Potassium 4.7 mmol/L (3.5-5.1)
--- NOTE | 2020-10-26 07:06 | History & Physical Bridge Note ---
Date of Service October 26, 2020 History & Physical Bridge Note I have examined the patient, reviewed the History & Physical and in the interval since the performance of the History & Physical I have noted the following changes of clinical significance: no changes noted
--- NOTE | 2020-10-26 07:06 | Anesthesiology Consultation ---
Date of Service October 26, 2020 Assessment & Plan (1) Encounter for pre-operative examination: Chart Review Chart Review: Acceptable Risk for Surgery History Surgery Operation Date: 10/26/20 07:00 Proposed Procedures p Right Above the Knee Amputation - Gonzalez Leong MD Height/Weight Height: 5 ft Weight: 105.6 kg Allergies Allergy/AdvReac Type Severity Reaction Status Date / Time promethazine Allergy Severe RESP. Verified 10/22/20 20:42 ARREST Sulfa (Sulfonamide Allergy Intermediate WELTS Verified 10/22/20 20:42 Antibiotics) duloxetine Allergy Unknown Unknown Verified 10/22/20 20:42 nefazodone Allergy Unknown Unknown Verified 10/22/20 20:42 trazodone Allergy Unknown Unknown Verified 10/22/20 20:42 propoxyphene AdvReac Intermediate SEVERE Verified 10/22/20 20:42 HEADACHE aspirin AdvReac Mild headaches Verified 10/22/20 20:42 amitriptyline AdvReac Unknown Unknown Verified 10/22/20 20:42 blue dye AdvReac Unknown CI Pigment Verified 10/22/20 20:42 blue 63 Medications Home Medications Medication Instructions Recorded Confirmed Last Taken cyanocobalamin (vitamin B-12) 1,000 mcg PO DAILY 10/28/17 10/22/20 10/21/20 1,000 mcg/mL oral drops (Vitamin B-12) vitamins A,C,Q-[id number] 7,160 1 cap PO DAILY 03/20/18 10/22/20 10/22/20 unit-113 mg-100 unit tablet (PreserVision AREDS) cholecalciferol (vitamin D3) 125 5,000 units PO DAILY cap 01/13/19 10/22/20 10/20/20 mcg (5,000 unit) capsule ropinirole 0.5 mg tablet 0.5 mg PO HS tab 01/13/19 10/22/20 10/21/20 venlafaxine 37.5 mg 37.5 mg PO DAILY #90 cap 04/25/20 10/22/20 10/22/20 capsule,extended release 24 hr (Effexor XR) atenolol 50 mg tablet 50 mg PO DAILY #90 tab 06/14/20 10/22/20 10/22/20 spironolactone 25 mg tablet 50 mg PO DAILY #180 tab 06/14/20 10/22/2021 ferrous sulfate 325 mg (65 mg 325 mg PO BID #60 tab 08/28/20 10/22/20 10/22/20 iron) tablet cyclosporine 0.05 % eye drops in a 1 drp OPHTHALMIC (EYE) Q12H 09/22/20 10/22/20 10/21/20 dropperette (Restasis) triamcinolone acetonide 0.5 % 1 applic TOPICAL DAILY #15 g 09/22/20 10/22/20 10/21/20 topical cream gabapentin 300 mg capsule 1,200 mg PO HS #360 cap 10/10/20 10/22/20 10/21/20 acetaminophen 500 mg tablet 1,000 mg PO Q8 #10 tab 10/12/20 10/22/20 Unknown (Tylenol Extra Strength) tramadol 50 mg tablet 50 mg PO Q6H PRN #20 tab 10/12/20 10/22/20 10/22/20 calcium citrate 250 mg PO DAILY 10/22/20 10/22/20 10/22/20 calcium citrate 150 mg capsule 150 mg PO DAILY 10/22/20 10/22/20 10/13/20 cephalexin 500 mg capsule 500 mg PO TID 10/22/20 10/22/20 10/22/20 nitrofurantoin 100 mg PO BID 10/22/20 10/22/20 10/22/20 monohydrate/macrocrystals 100 mg capsule (Macrobid) sennosides 8.6 mg tablet (senna) 8.6 mg PO DAILY 10/22/20 10/22/20 10/22/20 Active Medications Generic Name Dose Route Start Last Admin Trade Name Billyq PRN Reason Stop Dose Admin Acetaminophen 650 mg 10/23/20 03:54 10/25/20 17:58 Acetaminophen 325 Mg Tab PO 11/22/20 03:53 650 mg Q4H PRN Administration pain/fever Atenolol 50 mg 10/23/20 09:00 10/25/20 08:33 Atenolol 50 Mg Tablet PO 11/22/20 08:59 50 mg DAILY ALEX Administration Calcium Citrate 950 mg 10/23/20 09:00 10/25/20 08:33 Calcium Citrate 950 Mg Tab PO 11/22/20 08:59 950 mg DAILY ALEX Administration Cyanocobalamin 1,000 mcg 10/23/20 09:00 10/25/20 08:33 Cyanocobalamin 500 Mcg Tablet (Vitamin B-12) PO 11/22/20 08:59 1,000 mcg DAILY ALEX Administration Ferrous Sulfate 325 mg 10/23/20 09:00 10/25/20 16:12 Ferrous Sulfate 325 Mg Tab PO 11/22/20 08:59 325 mg BID17 ALEX Administration Gabapentin 1,200 mg 10/23/20 21:00 10/25/20 20:13 Gabapentin 400 Mg Cap PO 11/22/20 20:59 1,200 mg HS ALEX Administration Vancomycin HCl 1,000 mg/ 270 mls @ 200 mls/hr 10/23/20 12:00 10/25/20 13:47 Sodium Chloride IV 10/30/20 11:59 Infused Q24H ALEX Infusion Cefepime HCl 2,000 mg/ Syringe 20 mls @ 5 mls/min 10/24/20 09:00 10/26/20 00:34 IV 10/31/20 08:59 5 mls/min Q8H ALEX Administration Protocol Miscellaneous 1 ea 10/23/20 08:00 10/25/20 22:47 Restasis~Order Awaiting Action N/A 11/22/20 07:59 Not Given QS ALEX Multivitamins/Minerals 1 tab 10/23/20 09:00 10/25/20 08:33 Cerovite Adv Formula Tab PO 11/22/20 08:59 1 tab DAILY ALEX Administration Ropinirole HCl 0.5 mg 10/23/20 21:00 10/25/20 20:13 Ropinirole Hcl 0.25 Mg Tablet PO 11/22/20 20:59 0.5 mg HS ALEX Administration Sennosides 8.6 mg 10/23/20 09:00 10/25/20 08:34 Senna 8.6 Mg Tab PO 11/22/20 08:59 8.6 mg DAILY ALEX Administration Tramadol HCl 100 mg 10/23/20 08:17 10/26/20 04:05 Tramadol Hcl 50 Mg Tablet PO 11/22/20 03:53 100 mg Q6H PRN Administration Moderate Pain Triamcinolone Acetonide 1 appln 10/23/20 09:00 10/25/20 08:34 Triamcinolone Acet 0.5% Cr 15 Gm Tube TOP 11/22/20 08:59 1 appln DAILY ALEX Administration Venlafaxine HCl 37.5 mg 10/23/20 09:00 10/25/20 08:33 Venlafaxine Hcl Xr 37.5 Mg Capxr PO 11/22/20 08:59 37.5 mg DAILY ALEX Administration Vitamin D 5,000 units 10/23/20 09:00 10/25/20 08:34 Cholecalciferol 1,000 Units 25 Mcg Tab PO 11/22/20 08:59 5,000 units DAILY ALEX Administration NPO Date Last Intake of Fluids: 10/26/20 Time Last Intake of Fluids: 04:05 Last Intake of Fluids Comment: sip of water with tramadol Date Last Intake of Solids: 10/25/20 Time Last Intake of Solids: 19:15 Past Medical History Medical History (Updated 10/26/20 @ 07:06 by Parrish Davidson MD) 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) Anemia Chronic kidney disease, stage 3 (moderate) Chronic venous insufficiency Depression Dyslipidemia Fracture of femur Hypertension Lymphedema Mild sleep apnea Obesity Osteoarthritis Osteoporosis (09/22/10) Peripheral neuropathy PLMD (periodic limb movement disorder) Rosacea Tubular adenoma of colon Type 2 diabetes mellitus with diabetic chronic kidney disease Urinary incontinence Venous stasis ulcers of both lower extremities Vitamin B12 deficiency Vitamin D deficiency Past Family History Family History Father , 45 Stroke Mother , 85 No problems noted. Denies family history of Ovarian cancer Prostate cancer Myocardial infarction Breast cancer Colorectal cancer Past Surgical History Surgical History (Updated 10/24/20 @ 17:06 by Stone Jarquin PA-C) H/O colonoscopy H/O shoulder surgery History of knee replacement History of varicose vein ligation and stripping Status post ablation of incompetent vein using laser Status post appendectomy Status post cholecystectomy Status post foot surgery Status post hip replacement Status post hysterectomy Social History Smoking Status: Never smoker Do You Dip or Chew Tobacco: No Hx Alcohol Use: No Hx Substance Use: No Physical Exam Vital Signs Last Vital Signs Temp 36.9 C 10/25/20 22:00 Pulse 83 10/25/20 22:00 Resp 20 10/25/20 22:00 BP 147/81 H 10/25/20 22:00 Pulse Ox 95 10/25/20 22:00 Testing Laboratory Results 10/26/20 05:46 10/26/20 05:46 PT 11.5 Seconds (9.0-12.0) 10/22/20 20:07 INR 1.1 (0.9-1.1) 10/22/20 20:07 APTT 29.3 Seconds (21.0-31.0) 10/22/20 20:07 Urine Color Dark Yellow 10/22/20 21:30 Urine Appearance Turbid (Clear) A 10/22/20 21:30 Urine pH 7.0 (4.5-7.5) 10/22/20 21:30 Ur Specific [place] 1.024 (1.000-1.030) 10/22/20 21:30 Urine Protein 1+ (Negative) H 10/22/20 21:30 Urine Glucose (UA) Negative (Negative) 10/22/20 21:30 Urine Ketones Trace (Negative) H 10/22/20 21:30 Urine Nitrite Negative (Negative) 10/22/20 21:30 Ur Leukocyte Esterase 3+ (Negative) H 10/22/20 21:30 Urine WBC (Auto) >30 /hpf (0-5) H 10/22/20 21:30 Urine RBC (Auto) 5-10 /hpf (0-4) H 10/22/20 21:30 U Hyaline Cast (Auto) 10-30 /lpf (0-5) H 10/22/20 21:30 U Epithel Cells (Auto) >30 /lpf (0-5) H 10/22/20 21:30 Urine Bacteria (Auto) 2+ (Negative) H 10/22/20 21:30 Blood Type O Positive 10/23/20 13:47 Antibody Screen POSITIVE A 10/23/20 13:47 10/22/20 20:06 Aerobic Blood Culture - Preliminary Blood No growth in Aerobic bottle after 48 hours. Anaerobic Blood Culture - Preliminary No growth in Anaerobic bottle after 48 hours. 10/22/20 20:07 Aerobic Blood Culture - Preliminary Blood No growth in Aerobic bottle after 48 hours. Anaerobic Blood Culture - Preliminary No growth in Anaerobic bottle after 48 hours. 10/22/20 21:30 Urine Culture - Final Urine,Straight Cath Pseudomonas aeruginosa 10/26/20 10/25/20 05:39 20:22 POC Glucose 126 H 149 H Electrocardiogram Date: 10/22/20 Findings: + NSR @ (80) Chest X-Ray Date: 10/22/20 Findings: + atelectasis and + cardiomegaly
[2020-10-26] MEDS: RESTASIS~ORDER AWAITING ACTION SCH ×3 (07:38→23:05)
[2020-10-26] MEDS ORDERED: ROCURONIUM BROMIDE 10 MG/ML 5 ML VIAL IV ONE (07:50)
[2020-10-26] MEDS ORDERED: ATROPINE SULFATE 0.1 MG/ML 10ML SYR IV PRN (08:07)
[2020-10-26] MEDS ORDERED: HYDROmorphone INJ 1 MG/ML SYRINGE IV PRN (08:07)
[2020-10-26] MEDS ORDERED: ONDANSETRON INJ 2 MG/ML 2 ML VIAL IV PRN ×2 (08:07→12:15)
[2020-10-26] MEDS ORDERED: PHENYLEPHRINE 100MCG/ML 5ML SYR ONE (08:43)
[2020-10-26] MEDS ORDERED: GLYCOPYRROLATE 0.2 MG/ML VIAL ONE (09:14)
[2020-10-26] MEDS ORDERED: NEOSTIGMINE METHYLSULFATE 1 MG/ML 10ML VIAL ONE (09:15)
[2020-10-26] MEDS ORDERED: SODIUM CHLORIDE 0.9% 250 ML IV PRN (10:23)
--- NOTE | 2020-10-26 10:42 | Operative Report ---
Post Operative Report Pre & Post Diagnosis Operation Date: 10/26/20 07:00 Pre-Op Diagnosis: RIGHT LOWER LEG WOUND INFECTION with severe necrosis and full-thickness skin loss is status post ORIF of right periprosthetic femur fracture. Post-Op Diagnosis: RIGHT LOWER LEG WOUND INFECTION with severe necrosis and full-thickness skin loss status post ORIF of right periprosthetic femur fracture. I identified the patient and participated in the time-out.: Yes Procedure Operation Date: 10/26/20 07:00 Actual Procedures p Right Above the Knee Amputation(Right) - Gonzalez Leong MD Surgeon Goznalez Leong MD Caregivers Non Medical SOLOMON Jarquin Estimated Blood Loss 300 Findings Consistent with Post-Op Diagnosis Operative findings revealed a severe necrosis of the mid to distal portion of her leg and ankle area. There was no signs of infection at the fracture site or in the proximal wound where the surgical intervention took place today. The fracture was well fixed with a plate and screws. He had extremely calcified vessels distally. Fluids 1000 cc Specimens Right leg sent for pathology. Anesthesia Type General Complications none Disposition Accompanied Patient To Recovery: No Indications Patient 85-year-old female with multiple medical comorbidities who sustained a right hip periprosthetic femur fracture about 3 weeks ago. She went an open reduction internal fixation without any significant complications. Postoperatively she was immobilized in a custom brace due to her large size and the tenuous nature of fixation due to the severe fracture around periprosthetic components. The brace was clearly irritating the distal aspect of the leg when she came back to the clinic she had full areas of necrosis both anteriorly and posteriorly of the leg. This was treated with dressing changes for approximately a week but she continued develop a progressive necrosis infection in the distal aspect of her leg. I did not feel there is any other option other than the above-knee amputation. She had stemmed tibial and femoral components and would not of healed a below-knee amputation. Description of Procedure The patient was taken to the operating, identified, and placed on the operating table supine position but all contractors were properly padded. IV antibiotics had provided him preoperatively on the floor for her necrosis and infection. A general anesthetic was implemented. The right lower extremity was then scrubbed with Hibiclens, prepped with ChloraPrep and draped in usual sterile fashion. A fishmouth type incision was made over the mid to distal aspect of the femur proximal to any areas of full-thickness skin loss, necrosis or infection. Sharp dissection was carried through subcutaneous tissues directly down through the extensor mechanism directly down to the bone. The posterior flap was then fashioned down to the subcutaneous tissues. I then elevated the and tears envelope including the muscle and the subcutaneous tissues off the anterior aspect of the femur. I then exposed the plate proximally and removed the proximal screws. I also removed several cables. I then completed the incision through the deep muscle posteriorly. The femoral artery was identified and suture-ligated with 2-0 silk suture followed by a #1 silk suture. This vessel was extremely calcified and we placed 3 sutures in a 2 sure hemostasis. The sciatic nerve was identified, traction was applied and it was cut and allowed to retract proximally. The remainder the leg was then dissected off and the leg was removed at the area of the fracture site and passed off the table. I then used the soft to cut the distal femur just proximal to the fracture site. I then used a saw to bevel the anterior lateral surface. We then obtained meticulous hemostasis. I irrigated the wound extensively. Once again there was no signs of infection were pus present. I then used a #1 Vicryl suture to appro ximate the anterior and posterior deep fascia. The subcutaneous tissues were then closed with 2-0 Vicryl suture in a buried interrupted fashion the skin was closed with a combination of #1 Prolene sutures in a simple fashion followed by 2-0 nylon sutures in a simple fashion. Leg was then cleaned and dried and a sterile dressing both Xeroform, 4 x 4's, ABD pad, Kerlix wrap, sterile cast padding, Nino bandage were applied. The patient then brought out of general incision transferred to the recovery room in stable condition. The patient tolerated procedure well and there were no complications. Sammy Jarquin, my physician chef's assistant, was present for the procedure. His assistance was required for proper patient positioning, prepping and draping, surgical exposure, and performing the technical details of the operation. I attest to the content of the Intraoperative Record and any orders documented therein. Any exceptions are noted below.
[2020-10-26] MEDS ORDERED: VANCOMYCIN TROUGH ONE (11:30)
--- NOTE | 2020-10-26 11:54 | Anesthesiology Progress Note ---
Date of Service October 26, 2020 Anesthesia Post Procedure Vital Signs Vital Signs: Temp Pulse Pulse Pulse Pulse Resp BP 10/26/20 11:45 36.3 C L 104 H 18 10/26/20 11:35 36.3 C L 108 H 16 10/26/20 11:25 36.3 C L 113 H 16 10/26/20 11:19 36.7 C 112 H 18 95/50 L 10/26/20 11:15 110 H 16 10/26/20 11:05 36.7 C 114 H 16 10/26/20 10:55 116 H 16 10/26/20 10:45 113 H 16 10/26/20 10:35 108 H 16 10/26/20 10:29 36.9 C 109 H 16 10/26/20 07:11 37.9 C H 86 86 22 10/25/20 22:00 36.9 C 83 20 147/81 H 10/25/20 21:09 37.1 C 80 16 151/66 H 10/25/20 20:09 37 C 79 20 156/60 H 10/25/20 19:40 36.9 C 80 16 136/80 10/25/20 19:24 36.6 C 80 18 134/71 10/25/20 19:04 37.1 C 84 18 138/73 10/25/20 14:57 36.5 C 73 18 BP Pulse Ox 10/26/20 11:45 108/57 L 100 10/26/20 11:35 106/59 L 99 10/26/20 11:25 116/64 99 10/26/20 11:19 98 10/26/20 11:15 104/56 L 96 10/26/20 11:05 100/61 98 10/26/20 10:55 111/50 L 97 10/26/20 10:45 102/67 99 10/26/20 10:35 111/54 L 99 10/26/20 10:29 108/59 L 98 10/26/20 07:11 125/56 L 97 10/25/20 22:00 95 10/25/20 21:09 97 10/25/20 20:09 98 10/25/20 19:40 98 10/25/20 19:24 96 10/25/20 19:04 97 10/25/20 14:57 126/70 99 Pain Intensity Right Leg: Pain Intensity: 7 Transfer of Care Handoff Completed per policy Notes Mental Status: alert / awake / arousable Patient Amnestic to Procedure: Yes Nausea / Vomiting: adequately controlled Pain: adequately controlled Airway Patency, RR, SpO2: stable & adequate BP & HR: stable & adequate Hydration State: stable & adequate Anesthetic Complications: no major complications apparent
[2020-10-26] MEDS ORDERED: PHARMACY GLYCEMIC MGMT CONSULT PRN (12:15)
[2020-10-26] MEDS ORDERED: METOCLOPRAMIDE HCL INJ 5 MG/ML 2 ML VIAL IV PRN (12:15)
[2020-10-26] MEDS ORDERED: NALOXONE HCL 0.4 MG/1 ML VIAL/CARP IV PRN (12:15)
[2020-10-26] MEDS ORDERED: MAGNESIUM HYDROXIDE SUSP 30 ML UDC PO PRN (12:15)
[2020-10-26] MEDS ORDERED: bisacodyL 10 MG SUPP PR PRN (12:15)
[2020-10-26] MEDS ORDERED: ALUMINUM/MAGNESIUM SUSP 30 ML UDC PO PRN (12:15)
[2020-10-26] MEDS: FERROUS SULFATE 325 MG TAB PO SCH ×2 (12:22→17:25)
[2020-10-26] MEDS: ATENOLOL 50 MG TABLET PO SCH (12:58)
[2020-10-26] MEDS: CHOLECALCIFEROL 1,000 UNITS 25 MCG TAB PO SCH (13:03)
[2020-10-26] MEDS: SENNA 8.6 MG TAB PO SCH ×2 (13:03→20:33)
[2020-10-26] MEDS: CALCIUM CITRATE 950 MG TAB PO SCH (13:03)
[2020-10-26] MEDS: CYANOCOBALAMIN 500 MCG TABLET (VITAMIN B-12) PO SCH (13:03)
[2020-10-26] MEDS: VENLAFAXINE HCL XR 37.5 MG CAPXR PO SCH (13:03)
[2020-10-26] MEDS: CEROVITE ADV FORMULA TAB PO SCH (13:03)
[2020-10-26] MEDS: TRIAMCINOLONE ACET 0.5% CR 15 GM TUBE TOP SCH (13:04)
[2020-10-26] MEDS: VANCOMYCIN HCL 1,000 MG in SODIUM CHLORIDE 0.9% 250 ML IV SCH (13:07)
--- NOTE | 2020-10-26 13:24 | Pharmacy Report ---
Pharmacy Abx Dose Short Note - Date of Service October 26, 2020 - Assessment & Plan Assessment 85 yo F admitted from [facility] on 10/22/20 secondary to worsening right lower extremity wound * Day #5 of antimicrobial therapy. * Patient taken to OR for AKA today. Unsure if source control obtained. Plan Vancomycin * Trough level of 22.4 mcg/mL is supratherapeutic * Change to 750 mg IV every 24 hours * Goal trough level: 10 to 15 mcg/mL * Trough level not ordered for now given extended dosing interval Cefepime * 2000 mg IV every 8 hours Pharmacy will continue to follow and will adjust dose/frequency as necessary. Thank you.
[2020-10-26] MEDS: SODIUM CHLORIDE 0.9% 1000ML 1,000 ML IV SCH ×2 (13:29→22:58)
--- NOTE | 2020-10-26 13:38 | Pharmacy Report ---
Glycemic Ortho Sign Off Note - Date of Service October 26, 2020 - Scope Glycemic Pharmacist consulted for glycemic control and to write orders per [facility] inpatient glycemic control protocol. - Objective Accuchecks BSG (last 24hrs):: 10/25/20 10/25/20 10/26/20 17:07 20:22 05:39 Glucose POC Glucose 127 H 149 H 126 H 10/26/20 10/26/20 10/26/20 05:46 10:46 12:08 Glucose 108 H POC Glucose 153 H 145 H - Assessment * Pt is not on any antidiabeticagentsas anoutpatient with excellent control per recent A1c * Oral agents are not recommended for inpatient use d/t drug interactions, changing PO intake, and difficulty titrating for acute hyper/hypoglycemia. * Recommended regimen for inpatient use is SQ insulin * Low stress weight based insulin dosing appropriate since patient has minimal risk factors for insulin resistance (i.e. no steroids). * Appropriate to DC insulin at discharge * Goal is to maintain BSGs <200 mg/dl (ideally <150 mg/dl) to prevent post op complications - Plan For Inpatient Glycemic Control * Basal insulin * Not needed based on A1c, pre-op BSGs, and minimal risk factors for insulin resistance * Bolus insulin * Utilize low stress weight based NovoLog parameters per scale ACHS * Goal range = 110 - 140 mg/dL * Correction factor = 1 unit for ever 30 mg/dL above goal range * Carbohydrate ratio = 1 unit for every 10 grams of CHO consumed * Pharmacy has entered glycemic orders and is signing off of the glycemic consult. We will no longer be making adjustments to inpatient regimen. Please feel free to re-consult if needed. Thank you.
[2020-10-26] MEDS ORDERED: GLUCOSE 10 TABS/TUBE PO PRN (13:45)
[2020-10-26] MEDS ORDERED: CARBOHYDRATES FOR HYPOGLYCEMIA PO PRN (13:45)
[2020-10-26] MEDS ORDERED: GLUCAGON FOR INJ 1 MG VIAL IM PRN (13:45)
[2020-10-26] MEDS ORDERED: GLUCOSE 40% GEL 15 GM TUBE PO PRN (13:45)
[2020-10-26] MEDS ORDERED: DEXTROSE 50% 50 ML SYRINGE IV PRN (13:45)
[2020-10-26] MEDS: INSULIN ASPART 100 UNITS/ML 3 ML PEN SC SCH ×3 (14:35→20:30)
[2020-10-26] MEDS ORDERED: TRANEXAMIC ACID / 0.7% NACL 1,000 MG/100 ML BAG IV SCH (16:30)
[2020-10-26] MEDS: DOCUSATE SODIUM 100 MG CAP PO SCH (20:32)
[2020-10-26] MEDS: ASPIRIN 81 MG ECTAB PO SCH (20:32)
[2020-10-26] MEDS: GABAPENTIN 400 MG CAP PO SCH (20:33)
[2020-10-26] MEDS: rOPINIRole HCL 0.25 MG TABLET PO SCH (20:33)
[2020-10-26] MEDS: HYDROmorphone INJ 0.5 MG/0.5 ML SYR IV PRN (21:53)
--- NOTE | 2020-10-26 22:04 | Hospitalist Progress Note ---
Date of Service October 26, 2020 Assessment & Plan (1) Traumatic ulcer of right lower extremity with infection: Plan: S/P Right knee amputation Continue vancomycin IV and cefepime IV per pharmacokinetic monitoring begun in the ED Continue tramadol 50 mg p.o. every 6 hours as needed will monitor CBC S/P 1 unit of blood. (2) Type 2 diabetes mellitus with diabetic chronic kidney disease: Plan: No specific treatment noted. Glucose was [address] on Accu-Cheks (3) Elevated platelet count: Plan: Platelets have gradually increased from 271, to 410, to 741, and today is 867. Now downtrending. Likely reactive. Patient has not noted to be on any antiplatelet agents or anticoagulation We will be placing on heparin 7500 units subcu every 8 hours (4) Chronic kidney disease, stage 3 (moderate): Plan: Creatinine stable at 0.76, with creatinine clearance 58.3 Follow serially (5) Peripheral neuropathy: Plan: Continue gabapentin (6) Hypertension: Plan: Continue atenolol with hold parameters (7) Depression: Plan: Continue venlafaxine (8) Chronic venous insufficiency: Plan: Hold spironolactone for now (9) Sepsis with metabolic encephalopathy: Plan: Patient having criteria for SIRS with source of infection being her infected leg wound as stated above. Patient is now confused. Patient is not responding to antibiotics and will benefit from amputation. Given that patient is not as active, thos procedure may improve quality of life as her pain may improve. Son who discussed this with Dr. Leong is unsure. Admission and Anticipated Discharge Date Admission Date: October 23, 2020 Subjective Patient reports no new symptoms. She understands she had her leg amputated Review of Systems Review of Systems: All systems reviewed & are unremarkable except as noted in HPI & below Physical Exam Physical Exam: The patient is confused, well developed and well nourished, normocephalic and atraumatic, lying in bed and in no acute distress. HEENT--PERRL, EOMI, mucous membranes and oropharynx normal. Neck--supple. No JVD. No bruits. Thyroid normal, trachea midline, no adenopathy. Heart--normal S1 and S2. No murmurs, rubs or gallops. Lungs--clear bilaterally, no respiratory distress, no accessory muscle use. Abdomen--normal bowel sounds and soft. Nontender. Nondistended. Morbidly obese Extremities--1+ bilateral pretibial pitting edema. Right knee amputation Dermatologic--see above Neurologic--cranial nerves II through XII grossly intact. Rheumatologic--limited range of motion due to body habitus and wounds Results & Data Results & Data ([facility]) Vital Signs (Past 12 Hours) Vital Signs Temp Pulse Pulse Pulse Pulse Resp BP 10/26/20 21:55 36.8 C 89 16 10/26/20 19:27 36.7 C 85 16 10/26/20 15:12 36.7 C 85 18 10/26/20 14:06 36.7 C 79 16 10/26/20 13:08 36.7 C 86 18 102/69 10/26/20 12:52 16 10/26/20 12:39 10/26/20 12:34 36.7 C 90 15 10/26/20 12:20 10/26/20 12:05 36.8 C 94 H 94 H 15 98/59 L 10/26/20 12:04 36.7 C 91 H 15 104/70 10/26/20 11:55 36.3 C L 96 H 18 10/26/20 11:45 36.3 C L 104 H 18 10/26/20 11:35 36.3 C L 108 H 16 10/26/20 11:25 36.3 C L 113 H 16 10/26/20 11:19 36.7 C 112 H 18 95/50 L 10/26/20 11:15 110 H 16 10/26/20 11:05 36.7 C 114 H 16 10/26/20 10:55 116 H 16 10/26/20 10:45 113 H 16 10/26/20 10:35 108 H 16 10/26/20 10:29 36.9 C 109 H 16 BP Pulse Ox 10/26/20 21:55 117/69 98 10/26/20 19:27 110/69 100 10/26/20 15:12 98/60 L 97 10/26/20 14:06 101/63 100 10/26/20 13:08 99 10/26/20 12:52 98 10/26/20 12:39 98 10/26/20 12:34 104/70 98 10/26/20 12:20 105/72 10/26/20 12:05 98/59 L 99 10/26/20 12:04 98 10/26/20 11:55 100/57 L 99 10/26/20 11:45 108/57 L 100 10/26/20 11:35 106/59 L 99 10/26/20 11:25 116/64 99 10/26/20 11:19 98 10/26/20 11:15 104/56 L 96 10/26/20 11:05 100/61 98 10/26/20 10:55 111/50 L 97 10/26/20 10:45 102/67 99 10/26/20 10:35 111/54 L 99 10/26/20 10:29 108/59 L 98 PG Care Time/CCT Total # of Minutes Spent Total Time Spent with Patient: Total time spent is greater than 50% in coordination of care (as documented) at patient's floor/unit and/or counseling patient: Coding Level of Care Code 45434 Subseq Hosp Care Lvl 2 Diagnoses Traumatic ulcer of right lower extremity with infection L97.919; L08.9 Type 2 diabetes mellitus with diabetic chronic kidney disease E11.22; Z79.4 Chronic kidney disease stage: unspecified stage Diabetes mellitus senior living insulin use: with intermodal truck driver use Elevated platelet count R79.89 Chronic kidney disease, stage 3 (moderate) N18.3 Peripheral neuropathy G62.9 Hypertension I10 Depression F32.9 Chronic venous insufficiency I87.2 Sepsis with metabolic encephalopathy A41.9; R65.20; G93.41 Time Spent (min) 25 (1) Type 2 diabetes mellitus with diabetic chronic kidney disease Chronic kidney disease stage: unspecified stage Diabetes mellitus intermodal truck driver insulin use: with intermodal truck driver use Qualified Code(s): E11.22 - Type 2 diabetes mellitus with diabetic chronic kidney disease; Z79.4 - group home (current) use of insulin
[2020-10-26] MEDS: diphenhydrAMINE Capsule 25 MG CAP PO PRN (22:24)
[2020-10-27] MEDS: CEFEPIME 2,000 MG in SYRINGE 0 ML IV SCH ×3 (02:30→20:55)
[2020-10-27] MEDS: HYDROmorphone INJ 0.5 MG/0.5 ML SYR IV PRN ×2 (03:12→13:09)
[2020-10-27] MEDS: VANCOMYCIN HCL 750 MG in SODIUM CHLORIDE 0.9% 250 ML IV SCH (05:28)
[2020-10-27] MEDS: RESTASIS~ORDER AWAITING ACTION SCH ×3 (08:37→23:00)
--- NOTE | 2020-10-27 08:40 | Progress Notes ---
DATE OF NOTE: 10/27/2020. SUBJECTIVE: An 85-year-old white female postoperative day 1 from a right above-knee amputation for a lower extremity infection after ORIF of periprosthetic femur fracture. She continues to be confused . Denies any significant pain this morning. OBJECTIVE: VITAL SIGNS: Temperature 37.0. Vital signs are stable. GENERAL: Shows a pleasant elderly female. She is clearly confused this morning. No real complaints . She is just talking about nonrelated things. Sitting up on bed, looks reasonably comfortable. EXTREMITIES: Examination of the right leg reveals the dressing to be clean, dry and intact. No sign ificant drainage. LABORATORY DATA: Her labs this morning are pending. ASSESSMENT: An 85-year-old white female postoperative day 1 from right above-knee amputation for sev ere lower extremity necrosis and infection after ORIF of a periprosthetic femur fracture in a dysvasc ular limb. Seems to be doing okay. Labs are pending. Not any major pain. Vital signs are stable. PLAN: 1. DVT prophylaxis include thigh-high TEDs, SCDs and we would recommend an aspirin twice a day. Wou ld not recommend more aggressive anticoagulation. 2. PT/OT. She can be mobilized as tolerated. She is not really a candidate for a prosthesis in the future. 3. Medical management as per the medicine service. 4. Antibiotic management. I would recommend 48 hours of IV antibiotic administration postoperativel y and then she can be changed to p.o. antibiotics. I do think she should probably have about 2 weeks of p.o. antibiotics after this. I would recommend broad spectrum coverage something like Augmentin maybe 500 mg 3 times a day for 2 weeks and I will see her back in 2-3 weeks out from surgery date. A [place] orthopedic questions can be directed to me at [phone]. Job ID: [id number]
[2020-10-27] MEDS: ASPIRIN 81 MG ECTAB PO SCH ×2 (08:43→20:51)
[2020-10-27] MEDS: FERROUS SULFATE 325 MG TAB PO SCH ×2 (08:43→17:59)
[2020-10-27] MEDS: ATENOLOL 50 MG TABLET PO SCH (08:43)
[2020-10-27] MEDS: CALCIUM CITRATE 950 MG TAB PO SCH (08:43)
[2020-10-27] MEDS: CEROVITE ADV FORMULA TAB PO SCH (08:43)
[2020-10-27] MEDS: DOCUSATE SODIUM 100 MG CAP PO SCH ×2 (08:43→20:51)
[2020-10-27] MEDS: SENNA 8.6 MG TAB PO SCH ×2 (08:44→20:50)
[2020-10-27] MEDS: CHOLECALCIFEROL 1,000 UNITS 25 MCG TAB PO SCH (08:44)
[2020-10-27] MEDS: MULTIVITAMIN TAB PO SCH (08:44)
[2020-10-27] MEDS: CYANOCOBALAMIN 500 MCG TABLET (VITAMIN B-12) PO SCH (08:44)
[2020-10-27] MEDS: TRIAMCINOLONE ACET 0.5% CR 15 GM TUBE TOP SCH (08:44)
[2020-10-27] MEDS: VENLAFAXINE HCL XR 37.5 MG CAPXR PO SCH (08:44)
[2020-10-27] MEDS: INSULIN ASPART 100 UNITS/ML 3 ML PEN SC SCH ×4 (08:55→21:18)
[2020-10-27] MEDS: traMADol HCL 50 MG TABLET PO PRN (08:59)
[2020-10-27 09:09] LABS: Hemoglobin 6.2 g/dL (12.0-16.0); Mean Corpuscular Hemoglobin 28.6 pg (25-34); Mean Corpuscular Volume 92.2 fL (80-100); Mean Platelet Volume 8.4 fL (7.4-10.4); Nucleated RBC # (auto) 0.06 K/uL (0-0); Nucleated RBC % (auto) 0.2 %; Platelet Count 579 K/uL (130-400); RDW Coefficient of Variation 16.7 % (11.5-14.5); RDW Standard Deviation 55.8 fL (36.4-46.3); Red Blood Count 2.17 M/uL (4.2-5.4); White Blood Count 24.36 K/uL (4.8-10.8)
[2020-10-27] MEDS ORDERED: SODIUM CHLORIDE 0.9% 250 ML IV PRN (09:09)
[2020-10-27 09:14] LABS: BUN Creatinine Ratio 27.3 (10-20); Creatinine Clr Calc Pharmacy 49.8 ml/min; Est GFR (Non-African American) 58.7 ml/min; Potassium 5.6 mmol/L (3.5-5.1)
[2020-10-27] MEDS ORDERED: FUROSEMIDE 40 MG in SYRINGE 0 ML IV ONE (18:00)
--- NOTE | 2020-10-27 19:35 | XRay Report ---
XR chest 1V portable HISTORY: hypoxia COMPARISON: Chest 10/22/2020. FINDINGS: No pneumothorax. No pleural effusions. The heart remains mildly enlarged. There is diffuse interstitial thickening, unchanged. Left mid to lower lung zone linear densities persist and favor sc arring or subsegmental atelectasis. No new focal lung consolidations to suggest pneumonia. Old, heale d left-sided rib fractures. Bilateral shoulder prostheses are again noted. IMPRESSION: 1. No significant change. No acute process within the chest. 2. Mild cardiomegaly, unchanged. 3. Chronic interstitial thickening and left basilar atelectasis/scarring persists. ACT 112: Negative or not required by law. Electronically signed by: Kameron King M.D. 10/27/2020 7:34 PM
[2020-10-27] MEDS: GABAPENTIN 400 MG CAP PO SCH (20:50)
[2020-10-27] MEDS: rOPINIRole HCL 0.25 MG TABLET PO SCH (20:51)
--- NOTE | 2020-10-27 23:18 | Hospitalist Progress Note ---
Date of Service October 27, 2020 Assessment & Plan (1) Traumatic ulcer of right lower extremity with infection: Plan: S/P Right knee amputation Continue vancomycin IV and cefepime IV per pharmacokinetic monitoring begun in the ED Continue tramadol 50 mg p.o. every 6 hours as needed will monitor CBC S/P 1 unit of blood. Hemoglobin dropped to 6.2 will transfuse 2 units of blood. (2) Type 2 diabetes mellitus with diabetic chronic kidney disease: Plan: No specific treatment noted. Glucose was [address] on Accu-Cheks (3) Elevated platelet count: Plan: Platelets have gradually increased from 271, to 410, to 741, and today is 867. Now downtrending. Likely reactive. Patient has not noted to be on any antiplatelet agents or anticoagulation We will be placing on heparin 7500 units subcu every 8 hours (4) Chronic kidney disease, stage 3 (moderate): Plan: Creatinine stable at 0.76, with creatinine clearance 58.3 Follow serially (5) Peripheral neuropathy: Plan: Continue gabapentin (6) Hypertension: Plan: Continue atenolol with hold parameters (7) Depression: Plan: Continue venlafaxine (8) Chronic venous insufficiency: Plan: Hold spironolactone for now (9) Sepsis with metabolic encephalopathy: Plan: sepsis resolved. continue with metabolic encephalopathy. Admission and Anticipated Discharge Date Admission Date: October 23, 2020 Subjective Patient is confused Review of Systems Review of Systems: Unobtainable due to cognitive status Physical Exam Physical Exam: The patient is confused, well developed and well nourished, normocephalic and atraumatic, lying in bed and in no acute distress. HEENT--PERRL, EOMI, mucous membranes and oropharynx normal. Neck--supple. No JVD. No bruits. Thyroid normal, trachea midline, no adenopathy. Heart--normal S1 and S2. No murmurs, rubs or gallops. Lungs--clear bilaterally, no respiratory distress, no accessory muscle use. Abdomen--normal bowel sounds and soft. Nontender. Nondistended. Morbidly obese Extremities--1+ bilateral pretibial pitting edema. Right knee amputation Dermatologic--see above Neurologic--cranial nerves II through XII grossly intact. Rheumatologic--limited range of motion due to body habitus and wounds Results & Data Results & Data ([facility]) Vital Signs (Past 12 Hours) Vital Signs Temp Pulse Pulse Resp BP BP Pulse Ox 10/27/20 22:04 36.9 C 71 16 111/66 98 10/27/20 20:57 37.2 C 74 18 115/68 99 10/27/20 20:20 37.2 C 71 16 121/47 L 99 10/27/20 19:20 37.2 C 72 18 125/69 97 10/27/20 18:23 37.2 C 72 18 103/66 98 10/27/20 17:55 37.1 C 74 18 95/42 L 100 10/27/20 17:38 37.5 C 71 18 102/44 L 99 10/27/20 17:20 37.3 C 74 16 111/67 98 10/27/20 15:45 37.1 C 76 18 124/52 L 95 10/27/20 14:20 37.2 C 72 18 109/43 L 10/27/20 13:51 37.2 C 94 H 18 116/47 L 10/27/20 13:21 38.0 C H 74 18 135/54 L 94 10/27/20 13:06 37.2 C 80 18 114/47 L 10/27/20 12:45 37.1 C 78 18 110/51 L PG Care Time/CCT Total # of Minutes Spent Total Time Spent with Patient: Total time spent is greater than 50% in coordination of care (as documented) at patient's floor/unit and/or counseling patient: Coding Level of Care Code 26628 Subseq Hosp Care Lvl 3 Diagnoses Traumatic ulcer of right lower extremity with infection L97.919; L08.9 Type 2 diabetes mellitus with diabetic chronic kidney disease E11.22; Z79.4 Chronic kidney disease stage: unspecified stage Diabetes mellitus care home insulin use: with care home use Elevated platelet count R79.89 Chronic kidney disease, stage 3 (moderate) N18.3 Peripheral neuropathy G62.9 Hypertension I10 Depression F32.9 Chronic venous insufficiency I87.2 Sepsis with metabolic encephalopathy A41.9; R65.20; G93.41 (1) Type 2 diabetes mellitus with diabetic chronic kidney disease Chronic kidney disease stage: unspecified stage Diabetes mellitus care home insulin use: with truck terminal manager use Qualified Code(s): E11.22 - Type 2 diabetes mellitus with diabetic chronic kidney disease; Z79.4 - terminal manager (current) use of insulin
[2020-10-28] MEDS: VANCOMYCIN HCL 750 MG in SODIUM CHLORIDE 0.9% 250 ML IV SCH (05:26)
[2020-10-28 06:28] LABS: Hemoglobin 8.2 g/dL (12.0-16.0); Mean Corpuscular Hemoglobin 28.4 pg (25-34); Mean Corpuscular Hgb Conc 31.5 g/dL (32-36); Mean Platelet Volume 8.6 fL (7.4-10.4); Nucleated RBC # (auto) 0.11 K/uL (0-0); Nucleated RBC % (auto) 0.5 %; Platelet Count 479 K/uL (130-400); RDW Coefficient of Variation 17.1 % (11.5-14.5); RDW Standard Deviation 55.9 fL (36.4-46.3); Red Blood Count 2.89 M/uL (4.2-5.4); White Blood Count 21.04 K/uL (4.8-10.8)
[2020-10-28 07:03] LABS: BUN Creatinine Ratio 25.9 (10-20); Calcium 8.6 mg/dl (8.5-10.1); Creatinine Clr Calc Pharmacy 49.3 ml/min; Est GFR (African American) 67.1 ml/min; Est GFR (Non-African American) 57.9 ml/min; Potassium 4.8 mmol/L (3.5-5.1)
--- NOTE | 2020-10-28 08:46 | Progress Notes ---
DATE OF NOTE: 10/28/2020. SUBJECTIVE: An 85-year-old white female now postop day 2 from right above-knee amputation for chroni c lower leg extremity infection. She seems to be stable. Continues to be somewhat confused. No new complaints today. OBJECTIVE: VITAL SIGNS: Temperature 36.5. Vital signs are stable. GENERAL: Examination shows an elderly female. She is lying in bed and sleeping pretty soundly. EXTREMITIES: Examination of the right leg reveals the dressing to be clean, dry and intact. No sign ificant drainage. LABORATORY DATA: Hemoglobin is 8.2 this morning. Hematocrit is 26.0. White cell count 21.04. Kori rg of her labs are stable. ASSESSMENT: An 85-year-old white female now 2 days out from a right above-knee amputation for chroni c lower extremity infection. Seems to be improving. Hemoglobin has improved after transfusion. PLAN: 1. DVT prophylaxis include thigh-high TEDs, SCDs, and recommend an aspirin twice a day. Avoid addit ional blood thinners. 2. PT/OT. Mobilization as tolerated. 3. Medical management as per the medicine service. 4. Wound care. We are just going to leave this bandage on for a couple of days and let the wound se al up. Any issues can be directed to myself. 5. Disposition: She is orthopedically okay for discharge any time medically stable. I would recomm end 48 hours of antibiotics after surgery, then convert to p.o. antibiotics with broad-spectrum agent for 2 weeks. Recommend Augmentin 500 mg 3 times a day if possible. Other options would be cefadrox il 500 mg twice a day. Any orthopedic questions about this can be directed to me at [phone]. Job ID: [id number]
[2020-10-28] MEDS: INSULIN ASPART 100 UNITS/ML 3 ML PEN SC SCH ×4 (09:19→21:39)
[2020-10-28] MEDS: RESTASIS~ORDER AWAITING ACTION SCH ×3 (09:21→23:00)
[2020-10-28] MEDS: VENLAFAXINE HCL XR 37.5 MG CAPXR PO SCH (09:44)
[2020-10-28] MEDS: ACETAMINOPHEN 325 MG TAB PO PRN (09:44)
[2020-10-28] MEDS: CYANOCOBALAMIN 500 MCG TABLET (VITAMIN B-12) PO SCH (09:45)
[2020-10-28] MEDS: FERROUS SULFATE 325 MG TAB PO SCH ×2 (09:45→16:45)
[2020-10-28] MEDS: ATENOLOL 50 MG TABLET PO SCH (09:45)
[2020-10-28] MEDS: CALCIUM CITRATE 950 MG TAB PO SCH (09:45)
[2020-10-28] MEDS: DOCUSATE SODIUM 100 MG CAP PO SCH ×2 (09:45→20:35)
[2020-10-28] MEDS: ASPIRIN 81 MG ECTAB PO SCH ×2 (09:45→20:36)
[2020-10-28] MEDS: MULTIVITAMIN TAB PO SCH (09:46)
[2020-10-28] MEDS: CEROVITE ADV FORMULA TAB PO SCH (09:46)
[2020-10-28] MEDS: CHOLECALCIFEROL 1,000 UNITS 25 MCG TAB PO SCH (09:47)
[2020-10-28] MEDS: TRIAMCINOLONE ACET 0.5% CR 15 GM TUBE TOP SCH (09:47)
[2020-10-28] MEDS: SENNA 8.6 MG TAB PO SCH ×2 (09:47→20:36)
[2020-10-28] MEDS: CEFEPIME 2,000 MG in SYRINGE 0 ML IV SCH ×2 (09:55→20:36)
--- NOTE | 2020-10-28 10:26 | Hospitalist Progress Note ---
Date of Service October 28, 2020 Assessment & Plan (1) Traumatic ulcer of right lower extremity with infection: Plan: S/P Right knee amputation Continue vancomycin IV and cefepime IV per pharmacokinetic monitoring begun in the ED Continue tramadol 50 mg p.o. every 6 hours as needed will monitor CBC S/P 1 unit of blood. Hemoglobin dropped to 6.2 S/P 2 units of blood. NOW 8.2 Will monitor. will limit opiates due to possiblity of worsening confusion. (2) Type 2 diabetes mellitus with diabetic chronic kidney disease: Plan: No specific treatment noted. Glucose was [address] on Accu-Cheks (3) Elevated platelet count: Plan: Platelets have gradually increased from 271, to 410, to 741, and today is 867. Now downtrending. Likely reactive. Patient has not noted to be on any antiplatelet agents or anticoagulation We will be placing on heparin 7500 units subcu every 8 hours (4) Chronic kidney disease, stage 3 (moderate): Plan: Creatinine stable at 0.76, with creatinine clearance 58.3 Follow serially (5) Peripheral neuropathy: Plan: Continue gabapentin (6) Hypertension: Plan: Continue atenolol with hold parameters (7) Depression: Plan: Continue venlafaxine (8) Chronic venous insufficiency: Plan: Hold spironolactone for now (9) Sepsis with metabolic encephalopathy: Plan: sepsis resolved. continue with metabolic encephalopathy. Admission and Anticipated Discharge Date Admission Date: October 23, 2020 Subjective Patient appears to be confused and lethargic. No new complaints. Review of Systems Review of Systems: All systems reviewed & are unremarkable except as noted in HPI & below Physical Exam Physical Exam: The patient is confused, and lethargic, well developed and well nourished, normocephalic and atraumatic, lying in bed and in no acute distress. HEENT--PERRL, EOMI, mucous membranes and oropharynx normal. Neck--supple. No JVD. No bruits. Thyroid normal, trachea midline, no adenopathy. Heart--normal S1 and S2. No murmurs, rubs or gallops. Lungs--clear bilaterally, no respiratory distress, no accessory muscle use. Abdomen--normal bowel sounds and soft. Nontender. Nondistended. Morbidly obese Extremities--1+ bilateral pretibial pitting edema. Right knee amputation Dermatologic--see above Neurologic--cranial nerves II through XII grossly intact. Rheumatologic--limited range of motion due to body habitus and wounds Results & Data Results & Data ([facility]) Vital Signs (Past 12 Hours) Vital Signs Temp Pulse Resp BP BP Pulse Ox 10/28/20 09:18 59 L 114/67 100 10/28/20 07:50 36.5 C 60 18 113/49 L 100 PG Care Time/CCT Total # of Minutes Spent Total Time Spent with Patient: Total time spent is greater than 50% in coordination of care (as documented) at patient's floor/unit and/or counseling patient: Coding Level of Care Code 48510 Subseq Hosp Care Lvl 2 Diagnoses Traumatic ulcer of right lower extremity with infection L97.919; L08.9 Type 2 diabetes mellitus with diabetic chronic kidney disease E11.22; Z79.4 Chronic kidney disease stage: unspecified stage Diabetes mellitus fci insulin use: with fci use Elevated platelet count R79.89 Chronic kidney disease, stage 3 (moderate) N18.3 Peripheral neuropathy G62.9 Hypertension I10 Depression F32.9 Chronic venous insufficiency I87.2 Sepsis with metabolic encephalopathy A41.9; R65.20; G93.41 Time Spent (min) 25 (1) Type 2 diabetes mellitus with diabetic chronic kidney disease Chronic kidney disease stage: unspecified stage Diabetes mellitus regional intermodal truck driver insulin use: with regional intermodal truck driver use Qualified Code(s): E11.22 - Type 2 diabetes mellitus with diabetic chronic kidney disease; Z79.4 - [facility] (current) use of insulin
[2020-10-28] MEDS: LIDOCAINE 5% 1 PATCH TD SCH (10:52)
[2020-10-28] MEDS: GABAPENTIN 400 MG CAP PO SCH (20:35)
[2020-10-28] MEDS: rOPINIRole HCL 0.25 MG TABLET PO SCH (20:36)
[2020-10-28] MEDS: traMADol HCL 50 MG TABLET PO PRN (23:59)
[2020-10-29 07:43] LABS: Hematocrit (blood only) 26.4 % (37-47); Hemoglobin 8.1 g/dL (12.0-16.0); Mean Corpuscular Hemoglobin 28.7 pg (25-34); Mean Corpuscular Hgb Conc 30.7 g/dL (32-36); Mean Corpuscular Volume 93.6 fL (80-100); Mean Platelet Volume 8.7 fL (7.4-10.4); Nucleated RBC # (auto) 0.09 K/uL (0-0); Nucleated RBC % (auto) 0.5 %; Platelet Count 537 K/uL (130-400); RDW Coefficient of Variation 17.1 % (11.5-14.5); RDW Standard Deviation 56.6 fL (36.4-46.3); Red Blood Count 2.82 M/uL (4.2-5.4); White Blood Count 16.97 K/uL (4.8-10.8)
[2020-10-29 08:11] LABS: BUN Creatinine Ratio 29.3 (10-20); Calcium 8.7 mg/dl (8.5-10.1); Creatinine Clr Calc Pharmacy 64.2 ml/min; Est GFR (African American) 91.4 ml/min; Est GFR (Non-African American) 78.8 ml/min; Potassium 4.7 mmol/L (3.5-5.1)
[2020-10-29] MEDS: INSULIN ASPART 100 UNITS/ML 3 ML PEN SC SCH ×4 (08:48→21:45)
[2020-10-29] MEDS: RESTASIS~ORDER AWAITING ACTION SCH ×3 (08:49→23:26)
[2020-10-29] MEDS: CEROVITE ADV FORMULA TAB PO SCH (08:50)
[2020-10-29] MEDS: FERROUS SULFATE 325 MG TAB PO SCH ×2 (08:50→16:42)
[2020-10-29] MEDS: ATENOLOL 50 MG TABLET PO SCH (08:50)
[2020-10-29] MEDS: CYANOCOBALAMIN 500 MCG TABLET (VITAMIN B-12) PO SCH (08:50)
[2020-10-29] MEDS: AMOXICILLIN/CLAVULANATE 500 MG TAB PO SCH ×3 (08:51→19:31)
[2020-10-29] MEDS: CHOLECALCIFEROL 1,000 UNITS 25 MCG TAB PO SCH (08:51)
[2020-10-29] MEDS: CALCIUM CITRATE 950 MG TAB PO SCH (08:51)
[2020-10-29] MEDS: VENLAFAXINE HCL XR 37.5 MG CAPXR PO SCH (08:52)
[2020-10-29] MEDS: MULTIVITAMIN TAB PO SCH (08:52)
[2020-10-29] MEDS: ASPIRIN 81 MG ECTAB PO SCH ×2 (08:52→19:31)
[2020-10-29] MEDS: SENNA 8.6 MG TAB PO SCH ×2 (08:52→19:31)
[2020-10-29] MEDS: DOCUSATE SODIUM 100 MG CAP PO SCH ×2 (08:53→19:31)
[2020-10-29] MEDS: LIDOCAINE 5% 1 PATCH TD SCH (08:54)
[2020-10-29] MEDS: TRIAMCINOLONE ACET 0.5% CR 15 GM TUBE TOP SCH (08:54)
--- NOTE | 2020-10-29 12:53 | Hospitalist Progress Note ---
Date of Service October 29, 2020 Assessment & Plan (1) Traumatic ulcer of right lower extremity with infection: Plan: S/P Right knee amputation Continue vancomycin IV and cefepime IV per pharmacokinetic monitoring begun in the ED Continue tramadol 50 mg p.o. every 6 hours as needed will monitor CBC S/P 3 unit of blood. ( 1 unit preop, 2 units after surgery). Hemoglobin dropped to 6.2 after surgery will require 2 weeks of augmentin 1 tab PO TID (10/29 initial date) will limit opiates due to possibility of worsening confusion. (2) Type 2 diabetes mellitus with diabetic chronic kidney disease: Plan: No specific treatment noted. Glucose was [address] on Accu-Cheks (3) Elevated platelet count: Plan: Platelets have gradually increased from 271, to 410, to 741, and today is 867. Now downtrending. Likely reactive. Patient has not noted to be on any antiplatelet agents or anticoagulation will be placed on asa 81 mg PO BID (4) Chronic kidney disease, stage 3 (moderate): Plan: Creatinine stable at 0.76, with creatinine clearance 58.3 Follow serially (5) Peripheral neuropathy: Plan: Continue gabapentin (6) Hypertension: Plan: Continue atenolol with hold parameters (7) Depression: Plan: Continue venlafaxine (8) Chronic venous insufficiency: Plan: Hold spironolactone for now (9) Sepsis with metabolic encephalopathy: Plan: sepsis resolved. continue with metabolic encephalopathy. Admission and Anticipated Discharge Date Admission Date: October 23, 2020 Subjective Patient remains delirius and states that she wants her car keys to drive to [place] [address] because that is where she had her leg cut off. After attempting to reorient her, she continues to be confused. Review of Systems Review of Systems: Unobtainable due to cognitive status Physical Exam Physical Exam: The patient is confused, but awake, well developed and well nourished, normocephalic and atraumatic, lying in bed and in no acute distress. HEENT--PERRL, EOMI, mucous membranes and oropharynx normal. Neck--supple. No JVD. No bruits. Thyroid normal, trachea midline, no adenopathy. Heart--normal S1 and S2. No murmurs, rubs or gallops. Lungs--clear bilaterally, no respiratory distress, no accessory muscle use. Abdomen--normal bowel sounds and soft. Nontender. Nondistended. Morbidly obese Extremities--1+ bilateral pretibial pitting edema. Right knee amputation Dermatologic--see above Neurologic--cranial nerves II through XII grossly intact. Rheumatologic--limited range of motion due to body habitus Results & Data Results & Data ([facility]) Vital Signs (Past 12 Hours) Vital Signs Temp Pulse Resp BP Pulse Ox 10/29/20 08:15 37.1 C 68 18 136/63 98 PG Care Time/CCT Total # of Minutes Spent Total Time Spent with Patient: Total time spent is greater than 50% in coordination of care (as documented) at patient's floor/unit and/or counseling patient: Coding Level of Care Code 45669 Subseq Hosp Care Lvl 2 Diagnoses Traumatic ulcer of right lower extremity with infection L97.919; L08.9 Type 2 diabetes mellitus with diabetic chronic kidney disease E11.22; Z79.4 Chronic kidney disease stage: unspecified stage Diabetes mellitus termite exterminator helper insulin use: with usp use Elevated platelet count R79.89 Chronic kidney disease, stage 3 (moderate) N18.3 Peripheral neuropathy G62.9 Hypertension I10 Depression F32.9 Chronic venous insufficiency I87.2 Sepsis with metabolic encephalopathy A41.9; R65.20; G93.41 Time Spent (min) 25 (1) Type 2 diabetes mellitus with diabetic chronic kidney disease Chronic kidney disease stage: unspecified stage Diabetes mellitus termite exterminator helper insulin use: with termite exterminator helper use Qualified Code(s): E11.22 - Type 2 diabetes mellitus with diabetic chronic kidney disease; Z79.4 - nursing home (current) use of insulin
[2020-10-29] MEDS: HYDROmorphone INJ 0.5 MG/0.5 ML SYR IV PRN ×2 (16:39→22:23)
[2020-10-29] MEDS: rOPINIRole HCL 0.25 MG TABLET PO SCH (19:31)
[2020-10-29] MEDS: GABAPENTIN 400 MG CAP PO SCH (19:32)
[2020-10-30] MEDS: HYDROmorphone INJ 0.5 MG/0.5 ML SYR IV PRN (03:37)
[2020-10-30] MEDS: RESTASIS~ORDER AWAITING ACTION SCH ×2 (08:13→15:36)
[2020-10-30] MEDS: INSULIN ASPART 100 UNITS/ML 3 ML PEN SC SCH ×4 (08:13→20:45)
[2020-10-30] MEDS: CEROVITE ADV FORMULA TAB PO SCH (08:16)
[2020-10-30] MEDS: TRIAMCINOLONE ACET 0.5% CR 15 GM TUBE TOP SCH (08:16)
[2020-10-30] MEDS: CALCIUM CITRATE 950 MG TAB PO SCH (08:16)
[2020-10-30] MEDS: MULTIVITAMIN TAB PO SCH (08:16)
[2020-10-30] MEDS: FERROUS SULFATE 325 MG TAB PO SCH ×2 (08:17→17:26)
[2020-10-30] MEDS: ATENOLOL 50 MG TABLET PO SCH (08:17)
[2020-10-30] MEDS: CYANOCOBALAMIN 500 MCG TABLET (VITAMIN B-12) PO SCH (08:17)
[2020-10-30] MEDS: CHOLECALCIFEROL 1,000 UNITS 25 MCG TAB PO SCH (08:17)
[2020-10-30] MEDS: AMOXICILLIN/CLAVULANATE 500 MG TAB PO SCH ×3 (08:18→20:35)
[2020-10-30] MEDS: VENLAFAXINE HCL XR 37.5 MG CAPXR PO SCH (08:18)
[2020-10-30] MEDS: ASPIRIN 81 MG ECTAB PO SCH ×2 (08:19→20:36)
[2020-10-30] MEDS: LIDOCAINE 5% 1 PATCH TD SCH (08:19)
[2020-10-30] MEDS: DOCUSATE SODIUM 100 MG CAP PO SCH ×2 (08:19→20:36)
[2020-10-30] MEDS: SENNA 8.6 MG TAB PO SCH ×2 (08:20→20:35)
[2020-10-30] MEDS: ACETAMINOPHEN 500 MG TAB PO SCH ×3 (09:24→20:37)
--- NOTE | 2020-10-30 18:32 | Hospitalist Progress Note ---
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 -- Acute blood loss anemia 2/2 surgery and superimposed on chronic anemia - S/P 3 units blood transfusion and will continue to monitor - Initially treated with IV Abx and now converted to Augmentin TID x 2 weeks - Continue bowel and pain regimen - pain medication likely contributing to confusion -- ALEX Tylenol to get around the clock coverage; Will need to try more oral options to assist with transition out of hospital (2) Type 2 diabetes mellitus with diabetic chronic kidney disease: Plan: - No specific treatment noted; last A1c was 5.7 - Given age and now AKA would avoid over correction of BSGs to prevent hypoglycemia (3) Elevated platelet count: Plan: - Platelets have gradually increased and peaked at 800+ and trending down; possibly reactive - On ASA 81 mg BID (4) Chronic kidney disease, stage 3 (moderate): Plan: - STABLE - baseline appears 0.6-0.7 - Will continue to monitor (5) Peripheral neuropathy: Plan: - Continue gabapentin 1200 mg HS (6) Hypertension: Plan: - Continue atenolol 50 mg daily with hold parameters (7) Depression: Plan: - Continue venlafaxine 37.5 mg daily (8) Chronic venous insufficiency: Plan: - Hold spironolactone for now (9) Sepsis with metabolic encephalopathy: Plan: - sepsis resolved - Continue with encephalopathy - possibly some related to pain medication Plan: - Obtain pain control; plan is for rehab on D/C - Tried to call pt son however mailbox was full and unable to leave a msg - will try again tomorrow Admission and Anticipated Discharge Date Admission Date: October 23, 2020 Subjective Patient is confused on examination today. She was recently medicated with pain medications which could be factoring in. She is alert but easily gets side tracked with basic questions. States she does not like "[facility]" and then stated she just wanted to see her granddaughter. She was pleasant during our conversation however could not gather useful information. She does not appear to be aware of where she is at. She is aware she had her leg amputated. Review of Systems Review of Systems: Unobtainable due to cognitive status (even with basic yes/no questions she would venture off topic) Physical Exam Physical Exam: PHYSICAL EXAM General Appearance: WDWN in NAD who is alert but confused HEENT: Head is normocephalic/atraumatic; Hearing grossly intact Neck: Supple; Trachea midline; Neg JVD Heart: RRR with no M/G/R Lungs: CTA in all lung reyna bilaterally; Respirations unlabored; Neg accessory muscle use Abdomen: Soft, non-tender, non-distended; Positive BS x 4 quadrants Extremities: Neg cyanosis or edema; RLE with AKA currently with kenna wrap in place which I did not remove Neurological: Speech clear; Gross motor/sensory function intact; Neg focal neurologic deficits Psychiatric: Confused but pleasant Skin: Normal Color; Warm/Dry Results & Data Results & Data ([facility]) Vital Signs (Past 12 Hours) Vital Signs Temp Pulse Resp BP Pulse Ox 10/30/20 14:53 36.7 C 68 16 150/72 H 95 10/30/20 07:20 36.8 C 69 16 122/61 90 PG Care Time/CCT Total # of Minutes Spent Total Time Spent with Patient: Total time spent is greater than 50% in coordination of care (as documented) at patient's floor/unit and/or counseling patient: Coding Level of Care Code 33473 Subseq Hosp Care Lvl 3 Diagnoses Traumatic ulcer of right lower extremity with infection L97.919; L08.9 Type 2 diabetes mellitus with diabetic chronic kidney disease E11.22; Z79.4 Chronic kidney disease stage: unspecified stage Diabetes mellitus mcc insulin use: with mcc use Elevated platelet count R79.89 Chronic kidney disease, stage 3 (moderate) N18.3 Peripheral neuropathy G62.9 Hypertension I10 Depression F32.9 Chronic venous insufficiency I87.2 Sepsis with metabolic encephalopathy A41.9; R65.20; G93.41 (1) Type 2 diabetes mellitus with diabetic chronic kidney disease Chronic kidney disease stage: unspecified stage Diabetes mellitus mcc insulin use: with mcc use Qualified Code(s): E11.22 - Type 2 diabetes mellitus with diabetic chronic kidney disease; Z79.4 - correction (current) use of insulin
[2020-10-30] MEDS: GABAPENTIN 400 MG CAP PO SCH (20:34)
[2020-10-30] MEDS: rOPINIRole HCL 0.25 MG TABLET PO SCH (20:37)
[2020-10-30] MEDS: traMADol HCL 50 MG TABLET PO PRN (21:52)
[2020-10-31] MEDS: RESTASIS~ORDER AWAITING ACTION SCH ×4 (00:03→23:58)
[2020-10-31] MEDS: ACETAMINOPHEN 500 MG TAB PO SCH ×3 (07:38→20:44)
[2020-10-31] MEDS: ASPIRIN 81 MG ECTAB PO SCH ×2 (07:38→20:43)
[2020-10-31] MEDS: AMOXICILLIN/CLAVULANATE 500 MG TAB PO SCH ×3 (07:39→20:44)
[2020-10-31] MEDS: SENNA 8.6 MG TAB PO SCH ×2 (07:39→20:44)
[2020-10-31] MEDS: ATENOLOL 50 MG TABLET PO SCH (07:39)
[2020-10-31] MEDS: DOCUSATE SODIUM 100 MG CAP PO SCH ×2 (07:40→20:43)
[2020-10-31] MEDS: CHOLECALCIFEROL 1,000 UNITS 25 MCG TAB PO SCH (07:40)
[2020-10-31] MEDS: CYANOCOBALAMIN 500 MCG TABLET (VITAMIN B-12) PO SCH (07:40)
[2020-10-31] MEDS: MULTIVITAMIN TAB PO SCH (07:40)
[2020-10-31] MEDS: CALCIUM CITRATE 950 MG TAB PO SCH (07:40)
[2020-10-31] MEDS: TRIAMCINOLONE ACET 0.5% CR 15 GM TUBE TOP SCH (07:41)
[2020-10-31] MEDS: VENLAFAXINE HCL XR 37.5 MG CAPXR PO SCH (07:41)
[2020-10-31] MEDS: FERROUS SULFATE 325 MG TAB PO SCH ×2 (07:41→17:54)
[2020-10-31] MEDS: CEROVITE ADV FORMULA TAB PO SCH (07:41)
[2020-10-31] MEDS: LIDOCAINE 5% 1 PATCH TD SCH (07:42)
[2020-10-31 07:51] LABS: Hematocrit (blood only) 30.7 % (37-47); Hemoglobin 9.3 g/dL (12.0-16.0); Mean Corpuscular Hemoglobin 29.2 pg (25-34); Mean Corpuscular Hgb Conc 30.3 g/dL (32-36); Mean Corpuscular Volume 96.5 fL (80-100); Mean Platelet Volume 8.8 fL (7.4-10.4); Platelet Count 547 K/uL (130-400); RDW Standard Deviation 59.2 fL (36.4-46.3); Red Blood Count 3.18 M/uL (4.2-5.4); White Blood Count 14.83 K/uL (4.8-10.8)
[2020-10-31 08:27] LABS: BUN Creatinine Ratio 28.1 (10-20); Calcium 9.2 mg/dl (8.5-10.1); Creatinine Clr Calc Pharmacy 66.2 ml/min; Est GFR (African American) 92.2 ml/min; Est GFR (Non-African American) 79.6 ml/min; Potassium 4.1 mmol/L (3.5-5.1)
[2020-10-31] MEDS: INSULIN ASPART 100 UNITS/ML 3 ML PEN SC SCH ×4 (08:48→21:24)
[2020-10-31] MEDS: traMADol HCL 50 MG TABLET PO PRN ×2 (12:35→20:43)
--- NOTE | 2020-10-31 13:22 | Progress Notes ---
DATE OF SERVICE: 10/31/2020 SUBJECTIVE: An 85-year-old white female now postop day #5 from a right above-knee amputation for chr onic infection and wound problems of her leg. She seems to be doing okay. Not much pain while resti ng in bed, but pain with any type of motion. Denies any other complaints. OBJECTIVE: VITAL SIGNS: Temperature 36.5. Vital signs are stable. PHYSICAL EXAMINATION: GENERAL: Shows a pleasant elderly female. She is sitting up in bed. Still seems a little bit confu sed. EXTREMITIES: Examination of the right above-knee stump reveals the wound to be well approximated. J ust a little bit of bloody drainage distally. No signs of obvious infection. LABORATORY DATA: White cell count is down to 14.83, hemoglobin 9.3, hematocrit 30.7. Electrolytes a re stable. Platelets continue to be elevated at 547. ASSESSMENT: An 85-year-old white female now 5 days out from a right above-knee amputation for chroni c infection and wound problems after a femur fracture. The wound looks to be reasonably stable, look s to be slow healing. No active signs of infection. She does continue to seem a bit confused and I am concerned about her getting a little bit too much pain medicine. PLAN: 1. DVT prophylaxis includes thigh-high TEDs, SCDs, and aspirin twice a day. 2. PT/OT. She can mobilize as tolerated. 3. Medical management as per the medicine service. 4. Wound care, change dressing daily. 5. Disposition: She is orthopedically okay for discharge any time. I would recommend she go out on 2 weeks of p.o. Augmentin for broad spectrum coverage. I need to see her back somewhere between 2 a nd 3 weeks out from surgery date. Any orthopedic questions can be directed to me at [phone]. Job ID: [id number]
--- NOTE | 2020-10-31 17:17 | Hospitalist Progress Note ---
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 -- Acute blood loss anemia 2/2 surgery and superimposed on chronic anemia - S/P 3 units blood transfusion and Hgb at 9.3 - Initially treated with IV Abx and now converted to Augmentin TID x 2 weeks - Continue bowel and pain regimen - pain medication likely contributing to confusion -- ALEX Tylenol to get around the clock coverage; not really getting too much opiate pain medication and confusion seems to be less today and hopefully will continue to trend in a positive way (2) Type 2 diabetes mellitus with diabetic chronic kidney disease: Plan: - No specific treatment noted; last A1c was 5.7 - Given age and now AKA would avoid over correction of BSGs to prevent hypoglycemia (3) Elevated platelet count: Plan: - Platelets have gradually increased and peaked at 800+ and trending down; possibly reactive - On ASA 81 mg BID (4) Chronic kidney disease, stage 3 (moderate): Plan: - STABLE - baseline appears 0.6-0.7 - Will continue to monitor (5) Peripheral neuropathy: Plan: - Continue gabapentin 1200 mg HS (6) Hypertension: Plan: - Continue atenolol 50 mg daily with hold parameters (7) Depression: Plan: - Continue venlafaxine 37.5 mg daily (8) Chronic venous insufficiency: Plan: - Hold spironolactone for now - possibly resume tomorrow (9) Sepsis with metabolic encephalopathy: Plan: - sepsis resolved - Continue with encephalopathy - possibly some related to pain medication - Does have pseudomonas in Urine but did have coverage with Cefepime so unlikely the cause Plan: - Obtain pain control; plan is for rehab on D/C - hopefully can transition in next coming days - Talked to son over the phone one 10/31 Admission and Anticipated Discharge Date Admission Date: October 23, 2020 Subjective Patient is having less confusion today. Discussed with her son over the phone and he agreed she sounded better. Stated the only odd thing she said was that she asked how his 5 kids were doing when he only has 2. She did have some increased pain this morning and is a bit reluctant to move around due to the pain. Her Hgb is improved. She was growing Pseudomonas in her urine but did have Cefepime which should have been appropriate coverage. Suspect the confusion is between pain medication and some hospital delirium. She has not required IV Dilaudid since 299 on 30 October and only getting Tramadol about once a day. Tylenol is scheduled Review of Systems Review of Systems: REVIEW OF SYSTEMS General/Constitutional: Denies fever/chills ENT: Denies nasal drainage, sore throat Cardiovascular: Denies chest pain Respiratory: Denies cough, SOB GI: Denies nausea, vomiting, abdominal pain, constipation, diarrhea : Denies dysuria Musculoskeletal: + R stump pain Neurologic: Denies dizziness/lightheadedness Physical Exam Physical Exam: PHYSICAL EXAM General Appearance: WDWN in NAD HEENT: Head is normocephalic/atraumatic; Hearing grossly intact Neck: Supple; Trachea midline; Neg JVD Heart: RRR with no M/G/R Lungs: CTA in all lung reyna bilaterally; Respirations unlabored; Neg accessory muscle use Abdomen: Soft, non-tender, non-distended; Positive BS x 4 quadrants Extremities: R AKA with dressing applied; removed and exchanged by Dr. Leong in AM Neurological: Speech clear; Gross motor/sensory function intact; Neg focal neurologic deficits Psychiatric: Less confused today; tearful but calms down with conversation; stated she wanted to hear from her son Skin: Normal Color; Warm/Dry Results & Data Results & Data ([facility]) Vital Signs (Past 12 Hours) Vital Signs Temp Pulse Resp BP Pulse Ox 10/31/20 15:11 36.6 C 67 16 173/80 H 100 10/31/20 07:34 36.5 C 64 18 160/59 H 100 PG Care Time/CCT Total # of Minutes Spent Total Time Spent with Patient: Total time spent is greater than 50% in coordination of care (as documented) at patient's floor/unit and/or counseling patient: Coding Level of Care Code 78174 Subseq Hosp Care Lvl 2 Diagnoses Traumatic ulcer of right lower extremity with infection L97.919; L08.9 Type 2 diabetes mellitus with diabetic chronic kidney disease E11.22; Z79.4 Chronic kidney disease stage: unspecified stage Diabetes mellitus snf insulin use: with intermission coordinator use Elevated platelet count R79.89 Chronic kidney disease, stage 3 (moderate) N18.3 Peripheral neuropathy G62.9 Hypertension I10 Depression F32.9 Chronic venous insufficiency I87.2 Sepsis with metabolic encephalopathy A41.9; R65.20; G93.41 (1) Type 2 diabetes mellitus with diabetic chronic kidney disease Chronic kidney disease stage: unspecified stage Diabetes mellitus snf insulin use: with intermission coordinator use Qualified Code(s): E11.22 - Type 2 diabetes mellitus with diabetic chronic kidney disease; Z79.4 - termite exterminator helper (current) use of insulin
[2020-10-31] MEDS: rOPINIRole HCL 0.25 MG TABLET PO SCH (20:43)
[2020-10-31] MEDS: GABAPENTIN 400 MG CAP PO SCH (20:44)
[2020-11-01] MEDS: HYDROmorphone INJ 0.5 MG/0.5 ML SYR IV PRN ×3 (01:45→22:15)
[2020-11-01] MEDS: INSULIN ASPART 100 UNITS/ML 3 ML PEN SC SCH ×4 (08:45→20:51)
[2020-11-01] MEDS: CALCIUM CITRATE 950 MG TAB PO SCH (08:47)
[2020-11-01] MEDS: CEROVITE ADV FORMULA TAB PO SCH (08:47)
[2020-11-01] MEDS: ASPIRIN 81 MG ECTAB PO SCH ×2 (08:48→20:24)
[2020-11-01] MEDS: TRIAMCINOLONE ACET 0.5% CR 15 GM TUBE TOP SCH (08:48)
[2020-11-01] MEDS: VENLAFAXINE HCL XR 37.5 MG CAPXR PO SCH (08:48)
[2020-11-01] MEDS: CHOLECALCIFEROL 1,000 UNITS 25 MCG TAB PO SCH (08:48)
[2020-11-01] MEDS: SENNA 8.6 MG TAB PO SCH ×2 (08:48→20:23)
[2020-11-01] MEDS: RESTASIS~ORDER AWAITING ACTION SCH ×3 (08:49→23:34)
[2020-11-01] MEDS: ATENOLOL 50 MG TABLET PO SCH (08:49)
[2020-11-01] MEDS: DOCUSATE SODIUM 100 MG CAP PO SCH ×2 (08:49→20:22)
[2020-11-01] MEDS: AMOXICILLIN/CLAVULANATE 500 MG TAB PO SCH ×3 (08:49→20:24)
[2020-11-01] MEDS: ACETAMINOPHEN 500 MG TAB PO SCH ×3 (08:49→20:23)
[2020-11-01] MEDS: LIDOCAINE 5% 1 PATCH TD SCH (08:50)
[2020-11-01] MEDS: MULTIVITAMIN TAB PO SCH (08:50)
[2020-11-01] MEDS: CYANOCOBALAMIN 500 MCG TABLET (VITAMIN B-12) PO SCH (08:50)
[2020-11-01] MEDS: FERROUS SULFATE 325 MG TAB PO SCH ×2 (08:50→17:53)
[2020-11-01] MEDS: traMADol HCL 50 MG TABLET PO PRN ×2 (09:36→20:22)
--- NOTE | 2020-11-01 14:57 | Progress Notes ---
DATE OF NOTE: 11/01/2020. SUBJECTIVE: An 85-year-old female, now 6 days out from right above-knee amputation. Pain seems to b e better controlled. Dressing was just changed by nursing staff. No new complaints. She did do fabio e therapy today and apparently there was some bleeding from the stump end. OBJECTIVE: VITAL SIGNS: Temperature 36.5. Vital signs stable. GENERAL: Shows a pleasant, elderly female. She seems more awake and alert today. EXTREMITIES: Examination of the right leg reveals the dressing to be intact. There are no signs of current drainage. ASSESSMENT: An 85-year-old white female, now 6 days out from a right below-knee amputation for a chr onic wound problems and infection and necrosis. She seems to be doing better. She is more awake, al ert and appropriate. Pain seems to be controlled. PLAN: 1. DVT prophylaxis include thigh-high TEDs, SCDs, and aspirin twice a day. 2. PT/OT. Mobilization as tolerated. 3. Medical management as per the medicine service. 4. Wound care. Dressing changes once or twice a day depending on what is needed based on drainage. 5. Antibiotics. I would recommend 2 weeks of p.o. Augmentin and I will see her back and determine w hether she needs anything more. 6. Disposition: She is orthopedically okay for discharge any time. I need to see her back somewher e between 2-3 weeks out from surgery. Any orthopedic questions can be directed to me at [phone] . Job ID: [id number]
--- NOTE | 2020-11-01 19:43 | Hospitalist Progress Note ---
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 -- Acute blood loss anemia 2/2 surgery and superimposed on chronic anemia - S/P 3 units blood transfusion and Hgb at 9.3 on last check - Initially treated with IV Abx and now converted to Augmentin TID x 2 weeks - Continue bowel and pain regimen - pain medication likely contributed to confusion but have less of that today -- ALEX Tylenol to get around the clock coverage; not really getting too much opiate pain medication and confusion seems to be less to nearly resolved today and hopefully will continue to trend in a positive way (2) Type 2 diabetes mellitus with diabetic chronic kidney disease: Plan: - No specific treatment noted; last A1c was 5.7 - Given age and now AKA would avoid over correction of BSGs to prevent hypoglycemia (3) Elevated platelet count: Plan: - Platelets have gradually increased and peaked at 800+ and trending down; possibly reactive - On ASA 81 mg BID (4) Chronic kidney disease, stage 3 (moderate): Plan: - STABLE - baseline appears 0.6-0.7 - Will continue to monitor (5) Peripheral neuropathy: Plan: - Continue gabapentin 1200 mg HS (6) Hypertension: Plan: - Continue atenolol 50 mg daily with hold parameters (7) Depression: Plan: - Continue venlafaxine 37.5 mg daily (8) Chronic venous insufficiency: Plan: - Hold spironolactone for now - possibly resume tomorrow (9) Sepsis with metabolic encephalopathy: Plan: - Sepsis resolved - Encephalopathy seems to be resolved today - possibly some related to pain medication - Does have pseudomonas in Urine but did have coverage with Cefepime so unlikely the cause of the confusion she was having Plan: - Continue pain control; Confusion seems to have abated and awaiting insurance auth; if continues current trend can pursue D/C to SNF - Talked to son over the phone one 10/31 Admission and Anticipated Discharge Date Admission Date: October 23, 2020 Subjective Pt is much more alert and oriented today. Still having pain but reporting better control. Participated in PT some today. She verbalizes no complaints at this time Review of Systems Review of Systems: REVIEW OF SYSTEMS General/Constitutional: Denies fever/chills ENT: Denies nasal drainage, sore throat Cardiovascular: Denies chest pain Respiratory: Denies cough, SOB GI: Denies nausea, vomiting, abdominal pain, constipation, diarrhea : Denies dysuria Musculoskeletal: + R stump pain (better control) Neurologic: Denies dizziness/lightheadedness Physical Exam Physical Exam: PHYSICAL EXAM General Appearance: WDWN in NAD HEENT: Head is normocephalic/atraumatic; Hearing grossly intact Neck: Supple; Trachea midline; Neg JVD Heart: RRR with no M/G/R Lungs: CTA in all lung reyna bilaterally; Respirations unlabored; Neg accessory muscle use Abdomen: Soft, non-tender, non-distended; Positive BS x 4 quadrants Extremities: R AKA with dressing applied; removed and exchanged by Dr. Leong in AM Neurological: Speech clear; Gross motor/sensory function intact; Neg focal neurologic deficits Psychiatric: alert and oriented Skin: Normal Color; Warm/Dry Results & Data Results & Data ([facility]) Vital Signs (Past 12 Hours) Vital Signs Temp Pulse Resp BP Pulse Ox 11/01/20 15:32 36.8 C 62 18 121/66 99 PG Care Time/CCT Total # of Minutes Spent Total Time Spent with Patient: Total time spent is greater than 50% in coordination of care (as documented) at patient's floor/unit and/or counseling patient: Coding Level of Care Code 93196 Subseq Hosp Care Lvl 2 Diagnoses Traumatic ulcer of right lower extremity with infection L97.919; L08.9 Type 2 diabetes mellitus with diabetic chronic kidney disease E11.22; Z79.4 Chronic kidney disease stage: unspecified stage Diabetes mellitus fpc insulin use: with fpc use Elevated platelet count R79.89 Chronic kidney disease, stage 3 (moderate) N18.3 Peripheral neuropathy G62.9 Hypertension I10 Depression F32.9 Chronic venous insufficiency I87.2 Sepsis with metabolic encephalopathy A41.9; R65.20; G93.41 (1) Type 2 diabetes mellitus with diabetic chronic kidney disease Chronic kidney disease stage: unspecified stage Diabetes mellitus terminal manager insulin use: with terminal manager use Qualified Code(s): E11.22 - Type 2 diabetes mellitus with diabetic chronic kidney disease; Z79.4 - termite treater (current) use of insulin
[2020-11-01] MEDS: rOPINIRole HCL 0.25 MG TABLET PO SCH (20:24)
[2020-11-01] MEDS: GABAPENTIN 400 MG CAP PO SCH (20:24)
[2020-11-02] MEDS: INSULIN ASPART 100 UNITS/ML 3 ML PEN SC SCH ×4 (09:03→20:33)
[2020-11-02] MEDS: RESTASIS~ORDER AWAITING ACTION SCH ×3 (09:04→21:46)
[2020-11-02] MEDS: VENLAFAXINE HCL XR 37.5 MG CAPXR PO SCH (09:05)
[2020-11-02] MEDS: MULTIVITAMIN TAB PO SCH (09:05)
[2020-11-02] MEDS: CEROVITE ADV FORMULA TAB PO SCH (09:05)
[2020-11-02] MEDS: FERROUS SULFATE 325 MG TAB PO SCH ×2 (09:05→16:58)
[2020-11-02] MEDS: CALCIUM CITRATE 950 MG TAB PO SCH (09:05)
[2020-11-02] MEDS: CHOLECALCIFEROL 1,000 UNITS 25 MCG TAB PO SCH (09:06)
[2020-11-02] MEDS: ATENOLOL 50 MG TABLET PO SCH (09:07)
[2020-11-02] MEDS: LIDOCAINE 5% 1 PATCH TD SCH (09:07)
[2020-11-02] MEDS: SENNA 8.6 MG TAB PO SCH ×2 (09:07→20:36)
[2020-11-02] MEDS: AMOXICILLIN/CLAVULANATE 500 MG TAB PO SCH ×3 (09:08→20:36)
[2020-11-02] MEDS: ASPIRIN 81 MG ECTAB PO SCH ×2 (09:08→20:36)
[2020-11-02] MEDS: ACETAMINOPHEN 500 MG TAB PO SCH ×3 (09:09→20:36)
[2020-11-02] MEDS: CYANOCOBALAMIN 500 MCG TABLET (VITAMIN B-12) PO SCH (09:09)
[2020-11-02] MEDS: TRIAMCINOLONE ACET 0.5% CR 15 GM TUBE TOP SCH (09:09)
[2020-11-02] MEDS: DOCUSATE SODIUM 100 MG CAP PO SCH ×2 (09:10→20:35)
--- NOTE | 2020-11-02 15:01 | Hospitalist Progress Note ---
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 -- Acute blood loss anemia 2/2 surgery and superimposed on chronic anemia - S/P 3 units blood transfusion and Hgb at 9.3 on last check; labs in AM - Initially treated with IV Abx and now converted to Augmentin TID x 2 weeks - Continue bowel and pain regimen - pain medication likely contributed to confusion but no confusion over the past couple days -- ALEX Tylenol to get around the clock coverage; not really getting too much opiate pain medication at this point (2) Type 2 diabetes mellitus with diabetic chronic kidney disease: Plan: - No specific treatment noted; last A1c was 5.7 - Given age and now AKA would avoid over correction of BSGs to prevent hypoglycemia (3) Elevated platelet count: Plan: - Platelets have gradually increased and peaked at 800+ and trending down; possibly reactive -- Does take iron supplementation so if still trying to resolve LUZ ELENA that could play a role in platelet count - On ASA 81 mg BID (4) Chronic kidney disease, stage 3 (moderate): Plan: - STABLE - baseline appears 0.6-0.7 - Will continue to monitor (5) Peripheral neuropathy: Plan: - Continue gabapentin 1200 mg HS (6) Hypertension: Plan: - Continue atenolol 50 mg daily with hold parameters (7) Depression: Plan: - Continue venlafaxine 37.5 mg daily (8) Chronic venous insufficiency: Plan: - Hold spironolactone for now - may not need as high of a dose given amputation if truly related to swelling due to venous insufficiency (9) Sepsis with metabolic encephalopathy: Plan: - Sepsis resolved - Encephalopathy seems to be resolved today - possibly some related to pain medication - Does have pseudomonas in Urine but did have coverage with Cefepime so unlikely the cause of the confusion she was having Plan: - Continue pain control; Confusion seems to have abated and awaiting insurance auth; if continues current trend can pursue D/C to SNF - Talked to son over the phone one 10/31; will try and have follow-up call today Admission and Anticipated Discharge Date Admission Date: October 23, 2020 Subjective Pt continues to be alert and oriented. Reports her pain is doing better today compared to yesterday. She is having looser stool but not strict diarrhea. Given Abx will have to watch for C. diff however still having formed stool. Awaiting SNF approval Review of Systems Review of Systems: REVIEW OF SYSTEMS General/Constitutional: Denies fever/chills Cardiovascular: Denies chest pain Respiratory: Denies cough, SOB GI: +loose stool but not yandel diarrhea; Denies nausea, vomiting, abdominal pain, constipation, diarrhea : Denies dysuria Musculoskeletal: + R stump pain (better control) Neurologic: Denies dizziness/lightheadedness Physical Exam Physical Exam: PHYSICAL EXAM General Appearance: WDWN in NAD HEENT: Head is normocephalic/atraumatic; Hearing grossly intact Neck: Supple; Trachea midline; Neg JVD Heart: RRR with no M/G/R Lungs: CTA in all lung reyna bilaterally; Respirations unlabored; Neg accessory muscle use Abdomen: Soft, non-tender, non-distended; Positive BS x 4 quadrants Extremities: R AKA with dressing applied some dried drainage/blood on gauze Neurological: Speech clear; Gross motor/sensory function intact; Neg focal neurologic deficits Psychiatric: alert and oriented Skin: Normal Color; Warm/Dry Results & Data Results & Data ([facility]) Vital Signs (Past 12 Hours) Vital Signs Temp Pulse Resp BP Pulse Ox 11/02/20 07:00 36.8 C 75 18 141/72 H 93 PG Care Time/CCT Total # of Minutes Spent Total Time Spent with Patient: Total time spent is greater than 50% in coordination of care (as documented) at patient's floor/unit and/or counseling patient: Coding Level of Care Code 89641 Subseq Hosp Care Lvl 2 Diagnoses Traumatic ulcer of right lower extremity with infection L97.919; L08.9 Type 2 diabetes mellitus with diabetic chronic kidney disease E11.22; Z79.4 Chronic kidney disease stage: unspecified stage Diabetes mellitus shelter insulin use: with ferry terminal agent use Elevated platelet count R79.89 Chronic kidney disease, stage 3 (moderate) N18.3 Peripheral neuropathy G62.9 Hypertension I10 Depression F32.9 Chronic venous insufficiency I87.2 Sepsis with metabolic encephalopathy A41.9; R65.20; G93.41 (1) Type 2 diabetes mellitus with diabetic chronic kidney disease Chronic kidney disease stage: unspecified stage Diabetes mellitus ferry terminal agent insulin use: with shelter use Qualified Code(s): E11.22 - Type 2 diabetes mellitus with diabetic chronic kidney disease; Z79.4 - termination clerk (current) use of insulin
[2020-11-02] MEDS: HYDROmorphone INJ 0.5 MG/0.5 ML SYR IV PRN ×2 (17:00→21:29)
[2020-11-02] MEDS: GABAPENTIN 400 MG CAP PO SCH (20:36)
[2020-11-02] MEDS: rOPINIRole HCL 0.25 MG TABLET PO SCH (20:36)
[2020-11-02] MEDS: diphenhydrAMINE Capsule 25 MG CAP PO PRN (21:29)
[2020-11-02] MEDS: traMADol HCL 50 MG TABLET PO PRN (21:56)
[2020-11-03 06:35] LABS: Hematocrit (blood only) 31.9 % (37-47); Hemoglobin 9.4 g/dL (12.0-16.0); Mean Corpuscular Hemoglobin 28.9 pg (25-34); Mean Corpuscular Hgb Conc 29.5 g/dL (32-36); Mean Corpuscular Volume 98.2 fL (80-100); Mean Platelet Volume 8.9 fL (7.4-10.4); Platelet Count 568 K/uL (130-400); RDW Coefficient of Variation 18.5 % (11.5-14.5); RDW Standard Deviation 65.3 fL (36.4-46.3); Red Blood Count 3.25 M/uL (4.2-5.4); White Blood Count 11.82 K/uL (4.8-10.8)
[2020-11-03 07:10] LABS: BUN Creatinine Ratio 26.6 (10-20); Calcium 8.5 mg/dl (8.5-10.1); Creatinine Clr Calc Pharmacy 65.2 ml/min; Est GFR (African American) 91.8 ml/min; Est GFR (Non-African American) 79.2 ml/min; Potassium 4.1 mmol/L (3.5-5.1)
[2020-11-03 07:36] VITALS: TEMP 98.2
[2020-11-03] MEDS ORDERED: oxyCODONE HCL IR 5 MG TAB (IMMEDIATE RELEASE) PO PRN (08:21)
[2020-11-03] MEDS: RESTASIS~ORDER AWAITING ACTION SCH (08:46)
[2020-11-03] MEDS: INSULIN ASPART 100 UNITS/ML 3 ML PEN SC SCH ×2 (08:46→13:25)
[2020-11-03] MEDS: MULTIVITAMIN TAB PO SCH (08:46)
[2020-11-03] MEDS: ACETAMINOPHEN 500 MG TAB PO SCH ×2 (08:47→13:26)
[2020-11-03] MEDS: CHOLECALCIFEROL 1,000 UNITS 25 MCG TAB PO SCH (08:47)
[2020-11-03] MEDS: VENLAFAXINE HCL XR 37.5 MG CAPXR PO SCH (08:48)
[2020-11-03] MEDS: CALCIUM CITRATE 950 MG TAB PO SCH (08:48)
[2020-11-03] MEDS: ATENOLOL 50 MG TABLET PO SCH (08:48)
[2020-11-03] MEDS: CEROVITE ADV FORMULA TAB PO SCH (08:49)
[2020-11-03] MEDS: DOCUSATE SODIUM 100 MG CAP PO SCH (08:49)
[2020-11-03] MEDS: FERROUS SULFATE 325 MG TAB PO SCH (08:49)
[2020-11-03] MEDS: CYANOCOBALAMIN 500 MCG TABLET (VITAMIN B-12) PO SCH (08:49)
[2020-11-03] MEDS: LIDOCAINE 5% 1 PATCH TD SCH (08:50)
[2020-11-03] MEDS: TRIAMCINOLONE ACET 0.5% CR 15 GM TUBE TOP SCH (08:50)
[2020-11-03] MEDS: AMOXICILLIN/CLAVULANATE 500 MG TAB PO SCH ×2 (08:50→13:25)
[2020-11-03] MEDS: ASPIRIN 81 MG ECTAB PO SCH (08:50)
--- NOTE | 2020-11-03 12:24 | Progress Notes ---
DATE OF NOTE: 11/03/2020. SUBJECTIVE: An 85-year-old white female status post right above-knee amputation for chronic leg infe ction and dysvascular limb. She is doing pretty well. She seems to be more awake, alert each day. Pain seems to be controlled. No new complaints. OBJECTIVE: VITAL SIGNS: Temperature 36.8. Vital signs are stable. GENERAL: Physical exam shows a pleasant elderly female. She is awake, alert, and seems oriented tod ay. EXTREMITIES: Examination of the right leg reveals the wound to be well approximated. There is still a little bit of bloody drainage on the dressing. Wound edges looked like they are healing. There a re no signs of necrosis. LABORATORY DATA: White cell count 11.82. Hemoglobin 9.4. Hematocrit 31.9. Platelets 568. Electro lytes are stable. ASSESSMENT: An 85-year-old female status post right above-knee amputation for chronic infection and dysvascular limb, doing reasonably well. She is certainly more awake, alert, and oriented and approp riate. Pain seems to be controlled. PLAN: 1. DVT prophylaxis include thigh-high TEDs, SCDs, and I recommended a baby aspirin twice a day for t he next 4 weeks. 2. PT/OT. She can be mobilized as tolerated. 3. Wound care. Dressing change once a day. 4. Disposition: She is orthopedically okay for discharge any time medically stable. I need to see her back somewhere between 2-3 weeks out from surgery. Prefer closer to 3 weeks if possible. Job ID: [id number]
[2020-11-03 14:46] VITALS: BP 151/66; PULSE 69; O2SAT 91
--- NOTE | 2020-11-03 15:06 | Discharge Summary ---
Date of Service November 03, 2020 Admission HPI Per Admitting Provider The patient is an 85-year-old female with a past medical history including diabetes mellitus type 2, CKD stage III, vitamin D deficiency, urinary incontinence, vitamin B12 deficiency, venous stasis ulcers of both lower extremities, rosacea, PLMD, peripheral neuropathy, mild sleep apnea, lymphedema, hypertension, dyslipidemia, depression, anemia and age-related macular degeneration. She was discharged to [facility] on 10/12/2020 after surgical repair of a right comminuted periprosthetic spiral fracture of the distal femur shaft during hospitalization at [facility]. Principal Diagnosis Non-Healing Right Lower Leg Infection S/P R AKA Discharge Exam PHYSICAL EXAM General Appearance: WDWN in NAD HEENT: Head is normocephalic/atraumatic; Hearing grossly intact Neck: Supple; Trachea midline; Neg JVD Heart: RRR with no M/G/R Lungs: CTA in all lung reyna bilaterally; Respirations unlabored; Neg accessory muscle use Abdomen: Soft, non-tender, non-distended; Positive BS x 4 quadrants Extremities: R AKA with dressing applied which was not removed Neurological: Speech clear; Gross motor/sensory function intact; Neg focal neurologic deficits Psychiatric: alert and oriented Skin: Normal Color; Warm/Dry Discharge Data Allergies Allergy/AdvReac Type Severity Reaction Status Date / Time promethazine Allergy Severe RESP. Verified 10/22/20 20:42 ARREST Sulfa (Sulfonamide Allergy Intermediate WELTS Verified 10/22/20 20:42 Antibiotics) duloxetine Allergy Unknown Unknown Verified 10/22/20 20:42 nefazodone Allergy Unknown Unknown Verified 10/22/20 20:42 trazodone Allergy Unknown Unknown Verified 10/22/20 20:42 propoxyphene AdvReac Intermediate SEVERE Verified 10/22/20 20:42 HEADACHE aspirin AdvReac Mild headaches Verified 10/22/20 20:42 amitriptyline AdvReac Unknown Unknown Verified 10/22/20 20:42 blue dye AdvReac Unknown CI Pigment Verified 10/22/20 20:42 blue 63 Consultations 10/23/20 02:09 ED Decision to Admit Stat 10/23/20 13:04 Consult Orthopedic Surgery Routine Procedures Performed Operation Date: 10/26/20 07:00 Actual Procedures p Right Above the Knee Amputation(Right) - Gonzalez Leong MD Ordered Studies Chest X-Ray 10/22/20 21:06 XR chest 1V portable HISTORY: 85 years-old Female SEPSIS acute sepsis COMPARISON: Chest radiograph 10/11/2020 TECHNIQUE: Portable AP view of the chest FINDINGS: Cardiac silhouette is enlarged. Linear left midlung and bibasilar opacities with chronic appearing interstitial coarsening. No pneumothorax or large pleural effusion. Degenerative changes of the spine. Healed chronic appearing bilateral rib fractures. Bilateral shoulder arthroplasties. IMPRESSION: 1. Linear bibasilar and left midlung opacities are redemonstrated suggestive of atelectasis/scarring. 2. Cardiomegaly without overt pulmonary edema. ACT 112: Negative or not required by law. The above report was generated using voice recognition software. It may contain grammatical, syntax or spelling errors. Electronically signed by: Augustin Kasper M.D. 10/23/2020 6:[address] 10/22/20 21:33 CT tib/fib RT w con HISTORY: 85 years-old Female infection patient presents with reported soft tissue infection of the right lower leg COMPARISON: CTA 10/04/2020 TECHNIQUE: Multiple axial CT images of the right tibia and fibula were obtained following the intravenous administration of 93 mL Optiray 320. A dose lowering technique was used consistent with the principals of ALARA. FINDINGS: Streak artifact from ORIF hardware of the distal femur with right knee total joint arthroplasty limits the study. Demineralized appearance of the bones with arthritis of the foot and ankle. No acute fracture, dislocation or osseous erosion. Lateral skin pallavi are present. Lower extremity varicosities with mild to moderate diffuse subcutaneous edema, most pronounced at the level of the lower leg and ankle. No drainable fluid collection. Extensive arterial calcifications. Diffuse muscular atrophy. Tendons and ligaments are not well evaluated by CT technique.. IMPRESSION: 1. Right knee total joint arthroplasty with ORIF changes of the distal femur. Artifact from the hardware limits the study. 2. No acute fracture. 3. Mild to moderate subcutaneous edema. No drainable fluid collection. ACT 112: Negative or not required by law. The above report was generated using voice recognition software. It may contain grammatical, syntax or spelling errors. Electronically signed by: Augustin Kasper M.D. 10/23/2020 7:33 AM Femur X-Ray 10/23/20 13:12 RIGHT FEMUR 2 VIEWS CLINICAL HISTORY: Postoperative examination. FINDINGS: AP and crosstable lateral views of the right femur are compared to study dated 10/02/2020. The skeletal structures are osteopenic. Right hip and knee arthroplasties are in near-anatomic alignment. There is postoperative change from buttress plate fixation along the lateral cortex of the mid to distal femoral shaft. This transfixes a spiral periprosthetic fracture of the distal femur. Near-anatomic alignment has been restored. Numerous cortical lag screws transfix the buttress plate and several cerclage wires are in place. The most superior cortical screw transfixing the buttress plate is shorter than the remaining screws, and extends approximately 7 mm into the cortex. The superior aspect of the buttress plate does not approximate the cortex and is by approximately 8 mm. The orthopedic hardware appears intact. No new fracture is seen. Skin clips, soft tissue swelling, and soft tissue gas overlying the right femur are expected postoperative changes. IMPRESSION: 1. Postoperative findings status post open reduction and internal fixation of a right femoral fracture as detailed above. 2. The superior aspect of the buttress plate does not approximate the cortex. See above. Electronically signed by: Carlos Goss M.D. 10/23/2020 2:46 PM Chest X-Ray 10/27/20 17:36 XR chest 1V portable HISTORY: hypoxia COMPARISON: Chest 10/22/2020. FINDINGS: No pneumothorax. No pleural effusions. The heart remains mildly enlarged. There is diffuse interstitial thickening, unchanged. Left mid to lower lung zone linear densities persist and favor scarring or subsegmental atelectasis. No new focal lung consolidations to suggest pneumonia. Old, healed left-sided rib fractures. Bilateral shoulder prostheses are again noted. IMPRESSION: 1. No significant change. No acute process within the chest. 2. Mild cardiomegaly, unchanged. 3. Chronic interstitial thickening and left basilar atelectasis/scarring persists. ACT 112: Negative or not required by law. Electronically signed by: Kameron King M.D. 10/27/2020 7:34 PM Hospital Course (1) Traumatic ulcer of right lower extremity with infection: - S/P Right AKA on 10/26 -- Acute blood loss anemia 2/2 surgery and superimposed on chronic anemia - S/P 3 units blood transfusion and Hgb at 9.4 on last check and stable - Initially treated with IV Abx and now converted to Augmentin TID x 2 weeks - To be completed on 12 November and will be seen by Dr. Leong to see if longer course is needed -Pain medication likely contributed to confusion but no confusion over the past couple days -- ALEX Tylenol to get around the clock coverage; not really getting too much opiate pain medication at this point (2) Type 2 diabetes mellitus with diabetic chronic kidney disease: - No specific treatment noted; last A1c was 5.7 - Given age and now AKA would avoid over correction of BSGs to prevent hypoglycemia (3) Elevated platelet count: - Platelets have gradually increased and peaked at 800+ and trending down; possibly reactive -- Does take iron supplementation so if still trying to resolve LUZ ELENA that could play a role in platelet count - On ASA 81 mg BID (4) Chronic kidney disease, stage 3 (moderate): - STABLE - baseline appears 0.6-0.7 (5) Peripheral neuropathy: - Continue gabapentin 1200 mg HS (6) Hypertension: - Continue atenolol 50 mg daily (7) Depression: - Continue venlafaxine 37.5 mg daily (8) Chronic venous insufficiency: - Continue spironolactone (9) Sepsis with metabolic encephalopathy: - Sepsis resolved - Encephalopathy has resolved- possibly some related to pain medication - Does have pseudomonas in Urine but did have coverage with Cefepime so unlikely the cause of the confusion she was having Total Time Total Time Spent Total Time Spent (In Minutes): Spent greater than 30 minutes preparing patient for discharge. This includes discussion with patient/family, assessment, intervention, medication reconciliation, and coordination of care. Discharge Plan Discharge Items Patient Disposition: Transfer Assisted Fac Reason For Visit: RLE WOUND INFECTION Discharge Diagnosis: Non-Healing Right Lower Leg Wound Infection now S/P Above the Knee Amputation Activity: Per Instructions section Lifting: Gradually increase as tolerated Non-emergency contact: Primary Care Provider and Surgeon Call non-emergency contact if: you have any medication questions, your symptoms worsen and you have a fever Follow-up/Referrals: [facility] [Primary Care Provider] - Gonzalez Leong MD [Physician] - (To be seen 3 weeks from surgery date (26 October)) Diet: Carb Consistent or DM2 Addtl Attending Provider Instructions: Traumatic ulcer of right lower extremity with infection (Non-Healing) - Now S/P Above the Knee Amputation: - Required blood transfusion this admission but Hgb at 9.4 and has been stabilized there - Need to continue Augmentin three times a day until November 12 -- Dr. Gonzalez Leong (Orthopedics) will determine further needs on his follow- up - wants to see back in 2-3 weeks from surgery date (October 26, 2020) - Has been having soft stool. Can hold bowel regimen for now. Monitor for C. diff and can consider probiotics -- As stool normalizes can add Docusate Sodium and/or Senna to prevent constipation - Recommend to continue Molina until mobilization is better - monitor for urinary tract infections - Recommend Tylenol 1000 mg three times a day scheduled to reduce need for opiates as this did seem to cause confusion during the hospital stay -- This has improved over the past few days but given transition to another place it may increase again - Continue Tramadol as needed; can use Oxycodone as needed for breakthrough. - Wound Care - dressing changes once or twice a day depending on drainage Diabetes: - History of - not on treatment; last A1c was 5.7 Elevated Platelet Count: - Some may be reactive given prolonged infection and possibly reactive with surgery - Continue ASA 81 mg twice a day for DVT prophylaxis until follow-up with orthopedics Chronic kidney disease, stage 3 (moderate): - STABLE - baseline appears 0.6-0.7 Peripheral neuropathy: - Continue gabapentin 1200 mg HS Hypertension: - Continue atenolol 50 mg daily with hold parameters Depression: - Continue venlafaxine 37.5 mg daily Chronic venous insufficiency/Lymphedema: - Continue spironolactone Could possible be adjusted based on needs Sepsis with metabolic encephalopathy: - Sepsis resolved - Encephalopathy seems to be resolved - possibly some related to pain medication; gets a little irritable when first woken up - Does have pseudomonas in Urine but did have coverage with Cefepime early in admission Wound Care. Change dressing daily. Dry dressing Pending Studies at Discharge: No Stand-Alone Forms: My [facility] Skilled Items Patient informed of condition?: Yes DNR: No Discharge Level of Care: Skilled Communicable Disease: No Discharge Prognosis: Stable Lines: None Urinary Catheter: Yes Medications and DC Order Prescriptions: New amoxicillin-pot clavulanate 500-125 mg Tablet 1 tab PO TID Qty: 30 RF: 0 aspirin 81 mg Tablet,Delayed Release (Dr/Ec) 81 mg PO BID 30 Days Qty: 60 RF: 0 oxycodone 5 mg Tablet 5 mg PO Q8H PRN (Reason: breakthrough pain) 3 Days Qty: 6 RF: 0 Continued cyanocobalamin (vitamin B-12) [Vitamin B-12] 1,000 mcg/mL drops 1,000 mcg PO DAILY RF: 0 cholecalciferol (vitamin D3) 5,000 unit capsule 5,000 units PO DAILY RF: 0 ropinirole 0.5 mg tablet 0.5 mg PO HS RF: 0 venlafaxine [Effexor XR] 37.5 mg capsule,extended release 24hr 37.5 mg PO DAILY Qty: 90 RF: 1 spironolactone 25 mg tablet 50 mg PO DAILY Qty: 180 RF: 1 atenolol 50 mg tablet 50 mg PO DAILY Qty: 90 RF: 1 ferrous sulfate 325 mg (65 mg iron) tablet 325 mg PO BID Qty: 60 RF: 3 gabapentin 300 mg capsule 1,200 mg PO HS Qty: 360 RF: 1 Restasis 0.05 % dropperette 1 drp ophthalmic (eye) Q12H RF: 0 triamcinolone acetonide 0.5 % cream 1 applic topical DAILY Qty: 15 RF: 1 PreserVision AREDS [id number] mqad-on-ocrc Tablet 1 cap PO DAILY RF: 0 acetaminophen [Tylenol Extra Strength] 500 mg Tablet 1,000 mg PO Q8 Qty: 10 RF: 0 sennosides [senna] 8.6 mg Tablet 8.6 mg PO DAILY RF: 0 calcium citrate 250 mg calcium Tablet 250 mg PO DAILY RF: 0 Changed tramadol 50 mg tablet 100 mg PO Q6H PRN (Reason: pain) 3 Days Qty: 24 RF: 0 Discontinued cephalexin [Keflex] 500 mg Capsule 500 mg PO TID RF: 0 calcium citrate 150 mg Capsule 150 mg PO DAILY RF: 0 nitrofurantoin monohyd/m-cryst [Macrobid] 100 mg Capsule 100 mg PO BID RF: 0 Discharge Orders: Discharge Order (Routine); Ordered 11/03/20 Ordered By: Sagrario Ribeiro Admission Data Admit Date/Time: 10/23/20 02:05 Attending Provider: Fabien Aguayo Admit Provider: Leander Rolon Primary Care Provider: [facility] Other Providers: [facility] ; Mariangel Douglass ; Leander Rolon ; Gonzalez Leong Other Interventions: Discharge Summary Assessment (RN) Last Done: 11/03/20 13:32 Supervising Physician Co-Signing Physician Notes Attending note: patient seen and examined with Sagrario Ribeiro PA-C. I agree with her discharge summary. I personally reviewed the labs and imaging findings. patient is stable, eating okay, breathing well she is not pleased about going to [facility], discussed that she really does not have an option given her amputation she understands, just not happy about it - Osteomyelitis, s/p right AKA: discharge to SNF rehab for 24 hour care, rehabilitation, medical management Coding Level of Care Code D/C DAY MANAGEMENT >30 MINS Diagnoses Traumatic ulcer of right lower extremity with infection L97.919; L08.9 Type 2 diabetes mellitus with diabetic chronic kidney disease E11.22; Z79.4 Chronic kidney disease stage: unspecified stage Diabetes mellitus [facility] insulin use: with [facility] use Elevated platelet count R79.89 Chronic kidney disease, stage 3 (moderate) N18.3 Peripheral neuropathy G62.9 Hypertension I10 Depression F32.9 Chronic venous insufficiency I87.2 Sepsis with metabolic encephalopathy A41.9; R65.20; G93.41
--- NOTE | 2020-11-14 13:02 | Coding Query ---
PRESENT ON ADMISSION QUERY To promote full compliance with coding requirements relating to pateint care, physician participation is requested in all cases of activity aide uncertainty. Please assist us with the question(s) below: Please place an X within the parenthesis (x). The following diagnosis(es) listed in this patient's medical record require physician assistance to determine if they were present on admission (POA) or not. Please advise for each diagnosis whether it was present on admission, not present on admission, or if it was clinically undetermined. 1. Sepsis (ER documents, "Labs suggest evolving sepsis", no mention on H&P, then PN 10/24 - DS documents Sepsis) ( x) Present On Admission ( ) Not Present On Admission ( ) Clinically Undetermined 2. Osteomyelitis (documented on Discharge Summary, also documented on 10/26 Path Report but coding of diagnosis cannot come from Path on Inpatient) ( x) Present On Admission ( ) Not Present On Admission ( ) Clinically Undetermined Thank you Sowmya Hernández *Definition of the present on admission (POA)-Present on admission is defined as present at the time the order for inpatient admission occurs. Conditions that develop during an outpatient encounter prior to a written order for inpatient admission (including emergency department, observation, or outpatient surgery) are considered present on admission. MTDD
== END 2020-11-03 15:58 | DRG 907 ==
LOC: ED 19:45 → 3N 10-23 02:05 → SUATTDRO 10-23 02:05 → 3N 10-23 03:41

== ENCOUNTER 2022-03-21 11:53 | Observation (INO) ==
[2022-03-21] MEDS ORDERED: ONDANSETRON INJ 2 MG/ML 2 ML VIAL IV STA (12:21)
[2022-03-21] MEDS ORDERED: MoRPHine SULFATE 4 MG/ML 1 ML CARP\\VIAL IV STA (12:21)
--- NOTE | 2022-03-21 12:45 | Emergency Department Note ---
Impression & Plan Closed fracture dislocation of left ankle, Left lower lobe pulmonary infiltrate, Acute confusion ED Provider Note Name: EPIFANIO RUSSO Age: 86 Sex: F Arrives Via: Ambulance Informant: Patient, EMS records, son ED Provider: Pierce Zhou MD Chief Complaint: Ankle injury Impression: As per impressions above Medical Decision Making: Very pleasant 86-year-old female with history of hypertension, dyslipidemia, venous stasis, CKD amongst other including previous amputation above right knee following femur fracture and wound infection. Patient is nonweightbearing on her left leg and 100% either is in bed uses a wheelchair or is in chair. She was confused this morning and crawled out of her bed resulting in left ankle injury. Reportedly she is being treated recently for pneumonia. I suspect that the infection had caused some confusion as it is reported by son that she is not oftentimes try to get out of bed or falling. Patient admits she has not been putting weight on her ankle but does have periods of confusion even during our discussions. She has no headache, head injury, blood thinner use. I do not think that CT imaging of the head and neck are necessary at this time. On initial evaluation she has an angulated deformed left ankle with poor pulses in the foot ankle extremity. She had already received some IV morphine by EMS and was feeling improved thus I reduced ankle on my initial evaluation with great improvement of blood flow. Imaging shows trimalleolar fracture with some dislocation. This was further reduced on splinting and repeat imaging shows vast improvement in alignment. Patient is comfortable throughout. She was ordered a small dose pain meds though ended up not requiring it. A chest x-ray does show a left lower lobe infiltrate versus atelectasis. Her laboratory findings are with mild white blood cell count elevation consistent with an underlying infection but she does not have a procalcitonin elevation. I do not feel that she is septic. I did discuss with the hospitalist and they will manage with oral azithromycin. I reviewed with her surgeon Dr. Leong via the phone who knows her. Agrees that this is likely nonoperative case given she does not bear weight on the leg. He will follow along in the hospital. Given she has a likely pneumonia the recent fall and the underlying confusion I do think it would be reasonable to monitor in the hospital if anything for pain control as well. Son is in agreement with this plan when I discussed it with him over the phone. Prior Medical Record and Triage/Nursing Notes reviewed by Me I personally reviewed EMS records which showed she received IV morphine. I pers onally reviewed her orthopedic notes from last summer when she had had her femur fracture and AKA. Differentials:Fracture, dislocation, vascular compromise, neuro compromise, head injury, intracranial hemorrhage, infection amongst many other pathologies considered. Vital Signs: reviewed and remarkable for mild hypoxia on room air requiring 2 L nasal cannula Interventions: Zofran 4 mg IV. Morphine 4 mg IV ordered however not given. Labs:Reviewed and remarkable for mild white blood cell count elevation. Procalcitonin 0 Imaging:xray: 5 view left ankle and tib-fib interpreted by me reveals trimalleolar ankle fracture with mild dislocation xray: Three-view left ankle post reduction with splinting reveals good alignment Consults:Dr Leong [facility], Dr Robles [place] Hospitalist Plan: Disposition:Hospitalization. Condition: Good History of Present Illness:86-year-old female arrives for evaluation of left ankle injury. Patient was at her shelter where she fell out of bed this morning. Resulting in left ankle injury. No reported head injury loss of consciousness or altered mental status beyond her baseline confusion. She has no headache or neck pain currently. She has a previous above-knee amputation on the right leg. Patient notes she does not walk and is always in a wheelchair or in bed. She denies any hip pain but does note that she has some mild left upper gilbert pain in addition to the left ankle pain. Prior to arrival EMS gave her 4 mg IV morphine. Patient continues to have ankle pain. Patient is not on any blood thinners as per patient or report. She has an extensive past medical history including dyslipidemia, hypertension, CKD, confusion amongst others. Past Medical History:See Below Past Surgical History:See Below Family History:See Below Social History:See Below Home Medications:See Below Allergies:See Below Vitals:Blood Pressure: 162/67, Pulse 86, RR 20, T 36.7C, O2 94% on 2L NC Physical Exam: GENERAL: Patient is uncomfortable appearing and in moderate distress. HEAD: AT/NC ENT: Mucous membranes moist, no nasal congestion. NECK: No masses appreciated, nomeningismus, trachea is midline. RESPIRATORY: No dyspnea. Clear to auscultation and equal bilaterally. No wheeze, no rhonchi. CARDIOVASCULAR: Regular rate and rhythm.No murmurs, rubs, gallops appreciated. GASTROINTESTINAL: Abdomen soft, non-tender, no peritonitis.Bowel sounds positive.No masses appreciated. BACK: No midline tenderness, no CVA tenderness EXTREMITIES: Right leg above-knee amputation. Left leg there is a severely angulated dislocated/deformed left ankle with cool bluish foot and minimal pulse NEUROLOGIC: Alert and oriented though forgetful of events, no focal weakness SKIN: No rash, no jaundice, no diaphoresis. PSYCH: Appropriate GCS: 15 ED Course: Times/Reassessments: Stable throughout and she is feeling much better after initial reduction of ankle dislocation. Further reduced with splinting which she tolerated quite well. Splint Application: Indication: left ankle fracture/dislocation. Orthoglass splint applied by Nursing staff. I evaluated splint and extremity post placement and reveals intact N/V status with splint in proper position and placement. There was no evidence of compartment syndrome. 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) Anemia Chronic kidney disease, stage 3 (moderate) Chronic venous insufficiency Complicated wound infection Depression Dyslipidemia Fracture of femur Hypertension Lymphedema Mild sleep apnea Obesity Osteoarthritis Osteoporosis (09/22/10) Peripheral neuropathy PLMD (periodic limb movement disorder) Rosacea Tubular adenoma of colon Type 2 diabetes mellitus with diabetic chronic kidney disease Urinary incontinence Venous stasis ulcers of both lower extremities Vitamin B12 deficiency Vitamin D deficiency Surgical History H/O colonoscopy H/O shoulder surgery History of knee replacement History of right above knee amputation (10/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 Denies family history of Ovarian cancer Prostate cancer Myocardial infarction Breast cancer Colorectal cancer Social History Smoking Status: Never smoker Second Hand Exposure: No; Do You Dip or Chew Tobacco: No; Tobacco Cessation Education Requested by Patient: No Hx Alcohol Use: No Hx Substance Use: No Preferred Language: Slovak Communication Ability: Impaired Communication Ability Comment: SAXMAN, Macular degeneration, poor historian Visual Impairment: Limited Hearing Ability: Use of Hearing Aid Stamping Operator Required: No Beliefs That Will Affect Care: None Current Living Situation: [facility] Current Living Situation Comment: Lives w/ son Other Information That Helps Us Care for You: No Feels Safe at Home: Yes Diet Comment: regular caffeine: Yes during the past year weight has: remained stable Dental Care, Regularly: No Physical Activity Frequency: Does not Exercise Seatbelt Use: always Sunscreen Use: No Assistive Devices: Mechanical Lift and Wheelchair Assistive Devices Comment: bed bound Allergies Allergies Allergy/AdvReac Type Severity Reaction Status Date / Time promethazine Allergy Severe RESP. Verified 03/21/22 15:15 ARREST Sulfa (Sulfonamide Allergy Intermediate WELTS Verified 03/21/22 15:15 Antibiotics) duloxetine Allergy Unknown Unknown Verified 03/21/22 15:15 nefazodone Allergy Unknown Unknown Verified 03/21/22 15:15 trazodone Allergy Unknown Unknown Verified 03/21/22 15:15 propoxyphene AdvReac Intermediate SEVERE Verified 03/21/22 15:15 HEADACHE aspirin AdvReac Mild headaches Verified 06/08/21 11:04 amitriptyline AdvReac Unknown Unknown Verified 03/21/22 15:15 blue dye AdvReac Unknown CI Pigment Verified 03/21/22 15:15 blue 63 Home Meds Home Medications Medication Instructions Recorded Confirmed cyanocobalamin (vitamin B-12) 1,000 mcg PO DAILY 10/28/17 03/21/22 1,000 mcg/mL oral drops (Vitamin B-12) vitamins A,C,F-cwln-wyflul 2,148 1 cap PO DAILY 03/20/18 03/21/22 mcg-113 mg-45 mg-17.4 mg tablet (PreserVision AREDS) cholecalciferol (vitamin D3) 125 5,000 units PO DAILY 01/13/19 03/21/22 mcg (5,000 unit) capsule ropinirole 0.5 mg tablet 0.5 mg PO HS 01/13/19 03/21/22 calcium citrate 250 mg PO HS 10/22/20 03/21/22 sennosides 8.6 mg tablet (senna) 8.6 mg PO DAILY 10/22/20 03/21/22 aspirin 81 mg capsule 81 mg PO BID 01/01/21 03/21/22 atropine 1 % eye drops 2 drp sublingual .EVERY HOUR PRN 04/04/21 03/21/22 excessive secretions lanolin alcohols-mineral 1 applic topical PM 04/04/21 03/21/22 oil-w.petrolatum-ceresin topical cream (Eucerin topical cream) ondansetron HCl 4 mg tablet 4 mg PO Q6 PRN Nausea And Vomiting 04/04/21 03/21/22 spironolactone 50 mg tablet 50 mg PO DAILY 04/04/21 03/21/22 azithromycin 250 mg tablet 250 mg PO DAILY 03/21/22 03/21/22 benzonatate 100 mg capsule 200 mg PO TID 03/21/22 03/21/22 cyclosporine 0.05 % eye drops in a 1 drp OPB Q12H 03/21/22 03/21/22 dropperette (Restasis) dextromethorphan-guaifenesin 10 10 ml PO QID 03/21/22 03/21/22 mg-100 mg/5 mL oral syrup ferrous sulfate 325 mg (65 mg 325 mg PO QAM 03/21/22 03/21/22 iron) tablet ibuprofen 600 mg tablet 600 mg PO Q6H PRN fever > 03/21/22 03/21/22 100.9/pain 1-10 ipratropium 0.5 mg-albuterol 3 mg 3 ml inhalation . EVERY 2 HOURS 03/21/22 03/21/22 (2.5 mg base)/3 mL nebulization PRN cough/wheeze soln ipratropium 0.5 mg-albuterol 3 mg 3 ml inhalation QID 03/21/22 03/21/22 (2.5 mg base)/3 mL nebulization soln srlaeguddejz-vcmrilbs-kvjkoj 1 tab PO DAILY 03/21/22 03/21/22 tablet (Multivitamin 50 Plus tablet) prednisone 10 mg tablet 10 mg PO UD 03/21/22 03/21/22 triamcinolone acetonide 0.1 % 1 applic topical QPM 03/21/22 03/21/22 topical cream venlafaxine 37.5 mg 37.5 mg PO QAM 03/21/22 03/21/22 capsule,extended release 24 hr (Effexor XR) Previous Rx's Medication Instructions Recorded atenolol 50 mg tablet 50 mg PO DAILY #90 tabs 06/14/20 gabapentin 300 mg capsule 1,200 mg PO HS #360 caps 10/10/20 acetaminophen 500 mg tablet 1,000 mg PO Q8 #10 tabs 10/12/20 (Tylenol Extra Strength) Results & Data (ED) Vital Signs Vital Signs - 24 hr 03/21/22 13:51 03/21/22 14:30 Pulse Rate [Right Finger] 76 70 Respiratory Rate 20 20 Respiratory Effort / Characteristics Non-Labored Non-Labored Respiratory Depth Normal Normal Blood Pressure [Right Arm] 164/67 H 140/64 Blood Pressure Mean [Right Arm] 99 89 Pulse Oximetry 94 94 Oxygen Delivery Method Nasal Cannula Nasal Cannula Oxygen Flow Rate 2 2 Laboratory Data 03/21/22 12:35 03/21/22 12:35 Lab Results 03/21/22 03/21/22 03/21/22 Range/Units 12:24 12:35 12:35 WBC 14.09 H (4.8-10.8) K/ul RBC 3.77 L (3.93-5.22) M/uL Hgb 12.6 (12.0-16.0) g/dl Hct 37.9 (34.1-44.9) % MCV 100.5 H (80.0-100.0) fL MCH 33.4 (25.0-34.0) pg MCHC 33.2 (32.0-36.0) g/dL RDW Std Deviation 48.1 H (36.4-46.3) fL RDW Coeff of Yane 13.0 (11.5-14.5) % Plt Count 275 (130-400) K/uL MPV 10.0 (9.4-12.3) fL Immature Gran % (Auto) 1.0 % Neut % (Auto) 66.9 % Lymph % (Auto) 16.9 % [place] % (Auto) 14.1 % Eos % (Auto) 0.8 % Baso % (Auto) 0.3 % Neut # (Auto) 9.43 H (1.4-6.5) K/uL Lymph # (Auto) 2.38 (1.2-3.4) K/uL [place] # (Auto) 1.99 H (0.24-0.82) K/uL Eos # (Auto) 0.11 (0-0.50) K/uL Baso # (Auto) 0.04 (0-0.2) K/uL Immature Gran # (Auto) 0.14 H (0.00-0.02) K/uL Sodium 137 (136-145) mmol/L Potassium 4.3 (3.5-5.1) mmol/L Chloride 94 L (98-107) mmol/L Carbon Dioxide 39 H (21-32) mmol/L Anion Gap 4 (3-11) BUN 35 H (6-23) mg/dl Creatinine 0.66 (0.6-1.2) mg/dl Est Cr Clr Drug Dosing 64.9 ml/min Est GFR ( Amer) 92.1 ml/min Est GFR (Non-Af Amer) 79.4 ml/min BUN/Creatinine Ratio 53.0 H (10-20) Glucose 147 H (70-99(Fasting)) mg/dl Calcium 9.9 (8.5-10.1) mg/dl Troponin I High Sens 12.1 (0-14) pg/ml Procalcitonin (0-0.5) ng/ml SARS-CoV-2 (PCR) NEGATIVE (Negative) Influenza Type A (PCR) Negative (Neg) Influenza Type B (PCR) Negative (Neg) RSV (RT-PCR) Negative (Neg) 03/21/22 Range/Units 12:35 WBC (4.8-10.8) K/ul RBC (3.93-5.22) M/uL Hgb (12.0-16.0) g/dl Hct (34.1-44.9) % MCV (80.0-100.0) fL MCH (25.0-34.0) pg MCHC (32.0-36.0) g/dL RDW Std Deviation (36.4-46.3) fL RDW Coeff of Yane (11.5-14.5) % Plt Count (130-400) K/uL MPV (9.4-12.3) fL Immature Gran % (Auto) % Neut % (Auto) % Lymph % (Auto) % [place] % (Auto) % Eos % (Auto) % Baso % (Auto) % Neut # (Auto) (1.4-6.5) K/uL Lymph # (Auto) (1.2-3.4) K/uL [place] # (Auto) (0.24-0.82) K/uL Eos # (Auto) (0-0.50) K/uL Baso # (Auto) (0-0.2) K/uL Immature Gran # (Auto) (0.00-0.02) K/uL Sodium (136-145) mmol/L Potassium (3.5-5.1) mmol/L Chloride (98-107) mmol/L Carbon Dioxide (21-32) mmol/L Anion Gap (3-11) BUN (6-23) mg/dl Creatinine (0.6-1.2) mg/dl Est Cr Clr Drug Dosing ml/min Est GFR ( Amer) ml/min Est GFR (Non-Af Amer) ml/min BUN/Creatinine Ratio (10-20) Glucose (70-99(Fasting)) mg/dl Calcium (8.5-10.1) mg/dl Troponin I High Sens (0-14) pg/ml Procalcitonin < 0.05 (0-0.5) ng/ml SARS-CoV-2 (PCR) (Negative) Influenza Type A (PCR) (Neg) Influenza Type B (PCR) (Neg) RSV (RT-PCR) (Neg) Administered Medications Acetaminophen (Acetaminophen 325 Mg Tab) 650 mg PO Q4H PRN PRN Reason: Fever/Mild Pain (Pain 1,2,3) Stop: 04/20/22 16:31 Last Admin: 03/22/22 07:59 Dose: 650 mg Documented By: SALEEM Albuterol (Albut/Ipratrop 3mg/0.5mg Neb 3 Ml Vial) 3 ml INH Q2R PRN; Protocol PRN Reason: cough/wheeze Stop: 04/20/22 16:14 Last Admin: 03/21/22 20:20 Dose: 3 ml Documented By: MORALES Aspirin (Aspirin 81 Mg Ectab) 81 mg PO BID [facility] Stop: 04/20/22 20:59 Last Admin: 03/22/22 08:00 Dose: 81 mg Documented By: Admin: 03/21/22 22:23 Dose: Not Given Documented By: MEREDITH Atenolol (Atenolol 50 Mg Tablet) 50 mg PO DAILY [facility] Stop: 04/21/22 08:59 Last Admin: 03/22/22 08:01 Dose: 50 mg Documented By: ARTURL Ferrous Sulfate (Ferrous Sulfate 325 Mg Tab) 325 mg PO Q48H [facility] Stop: 04/20/22 16:59 Last Admin: 03/21/22 18:26 Dose: Not Given Documented By: CMV Gabapentin (Gabapentin 600 Mg Tab) 1,200 mg PO [facility] Stop: 04/20/22 20:59 Last Admin: 03/21/22 22:23 Dose: Not Given Documented By: MEREDITH Heparin Sodium (Porcine) (Heparin Sod 5,000 Unit/0.5 Ml Vial) 7,500 units SQ Q8 [facility] Stop: 04/20/22 21:59 Last Admin: 03/22/22 04:46 Dose: 7,500 units Documented By: Admin: 03/21/22 22:14 Dose: 7,500 units Documented By: MEREDITH Miscellaneous (Restasis~Order Awaiting Action) 1 each N/A QS [facility] Stop: 04/21/22 00:00 Last Admin: 03/22/22 07:17 Dose: Not Given Documented By: Admin: 03/21/22 23:47 Dose: Not Given Documented By: MEREDITH Morphine Sulfate (Morphine Sulfate 2 Mg/Ml Carp) 2 mg IV Q4H PRN PRN Reason: Moderate Pain (4,5,6) on NRS Stop: 04/04/22 16:31 Last Admin: 03/22/22 09:45 Dose: 2 mg Documented By: SALEEM Morphine Sulfate (Morphine Sulfate 4 Mg/Ml 1 Ml Carp\Vial) 4 mg IV Q4H PRN PRN Reason: Severe Pain (7,8,9,10) on NRS Stop: 04/04/22 16:31 Last Admin: 03/21/22 17:28 Dose: 4 mg Documented By: CMV Ropinirole HCl (Ropinirole Hcl 0.25 Mg Tablet) 0.5 mg PO [facility] Stop: 04/20/22 20:59 Last Admin: 03/21/22 22:24 Dose: Not Given Documented By: MEREDITH Sennosides (Senna 8.6 Mg Tab) 8.6 mg PO DAILY [facility] Stop: 04/21/22 08:59 Last Admin: 03/22/22 08:00 Dose: 8.6 mg Documented By: ARTURL Spironolactone (Spironolactone 25 Mg Tab) 50 mg PO DAILY [facility] Stop: 04/21/22 08:59 Last Admin: 03/22/22 08:00 Dose: 50 mg Documented By: ARTURL Venlafaxine HCl (Venlafaxine Hcl Xr 37.5 Mg Capxr) 37.5 mg PO QAM [facility] Stop: 04/21/22 08:59 Last Admin: 03/22/22 08:00 Dose: 37.5 mg Documented By: RDL Discontinued Medications Azithromycin (Azithromycin 250 Mg Tab) 250 mg PO QAM [facility] Stop: 03/25/22 08:59 Last Admin: 03/22/22 08:00 Dose: 250 mg Documented By: ARTURL Morphine Sulfate (Morphine Sulfate 4 Mg/Ml 1 Ml Carp\Vial) 4 mg IV NOW STA Stop: 03/21/22 12:22 Last Admin: 03/21/22 17:26 Dose: Not Given Documented By: CMV Ondansetron HCl (Ondansetron Inj 2 Mg/Ml 2 Ml Vial) 4 mg IV NOW STA Stop: 03/21/22 12:22 Last Admin: 03/21/22 17:26 Dose: Not Given Documented By: CMV Prednisone (Prednisone 20 Mg Tab) 40 mg PO DAILY [facility] Stop: 04/21/22 08:59 Last Admin: 03/22/22 08:01 Dose: 40 mg Documented By: ARTURL Imaging Data Radiologist's Impression: Ankle X-Ray 03/21/22 12:21 XR tibia fibula LT 2V, XR ankle LT min 3V routine HISTORY: 86 years-old Female left ankle injury acute pain of the left ankle and lower leg COMPARISON: None TECHNIQUE: 2 views of the left tibia and fibula with 2 views of the left ankle FINDINGS: TIBIA/fibula: Total joint arthroplasty with partially imaged intramedullary lindsey of the distal femur. Demineralized appearance of the bones. Soft tissue and arterial calcifications of the lower leg. ANKLE: There is an acute vertically oriented fracture involving the medial malleolus with intra-articular extension demonstrating 5 mm medial displacement. Acute and comminuted distal fibular fracture demonstrate mild impaction with mild apex volar angulation. Acute nondisplaced posterior malleolar fracture. The mineralized appearance the bones with moderate to severe osteoarthritis. Spurring of the calcaneus. IMPRESSION: 1. Acute trimalleolar ankle fracture with displacement/angulation as above. 2. Total joint arthroplasty of the knee. 3. No definite additional acute fracture or dislocation identified. ACT 112: Negative or not required by law. The above report was generated using voice recognition software. It may contain grammatical, syntax or spelling errors. Electronically signed by: Augustin Kasper M.D. 03/21/2022 12:58 PM Tibia/Fibula X-Ray 03/21/22 12:21 XR tibia fibula LT 2V, XR ankle LT min 3V routine HISTORY: 86 years-old Female left ankle injury acute pain of the left ankle and lower leg COMPARISON: None TECHNIQUE: 2 views of the left tibia and fibula with 2 views of the left ankle FINDINGS: TIBIA/fibula: Total joint arthroplasty with partially imaged intramedullary lindsey of the distal femur. Demineralized appearance of the bones. Soft tissue and arterial calcifications of the lower leg. ANKLE: There is an acute vertically oriented fracture involving the medial malleolus with intra-articular extension demonstrating 5 mm medial displacement. Acute and comminuted distal fibular fracture demonstrate mild impaction with mild apex volar angulation. Acute nondisplaced posterior malleolar fracture. The minerali zed appearance the bones with moderate to severe osteoarthritis. Spurring of the calcaneus. IMPRESSION: 1. Acute trimalleolar ankle fracture with displacement/angulation as above. 2. Total joint arthroplasty of the knee. 3. No definite additional acute fracture or dislocation identified. ACT 112: Negative or not required by law. The above report was generated using voice recognition software. It may contain grammatical, syntax or spelling errors. Electronically signed by: Augustin Kasper M.D. 03/21/2022 12:58 PM Chest X-Ray 03/21/22 12:22 XR chest 1V portable HISTORY: cough COMPARISON: Chest 04/04/2021. FINDINGS: No pneumothorax. No pleural effusions. The cardiac silhouette remains mildly enlarged. There is mild central pulmonary vascular congestion without overt edema. This has improved in the interval. A few linear densities within the mid to lower lung zones persist and favor scarring or subsegmental atelectasis. No new focal lung consolidations identified. Bilateral total shoulder arthroplasties are again noted. IMPRESSION: Mild cardiomegaly with mild central pulmonary vascular congestion without overt edema. This is improved in the interval. ACT 112: Negative or not required by law. Electronically signed by: Kameron King M.D. 03/21/2022 12:58 PM Ankle X-Ray 03/21/22 14:05 LEFT ANKLE 3 VIEWS CLINICAL HISTORY: Postreduction examination. FINDINGS: 3 views of the left ankle are compared to study performed earlier the same day 03/21/2022. The examination is performed through a cast, obscuring fine bony detail. The skeletal structures are osteopenic. Again seen is a trimalleolar fracture of the ankle joint. Near-anatomic alignment has been restored. There is mild persistent displacement of the vertically oriented medial malleolar fracture by approximately 1.5 mm. There is an ankle joint e ffusion. Soft tissue swelling is seen around the ankle. There is a large plantar heel spur. IMPRESSION: Significantly improved alignment of a trimalleolar left ankle fracture status post closed reduction. Electronically signed by: Carlos Goss M.D. 03/21/2022 3:06 PM Discharge Plan Visit Data Chief Complaint: Ankle Pain Stated Complaint: ankle fx ED Provider: Pierce Zhou Discharge Problem: Closed fracture dislocation of left ankle, Left lower lobe pulmonary infiltrate, Acute confusion Patient Disposition: Admitted As Inpatient Discharge Instructions Interventions: ED Discharge Assessment Last Done: 03/21/22 15:33 : Closed fracture dislocation of left ankle Qualifiers: Encounter type: initial encounter Qualified Code(s): S82.892A - Other fracture of left lower leg, initial encounter for closed fracture
[2022-03-21 12:57] LABS: Basophils # (auto) 0.04 K/uL (0-0.2); Basophils % (auto) 0.3 %; Eosinophils # (auto) 0.11 K/uL (0-0.50); Eosinophils % (auto) 0.8 %; Hematocrit (blood only) 37.9 % (34.1-44.9); Hemoglobin 12.6 g/dl (12.0-16.0); Immature Granulocytes # (auto) 0.14 K/uL (0.00-0.02); Lymphocytes # (auto) 2.38 K/uL (1.2-3.4); Lymphocytes % (auto) 16.9 %; Mean Corpuscular Hemoglobin 33.4 pg (25.0-34.0); Mean Corpuscular Hgb Conc 33.2 g/dL (32.0-36.0); Mean Corpuscular Volume 100.5 fL (80.0-100.0); Monocytes # (auto) 1.99 K/uL (0.24-0.82); Monocytes % (auto) 14.1 %; Neutrophils # (auto) 9.43 K/uL (1.4-6.5); Neutrophils % (auto) 66.9 %; Platelet Count 275 K/uL (130-400); RDW Standard Deviation 48.1 fL (36.4-46.3); Red Blood Count 3.77 M/uL (3.93-5.22); White Blood Count 14.09 K/ul (4.8-10.8)
--- NOTE | 2022-03-21 12:59 | XRay Report ---
XR chest 1V portable HISTORY: cough COMPARISON: Chest 04/04/2021. FINDINGS: No pneumothorax. No pleural effusions. The cardiac silhouette remains mildly enlarged. Ther e is mild central pulmonary vascular congestion without overt edema. This has improved in the interva l. A few linear densities within the mid to lower lung zones persist and favor scarring or subsegment al atelectasis. No new focal lung consolidations identified. Bilateral total shoulder arthroplasties are again noted. IMPRESSION: Mild cardiomegaly with mild central pulmonary vascular congestion without overt edema. This is improv ed in the interval. ACT 112: Negative or not required by law. Electronically signed by: Kameron King M.D. 03/21/2022 12:58 PM
--- NOTE | 2022-03-21 12:59 | XRay Report ---
XR tibia fibula LT 2V, XR ankle LT min 3V routine HISTORY: 86 years-old Female left ankle injury acute pain of the left ankle and lower leg COMPARISON: None TECHNIQUE: 2 views of the left tibia and fibula with 2 views of the left ankle FINDINGS: TIBIA/fibula: Total joint arthroplasty with partially imaged intramedullary lindsey of the distal femur. Demineralized appearance of the bones. Soft tissue and arterial calcifications of the lower leg. ANKLE: There is an acute vertically oriented fracture involving the medial malleolus with intra-articular ex tension demonstrating 5 mm medial displacement. Acute and comminuted distal fibular fracture demonstr ate mild impaction with mild apex volar angulation. Acute nondisplaced posterior malleolar fracture. The mineralized appearance the bones with moderate to severe osteoarthritis. Spurring of the calcaneu s. IMPRESSION: 1. Acute trimalleolar ankle fracture with displacement/angulation as above. 2. Total joint arthroplasty of the knee. 3. No definite additional acute fracture or dislocation identified. ACT 112: Negative or not required by law. The above report was generated using voice recognition software. It may contain grammatical, syntax o r spelling errors. Electronically signed by: Augustin Kasper M.D. 03/21/2022 12:58 PM
[2022-03-21 13:14] LABS: Calcium 9.9 mg/dl (8.5-10.1); Creatinine Clr Calc Pharmacy 64.9 ml/min; Est GFR (African American) 92.1 ml/min; Est GFR (Non-African American) 79.4 ml/min; Potassium 4.3 mmol/L (3.5-5.1)
[2022-03-21 13:21] LABS: Troponin I High Sensitivity 12.1 pg/ml (0-14)
[2022-03-21 13:45] LABS: Influenza A virus by PCR Negative (Neg); Influenza B virus by PCR Negative (Neg); RSV by PCR Negative (Neg); SARS CoV2 RNA(COVID-19) Ceph NEGATIVE (Negative)
--- NOTE | 2022-03-21 14:22 | History & Physical Report ---
Date of Service March 21, 2022 Assessment & Plan (1) Trimalleolar fracture of left ankle: Plan: Left trimalleolar fracture - Feel getting out of bed, reporded feeling ill/intermittently confused last 2 days with ?PNA. A&Ox3 at admitting exam - CXR: IMPRESSION: 1. Acute trimalleolar ankle fracture with displacement/angulation as above. 2. Total joint arthroplasty of the knee. 3. No definite additional acute fracture or dislocation identified. -Discussed with patient and son and that operative intervention would require [place] [place] and son request non-operative management, pt also noting she is not ambulatory at baseline. Was discussed with ER/Dr. Leong, pt OK for admission and non-op management - APAP, Tylenol, Morphine for breakthrough - nwb LLE - Wrapped, cap refill in toe intact, pt pulse palpable on exam, sensation to soft touch intact Suspected pneumonia Patient on 2 L of oxygen at baseline, is maintaining saturations at 2 L. While at [facility] ? Left lower lobe infiltrate on CXR, patient with leukocytosis, acute confusion, and increased oxygen requirement by report. MEDICAL SURGERY NURSE azithromycin, MEDICAL SURGERY NURSE prednisone taper started at 50 mg and decreasing by 10 mg every other day Procalcitonin is normal on admission, viral Quad screen is negative We will continue azithromycin and taper. Given improving x-ray and negative Pro-Torsten will defer Rocephin Type 2 diabetes mellitus Diet controlled, A1c 5.2% last January. Further A1c was deferred as BSG rarely above 150 on repeat checks. Remains <150 on admit despite prednisone. BMP daily, If >150 +NPH vs conservative SSI while on steroids CKD 3 Baseline creatinine <1 Admitting creatinine 0.66, adjust crcl 64 - BMP, renally dose as needed. No PAIGE on admit Anemia Stable, hemoglobin 13.2 12/2021 No recent bleeding Hemoglobin daily Continue MEDICAL SURGERY NURSE iron, will change to q. OD Primary hypertension Continue atenolol 50 mg once daily Continue spironolactone 50 mg dailycontinued on aspirin 81 mg daily Depression MEDICAL SURGERY NURSE Effexor 37.5 mg ER daily DVT prophylaxis: Heparin in the setting of CKD Diet: Healthy, switch to DM if BSG greater than 150 Disposition: Medical/surgical CODE STATUS: Full code (2) Left foot pain: (3) Chronic kidney disease, stage 3 (moderate): (4) Peripheral neuropathy: (5) Dyslipidemia: (6) Depression: (7) Chronic venous insufficiency: (8) Anemia: History of Present Illness Primary Care Provider: [facility] Tata Lin is a 86-year-old female who presented after she fell getting out of bed this morning. No head injury, syncope, confusion. No history of blood thinner use. CXR: Mild cardiomegaly with mild central pulmonary vascular congestion, no overt edema improved from prior XR tibia/fibula left: There is an acute vertically oriented fracture involving the medial malleolus with intra-articular extension demonstrating 5 mm medial displacement. Acute and comminuted distal fibular fracture demonstrate mild impaction with mild apex volar angulation. Acute nondisplaced posterior malleolar fracture. The mineralized appearance the bones with moderate to severe osteoarthritis. Spurring of the calcaneus. Total joint arthroplasty with partially imaged intramedullary lindsey of the distal femur. Demineralized appearance of the bones. Soft tissue and arterial calcifications of the lower leg. CXR at [facility]: Reportedly PNA. ?LL infiltrate. Procal neg. 2L oxygen, no home requirement. History of fall and periprosthetic right femur fracture in 2020 requiring ORIF but with traumatic ulceration and complicating infection. Following this patient was transferred to [facility]. Patient was unable to return home and continued care at [facility]. Is not able to ambulate at baseline and does not bear weight. 2 days before presentation did have a cough and wheeze for 24 hours with increase sputum production. Was prescribed DuoNebs, prednisone 12-day taper, Robitussin, and Z-Joe. CXR personal care note concerning for left lower lobe pneumonia. Per patient: Patient is aware she is in [facility], is oriented to year and place and answers questions appropriately intermittently but is occasionally tangential and requires frequent redirection. She reports she "did something stupid "and tried to get out of bed which she does not normally do. Reports that she does not walk "I cannot, I have 1 leg". She reports in the last 2 days she has had a little bit of increased fatigue, cough, and some sputum production but does not recall what color. She denies chest pain, chest pressure, wheezing, lightheadedness, dizziness. Denies pain in her left lower extremity at time of exam. Denies fever/chills/sweats. Denies nausea/vomiting. 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 Endorses that she would like to avoid surgery. Also discussed case with patient's son, Florian by phone. Does not wish to pursue surgical intervention, would like nonoperative management if possible. No additional questions or concerns at time of call. Medical History: Reviewed Medications: Reviewed Surgical History: Reviewed Allergies: Reviewed Social History: Reviewed Code Status: DNR/DNI Allergies Allergy/AdvReac Type Severity Reaction Status Date / Time promethazine Allergy Severe RESP. Verified 06/08/21 11:04 ARREST Sulfa (Sulfonamide Allergy Intermediate WELTS Verified 06/08/21 11:04 Antibiotics) duloxetine Allergy Unknown Unknown Verified 06/08/21 11:04 nefazodone Allergy Unknown Unknown Verified 06/08/21 11:04 trazodone Allergy Unknown Unknown Verified 06/08/21 11:04 propoxyphene AdvReac Intermediate SEVERE Verified 06/08/21 11:04 HEADACHE aspirin AdvReac Mild headaches Verified 06/08/21 11:04 amitriptyline AdvReac Unknown Unknown Verified 06/08/21 11:04 blue dye AdvReac Unknown CI Pigment Verified 06/08/21 11:04 blue 63 Home Medications Medication Instructions Recorded Confirmed Type cyanocobalamin (vitamin B-12) 1,000 mcg PO DAILY 10/28/17 06/08/21 History 1,000 mcg/mL oral drops (Vitamin B-12) vitamins A,C,E-ddcb-wepuyn 2,148 1 cap PO DAILY 03/20/18 06/08/21 History mcg-113 mg-45 mg-17.4 mg tablet (PreserVision AREDS) cholecalciferol (vitamin D3) 125 5,000 units PO DAILY 01/13/19 06/08/21 History mcg (5,000 unit) capsule ropinirole 0.5 mg tablet 0.5 mg PO HS 01/13/19 06/08/21 History atenolol 50 mg tablet 50 mg PO DAILY #90 tabs 06/14/20 06/08/21 Rx cyclosporine 0.05 % eye drops in a 1 drp ophthalmic (eye) Q12H 09/22/20 06/08/21 History dropperette (Restasis) gabapentin 300 mg capsule 1,200 mg PO HS #360 caps 10/10/20 06/08/21 Rx acetaminophen 500 mg tablet 1,000 mg PO Q8 #10 tabs 10/12/20 06/08/21 Rx (Tylenol Extra Strength) calcium citrate 250 mg PO DAILY 10/22/20 06/08/21 History sennosides 8.6 mg tablet (senna) 8.6 mg PO DAILY 10/22/20 06/08/21 History venlafaxine 37.5 mg 37.5 mg PO DAILY #90 caps 11/09/20 06/08/21 Rx capsule,extended release 24 hr (Effexor XR) ferrous sulfate 325 mg (65 mg 325 mg PO BID #60 tabs 11/28/20 06/08/21 Rx iron) tablet aspirin 81 mg capsule 81 mg PO BID 01/01/21 06/08/21 History arginine 7 gram-glutamine 7 1 ea PO BID 03/28/21 06/08/21 History gram-calcium HMB 1.5 gram oral powder pack (Bob) atropine 1 % eye drops 2 drp sublingual .EVERY HOUR PRN 04/04/21 06/08/21 History excessive secretions ipratropium 20 mcg-albuterol 100 1 puff inhalation QID 04/04/21 06/08/21 History mcg/actuation mist for inhalation (Combivent Respimat) lanolin alcohols-mineral 1 applic topical PM 04/04/21 06/08/21 History oil-w.petrolatum-ceresin topical cream (Eucerin topical cream) morphine concentrate 20 mg/mL oral 5 mg sublingual .EVERY 1 HOUR PRN 04/04/21 06/08/21 History syringe (FOR ORAL USE ONLY) moderate pain/dyspnea morphine concentrate 20 mg/mL oral 10 mg sublingual .EVERY 1 HOUR PRN 04/04/21 06/08/21 History syringe (FOR ORAL USE ONLY) severe pain/dyspnea multivitamin with minerals 1 tab PO DAILY 04/04/21 06/08/21 History (Multiple Vitamin-Minerals tablet) ondansetron HCl 4 mg tablet 4 mg PO Q6 PRN Nausea And Vomiting 04/04/21 06/08/21 History spironolactone 50 mg tablet 50 mg PO DAILY 04/04/21 06/08/21 History tramadol 50 mg tablet 50 mg PO Q6H PRN pain 04/04/21 06/08/21 History 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) Anemia Chronic kidney disease, stage 3 (moderate) Chronic venous insufficiency Complicated wound infection Depression Dyslipidemia Fracture of femur Hypertension Lymphedema Mild sleep apnea Obesity Osteoarthritis Osteoporosis (09/22/10) Peripheral neuropathy PLMD (periodic limb movement disorder) Rosacea Tubular adenoma of colon Type 2 diabetes mellitus with diabetic chronic kidney disease Urinary incontinence Venous stasis ulcers of both lower extremities Vitamin B12 deficiency Vitamin D deficiency Surgical History H/O colonoscopy H/O shoulder surgery History of knee replacement History of right above knee amputation (10/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 Denies family history of Ovarian cancer Prostate cancer Myocardial infarction Breast cancer Colorectal cancer Social History Smoking Status: Never smoker Second Hand Exposure: No; Hx Alcohol Use: No Hx Substance Use: No Preferred Language: Cameroonian Communication Ability: Effective Visual Impairment: Limited Hearing Ability: Use of Hearing Aid Saw Filer Required: No Beliefs That Will Affect Care: None Current Living Situation: Shelter Current Living Situation Comment: Lives w/ son Feels Safe at Home: Yes Diet Comment: regular caffeine: Yes during the past year weight has: remained stable Dental Care, Regularly: No Physical Activity Frequency: Does not Exercise Seatbelt Use: always Sunscreen Use: No Assistive Devices: Denture - Upper, Denture - Lower and Glasses Results & Data Results & [facility] ([facility]) Vital Signs (Past 12 Hours) Vital Signs Temp Pulse Resp BP Pulse Ox O2 Del Method O2 Flow Rate 03/21/22 12:11 Nasal Cannula 2 03/21/22 12:06 36.7 C 86 20 162/67 H 94 Nasal Cannula 2 PG Care Time/CCT Total # of Minutes Spent Total Time Spent with Patient: Total time spent is greater than 50% in coordination of care (as documented) at patient's floor/unit and/or counseling patient: Coding Level of Care Code 76839 INT INP/OBS CARE MIN Diagnoses Trimalleolar fracture of left ankle S82.852A Left foot pain M79.672 Chronic kidney disease, stage 3 (moderate) N18.3 Peripheral neuropathy G62.9 Dyslipidemia E78.5 Depression F32.9 Chronic venous insufficiency I87.2 Anemia D64.9
--- NOTE | 2022-03-21 15:07 | XRay Report ---
LEFT ANKLE 3 VIEWS CLINICAL HISTORY: Postreduction examination. FINDINGS: 3 views of the left ankle are compared to study performed earlier the same day 03/21/2022. T he examination is performed through a cast, obscuring fine bony detail. The skeletal structures are o steopenic. Again seen is a trimalleolar fracture of the ankle joint. Near-anatomic alignment has been restored. There is mild persistent displacement of the vertically oriented medial malleolar fracture by approximately 1.5 mm. There is an ankle joint effusion. Soft tissue swelling is seen around the a nkle. There is a large plantar heel spur. IMPRESSION: Significantly improved alignment of a trimalleolar left ankle fracture status post closed reduction. Electronically signed by: Carlos Goss M.D. 03/21/2022 3:06 PM
[2022-03-21] MEDS ORDERED: ALBUT/IPRATROP 3MG/0.5MG NEB 3 ML VIAL INH PRN (16:15)
[2022-03-21] MEDS ORDERED: ATROPINE SULFATE 1% OP SOLN 5 ML BTL SL PRN (16:15)
[2022-03-21] MEDS ORDERED: MoRPHine SULFATE 4 MG/ML 1 ML CARP\\VIAL IV PRN (16:32)
[2022-03-21] MEDS ORDERED: ONDANSETRON INJ 2 MG/ML 2 ML VIAL IV PRN (16:32)
[2022-03-21] MEDS ORDERED: ACETAMINOPHEN 325 MG TAB PO PRN (16:32)
[2022-03-21] MEDS ORDERED: MoRPHine SULFATE 2 MG/ML CARP IV PRN (16:32)
[2022-03-21] MEDS ORDERED: FERROUS SULFATE 325 MG TAB PO SCH (17:00)
[2022-03-21] MEDS: HEPARIN SOD 5,000 UNIT/0.5 ML VIAL SQ SCH (22:14)
[2022-03-21] MEDS: GABAPENTIN 600 MG TAB PO SCH ×2 (22:15→22:23)
[2022-03-21] MEDS: ASPIRIN 81 MG ECTAB PO SCH ×2 (22:15→22:23)
[2022-03-21] MEDS: rOPINIRole HCL 0.25 MG TABLET PO SCH ×2 (22:15→22:24)
[2022-03-21] MEDS: RESTASIS~ORDER AWAITING ACTION SCH (23:47)
[2022-03-22] MEDS: HEPARIN SOD 5,000 UNIT/0.5 ML VIAL SQ SCH ×3 (04:46→21:47)
[2022-03-22] MEDS: RESTASIS~ORDER AWAITING ACTION SCH ×2 (07:17→16:22)
[2022-03-22] MEDS: VENLAFAXINE HCL XR 37.5 MG CAPXR PO SCH (08:00)
[2022-03-22] MEDS: SENNA 8.6 MG TAB PO SCH (08:00)
[2022-03-22] MEDS: SPIRONOLACTONE 25 MG TAB PO SCH (08:00)
[2022-03-22] MEDS: ASPIRIN 81 MG ECTAB PO SCH ×2 (08:00→21:47)
[2022-03-22] MEDS: ATENOLOL 50 MG TABLET PO SCH (08:01)
[2022-03-22] MEDS ORDERED: AZITHROMYCIN 250 MG TAB PO SCH (09:00)
[2022-03-22] MEDS ORDERED: predniSONE 20 MG TAB PO SCH (09:00)
[2022-03-22 09:17] LABS: Basophils # (auto) 0.08 K/uL (0-0.2); Basophils % (auto) 0.7 %; Eosinophils # (auto) 0.75 K/uL (0-0.50); Eosinophils % (auto) 6.6 %; Hematocrit (blood only) 37.5 % (34.1-44.9); Hemoglobin 11.9 g/dl (12.0-16.0); Immature Granulocytes # (auto) 0.06 K/uL (0.00-0.02); Immature Granulocytes % (auto) 0.5 %; Lymphocytes # (auto) 2.31 K/uL (1.2-3.4); Lymphocytes % (auto) 20.2 %; Mean Corpuscular Hgb Conc 31.7 g/dL (32.0-36.0); Mean Corpuscular Volume 103.9 fL (80.0-100.0); Monocytes # (auto) 2.09 K/uL (0.24-0.82); Monocytes % (auto) 18.3 %; Neutrophils # (auto) 6.14 K/uL (1.4-6.5); Neutrophils % (auto) 53.7 %; Platelet Count 258 K/uL (130-400); RDW Coefficient of Variation 13.5 % (11.5-14.5); RDW Standard Deviation 52.5 fL (36.4-46.3); Red Blood Count 3.61 M/uL (3.93-5.22); White Blood Count 11.43 K/ul (4.8-10.8)
[2022-03-22 09:45] LABS: BUN Creatinine Ratio 58.2 (10-20); Calcium 9.6 mg/dl (8.5-10.1); Creatinine Clr Calc Pharmacy 62.6 ml/min; Est GFR (African American) 91.6 ml/min; Potassium 4.2 mmol/L (3.5-5.1)
--- NOTE | 2022-03-22 11:15 | Electrocardiogram Report ---
Test Reason : Blood Pressure : / mmHG Vent. Rate : 078 BPM Atrial Rate : 078 BPM P-R Int : 230 ms QRS Dur : 094 ms QT Int : 370 ms P-R-T Axes : 078 001 022 degrees QTc Int : 421 ms Sinus rhythm with 1st degree A-V block with occasional Premature ventricular complexes Minimal voltage criteria for LVH, may be normal variant Borderline ECG When compared with ECG of 22-OCT-2020 19:57, Premature ventricular complexes are now Present SD interval has increased Confirmed by Troy Rodriges ([id number]) on 03/22/2022 11:14:46 AM Referred By: [facility] Confirmed By:Troy Rodriges
[2022-03-22] MEDS ORDERED: oxyCODONE HCL IR 5 MG TAB (IMMEDIATE RELEASE) PO STA (12:20)
[2022-03-22] MEDS ORDERED: oxyCODONE HCL IR 5 MG TAB (IMMEDIATE RELEASE) PO PRN (12:20)
--- NOTE | 2022-03-22 12:50 | Hospitalist Progress Note ---
Date of Service March 22, 2022 Assessment & Plan (1) Trimalleolar fracture of left ankle: Plan: The patient and family have opted for nonsurgical management. The left ankle has been immobilized. Oxycodone ordered for pain control measures. Eventual follow-up with orthopedics as directed. Currently nonweightbearing . Appreciate orthopedic consult and recommendations (2) Left foot pain: Plan: Due to left ankle fracture. Pain management. Immobilization. Currently nonweightbearing (3) Chronic kidney disease, stage 3 (moderate): Plan: Monitor intake and output. Serial lab studies (4) Peripheral neuropathy: Plan: Stable with current medical management (5) Dyslipidemia: Plan: Stable with current statin therapy (6) Depression: Plan: Stable with current medical management (7) Chronic venous insufficiency: Plan: Bilateral legs. Leg elevation when possible. (8) Anemia: Plan: No overt blood loss. Serial labs (9) Pneumonia: Plan: Suspected recent pneumonia. Azithromycin switched to cefdinir orally. We will taper prednisone off. Serial chest x-rays until clear (10) COPD (chronic obstructive pulmonary disease): Plan: Currently stable. Continue supplemental oxygen to maintain saturation greater than 90%. Continue inhalers and current medications. Taper prednisone off (11) Chronic respiratory failure with hypoxia: Plan: She normally uses 2 L of oxygen continuously at home. Currently on 3 L with oxygen saturation 95%. I do not believe this represents an exacerbation of her chronic respiratory failure. She will be weaned back to her usual 2 L/min oxygen. Plan She is nonambulatory and will require SNF placement Admission and Anticipated Discharge Date Admission Date: March 21, 2022 Subjective Alert and oriented. Primary complaint is left ankle pain. Oxycodone IR has been ordered as needed. We will also start MiraLAX to prevent opioid-induced constipation. Review of Systems Review of Systems: Constitutional-no fever or chills ENT-no blurred vision, no double vision, no epistaxis, no sore throat Respiratory-no cough, no wheezing, no shortness of breath Cardiac-no palpitations, no chest pain, no syncope GI-no nausea, vomiting, diarrhea, melena, hematochezia -no urinary retention, no urinary incontinence, no dysuria, no hematuria Musculoskeletal-left ankle pain as expected from underlying fracture Skin-no bruising, no rashes, no pruritus Neuro-no isolated weakness, no paresthesia, no weakness Psych-no depression, no anxiety Physical Exam Physical Exam: General-alert and oriented x3, no fevers, no chills. Morbidly obese HEENT-head atraumatic and normocephalic, pupils equal and reactive to light, extraocular muscles intact Neck-no lymphadenopathy or thyromegaly, trachea midline Chest-clear to auscultation percussion. No rales wheezing or rhonchi Cardiac-regular rate and rhythm, normal S1 and S2 Abdomen-normal bowel sounds, nontender, no hepatosplenomegaly Extremities-left ankle has been immobilized Neuro-cranial nerves II through XII intact, motor and sensory function within normal limits, strength symmetrical , no focal deficits Psych-normal affect, normal mood Results & Data Results & Data ([facility] [place]) Vital Signs (Past 12 Hours) Vital Signs Temp Pulse Resp BP Pulse Ox O2 Del Method O2 Flow Rate 03/22/22 10:46 90 03/22/22 07:49 Nasal Cannula 3 03/22/22 07:32 37.0 C 83 16 146/66 H 95 Nasal Cannula 3 Laboratory Results 03/22/22 08:08 03/22/22 08:08 PG Care Time/CCT Total # of Minutes Spent Total Time Spent with Patient: Total time spent is greater than 50% in coordination of care (as documented) at patient's floor/unit and/or counseling patient: Coding Level of Care Code 16681 SUB INP/OBS CARE 3/50MIN Diagnoses Trimalleolar fracture of left ankle S82.852A Left foot pain M79.672 Chronic kidney disease, stage 3 (moderate) N18.3 Peripheral neuropathy G62.9 Dyslipidemia E78.5 Depression F32.9 Chronic venous insufficiency I87.2 Anemia D64.9 Pneumonia J18.9 COPD (chronic obstructive pulmonary disease) J44.9 Chronic respiratory failure with hypoxia J96.11
[2022-03-22] MEDS: CEFDINIR 300 MG CAP PO SCH ×2 (13:10→21:47)
--- NOTE | 2022-03-22 15:56 | Orthopedic Consultation ---
Date of Service March 22, 2022 Assessment & Plan (1) Trimalleolar fracture of left ankle: She was seen and examined by Dr. Leong today. Continue conservative management for this fracture. Short leg cast applied today. Nonweight bearing left lower extremity. Avoid pressure on heel. Follow up with Dr. Leong in approximately 2 weeks. History of Present Illness Reason for Consultation: . Requesting Physician: . Attending Physician: Simon Chavez MD .Tata is a 86 year old patient admitted to the hospitalist service yesterday with a left trimalleolar ankle fracture. She has a history of a right above knee amputation. She apparently had pneumonia recently. She is somewhat confused so history obtained from her chart. Per the reports, she fell from her bed yesterday, injuring her ankle. Xrays in the ER demonstrated a trimalleolar ankle fracture. This was reduced and splinted by the ER staff. She is not really having much pain at this time. Allergies Allergy/AdvReac Type Severity Reaction Status Date / Time promethazine Allergy Severe RESP. Verified 03/21/22 15:15 ARREST Sulfa (Sulfonamide Allergy Intermediate WELTS Verified 03/21/22 15:15 Antibiotics) duloxetine Allergy Unknown Unknown Verified 03/21/22 15:15 nefazodone Allergy Unknown Unknown Verified 03/21/22 15:15 trazodone Allergy Unknown Unknown Verified 03/21/22 15:15 propoxyphene AdvReac Intermediate SEVERE Verified 03/21/22 15:15 HEADACHE aspirin AdvReac Mild headaches Verified 06/08/21 11:04 amitriptyline AdvReac Unknown Unknown Verified 03/21/22 15:15 blue dye AdvReac Unknown CI Pigment Verified 03/21/22 15:15 blue 63 Home Medications Medication Instructions Recorded Confirmed Type cyanocobalamin (vitamin B-12) 1,000 mcg PO DAILY 10/28/17 03/21/22 History 1,000 mcg/mL oral drops (Vitamin B-12) vitamins A,C,W-jjkb-kqbbxj 2,148 1 cap PO DAILY 03/20/18 03/21/22 History mcg-113 mg-45 mg-17.4 mg tablet (PreserVision AREDS) cholecalciferol (vitamin D3) 125 5,000 units PO DAILY 01/13/19 03/21/22 History mcg (5,000 unit) capsule ropinirole 0.5 mg tablet 0.5 mg PO HS 01/13/19 03/21/22 History atenolol 50 mg tablet 50 mg PO DAILY #90 tabs 06/14/20 03/21/22 Rx gabapentin 300 mg capsule 1,200 mg PO HS #360 caps 10/10/20 03/21/22 Rx acetaminophen 500 mg tablet 1,000 mg PO Q8 #10 tabs 10/12/20 03/21/22 Rx (Tylenol Extra Strength) calcium citrate 250 mg PO HS 10/22/20 03/21/22 History sennosides 8.6 mg tablet (senna) 8.6 mg PO DAILY 10/22/20 03/21/22 History aspirin 81 mg capsule 81 mg PO BID 01/01/21 03/21/22 History atropine 1 % eye drops 2 drp sublingual .EVERY HOUR PRN 04/04/21 03/21/22 History excessive secretions lanolin alcohols-mineral 1 applic topical PM 04/04/21 03/21/22 History oil-w.petrolatum-ceresin topical cream (Eucerin topical cream) ondansetron HCl 4 mg tablet 4 mg PO Q6 PRN Nausea And Vomiting 04/04/21 03/21/22 History spironolactone 50 mg tablet 50 mg PO DAILY 04/04/21 03/21/22 History azithromycin 250 mg tablet 250 mg PO DAILY 03/21/22 03/21/22 History benzonatate 100 mg capsule 200 mg PO TID 03/21/22 03/21/22 History cyclosporine 0.05 % eye drops in a 1 drp OPB Q12H 03/21/22 03/21/22 History dropperette (Restasis) dextromethorphan-guaifenesin 10 10 ml PO QID 03/21/22 03/21/22 History mg-100 mg/5 mL oral syrup ferrous sulfate 325 mg (65 mg 325 mg PO QAM 03/21/22 03/21/22 History iron) tablet ibuprofen 600 mg tablet 600 mg PO Q6H PRN fever > 03/21/22 03/21/22 History 100.9/pain 1-10 ipratropium 0.5 mg-albuterol 3 mg 3 ml inhalation . EVERY 2 HOURS 03/21/22 03/21/22 History (2.5 mg base)/3 mL nebulization PRN cough/wheeze soln ipratropium 0.5 mg-albuterol 3 mg 3 ml inhalation QID 03/21/22 03/21/22 History (2.5 mg base)/3 mL nebulization soln sfwrhpybpxeh-pbwextpt-zldvok 1 tab PO DAILY 03/21/22 03/21/22 History tablet (Multivitamin 50 Plus tablet) prednisone 10 mg tablet 10 mg PO UD 03/21/22 03/21/22 History triamcinolone acetonide 0.1 % 1 applic topical QPM 03/21/22 03/21/22 History topical cream venlafaxine 37.5 mg 37.5 mg PO QAM 03/21/22 03/21/22 History capsule,extended release 24 hr (Effexor XR) 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) Anemia Chronic kidney disease, stage 3 (moderate) Chronic venous insufficiency Complicated wound infection Depression Dyslipidemia Fracture of femur Hypertension Lymphedema Mild sleep apnea Obesity Osteoarthritis Osteoporosis (09/22/10) Peripheral neuropathy PLMD (periodic limb movement disorder) Rosacea Tubular adenoma of colon Type 2 diabetes mellitus with diabetic chronic kidney disease Urinary incontinence Venous stasis ulcers of both lower extremities Vitamin B12 deficiency Vitamin D deficiency Surgical History H/O colonoscopy H/O shoulder surgery History of knee replacement History of right above knee amputation (10/26/20) History of varicose vein ligation and stripping S/P ORIF (open reduction internal fixation) fracture (10/04/20) R Status post ablation of incompetent vein using laser Status post appendectomy Status post cholecystectomy Status post foot surgery Status post hip replacement Status post hysterectomy Family History Father , 45 Stroke Mother , 85 No problems noted. Denies family history of Ovarian cancer Prostate cancer Myocardial infarction Breast cancer Colorectal cancer Social History Smoking Status: Never smoker Second Hand Exposure: No; Do You Dip or Chew Tobacco: No; Tobacco Cessation Education Requested by Patient: No Hx Alcohol Use: No Hx Substance Use: No Preferred Language: Bruneian Communication Ability: Impaired Communication Ability Comment: NOORVIK, Macular degeneration, poor historian Visual Impairment: Limited Hearing Ability: Use of Hearing Aid Investigative Analyst Required: No Beliefs That Will Affect Care: None Current Living Situation: Care Home Current Living Situation Comment: Lives w/ son Other Information That Helps Us Care for You: No Feels Safe at Home: Yes Diet Comment: regular caffeine: Yes during the past year weight has: remained stable Dental Care, Regularly: No Physical Activity Frequency: Does not Exercise Seatbelt Use: always Sunscreen Use: No Assistive Devices: Mechanical Lift and Wheelchair Assistive Devices Comment: bed bound Review of Systems All systems reviewed & are unremarkable except as noted in HPI & below. Physical Exam .She is alert, NAD Left leg: splint removed. Skin intact around the ankle. She has brisk refill. No deformity of the ankle. Results & Data Results & Data Laboratory Results . Diagnostic Findings .xrays show a displaced trimalleolar ankle fracture, with improved alignment on the post reduction xrays in the splint. PG Care Time/CCT Total # of Minutes Spent Total Time Spent with Patient: Total time spent is greater than 50% in coordination of care (as documented) at patient's floor/unit and/or counseling patient: Coding Level of Care Code INP/OBS CONSULT LVL 3, 45 MIN Diagnoses Trimalleolar fracture of left ankle S82.852A
[2022-03-22] MEDS: rOPINIRole HCL 0.25 MG TABLET PO SCH (21:47)
[2022-03-22] MEDS: GABAPENTIN 600 MG TAB PO SCH (21:47)
[2022-03-23] MEDS: RESTASIS~ORDER AWAITING ACTION SCH ×2 (00:22→07:36)
[2022-03-23] MEDS: HEPARIN SOD 5,000 UNIT/0.5 ML VIAL SQ SCH (06:33)
[2022-03-23] MEDS: CEFDINIR 300 MG CAP PO SCH (08:58)
[2022-03-23] MEDS: ATENOLOL 50 MG TABLET PO SCH (08:59)
[2022-03-23] MEDS: SENNA 8.6 MG TAB PO SCH (09:00)
[2022-03-23] MEDS ORDERED: POLYETHYLENE (MIRALAX) 17 GM PACK PO SCH (09:00)
[2022-03-23] MEDS: VENLAFAXINE HCL XR 37.5 MG CAPXR PO SCH (09:00)
[2022-03-23] MEDS ORDERED: predniSONE 10 MG TABLET PO SCH (09:00)
[2022-03-23] MEDS: SPIRONOLACTONE 25 MG TAB PO SCH (09:00)
[2022-03-23] MEDS: ASPIRIN 81 MG ECTAB PO SCH (09:00)
--- NOTE | 2022-03-23 09:34 | Progress Notes ---
DATE OF SERVICE: 03/23/2022. SUBJECTIVE: An 86-year-old female admitted with multiple medical issues along with a left distal tib ia/ankle/pilon fracture. This all sustained from falling out of bed. We placed her in a short leg c ast yesterday. She is doing fine. Does not report any particular pain. Says the cast is fitting fi ne. OBJECTIVE: VITAL SIGNS: Temperature 36.7. Vital signs are stable. EXTREMITIES: Examination of left leg reveals a short leg cast to be in place. The ankle looks well positioned. No signs of problems. ASSESSMENT: An 86-year-old white female with multiple medical comorbidities and essentially a non-am bulator with a left distal tibia/pilon fracture from falling out of bed. She really does not ambulat e. This is fairly minimally displaced and she is pretty comfortably, pain mixon. The cast seems to b e fitting well. Biggest issue is avoiding heel ulcers with her lying in bed, so much. PLAN: We are going to leave her in this cast for 6 weeks. She needs to be very careful as far as he el precautions. Keep all pressure off the heel. We will check her back 2 weeks from now. She is no nweightbearing on this leg, other than for just transfers. Any orthopedic questions can be directed to me at [phone]. Job ID: [id number]
--- NOTE | 2022-03-23 13:00 | Discharge Summary ---
Date of Service March 23, 2022 Admission HPI Per Admitting Provider Tata Lin is a 86-year-old female who presented after she fell getting out of bed this morning. No head injury, syncope, confusion. No history of blood thinner use. CXR: Mild cardiomegaly with mild central pulmonary vascular congestion, no overt edema improved from prior XR tibia/fibula left: There is an acute vertically oriented fracture involving the medial malleolus with intra-articular extension demonstrating 5 mm medial displacement. Acute and comminuted distal fibular fracture demonstrate mild impaction with mild apex volar angulation. Acute nondisplaced posterior malleolar fracture. The mineralized appearance the bones with moderate to severe osteoarthritis. Spurring of the calcaneus. Total joint arthroplasty with partially imaged intramedullary lindsey of the distal femur. Demineralized appearanc e of the bones. Soft tissue and arterial calcifications of the lower leg. CXR at [facility]: Reportedly PNA. ?LL infiltrate. Procal neg. 2L oxygen, no home requirement. History of fall and periprosthetic right femur fracture in 2020 requiring ORIF but with traumatic ulceration and complicating infection. Following this patient was transferred to [facility]. Patient was unable to return home and continued care at [facility]. Is not able to ambulate at baseline and does not bear weight. 2 days before presentation did have a cough and wheeze for 24 hours with increase sputum production. Was prescribed DuoNebs, prednisone 12-day taper, Robitussin, and Z-Joe. CXR personal care note concerning for left lower lobe pneumonia. Per patient: Patient is aware she is in [facility], is oriented to year and place and answers questions appropriately intermittently but is occasionally tangential and requires frequent redirection. She reports she "did something stupid "and tried to get out of bed which she does not normally do. Reports that she does not walk "I cannot, I have 1 leg". She reports in the last 2 days she has had a little bit of increased fatigue, cough, and some sputum production but does not recall what color. She denies chest pain, chest pressure, wheezing, lightheadedness, dizziness. Denies pain in her left lower extremity at time of exam. Denies fever/chills/sweats. Denies nausea/vomiting. 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 Endorses that she would like to avoid surgery. Also discussed case with patient's son, Florian by phone. Does not wish to pursue surgical intervention, would like nonoperative management if possible. No additional questions or concerns at time of call. Medical History: Reviewed Medications: Reviewed Surgical History: Reviewed Allergies: Reviewed Social History: Reviewed Code Status: DNR/DNI Principal Diagnosis Closed trimalleolar fracture of the left ankle from mechanical fall Discharge Exam General-alert and oriented x3, no fevers, no chills. Morbidly obese HEENT-head atraumatic and normocephalic, pupils equal and reactive to light, extraocular muscles intact Neck-no lymphadenopathy or thyromegaly, trachea midline Chest-clear to auscultation percussion. No rales wheezing or rhonchi Cardiac-regular rate and rhythm, normal S1 and S2 Abdomen-normal bowel sounds, nontender, no hepatosplenomegaly Extremities-left ankle is now in a hard cast . Right AKA status Neuro-cranial nerves II through XII intact, motor and sensory function within normal limits, strength symmetrical , no focal deficits Psych-normal affect, normal mood Discharge Data Allergies Allergy/AdvReac Type Severity Reaction Status Date / Time promethazine Allergy Severe RESP. Verified 03/21/22 15:15 ARREST Sulfa (Sulfonamide Allergy Intermediate WELTS Verified 03/21/22 15:15 Antibiotics) duloxetine Allergy Unknown Unknown Verified 03/21/22 15:15 nefazodone Allergy Unknown Unknown Verified 03/21/22 15:15 trazodone Allergy Unknown Unknown Verified 03/21/22 15:15 propoxyphene AdvReac Intermediate SEVERE Verified 03/21/22 15:15 HEADACHE aspirin AdvReac Mild headaches Verified 06/08/21 11:04 amitriptyline AdvReac Unknown Unknown Verified 03/21/22 15:15 blue dye AdvReac Unknown CI Pigment Verified 03/21/22 15:15 blue 63 Consultations 03/21/22 14:18 Consult Orthopedic Surgery Routine ED Decision to Admit Stat Hospital Course (1) Trimalleolar fracture of left ankle: The patient and family have opted for nonsurgical management. The left ankle has been immobilized and is now in a hard cast. Orthopedic consultation and recommendations appreciated.. Oxycodone has helped considerably with pain control. Eventual follow-up with orthopedics as directed in 2 weeks. Currently nonweightbearing. (2) Left foot pain: Due to left ankle fracture. Pain management. Immobilization. Currently nonweightbearing (3) Chronic kidney disease, stage 3 (moderate): Monitor intake and output. Serial lab studies (4) Peripheral neuropathy: Stable with current medical management (5) Dyslipidemia: Stable with current statin therapy (6) Depression: Stable with current medical management (7) Chronic venous insufficiency: Bilateral legs. Leg elevation when possible. (8) Anemia: No overt blood loss. Serial labs (9) Pneumonia: Suspected recent pneumonia. Azithromycin switched to cefdinir orally. We will taper prednisone off. Serial chest x-rays until clear (10) COPD (chronic obstructive pulmonary disease): Currently stable. Continue supplemental oxygen to maintain saturation greater than 90%. Continue inhalers and current medications. Taper prednisone off (11) Chronic respiratory failure with hypoxia: She normally uses 2 L of oxygen continuously at home. Currently on 2 L with satisfactory oxygen saturation . Plan Discharge back to [facility] today, March 23 Total Time Total Time Spent Total Time Spent (In Minutes): 40 minutes Discharge Plan Discharge Items Patient Disposition: Transfer [facility] Reason For Visit: Mackenzie LAUREN Discharge Diagnosis: Left Distal Tibia/Ankle Fracture Activity: Per Instructions section Activity Comment: Non-weightbearing left leg for 6 weeks Weightbearing: Left non-weightbearing Weightbearing Comment: Keep all pressure off heel while in bed. Non-emergency contact: Primary Care Provider Call non-emergency contact if: your pain is worsening Follow-up/Referrals: [facility] [Primary Care Provider] - Gonzalez Leong MD [Physician] - (Orthopedic follow-up 2 weeks from discharge.) Diet: Carb Consistent or DM2 and Heart Healthy Addtl Attending Provider Instructions: Keep all pressure off heel. Pending Studies at Discharge: No Stand-Alone Forms: My [facility] Skilled Items Patient informed of condition?: Yes DNR: Yes Discharge Level of Care: Skilled Communicable Disease: No Discharge Prognosis: Stable Lines: None Urinary Catheter: No Medications and DC Order Prescriptions: New ferrous sulfate 325 mg (65 mg iron) Tablet,Delayed Release (Dr/Ec) 325 mg PO BID Qty: 60 0RF cefdinir 300 mg Capsule 300 mg PO BID Qty: 10 0RF polyethylene glycol 3350 [Miralax] 17 gram Powder In Packet 17 g PO DAILY Qty: 14 0RF oxycodone 5 mg Tablet 5 mg PO Q4H PRN (Reason: pain) Qty: 10 0RF prednisone 10 mg tablet See Rx Instructions .ROUTE .COMPLEX Qty: 6 0RF Rx Instructions: 10 mg orally twice a day for 2 days, then 10 mg daily for 2 days, then stop oxycodone 5 mg capsule 5 mg PO Q4H PRN (Reason: pain) Qty: 10 0RF Continued cyanocobalamin (vitamin B-12) [Vitamin B-12] 1,000 mcg/mL drops 1,000 mcg PO DAILY cholecalciferol (vitamin D3) 5,000 unit capsule 5,000 units PO DAILY ropinirole 0.5 mg tablet 0.5 mg PO HS aspirin 81 mg capsule 81 mg PO BID atenolol 50 mg tablet 50 mg PO DAILY Qty: 90 1RF gabapentin 300 mg capsule 1,200 mg PO HS Qty: 360 1RF PreserVision AREDS [id number] Tablet 1 cap PO DAILY acetaminophen [Tylenol Extra Strength] 500 mg Tablet 1,000 mg PO Q8 Qty: 10 0RF ferrous sulfate 325 mg (65 mg iron) tablet 325 mg PO QAM venlafaxine [Effexor XR] 37.5 mg capsule,extended release 24hr 37.5 mg PO QAM Rx Instructions: FAILED GDR, DO NOT D/C Multivitamin 50 Plus Tablet 1 tab PO DAILY azithromycin 250 mg Tablet 250 mg PO DAILY Rx Instructions: take for 4 days end date 03/24/22 benzonatate 100 mg Capsule 200 mg PO TID Rx Instructions: take for 2 weeks...end date 04/02/22 dextromethorphan-guaifenesin 10-100 mg/5 mL Syrup 10 ml PO QID Rx Instructions: give for 2 weeks end date 04/02/22 triamcinolone acetonide 0.1 % cream 1 applic TOPICAL QPM Rx Instructions: apply to R side of nose every evening shift for skin irritation cyclosporine [Restasis] 0.05 % Dropperette 1 drp OPB Q12H ipratropium-albuterol 0.5 mg-3 mg(2.5 mg base)/3 mL solution for nebulization 3 ml INHALATION QID Rx Instructions: take for 2 weeks...end date 04/02/22 ipratropium-albuterol 0.5 mg-3 mg(2.5 mg base)/3 mL solution for nebulization 3 ml INHALATION . EVERY 2 HOURS PRN (Reason: cough/wheeze) Rx Instructions: take for 2 weeks...end date 04/02/22 ibuprofen 600 mg Tablet 600 mg PO Q6H PRN (Reason: fever > 100.9/pain 1-10) sennosides [senna] 8.6 mg Tablet 8.6 mg PO DAILY calcium citrate 250 mg calcium Tablet 250 mg PO HS atropine 1 % drops 2 drp sublingual .EVERY HOUR PRN (Reason: excessive secretions) Eucerin Cream 1 applic TOPICAL PM Rx Instructions: apply to LLE spironolactone 50 mg tablet 50 mg PO DAILY ondansetron HCl 4 mg tablet 4 mg PO Q6 PRN (Reason: Nausea And Vomiting) Discontinued prednisone 10 mg tablet 10 mg PO UD Rx Instructions: 50 mg daily x 2 days= start 03/21/22 end 03/23/22 40 mg daily x 2 days= start 03/23/22 end 03/25/22 30 mg daily x 2 days= start 03/25/22 end 03/27/22 20 mg daily x 2 days= start 03/27/21 end 03/29/22 10 mg daily x 2 days= start 03/29/22 end 03/31/22 Discharge Orders: Discharge Order (Routine); Ordered 03/23/22 Ordered By: Simon Chavez Admission Data Admit Date/Time: 03/21/22 14:40 Attending Provider: Simon Chavez Admit Provider: Dakota Robles Primary Care Provider: [facility] Other Providers: Dakota Robles ; Gonzalez Leong Coding Level of Care Code HOSP INP/OBS DISCH >30 MIN Diagnoses Trimalleolar fracture of left ankle S82.852A Left foot pain M79.672 Chronic kidney disease, stage 3 (moderate) N18.3 Peripheral neuropathy G62.9 Dyslipidemia E78.5 Depression F32.9 Chronic venous insufficiency I87.2 Anemia D64.9 Pneumonia J18.9 COPD (chronic obstructive pulmonary disease) J44.9 Chronic respiratory failure with hypoxia J96.11
== END 2022-03-23 13:55 ==
LOC: ED 11:53 → 3W 14:40 → SUATTDRO 14:40 → INTOOBSV 14:40 → 3W 15:33
DX: Z79.899 Other long term (current) drug therapy; W06.XXXA Fall from bed, initial encounter; Z88.2 Allergy status to sulfonamides; E78.5 Hyperlipidemia, unspecified; Z89.611 Acquired absence of right leg above knee; Z79.82 Long term (current) use of aspirin; J44.9 Chronic obstructive pulmonary disease, unspecified; S82.852A Displaced trimalleolar fracture of left lower leg, initial encounter for closed fracture; Z88.8 Allergy status to other drugs, medicaments and biological substances; Z68.42 Body mass index [BMI] 45.0-49.9, adult; E66.01 Morbid (severe) obesity due to excess calories; R41.0 Disorientation, unspecified; N18.30 Chronic kidney disease, stage 3 unspecified; I12.9 Hypertensive chronic kidney disease with stage 1 through stage 4 chronic kidney disease, or unspecified chronic kidney disease; Z88.6 Allergy status to analgesic agent